=== PATIENT | male | born 1960 | race Caucasian/White ===

== ENCOUNTER 2017-03-27 10:03 | Inpatient (IN) | payer SELFPAY ==
[2017-03-27] MEDS ORDERED: ONDANSETRON HCL INJ/PF 4 MG/2 ML SDV IV ONE (10:27)
[2017-03-27 10:38] LABS: ABSOLUTE EOSINOPHILS # (AUTO) 0.1 10^3/uL (0.0-0.6); ABSOLUTE LYMPHOCYTES (AUTO) 1.8 10^3/uL (0.5-4.7); ABSOLUTE MONOCYTES (AUTO) 0.7 10^3/uL (0.1-1.4); ABSOLUTE NEUT (AUTO) 6.5 10^3/uL (1.7-8.2); BASOPHILS % (AUTO) 0.3 % (0-2); EOSINOPHILS % (AUTO) 0.7 % (0-6); HEMATOCRIT 30.1 % (37.9-51.0); HEMOGLOBIN 10.8 g/dL (13.5-17.0); HGB HCT DIFFERENCE 2.3; LYMPHOCYTES % (AUTO) 19.6 % (13-45); MEAN CORPUSCULAR VOLUME 97 fl (80-97); MONOCYTES % (AUTO) 8.1 % (3-13); RED CELL DISTRIBUTION WIDTH 17.3 % (11.5-14.0); SEGMENTED NEUTROPHILS % (AUTO) 71.3 % (42-78); WHITE BLOOD COUNT 9.1 10^3/uL (4.0-10.5)
[2017-03-27] MEDS: NORMAL SALINE 1000 ML 1,000 ML IV PRN ×2 (10:46→12:16)
--- NOTE | 2017-03-27 11:17 | ER Document Report ---
ED GI/ - General Mode of Arrival: Ambulatory Information source: Patient TRAVEL OUTSIDE OF THE [place] IN LAST 30 DAYS: No <RENÉ COLORADO - Last Filed: 03/27/17 13:05> <PORSCHE WOODS - Last Filed: 03/27/17 15:25> - General Chief Complaint: Nausea/Vomiting/Diarrhea Stated Complaint: NAUSEA/VOMITING Time Seen by Provider: 03/27/17 10:26 Notes: Patient is a 57-year-old male who presents to the emergency department today with complaints of "being not able to eat for the last month". Patient states he has frequent diarrhea and vomiting. Patient states "he does not work in the best conditions". 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 ( RENÉ COLORADO) - Related Data Allergies/Adverse Reactions: No Known Allergies Allergy (Unverified 04/27/13 10:34) Past Medical History - General Information source: Patient - Social History Smoking Status: Current Every Day Smoker Cigarette use (# per day): Yes Frequency of alcohol use: Heavy Drug Abuse: None Lives with: Family Family History: Reviewed & Not Pertinent, Other Patient has suicidal ideation: No Patient has homicidal ideation: No Pulmonary Medical History: Reports: Hx COPD Surgical Hx: Negative - Immunizations Hx Diphtheria, Pertussis, Tetanus Vaccination: No <RENÉ COLORADO - Last Filed: 03/27/17 13:05> Review of Systems - Review of Systems Constitutional: No symptoms reported EENT: No symptoms reported Cardiovascular: No symptoms reported Respiratory: No symptoms reported Gastrointestinal: See HPI, Diarrhea, Nausea, Vomiting Genitourinary: No symptoms reported Male Genitourinary: No symptoms reported Musculoskeletal: No symptoms reported Skin: No symptoms reported Hematologic/Lymphatic: No symptoms reported Neurological/Psychological: No symptoms reported -: Yes All other systems reviewed and negative <RENÉ COLORADO - Last Filed: 03/27/17 13:05> Physical Exam - Vital signs Interpretation: Hypotensive, Tachycardic <RENÉ COLORADO - Last Filed: 03/27/17 13:05> <PORSCHE WOODS - Last Filed: 03/27/17 15:25> - Vital signs Vitals: Temp Pulse Resp BP Pulse Ox 97.6 F 94 20 107/77 94 03/27/17 10:03 03/27/17 10:03 03/27/17 10:03 03/27/17 10:03 03/27/17 10:03 - Notes Notes: Physical Exam: General: Alert, chronically ill-appearing. HEENT: Normocephalic. Atraumatic. PERRL. Extraocular movements intact. Oropharynx clear. Dry mucous membranes. Neck: Supple. Non-tender. Respiratory: No respiratory distress. Decreased breath sounds on the right. Cardiovascular: Regular rate and rhythm. Abdominal: Normal Inspection. Non-tender. No distension. Normal Bowel Sounds. Back: Non-tender. No deformity or step off. Extremities: Moves all four extremities. Upper extremities: Normal inspection. Normal ROM. Lower extremities: Normal inspection. No edema. Normal ROM. Neurological: Normal cognition. AAOx4. Normal speech. Psychological: Normal affect. Normal Mood. Skin: Warm. Dry. Normal color. (RENÉ COLORADO) Course - Laboratory Result Diagrams: 03/27/17 10:20 03/27/17 10:20 <RENÉ COLORADO - Last Filed: 03/27/17 13:05> - Laboratory Result Diagrams: 03/27/17 10:20 03/27/17 10:20 - Diagnostic Test Radiology reviewed: Image reviewed, Reports reviewed <PORSCHE WOODS - Last Filed: 03/27/17 15:25> - Re-evaluation Re-evalutation: 03/27/17 15:18 Patient is a 57-year-old male who comes in for vomiting and diarrhea. Patient has had no further vomiting or diarrhea in the emergency department. Patient does not have any evidence for infection in stool. Patient does have some decreased breath sounds on the right side. Chest x-ray is concerning for tumor and postobstructive pneumonia. CT a was done. No pulmonary embolus. Patient does have a new right-sided chest mass with postobstructive pneumonia. Patient was informed of findings and concerns. Patient was discussed with the hospitalist service who will admit the patient to the hospital. Patient also with hyponatremia, hypokalemia that will need to be replaced. Patient was discussed with the oncologist, Dr. Mar who will see the patient while admitted. Likely will need biopsy. Stable at time of admission. (PORSCHE WOODS) - Vital Signs Vital signs: Temp Pulse Resp BP Pulse Ox 97.9 F 90 19 123/69 92 03/27/17 13:59 03/27/17 13:59 03/27/17 13:59 03/27/17 13:59 03/27/17 13:59 - Laboratory Laboratory results interpreted by me: 03/27/17 03/27/17 03/27/17 10:20 10:20 12:18 RBC 3.10 L Hgb 10.8 L Hct 30.1 L MCH 35.0 H RDW 17.3 H Sodium 122.2 L Potassium 3.0 L* Chloride 77 L Total Bilirubin 1.8 H Direct Bilirubin 1.2 H Alkaline Phosphatase 151 H Lipase 523.9 H Urine Blood SMALL H Urine Urobilinogen 2.0 H Critical Care Note - Critical Care Note Total time excluding time spent on procedures (mins): 45 - Evaluation and management of hypotension, diagnosis of lung mass, multiple re-evaluations, coordination of admission, coordination with specialist, counseling of patient <PORSCHE WOODS - Last Filed: 03/27/17 15:25> Discharge <RENÉ COLORADO - Last Filed: 03/27/17 13:05> - Discharge Admitting Provider: Hospitalist - [facility] Unit Admitted: [facility] <PORSCHE WOODS - Last Filed: 03/27/17 15:25> - Discharge Clinical Impression: Hyponatremia, Dehydration, Lung mass, Hypokalemia Pneumonia Qualifiers: Pneumonia type: due to unspecified organism Laterality: bilateral Lung location : lower lobe of lung Qualified Code(s): J18.9 - Pneumonia, unspecified organism Condition: Stable Disposition: ADMITTED INPATIENT Scribe Attestation: 03/27/17 15:24 I personally performed the services described in the documentation, reviewed and edited the documentation which was dictated to the scribe in my presence, and it accurately records my words and actions. (PORSCHE WOODS) Scribe Documentation - Scribe Written by Scribe:: Lacie Kim, 03/27/2017 1129 acting as scribe for :: Izabel <RENÉ COLORADO - Last Filed: 03/27/17 13:05>
--- NOTE | 2017-03-27 11:18 | RADIOLOGY REPORT (SQ) ---
EXAM DESCRIPTION: CHEST SINGLE VIEW COMPLETED DATE/TIME: 03/27/2017 11:06 am REASON FOR STUDY: cough COMPARISON: 05/18/2013 EXAM PARAMETERS: NUMBER OF VIEWS: One view. TECHNIQUE: Single frontal radiographic view of the chest acquired. RADIATION DOSE: NA LIMITATIONS: None. FINDINGS: LUNGS AND PLEURA: Fairly dense opacification in the right upper lobe. MEDIASTINUM AND HILAR STRUCTURES: Right hilar mass. Right hilum is elevated. HEART AND VASCULAR STRUCTURES: Heart normal in size. Normal vasculature. BONES: No acute findings. HARDWARE: None in the chest. OTHER: No other significant finding. IMPRESSION: Right upper lobe pneumonia, possibly postobstructive pneumonia secondary to a right merry r mass. TECHNICAL DOCUMENTATION: JOB ID: [id number] [employer]- All Rights Reserved
[2017-03-27 11:22] LABS: ALANINE AMINOTRANSFERASE 31 U/L (21-72); ALBUMIN 3.9 g/dL (3.5-5.0); ALKALINE PHOSPHATASE 151 U/L (38-126); ANION GAP 18 (5-19); ASPARTATE AMINO TRANSFERASE 50 U/L (17-59); BILIRUBIN,DIRECT 1.2 mg/dL (0.0-0.4); BILIRUBIN,TOTAL 1.8 mg/dL (0.2-1.3); BLOOD UREA NITROGEN 15 mg/dL (7-20); CALCIUM 8.4 mg/dL (8.4-10.2); CARBON DIOXIDE 27 mmol/L (22-30); CHLORIDE 77 mmol/L (98-107); CREATININE RESULT 0.84 mg/dL (0.52-1.25); GLUCOSE 86 mg/dL (75-110); LIPASE 523.9 U/L (23-300); SODIUM 122.2 mmol/L (137-145); TOTAL PROTEIN 7.4 g/dL (6.3-8.2)
[2017-03-27] MEDS ORDERED: RINGERS SOLUTION,LACTATED 1,000 ML IV ONE (11:53)
[2017-03-27] MEDS ORDERED: AZITHROMYCIN INJ 500 MG VIAL IV ONE (12:13)
[2017-03-27] MEDS ORDERED: NORMAL SALINE 1000 ML 1,000 ML IV PRN (12:43)
[2017-03-27] MEDS ORDERED: ALBUTEROL SULFATE 0.083% NEB 2.5 MG/3 ML AMPUL NEB PRN (12:43)
[2017-03-27 13:13] LABS: APPEARANCE,URINE CLEAR; BILIRUBIN,URINE NEGATIVE (NEGATIVE); GLUCOSE, URINE NEGATIVE (NEGATIVE); KETONES,URINE NEGATIVE (NEGATIVE); LEUKOCYTE ESTERASE,URINE NEGATIVE (NEGATIVE); NITRITE,URINE NEGATIVE (NEGATIVE); PROTEIN,URINE NEGATIVE (NEGATIVE); URINE SPECIFIC GRAVITY 1.006
[2017-03-27] MEDS ORDERED: CEFTRIAXONE 1 GM/D5W RTU 1 GM/50 ML RTUPB IV ONE (13:30)
[2017-03-27] MEDS ORDERED: ENOXAPARIN SODIUM INJ 40 MG/0.4 ML DISP.SYRIN SUBCUT ONE (14:00)
[2017-03-27] MEDS ORDERED: POTASSIUM CHLORIDE 10 MEQ TABLET.SA PO ONE ×2 (14:41→18:00)
--- NOTE | 2017-03-27 15:11 | RADIOLOGY REPORT (SQ) ---
EXAM DESCRIPTION: CTA CHEST COMPLETED DATE/TIME: 03/27/2017 2:36 pm REASON FOR STUDY: evaluate for PE and mass COMPARISON: None. TECHNIQUE: CT scan of the chest performed using helical scanning technique with dynamic intravenous contrast injection. Images reviewed with lung, soft tissue and bone windows. Reconstructed coronal and sagittal MPR images reviewed. Additional 3 dimensional post-processing performed to develop Maximal Intensity Projection images (NC P). All images stored on PACS. All CT scanners at this facility use dose modulation, iterative reconstruction, and/or weight based d osing when appropriate to reduce radiation dose to as low as reasonably achievable (ALARA). [facility]: Dose Right [facility]: CareDose [facility]: Dose Right [facility]: Teradose 4D [facility]: fishfishme CONTRAST TYPE AND DOSE: contrast/concentration: Isovue 370.00 mg/ml; Total Contrast Delivered: 79.0 ml; Total Saline Delivered: 100.0 ml Contrast bolus adequate for pulmonary arteries and aorta. RENAL FUNCTION: BUN 15 creatinine 0.8 RADIATION DOSE: Up-to-date CT equipment and radiation dose reduction techniques were employed. CTDIv ol: 9.9 - 23.8 mGy. DLP: 2704 mGy-cm. . LIMITATIONS: None. FINDINGS: LUNGS AND PLEURA: Paraseptal emphysema. Approximately 10.2 x 6.7 cm mass in the right upp er lobe. 1 cm satellite nodule more posteriorly in the right upper lobe. Segmental airspace disease in the right lower lobe. Subsegmental airspace disease in the left lower lobe. No effusions. AORTA AND GREAT VESSELS: No aneurysm. No dissection. HEART: No pericardial effusion. PULMONARY ARTERIES: No emboli visualized in the main pulmonary arteries or the segmental branches. HILAR AND MEDIASTINAL STRUCTURES: Small mediastinal nodes measuring less than 1 cm in short axis. HARDWARE: None in the chest. UPPER ABDOMEN: See separate report of the CT of the abdomen. THYROID AND OTHER SOFT TISSUES: No masses. No adenopathy. BONES: No acute or significant finding. 3D MIPS: Confirm above findings. OTHER: No other significant finding. IMPRESSION: 1. No PE. 2. Right upper lobe mass. Satellite nodule more posteriorly in the right upper lobe. 3. Lower lobe airspace disease may represent superimposed pneumonia or aspiration. Clinical correlat ion is needed. COMMENT: Quality ID # [id number]: Final reports with documentation of one or more dose reduction techniques (e.g., Automated exposure control, adjustment of the mA and/or kV according to patient size, use of iterative reconstruction technique) TECHNICAL DOCUMENTATION: JOB ID: [id number] [employer]- All Rights Reserved
--- NOTE | 2017-03-27 15:29 | PDOC H&P ---
History of Present Illness Admission Date/PCP: 03/27/17 12:35 Patient complains of: Nausea vomiting and diarrhea for several days History of Present Illness: ERICKA RAZO is a 57 year old male with no significant past medical history. He does not have a primary care physician. He last saw a physician "several years ago". He presented to the emergency room complaining of significant nausea vomiting and diarrhea and not being able to eat and keep anything down for the past month. He notes that he often have spells of coughing, nonproductive, which often ends up with him having vomiting. He admits to generalized weakness and lethargy. Admits to failure to thrive. He denies chest pain, shortness of breath, fever or chills, any focal neurologic deficits. However he admits to having multiple falls at home which he relates to "passing out frequently". He reports more than 10 of such episodes over the past 1 month. Of note the patient is not on any medication at home. In the emergency room the patient was noted to have a right upper lobe mass with what appears to be a postobstructive pneumonia additionally his sodium was low as well as potassium. A CT scan of the chest abdomen and pelvis has been ordered. Stool was negative for C. difficile. An MRI of the brain is pending. The patient has been started empirically on IV Zosyn and levofloxacin. He will be admitted for further workup Past Medical History Cardiac Medical History: Denies: Coronary Artery Disease, Myocardial Infarction, Hypertension Pulmonary Medical History: Reports: Chronic Obstructive Pulmonary Disease (COPD) Denies: Asthma, Bronchitis, Pneumonia Neurological Medical History: Denies: None, Hemorrhagic CVA, Ischemic CVA, Migraine, Multiple Sclerosis, Seizures, Other Endocrine Medical History: Denies: None, Diabetes Mellitus Type 1, Diabetes Mellitus Type 2, Gestational Diabetes, Hyperthyroidism, Hypothyroidism, Obesity, Other Renal/ Medical History: Denies: None, Chronic Kidney Disease, End Stage Renal Disease, Nephrolithiasis, Other Malignancy Medical History: Denies: None, Bone Cancer, Brain Cancer, Breast Cancer, Cervical Cancer, Colorectal Cancer, Leukemia, Liver Cancer, Lung Cancer, Lymphoma, Ovarian Cancer , Pancreatic Cancer, Renal (Kidney) Cancer, Skin Cancer, Other GI Medical History: Denies: None, Cirrhosis, Crohn's Disease, Diverticulitis, Gastroesophageal Reflux Disease, Hepatitis, Hiatal Hernia, Peptic Ulcer Disease, Ulcerative Colitis, Other Musculoskeltal Medical History: Denies: Arthritis Hematology: Denies: Anemia Past Surgical History Past Surgical History: Reports: Other - None Social History Information Source: Emergency Med Personnel 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 He does not have any other jobs. Or insurance Lives with: Family Smoking Status: Current Every Day Smoker Cigarettes Packs Per Day: 1.5 Number of Years Smokin Frequency of Alcohol Use: Social Hx Recreational Drug Use: No Drugs: None Past Social History Note: Lives with girlfrient. Is not and does not have children - Advance Directive Surrogate healthcare decision maker:: Patient does not have any advanced directives and has no designated POA Family History Family History: Reviewed & Not Pertinent, Other Family History: Parents alive Parental Family History Reviewed: Yes Children Family History Reviewed: No Sibling(s) Family History Reviewed.: NA Medication/Allergy Allergies/Adverse Reactions: No Known Allergies Allergy (Unverified 04/27/13 10:34) Review of Systems Constitutional: PRESENT: as per HPI, fatigue Respiratory: PRESENT: cough Gastrointestinal: PRESENT: as per HPI, diarrhea, nausea, vomiting Neurological: PRESENT: frequent falls, lack of coordination Physical Exam Vital Signs: Temp Pulse Resp BP Pulse Ox 97.6 F 81 20 109/66 94 03/27/17 10:03 03/27/17 10:38 03/27/17 10:03 03/27/17 10:38 03/27/17 10:03 General appearance: PRESENT: no acute distress, cooperative, disheveled, thin Head exam: PRESENT: atraumatic, normocephalic Eye exam: PRESENT: conjunctiva pink, EOMI, PERRLA Ear exam: PRESENT: normal external ear exam, TM's normal bilaterally Mouth exam: PRESENT: moist, neck supple, tongue midline Teeth exam: PRESENT: dental caries, poor dentation Throat exam: ABSENT: post pharyngeal erythema, tonsillar erythema, tonsillar exudate, tonsillogmegaly, other Neck exam: PRESENT: full ROM. ABSENT: carotid bruit, JVD, lymphadenopathy, meningismus, tenderness, thyromegaly, tracheal deviation, tracheostomy, other Respiratory exam: PRESENT: clear to auscultation rodrigue, decreased breath sounds, rhonchi, unlabored. ABSENT: accessory muscle use, chest wall tenderness, crackles, prolonged expiratory phas, rales, retraction, stridor, symmetrical, tachypnea, wheezes, other Cardiovascular exam: PRESENT: RRR, +S1, +S2 Pulses: PRESENT: normal carotid pulses, normal radial pulses Vascular exam: PRESENT: normal capillary refill GI/Abdominal exam: PRESENT: normal bowel sounds, soft. ABSENT: ascites, diminished bowel sounds, distended, firm, guarding, hernia, hyperactive bowel sounds, hypoactive bowel sounds, mass, Jennings's sign, organolmegaly, rebound, rigid, tenderness, other Rectal exam: PRESENT: deferred Extremities exam: PRESENT: full ROM. ABSENT: calf tenderness, clubbing, joint swelling, pedal edema, tenderness, +1 edema, +2 edema, other Musculoskeletal exam: PRESENT: ambulatory, full ROM Neurological exam: PRESENT: alert, awake, oriented to person, oriented to place , oriented to time, oriented to situation, reflexes normal, CN II-XII grossly intact, normal gait Psychiatric exam: PRESENT: anxious. ABSENT: agitated, appropriate affect, depressed, flat affect, homicidal ideation, manic, normal mood, suicidal ideation, unusual affect, other Skin exam: PRESENT: abrasion, skin tears Results Laboratory Results: 03/27/17 10:20 Sodium 122.2 L Potassium 3.0 L* Lipase 523.9 H 03/27/17 03/27/17 03/27/17 10:20 10:20 13:25 WBC 9.1 Hgb 10.8 L Plt Count 226 Sodium 122.2 L Potassium 3.0 L* Anion Gap 18 Creatinine 0.84 Lipase 523.9 H C. difficile Tox (PCR) NEGATIVE Impressions: Chest X-Ray 03/27/17 00:00 IMPRESSION: Right upper lobe pneumonia, possibly postobstructive pneumonia secondary to a right hilar mass. Assessment & Plan - Diagnosis (1) Pneumonia Qualifiers: Pneumonia type: due to unspecified organism Laterality: right Lung location: upper lobe of lung Qualified Code(s): J18.1 - Lobar pneumonia, unspecified organism Is this a current diagnosis for this admission?: Yes Plan: Likely post obstructive pneumonia from the lung mass. Started empirically on IV Zosyn and levofloxacin. Follow blood cultures. (2) Lung mass Plan: Right upper lobe mass 10.2 x 6.7 cm, most likely malignant given the heavy smoking history. Dr. Santiago, oncology, has been consulted by the emergency room physician. Plans for CT-guided biopsy noted (3) Hyponatremia Is this a current diagnosis for this admission?: Yes Plan: Hyponatremia, hypovolemic. Sodium is 122. Likely due to diarrhea and dehydration and/or SIADH from lung mass. Obtain urine studies. Start on NSS IVFs and follow labs (4) Hypokalemia Plan: Replete and recheck (5) Tobacco abuse Plan: Smoking cessation completed. Patient is not interested in quitting smoking at this time. We will start nicotine replacement therapy (6) Dehydration Is this a current diagnosis for this admission?: Yes Plan: Due to the diarrhea at home. Stool for C. difficile was negative. Continue IV fluid rehydration - Time Time Spent: Greater than 70 Minutes Smoking Cessation Education: over 10 minutes Medications reviewed and adjusted accordingly: Yes Anticipated discharge: Home - Inpatient Certification Medical Necessity: Need Close Monitoring Due to Risk of Patient Decompensation, Risk of Complication if Not Cared For in Hospital
--- NOTE | 2017-03-27 15:31 | RADIOLOGY REPORT (SQ) ---
EXAM DESCRIPTION: CT ABD/PELVIS WITH IV ORAL COMPLETED DATE/TIME: 03/27/2017 2:36 pm REASON FOR STUDY: vomiting, diarrhea x 1 month, h/o smoking COMPARISON: CT angio chest earlier today TECHNIQUE: CT scan of the abdomen and pelvis performed using helical scanning technique with dynamic intravenous contrast injection. Patient drank oral contrast. Images reviewed with lung, soft tissue , and bone windows. Reconstructed coronal and sagittal MPR images reviewed. Delayed images for evalua tion of the urinary system also acquired. All images stored on PACS. All CT scanners at this facility use dose modulation, iterative reconstruction, and/or weight based d osing when appropriate to reduce radiation dose to as low as reasonably achievable (ALARA). [facility]: Dose Right [facility]: CareDose [facility]: Dose Right [facility]: Teradose 4D [facility]: [email or web address] CONTRAST TYPE AND DOSE: 79 mL Isovue 370- low osmolar. RENAL FUNCTION: Creatinine 0.84 RADIATION DOSE: 32 mGy. LIMITATIONS: None. FINDINGS: LOWER CHEST: There is patchy airspace disease in the right and left posterior costophrenic sulci. No pleural effusions. LIVER: Markedly decreased attenuation of the liver from diffuse fatty infiltration. No focal masses. No hepatomegaly. SPLEEN: Normal size. No focal lesions. PANCREAS: No masses. No significant calcifications. No adjacent inflammation or peripancreatic fluid collections. Pancreatic duct not dilated. GALLBLADDER: Multiple tiny stones in the gallbladder ADRENAL GLANDS: No significant masses or asymmetry. RIGHT KIDNEY AND URETER: No solid masses. No significant calcifications. No hydronephrosis or hyd roureter. LEFT KIDNEY AND URETER: No solid masses. No significant calcifications. No hydronephrosis or hydr oureter. AORTA AND VESSELS: No aneurysm. No dissection. Renal arteries, SMA, celiac without stenosis. RETROPERITONEUM: No retroperitoneal adenopathy, hemorrhage or masses. BOWEL AND PERITONEAL CAVITY: Patient drank oral contrast. No evidence of bowel obstruction or free i ntraperitoneal air or free fluid. There is diffuse colon wall thickening and increased intramural fa t along the colon wall, with loss of discrete haustral markings along the transverse and descending c olon. This group of findings can be seen in chronic inflammatory bowel disease. APPENDIX: Normal. PELVIS: No mass. No free fluid. Normal bladder. ABDOMINAL WALL: No masses. No hernias. BONES: No significant or acute findings. OTHER: No other significant finding. IMPRESSION: Profound fatty liver Probable chronic colitis, ulcerative colitis is should be considered. No CT evidence of metastatic disease to the abdomen or pelvis. TECHNICAL DOCUMENTATION: JOB ID: [id number] Quality ID # [id number]: Final reports with documentation of one or more dose reduction techniques (e.g., Au tomated exposure control, adjustment of the mA and/or kV according to patient size, use of iterative reconstruction technique) 2010 [employer]- All Rights Reserved
[2017-03-27 16:03] LABS: ANION GAP 17 (5-19); BLOOD UREA NITROGEN 12 mg/dL (7-20); CALCIUM 7.9 mg/dL (8.4-10.2); CARBON DIOXIDE 25 mmol/L (22-30); CHLORIDE 83 mmol/L (98-107); GLUCOSE 86 mg/dL (75-110); SODIUM 124.8 mmol/L (137-145)
[2017-03-27 16:07] LABS: POTASSIUM 2.5 mmol/L (3.6-5.0)
[2017-03-27] MEDS: PIPERACILLIN SODIUM/TAZOBACTAM 4.5 GM in NORMAL SALINE 100 ML IV SCH ×2 (16:13→20:19)
[2017-03-27] MEDS: LANSOPRAZOLE 15 MG TAB.RAP.DR PO SCH (16:22)
[2017-03-27] MEDS: IPRATROPIUM/ALBUTEROL 0.5-2.5 MG/3 ML AMPUL NEB SCH ×2 (16:34→20:08)
[2017-03-27] MEDS ORDERED: INFLUENZA ADLT QUAD (36MOS+) 2017-18 VAC 0.5 ML SYR IM PRN (17:12)
[2017-03-27] MEDS ORDERED: NORMAL SALINE 1000 ML 1,000 ML IV ONE (17:30)
--- NOTE | 2017-03-27 17:57 | PDOC CONSULTATION ---
Consultation Consult Date: 03/27/17 Attending physician:: YURI BEASLEY Consult reason:: Lung Mass History of Present Illness Admission Date/PCP: 03/27/17 12:35 History of Present Illness: Mr. Medina is a 57 year old gentleman without a routine physician. He states that a few months ago, he began having cough and hiccups. They progressed and were accompanied by vomiting and inability to eat. He states that he has not been able to eat for the past few months, but he has not lost any weight. He also reports severe left shoulder pain and "bad feet" such that he can barely feel them anymore. He states that he has always had back pain and this has not recently changed. He presented to the ED complaining of nausea and diarrhea. He was found to have a large mass in the lung with post-obstructive pneumonia as well as hyponatremia and hypokalemia. He is currently being treated with IV antibiotics. Past Medical History Cardiac Medical History: Denies: Coronary Artery Disease, Myocardial Infarction, Hypertension Pulmonary Medical History: Reports: Chronic Obstructive Pulmonary Disease (COPD) Denies: Asthma, Bronchitis, Pneumonia Neurological Medical History: Denies: None, Hemorrhagic CVA, Ischemic CVA, Migraine, Multiple Sclerosis, Seizures, Other Endocrine Medical History: Denies: None, Diabetes Mellitus Type 1, Diabetes Mellitus Type 2, Gestational Diabetes, Hyperthyroidism, Hypothyroidism, Obesity, Other Renal/ Medical History: Denies: None, Chronic Kidney Disease, End Stage Renal Disease, Nephrolithiasis, Other Malignancy Medical History: Denies: None, Bone Cancer, Brain Cancer, Breast Cancer, Cervical Cancer, Colorectal Cancer, Leukemia, Liver Cancer, Lung Cancer, Lymphoma, Ovarian Cancer , Pancreatic Cancer, Renal (Kidney) Cancer, Skin Cancer, Other GI Medical History: Denies: None, Cirrhosis, Crohn's Disease, Diverticulitis, Gastroesophageal Reflux Disease, Hepatitis, Hiatal Hernia, Peptic Ulcer Disease, Ulcerative Colitis, Other Musculoskeltal Medical History: Denies: Arthritis Hematology: Denies: Anemia Past Surgical History Past Surgical History: Reports: Other - Inguinal hernia Social History Information Source: Patient Occupation: Unemployed Lives with: Spouse/Significant other - Girlfriend of 13 years. Smoking Status: Current Every Day Smoker Cigarettes Packs Per Day: 1.5 Number of Years Smokin Frequency of Alcohol Use: Social Hx Recreational Drug Use: No Drugs: None Hx Prescription Drug Abuse: No Past Social History Note: No children. Family History Family History: Other - Father still living. He had an unknown type of cancer - perhaps a skin cancer. His mother is also living. His older brother , but unsure of cause. He has no children. Parental Family History Reviewed: Yes Children Family History Reviewed: Yes Sibling(s) Family History Reviewed.: Yes Medication/Allergy Home Medications: No Home Medications 03/27/17 Allergies/Adverse Reactions: No Known Allergies Allergy (Unverified 04/27/13 10:34) Review of Systems Constitutional: PRESENT: fatigue, weakness. ABSENT: weight loss Eyes: ABSENT: visual disturbances Ears: ABSENT: hearing changes Nose, Mouth, and Throat: ABSENT: sore throat Cardiovascular: ABSENT: chest pain Respiratory: PRESENT: cough, dyspnea Gastrointestinal: PRESENT: diarrhea, nausea, vomiting Musculoskeletal: PRESENT: back pain Integumentary: ABSENT: rash Neurological: PRESENT: numbness, syncope, weakness Physical Exam Vital Signs: Temp Pulse Resp BP Pulse Ox 97.9 F 93 18 123/69 100 03/27/17 13:59 03/27/17 16:34 03/27/17 16:34 03/27/17 13:59 03/27/17 16:34 Intake & Output 03/26/17 03/27/17 03/28/17 06:59 06:59 06:59 Weight 77.111 kg General appearance: PRESENT: no acute distress, well-nourished Exam: 57 year old male. Head exam: PRESENT: atraumatic, normocephalic Eye exam: PRESENT: PERRLA Mouth exam: PRESENT: moist, tongue midline Neck exam: ABSENT: lymphadenopathy, tenderness, thyromegaly Respiratory exam: PRESENT: decreased breath sounds - Left base.. ABSENT: wheezes Cardiovascular exam: PRESENT: RRR. ABSENT: gallop, rubs Pulses: PRESENT: +1 pedal pulses bilateral GI/Abdominal exam: PRESENT: soft. ABSENT: organolmegaly, tenderness Extremities exam: ABSENT: pedal edema, tenderness Neurological exam: PRESENT: alert, reflexes normal Psychiatric exam: PRESENT: appropriate affect Results Laboratory Results: 03/27/17 15:32 03/27/17 03/27/17 03/27/17 13:25 13:25 15:32 Sodium 124.8 L Potassium 2.5 L* Chloride 83 L Carbon Dioxide 25 Anion Gap 17 BUN 12 Creatinine 0.70 Est GFR ( Amer) > 60 Est GFR (Non-Af Amer) > 60 Glucose 86 Lactic Acid Calcium 7.9 L Stool Occult Blood NEGATIVE Stool for White Cells NO WBCs SEEN 03/27/17 15:32 Sodium Potassium Chloride Carbon Dioxide Anion Gap BUN Creatinine Est GFR ( Amer) Est GFR (Non-Af Amer) Glucose Lactic Acid 2.1 Calcium Stool Occult Blood Stool for White Cells Impressions: Abdomen/Pelvis CT 03/27/17 00:00 IMPRESSION: Profound fatty liver Probable chronic colitis, ulcerative colitis is should be considered. No CT evidence of metastatic disease to the abdomen or pelvis. Chest X-Ray 03/27/17 00:00 IMPRESSION: Right upper lobe pneumonia, possibly postobstructive pneumonia secondary to a right hilar mass. Chest/Abdomen CTA 03/27/17 12:03 IMPRESSION: 1. No PE. 2. Right upper lobe mass. Satellite nodule more posteriorly in the right upper lobe. 3. Lower lobe airspace disease may represent superimposed pneumonia or aspiration. Clinical correlation is needed. Assessment & Plan - Diagnosis (1) Lung mass Plan: I have explained to the patient that we are unsure what the lung mass is. He understands and agrees with need for biopsy of the lesion. Iwill arrange, if possible. (2) Anemia Qualifiers: Anemia type: unspecified type Qualified Code(s): D64.9 - Anemia, unspecified Is this a current diagnosis for this admission?: Yes Plan: Currently mild, normocytic. Consider further work-up as to cause as outpatient. No indication for transfusion currently.
[2017-03-27] MEDS: LEVOFLOXACIN 750 MG/D5W RTU 750 MG/150 ML RTUPB IV SCH (18:41)
--- NOTE | 2017-03-27 20:06 | RADIOLOGY REPORT (SQ) ---
EXAM DESCRIPTION: MRI HEAD COMBO COMPLETED DATE/TIME: 03/27/2017 7:49 pm REASON FOR STUDY: recurrent falls, lung mass r/o brain mets COMPARISON: None. TECHNIQUE: Multiplanar imaging includes noncontrasted T1, T2, FLAIR, and Diffusion with ADC map seq uences. Contrast enhanced T1 images. Images stored on PACS. CONTRAST TYPE AND DOSE: 15 mL MultiHance RENAL FUNCTION: GFR > 60. LIMITATIONS: None. FINDINGS: ANATOMY: No anomalies. Normal vascular flow voids. Pituitary fossa normal. CSF SPACES: Normal size and contour. No hemorrhage. CEREBRUM: A few high-signal intensity lesions scattered throughout the white matter on FLAIR imaging with distribution suggesting chronic microvascular ischemic change. Sulci and gyri normal in size and contour. No evidence of hemorrhage, mass or extraaxial fluid collection. No enhancing lesions. POSTERIOR FOSSA: No signal alteration. No hemorrhage. No edema, masses or mass effect. Internal audit ory canals, cerebello-pontine angles, mastoids normal. DIFFUSION: Negative for acute or subacute infarction. ORBITS: No masses. Globes normal. PARANASAL SINUSES: Mucosal thickening is identified in both maxillary antra. OTHER: No other significant finding. IMPRESSION: NO ENHANCING LESIONS. MINIMAL MICROVASCULAR ISCHEMIC CHANGE. OTHERWISE NORMAL STUDY. EVIDENCE OF ACUTE STROKE: NO. TECHNICAL DOCUMENTATION: JOB ID: [id number] [employer]- All Rights Reserved
[2017-03-27] MEDS: GUAIFENESIN 600 MG TABLET.SA PO SCH (21:14)
[2017-03-28] MEDS: PIPERACILLIN SODIUM/TAZOBACTAM 4.5 GM in NORMAL SALINE 100 ML IV SCH ×4 (02:32→22:02)
[2017-03-28] MEDS: NORMAL SALINE 1000 ML 1,000 ML IV PRN (02:33)
[2017-03-28 04:58] LABS: ABSOLUTE LYMPHOCYTES (AUTO) 0.9 10^3/uL (0.5-4.7); ABSOLUTE MONOCYTES (AUTO) 0.7 10^3/uL (0.1-1.4); ABSOLUTE NEUT (AUTO) 7.8 10^3/uL (1.7-8.2); EOSINOPHILS % (AUTO) 0.4 % (0-6); HEMATOCRIT 29.8 % (37.9-51.0); HEMOGLOBIN 10.4 g/dL (13.5-17.0); HGB HCT DIFFERENCE 1.4; LYMPHOCYTES % (AUTO) 9.9 % (13-45); MEAN CORPUSCULAR HEMOGLOBIN 34.5 pg (27.0-33.4); MEAN CORPUSCULAR VOLUME 99 fl (80-97); MONOCYTES % (AUTO) 6.9 % (3-13); RED BLOOD COUNT 3.02 10^6/uL (4.35-5.55); RED CELL DISTRIBUTION WIDTH 17.2 % (11.5-14.0); SEGMENTED NEUTROPHILS % (AUTO) 82.8 % (42-78); WHITE BLOOD COUNT 9.5 10^3/uL (4.0-10.5)
[2017-03-28] MEDS: LANSOPRAZOLE 15 MG TAB.RAP.DR PO SCH ×2 (05:09→16:55)
[2017-03-28 05:11] LABS: ALANINE AMINOTRANSFERASE 32 U/L (21-72); ALBUMIN 3.1 g/dL (3.5-5.0); ALKALINE PHOSPHATASE 121 U/L (38-126); ANION GAP 15 (5-19); ASPARTATE AMINO TRANSFERASE 46 U/L (17-59); BILIRUBIN,DIRECT 1.3 mg/dL (0.0-0.4); BILIRUBIN,TOTAL 1.8 mg/dL (0.2-1.3); BLOOD UREA NITROGEN 8 mg/dL (7-20); CARBON DIOXIDE 24 mmol/L (22-30); CHLORIDE 93 mmol/L (98-107); CREATININE RESULT 0.76 mg/dL (0.52-1.25); GLUCOSE 93 mg/dL (75-110); POTASSIUM 3.4 mmol/L (3.6-5.0); SODIUM 131.6 mmol/L (137-145); TOTAL PROTEIN 6.4 g/dL (6.3-8.2)
[2017-03-28 05:43] LABS: PROTHROMBIN TIME 14.9 SEC (11.4-15.4)
[2017-03-28] MEDS ORDERED: POTASSIUM CHLORIDE 10 MEQ TABLET.SA PO ONE (08:00)
[2017-03-28] MEDS: IPRATROPIUM/ALBUTEROL 0.5-2.5 MG/3 ML AMPUL NEB SCH ×4 (08:23→19:54)
[2017-03-28] MEDS: ENOXAPARIN SODIUM INJ 40 MG/0.4 ML DISP.SYRIN SUBCUT SCH ×2 (08:39→13:07)
[2017-03-28] MEDS: NICOTINE 21 MG/24 HR PATCH.TD24 TD SCH (10:06)
[2017-03-28] MEDS: GUAIFENESIN 600 MG TABLET.SA PO SCH ×2 (10:07→21:45)
--- NOTE | 2017-03-28 10:13 | PDOC PROGRESS REPORT ---
Subjective Progress Note for:: 03/28/17 Subjective:: Day 1 of hospitalization: Follow-up visit for a patient with post obstructive pneumonia, right upper lung mass, nausea vomiting and diarrhea. The patient is a 57-year-old male with no significant past medical history who has not seen a physician for several years. He presented to the emergency room with significant nausea and vomiting as well as diarrhea, and was found to have a right upper lobe lung mass with an associated post obstructive pneumonia. Chest CT scan revealed a right upper lung mass with an associated lymphadenopathy, brain MRI did not show any acute abnormality. The patient was started on empiric IV Zosyn and levofloxacin. He was seen by oncology, and a CT guided lung biopsy has been scheduled for today. Overnight events noted. Patient remains afebrile and states she is feeling much better this morning. He denies any further nausea vomiting or diarrhea. Denies any chest pain or shortness of breath. Physical Exam Vital Signs: Temp Pulse Resp BP Pulse Ox 98.3 F 100 19 133/78 H 96 03/28/17 03:50 03/28/17 03:50 03/28/17 03:50 03/28/17 03:50 03/28/17 03:50 Intake & Output 03/26/17 03/27/17 03/28/17 06:59 06:59 06:59 Intake Total 3332 Balance 3332 Weight 80.2 kg General appearance: PRESENT: no acute distress, cooperative, disheveled, thin Head exam: PRESENT: atraumatic, normocephalic Respiratory exam: PRESENT: decreased breath sounds, symmetrical, unlabored. ABSENT: accessory muscle use, chest wall tenderness, clear to auscultation rodrigue, crackles, prolonged expiratory phas, rales, retraction, rhonchi, stridor, tachypnea, wheezes, other Cardiovascular exam: PRESENT: RRR, +S1, +S2, systolic murmur. ABSENT: bradycardia, clicks, diastolic murmur, gallop, irregular rhythm, rubs, tachycardia, other Pulses: PRESENT: normal carotid pulses, normal radial pulses GI/Abdominal exam: PRESENT: normal bowel sounds, soft. ABSENT: ascites, diminished bowel sounds, distended, firm, guarding, hernia, hyperactive bowel sounds, hypoactive bowel sounds, mass, Jennings's sign, organolmegaly, rebound, rigid, tenderness, other Neurological exam: PRESENT: alert, awake, oriented to person, oriented to place , oriented to time, oriented to situation Results Laboratory Results: 03/28/17 04:29 03/28/17 04:29 03/27/17 03/27/17 03/27/17 13:25 13:25 15:32 WBC RBC Hgb Hct MCV MCH MCHC RDW Plt Count Seg Neutrophils % Lymphocytes % Monocytes % Eosinophils % Basophils % Absolute Neutrophils Absolute Lymphocytes Absolute Monocytes Absolute Eosinophils Absolute Basophils Sodium 124.8 L Potassium 2.5 L* Chloride 83 L Carbon Dioxide 25 Anion Gap 17 BUN 12 Creatinine 0.70 Est GFR ( Amer) > 60 Est GFR (Non-Af Amer) > 60 Glucose 86 Lactic Acid Calcium 7.9 L Total Bilirubin AST ALT Alkaline Phosphatase Total Protein Albumin Stool Occult Blood NEGATIVE Stool for White Cells NO WBCs SEEN 03/27/17 03/27/17 03/27/17 15:32 20:15 20:15 WBC RBC Hgb Hct MCV MCH MCHC RDW Plt Count Seg Neutrophils % Lymphocytes % Monocytes % Eosinophils % Basophils % Absolute Neutrophils Absolute Lymphocytes Absolute Monocytes Absolute Eosinophils Absolute Basophils Sodium Potassium Chloride Carbon Dioxide Anion Gap BUN Creatinine Est GFR ( Amer) Est GFR (Non-Af Amer) Glucose Lactic Acid 2.1 Cancelled 1.4 Calcium Total Bilirubin AST ALT Alkaline Phosphatase Total Protein Albumin Stool Occult Blood Stool for White Cells 03/28/17 03/28/17 04:29 04:29 WBC 9.5 RBC 3.02 L Hgb 10.4 L Hct 29.8 L MCV 99 H MCH 34.5 H MCHC 35.0 RDW 17.2 H Plt Count 187 Seg Neutrophils % 82.8 H Lymphocytes % 9.9 L Monocytes % 6.9 Eosinophils % 0.4 Basophils % 0.0 Absolute Neutrophils 7.8 Absolute Lymphocytes 0.9 Absolute Monocytes 0.7 Absolute Eosinophils 0.0 Absolute Basophils 0.0 Sodium 131.6 L Potassium 3.4 L Chloride 93 L Carbon Dioxide 24 Anion Gap 15 BUN 8 Creatinine 0.76 Est GFR ( Amer) > 60 Est GFR (Non-Af Amer) > 60 Glucose 93 Lactic Acid Calcium 8.0 L Total Bilirubin 1.8 H AST 46 ALT 32 Alkaline Phosphatase 121 Total Protein 6.4 Albumin 3.1 L Stool Occult Blood Stool for White Cells 03/27/17 20:15 Troponin I < 0.012 Impressions: Abdomen/Pelvis CT 03/27/17 00:00 IMPRESSION: Profound fatty liver Probable chronic colitis, ulcerative colitis is should be considered. No CT evidence of metastatic disease to the abdomen or pelvis. Chest X-Ray 03/27/17 00:00 IMPRESSION: Right upper lobe pneumonia, possibly postobstructive pneumonia secondary to a right hilar mass. Head MRI 03/27/17 00:00 IMPRESSION: NO ENHANCING LESIONS. MINIMAL MICROVASCULAR ISCHEMIC CHANGE. OTHERWISE NORMAL STUDY. EVIDENCE OF ACUTE STROKE: NO. Chest/Abdomen CTA 03/27/17 12:03 IMPRESSION: 1. No PE. 2. Right upper lobe mass. Satellite nodule more posteriorly in the right upper lobe. 3. Lower lobe airspace disease may represent superimposed pneumonia or aspiration. Clinical correlation is needed. Assessment & Plan - Diagnosis (1) Pneumonia Qualifiers: Pneumonia type: due to unspecified organism Laterality: right Lung location: upper lobe of lung Qualified Code(s): J18.1 - Lobar pneumonia, unspecified organism Is this a current diagnosis for this admission?: Yes Plan: Likely post obstructive pneumonia from the lung mass. Chest CT with Lower lobe airspace disease may represent superimposed pneumonia or aspiration. Remains afebrile with no leukocytosis. Continue empirically on IV Zosyn and levofloxacin. Follow blood cultures. (2) Lung mass Plan: Right upper lobe mass 10.2 x 6.7 cm, most likely malignant given the heavy smoking history. Satellite nodule more posteriorly in the right upper lobe. Dr. Santiago, oncology, has been consulted by the emergency room physician. Plans for CT-guided biopsy noted (3) Hyponatremia Is this a current diagnosis for this admission?: Yes Plan: Hyponatremia, hypovolemic. Likely due to diarrhea and dehydration and/or SIADH from lung mass. Improving with NSS IVFs. Sodium is 132 (122). Continue on NSS IVFs and follow labs (4) Hypokalemia Plan: Replete and recheck (5) Tobacco abuse Plan: Smoking cessation completed. Patient is not interested in quitting smoking at this time. We will start nicotine replacement therapy (6) Dehydration Is this a current diagnosis for this admission?: Yes Plan: Due to the diarrhea at home. Stool for C. difficile was negative. Continue IV fluid rehydration - Time Time Spent with patient: 25-34 minutes Smoking Cessation Education: 3 to 10 minutes Medications reviewed and adjusted accordingly: Yes Anticipated discharge: Home with Homehealth Within: within 48 hours - Inpatient Certification Medical Necessity: Need for IV Antibiotics, Risk of Complication if Not Cared For in Hospital, Risk of Diagnosis Which Will Require Inpatient Eval/Care/ Monitoring - Plan Summary Plan Summary: Patient is still requiring inpatient workup at this time as well as IV antibiotics
--- NOTE | 2017-03-28 12:04 | PDOC PROGRESS REPORT ---
Subjective Progress Note for:: 03/28/17 Subjective:: Patient complains of back pain and vision changes. He is awaiting biopsy of the lung. Physical Exam Vital Signs: Temp Pulse Resp BP Pulse Ox 97.9 F 103 H 18 139/69 H 89 L 03/28/17 07:23 03/28/17 08:25 03/28/17 08:25 03/28/17 07:23 03/28/17 08:25 Intake & Output 03/27/17 03/28/17 03/29/17 06:59 06:59 06:59 Intake Total 3554 Balance 3554 Weight 81.7 kg General appearance: PRESENT: no acute distress, well-nourished Respiratory exam: PRESENT: unlabored. ABSENT: accessory muscle use Extremities exam: ABSENT: pedal edema Neurological exam: PRESENT: alert, awake, oriented to person, oriented to place , oriented to time, oriented to situation, normal gait Results Laboratory Results: 03/28/17 04:29 03/28/17 04:29 03/27/17 03/27/17 03/27/17 13:25 13:25 15:32 WBC RBC Hgb Hct MCV MCH MCHC RDW Plt Count Seg Neutrophils % Lymphocytes % Monocytes % Eosinophils % Basophils % Absolute Neutrophils Absolute Lymphocytes Absolute Monocytes Absolute Eosinophils Absolute Basophils Sodium 124.8 L Potassium 2.5 L* Chloride 83 L Carbon Dioxide 25 Anion Gap 17 BUN 12 Creatinine 0.70 Est GFR ( Amer) > 60 Est GFR (Non-Af Amer) > 60 Glucose 86 Lactic Acid Calcium 7.9 L Total Bilirubin AST ALT Alkaline Phosphatase Total Protein Albumin Stool Occult Blood NEGATIVE Stool for White Cells NO WBCs SEEN 03/27/17 03/27/17 03/27/17 15:32 20:15 20:15 WBC RBC Hgb Hct MCV MCH MCHC RDW Plt Count Seg Neutrophils % Lymphocytes % Monocytes % Eosinophils % Basophils % Absolute Neutrophils Absolute Lymphocytes Absolute Monocytes Absolute Eosinophils Absolute Basophils Sodium Potassium Chloride Carbon Dioxide Anion Gap BUN Creatinine Est GFR ( Amer) Est GFR (Non-Af Amer) Glucose Lactic Acid 2.1 Cancelled 1.4 Calcium Total Bilirubin AST ALT Alkaline Phosphatase Total Protein Albumin Stool Occult Blood Stool for White Cells 03/28/17 03/28/17 04:29 04:29 WBC 9.5 RBC 3.02 L Hgb 10.4 L Hct 29.8 L MCV 99 H MCH 34.5 H MCHC 35.0 RDW 17.2 H Plt Count 187 Seg Neutrophils % 82.8 H Lymphocytes % 9.9 L Monocytes % 6.9 Eosinophils % 0.4 Basophils % 0.0 Absolute Neutrophils 7.8 Absolute Lymphocytes 0.9 Absolute Monocytes 0.7 Absolute Eosinophils 0.0 Absolute Basophils 0.0 Sodium 131.6 L Potassium 3.4 L Chloride 93 L Carbon Dioxide 24 Anion Gap 15 BUN 8 Creatinine 0.76 Est GFR ( Amer) > 60 Est GFR (Non-Af Amer) > 60 Glucose 93 Lactic Acid Calcium 8.0 L Total Bilirubin 1.8 H AST 46 ALT 32 Alkaline Phosphatase 121 Total Protein 6.4 Albumin 3.1 L Stool Occult Blood Stool for White Cells 03/27/17 20:15 Troponin I < 0.012 Impressions: Abdomen/Pelvis CT 03/27/17 00:00 IMPRESSION: Profound fatty liver Probable chronic colitis, ulcerative colitis is should be considered. No CT evidence of metastatic disease to the abdomen or pelvis. Chest X-Ray 03/27/17 00:00 IMPRESSION: Right upper lobe pneumonia, possibly postobstructive pneumonia secondary to a right hilar mass. Head MRI 03/27/17 00:00 IMPRESSION: NO ENHANCING LESIONS. MINIMAL MICROVASCULAR ISCHEMIC CHANGE. OTHERWISE NORMAL STUDY. EVIDENCE OF ACUTE STROKE: NO. Chest/Abdomen CTA 03/27/17 12:03 IMPRESSION: 1. No PE. 2. Right upper lobe mass. Satellite nodule more posteriorly in the right upper lobe. 3. Lower lobe airspace disease may represent superimposed pneumonia or aspiration. Clinical correlation is needed. Assessment & Plan - Diagnosis (1) Lung mass Plan: After discussion with Dr. Cabrera and Dr. Ragland, it is felt that bronchoscopy would be better means of obtaining biopsy. I have consulted Dr. Ragland for this. (2) Anemia Qualifiers: Anemia type: unspecified type Qualified Code(s): D64.9 - Anemia, unspecified Is this a current diagnosis for this admission?: Yes Plan: Currently stable. Will continue to monitor. - Plan Summary Plan Summary: We discussed his vision. I have explained that there is not much we are able to do currently, but often vision changes improve once medications have been stopped. I have encouraged him to stay out of the bed and walk in the hallway a few times. He continues Lovenox for DVT prophylaxis.
--- NOTE | 2017-03-28 17:27 | PDOC CONSULTATION ---
Consultation Consult Date: 03/28/17 Attending physician:: SIDDHARTH VOGT Consult reason:: Obstructive pneumonia/lung mass History of Present Illness Admission Date/PCP: 03/27/17 12:35 History of Present Illness: 57-year-old male presented to the emergency room after a month of progressive weakness to the point where he can barely eat a cough is dry nonproductive he denies hemoptysis but admits to some nausea without vomiting no fevers chills chronic rhinorrhea's no sore throat no chest pain no edema he admits to dyspnea on exertion with activities of daily living but denies shortness of breath at rest the time of his presentation are radiographs indicated that he had a postobstructive pneumonitis in the right upper lobe. He denies any history of chronic lung disease as a child or adolescent. He denies hemoptysis and his PPD status is unknown. He admits to exposure to passive smoke in large amounts as a child as well as an adult. He is self has smoked one half packs a day for approximately 43 years. 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 He has 1 cat no recent travel he denies angina-like chest pain sleeps on one pillow rare PND rare nocturnal cough no edema. He admits to snoring restless sleep nocturia 3-4 times per night unrestful sleep and daytime somnolence. Past Medical History Cardiac Medical History: Denies: Coronary Artery Disease, Myocardial Infarction, Hypertension Pulmonary Medical History: Reports: Chronic Obstructive Pulmonary Disease (COPD) Denies: Asthma, Bronchitis, Pneumonia EENT Medical History: Denies: None, Cataracts, Eyes, Ears, Nose, Throat, Other Neurological Medical History: Reports: Other - Several near-syncopal episodes Denies: None, Hemorrhagic CVA, Ischemic CVA, Migraine, Multiple Sclerosis, Seizures Endocrine Medical History: Denies: None, Diabetes Mellitus Type 1, Diabetes Mellitus Type 2, Gestational Diabetes, Hyperthyroidism, Hypothyroidism, Obesity, Other Renal/ Medical History: Denies: None, Chronic Kidney Disease, End Stage Renal Disease, Nephrolithiasis, Other Malignancy Medical History: Denies: None, Bone Cancer, Brain Cancer, Breast Cancer, Cervical Cancer, Colorectal Cancer, Leukemia, Liver Cancer, Lung Cancer, Lymphoma, Ovarian Cancer , Pancreatic Cancer, Renal (Kidney) Cancer, Skin Cancer, Other GI Medical History: Denies: None, Cirrhosis, Crohn's Disease, Diverticulitis, Gastroesophageal Reflux Disease, Hepatitis, Hiatal Hernia, Peptic Ulcer Disease, Ulcerative Colitis, Other Musculoskeltal Medical History: Denies: Arthritis Skin Medical History: Reports: Other - Mold on the lower back Psychiatric Medical History: Reports: Tobacco Dependency Denies: Bipolar Disorder, Dementia, Depression, Post Traumatic Stress Disorder, Schizoaffective Disorder Traumatic Medical History: Reports: Traumatic Brain Injury - Depressed skull fracture requiring surgical intervention at 19 yo Denies: None, Gunshot Wound, Pneumothorax, Stab Wound, Other Hematology: Denies: Anemia, Hemophilia, Bleeding Tendencies Past Surgical History Past Surgical History: Reports: Other - Inguinal hernia Social History Information Source: Patient, [facility] Records 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 Smoking Status: Current Every Day Smoker Cigarettes Packs Per Day: 1.5 Number of Years Smokin Passive smoke exposure as: Both Frequency of Alcohol Use: Social Hx Recreational Drug Use: No Drugs: None Hx Prescription Drug Abuse: No Do you have pets?: Yes Have you had any respiratory illnesses as a child?: No Have you been exposed to any sick contacts recently?: No Have you had any recent respiratory illnesses?: No Have you travelled outside of [place] in the past 12 months?: No Family History Family History: CAD, COPD, Hypertension, Malignancy, Other - Father still living. He had an unknown type of cancer - perhaps a skin cancer. His mother is also living. His older brother , but unsure of cause. He has no children. Parental Family History Reviewed: Yes Children Family History Reviewed: Yes Sibling(s) Family History Reviewed.: Yes Medication/Allergy Home Medications: No Home Medications 03/27/17 Allergies/Adverse Reactions: No Known Allergies Allergy (Unverified 04/27/13 10:34) Review of Systems Constitutional: PRESENT: anorexia, fatigue, weakness. ABSENT: chills, fever(s) , headache(s), night sweats Eyes: PRESENT: visual disturbances Ears: ABSENT: hearing changes Nose, Mouth, and Throat: PRESENT: headache(s), vertigo Cardiovascular: PRESENT: chest pain, dyspnea on exertion, orthropnea Respiratory: PRESENT: cough, dyspnea, sputum Gastrointestinal: PRESENT: dysphagia, melena, nausea, vomiting. ABSENT: bloating, coffee ground emesis, constipation, diarrhea, heartburn, hematemesis, hematochezia Genitourinary: PRESENT: nocturia. ABSENT: difficulty urinating, dysuria, hematuria Musculoskeletal: PRESENT: deformity Neurological: PRESENT: dizziness, numbness, paresthesias, syncope, weakness. ABSENT: abnormal gait, abnormal movements, abnormal speech, confusion, convulsions, focal weakness, frequent falls, lack of coordination, memory loss, restless legs, tingling, tremor(s) Endocrine: ABSENT: cold intolerance, flushing, heat intolerance, menstrual abnormalities, polydipsia, polyphagia, polyuria Hematologic/Lymphatic: ABSENT: easy bleeding, easy bruising Physical Exam Vital Signs: Temp Pulse Resp BP Pulse Ox 98.4 F 100 19 101/61 92 03/28/17 15:31 03/28/17 15:31 03/28/17 15:31 03/28/17 15:31 03/28/17 15:31 Intake & Output 03/27/17 03/28/17 03/29/17 06:59 06:59 06:59 Intake Total 3554 0 Output Total 2 Balance 3554 -2 Weight 81.7 kg General appearance: PRESENT: no acute distress, cooperative, disheveled, well- developed Head exam: PRESENT: atraumatic, normocephalic Eye exam: PRESENT: conjunctiva pale, EOMI Mouth exam: PRESENT: dry mucosa, neck supple, tongue midline Neck exam: ABSENT: carotid bruit, JVD, lymphadenopathy, thyromegaly, tracheostomy Respiratory exam: PRESENT: decreased breath sounds, prolonged expiratory phas, rhonchi, symmetrical, wheezes. ABSENT: accessory muscle use, chest wall tenderness, clear to auscultation rodrigue, crackles, retraction, stridor, tachypnea , unlabored Cardiovascular exam: PRESENT: RRR, +S1, +S2, tachycardia Pulses: PRESENT: normal radial pulses GI/Abdominal exam: PRESENT: normal bowel sounds, soft. ABSENT: distended, guarding, mass, organolmegaly, rebound, tenderness Extremities exam: ABSENT: calf tenderness, clubbing, joint swelling, pedal edema , tenderness Musculoskeletal exam: ABSENT: deformity, dislocation, tenderness Neurological exam: PRESENT: alert, awake Psychiatric exam: PRESENT: normal mood Skin exam: PRESENT: dry, warm Results Laboratory Results: 03/28/17 04:29 03/28/17 04:29 03/27/17 03/27/17 03/28/17 20:15 20:15 04:29 WBC 9.5 RBC 3.02 L Hgb 10.4 L Hct 29.8 L MCV 99 H MCH 34.5 H MCHC 35.0 RDW 17.2 H Plt Count 187 Seg Neutrophils % 82.8 H Lymphocytes % 9.9 L Monocytes % 6.9 Eosinophils % 0.4 Basophils % 0.0 Absolute Neutrophils 7.8 Absolute Lymphocytes 0.9 Absolute Monocytes 0.7 Absolute Eosinophils 0.0 Absolute Basophils 0.0 Sodium Potassium Chloride Carbon Dioxide Anion Gap BUN Creatinine Est GFR ( Amer) Est GFR (Non-Af Amer) Glucose Lactic Acid Cancelled 1.4 Calcium Total Bilirubin AST ALT Alkaline Phosphatase Total Protein Albumin 03/28/17 04:29 WBC RBC Hgb Hct MCV MCH MCHC RDW Plt Count Seg Neutrophils % Lymphocytes % Monocytes % Eosinophils % Basophils % Absolute Neutrophils Absolute Lymphocytes Absolute Monocytes Absolute Eosinophils Absolute Basophils Sodium 131.6 L Potassium 3.4 L Chloride 93 L Carbon Dioxide 24 Anion Gap 15 BUN 8 Creatinine 0.76 Est GFR ( Amer) > 60 Est GFR (Non-Af Amer) > 60 Glucose 93 Lactic Acid Calcium 8.0 L Total Bilirubin 1.8 H AST 46 ALT 32 Alkaline Phosphatase 121 Total Protein 6.4 Albumin 3.1 L 03/27/17 20:15 Troponin I < 0.012 Impressions: Abdomen/Pelvis CT 03/27/17 00:00 IMPRESSION: Profound fatty liver Probable chronic colitis, ulcerative colitis is should be considered. No CT evidence of metastatic disease to the abdomen or pelvis. Chest X-Ray 03/27/17 00:00 IMPRESSION: Right upper lobe pneumonia, possibly postobstructive pneumonia secondary to a right hilar mass. Head MRI 03/27/17 00:00 IMPRESSION: NO ENHANCING LESIONS. MINIMAL MICROVASCULAR ISCHEMIC CHANGE. OTHERWISE NORMAL STUDY. EVIDENCE OF ACUTE STROKE: NO. Chest/Abdomen CTA 03/27/17 12:03 IMPRESSION: 1. No PE. 2. Right upper lobe mass. Satellite nodule more posteriorly in the right upper lobe. 3. Lower lobe airspace disease may represent superimposed pneumonia or aspiration. Clinical correlation is needed. Assessment & Plan - Diagnosis (1) Anemia Qualifiers: Anemia type: unspecified type Qualified Code(s): D64.9 - Anemia, unspecified Is this a current diagnosis for this admission?: Yes Plan: due to chronic disease (2) Lung mass Is this a current diagnosis for this admission?: Yes Plan: Lung mass with postobstructive pneumonia will need fiberoptic bronchoscopy struggling to find a place with a knee can be accommodated,,,,Platelets okay PT okay INR okay PTT slightly elevated (3) Pneumonia Qualifiers: Pneumonia type: due to unspecified organism Laterality: right Lung location: upper lobe of lung Qualified Code(s): J18.1 - Lobar pneumonia, unspecified organism Is this a current diagnosis for this admission?: Yes Plan: Postobstructive empiric therapy For no prior/recent hospitalization (4) Tobacco abuse Is this a current diagnosis for this admission?: Yes Plan: Consider transdermal nicotine
[2017-03-28] MEDS: LEVOFLOXACIN 750 MG/D5W RTU 750 MG/150 ML RTUPB IV SCH (18:23)
[2017-03-29] MEDS: PIPERACILLIN SODIUM/TAZOBACTAM 4.5 GM in NORMAL SALINE 100 ML IV SCH ×4 (03:27→21:47)
[2017-03-29 05:16] LABS: ABSOLUTE BASOPHILS # (AUTO) 0.1 10^3/uL (0.0-0.2); ABSOLUTE EOSINOPHILS # (AUTO) 0.1 10^3/uL (0.0-0.6); ABSOLUTE MONOCYTES (AUTO) 0.8 10^3/uL (0.1-1.4); ABSOLUTE NEUT (AUTO) 6.8 10^3/uL (1.7-8.2); BASOPHILS % (AUTO) 0.6 % (0-2); EOSINOPHILS % (AUTO) 0.8 % (0-6); HEMOGLOBIN 9.5 g/dL (13.5-17.0); HGB HCT DIFFERENCE 1.5; MEAN CORPUSCULAR HEMOGLOBIN 34.7 pg (27.0-33.4); MEAN CORPUSCULAR HGB CONC 35.1 g/dL (32.0-36.0); MEAN CORPUSCULAR VOLUME 99 fl (80-97); RED BLOOD COUNT 2.73 10^6/uL (4.35-5.55); RED CELL DISTRIBUTION WIDTH 17.3 % (11.5-14.0); SEGMENTED NEUTROPHILS % (AUTO) 77.6 % (42-78); WHITE BLOOD COUNT 8.7 10^3/uL (4.0-10.5)
[2017-03-29] MEDS: LANSOPRAZOLE 15 MG TAB.RAP.DR PO SCH ×2 (05:23→16:28)
[2017-03-29 05:39] LABS: ANION GAP 16 (5-19); BLOOD UREA NITROGEN 6 mg/dL (7-20); CARBON DIOXIDE 23 mmol/L (22-30); CHLORIDE 94 mmol/L (98-107); CREATININE RESULT 0.67 mg/dL (0.52-1.25); GLUCOSE 91 mg/dL (75-110); POTASSIUM 3.3 mmol/L (3.6-5.0); SODIUM 133.3 mmol/L (137-145)
[2017-03-29 05:50] LABS: MAGNESIUM 0.8 mg/dL (1.6-2.3)
[2017-03-29] MEDS ORDERED: MAGNESIUM SULFATE/D5W 1 GM/100 ML RTUPB IV ONE (06:02)
[2017-03-29] MEDS: MAGNESIUM SULFATE/D5W 1 GM/100 ML RTUPB IV SCH ×3 (06:18→10:03)
[2017-03-29] MEDS ORDERED: POTASSIUM CHLORIDE 10 MEQ TABLET.SA PO ONE (07:46)
[2017-03-29] MEDS ORDERED: MAGNESIUM SULFATE/D5W 1 GM/100 ML RTUPB IV SCH (08:00)
--- NOTE | 2017-03-29 08:01 | PDOC PROGRESS REPORT ---
Subjective Progress Note for:: 03/29/17 Subjective:: Patient remains frustrated that he is still in the hospital. His breathing and stomach have improved and his back pain is not as bad today. He understands that bronchoscopy is being arranged. Physical Exam Vital Signs: Temp Pulse Resp BP Pulse Ox 97.8 F 92 18 137/76 H 98 03/29/17 04:03 03/29/17 07:00 03/29/17 04:03 03/29/17 04:03 03/29/17 04:03 Intake & Output 03/28/17 03/29/17 03/30/17 06:59 06:59 06:59 Intake Total 3554 4305 Output Total 2 Balance 3554 4303 Weight 81.7 kg 82.7 kg General appearance: PRESENT: no acute distress, well-nourished Head exam: PRESENT: atraumatic Respiratory exam: PRESENT: clear to auscultation rodrigue Cardiovascular exam: PRESENT: RRR. ABSENT: systolic murmur Extremities exam: ABSENT: clubbing, pedal edema Neurological exam: PRESENT: alert, awake Results Laboratory Results: 03/29/17 04:46 03/29/17 04:46 03/29/17 03/29/17 04:46 04:46 WBC 8.7 RBC 2.73 L Hgb 9.5 L Hct 27.0 L MCV 99 H MCH 34.7 H MCHC 35.1 RDW 17.3 H Plt Count 175 Seg Neutrophils % 77.6 Lymphocytes % 12.0 L Monocytes % 9.0 Eosinophils % 0.8 Basophils % 0.6 Absolute Neutrophils 6.8 Absolute Lymphocytes 1.0 Absolute Monocytes 0.8 Absolute Eosinophils 0.1 Absolute Basophils 0.1 Sodium 133.3 L Potassium 3.3 L Chloride 94 L Carbon Dioxide 23 Anion Gap 16 BUN 6 L Creatinine 0.67 Est GFR ( Amer) > 60 Est GFR (Non-Af Amer) > 60 Glucose 91 Calcium 8.0 L Magnesium 0.8 L* 03/27/17 20:15 Troponin I < 0.012 Impressions: Abdomen/Pelvis CT 03/27/17 00:00 IMPRESSION: Profound fatty liver Probable chronic colitis, ulcerative colitis is should be considered. No CT evidence of metastatic disease to the abdomen or pelvis. Chest X-Ray 03/27/17 00:00 IMPRESSION: Right upper lobe pneumonia, possibly postobstructive pneumonia secondary to a right hilar mass. Head MRI 03/27/17 00:00 IMPRESSION: NO ENHANCING LESIONS. MINIMAL MICROVASCULAR ISCHEMIC CHANGE. OTHERWISE NORMAL STUDY. EVIDENCE OF ACUTE STROKE: NO. Chest/Abdomen CTA 03/27/17 12:03 IMPRESSION: 1. No PE. 2. Right upper lobe mass. Satellite nodule more posteriorly in the right upper lobe. 3. Lower lobe airspace disease may represent superimposed pneumonia or aspiration. Clinical correlation is needed. Assessment & Plan - Diagnosis (1) Lung mass Is this a current diagnosis for this admission?: Yes Plan: Await Bronchoscopy for pathology. (2) Anemia Qualifiers: Anemia type: unspecified type Qualified Code(s): D64.9 - Anemia, unspecified Is this a current diagnosis for this admission?: Yes Plan: Currently stable. Continue to monitor. Consider Iron, B12, Folate, and ferritin levels. Further work-up may be performed as outpatient.
[2017-03-29] MEDS: IPRATROPIUM/ALBUTEROL 0.5-2.5 MG/3 ML AMPUL NEB SCH ×4 (08:19→20:49)
--- NOTE | 2017-03-29 08:42 | PDOC PROGRESS REPORT ---
Subjective Progress Note for:: 03/29/17 Subjective:: Day 2 of hospitalization: Follow-up visit for patient with post obstructive pneumonia, right upper lung mass, nausea vomiting and diarrhea The patient is 57-year-old male with no significant past medical history who has not seen a physician for several years. He presented to the emergency room with significant nausea vomiting as well as diarrhea and was found to have a right upper lung mass with an associated post obstructive pneumonia. Chest CT scan revealed a right upper lung mass with an associated lymphadenopathy, brain MRI did not show any acute abnormality, abdominopelvic CT scan did not show any acute abnormalities. The patient was started on empiric IV Zosyn and levofloxacin. Bronchoscopy has been scheduled by farm product purchaser and is still pending. Oncology is following Overnight events noted. Patient states that he is feeling better: but still complaining of some mild back right upper back pain. He denies chest pain, shortness of breath, nausea, vomiting, diarrhea, or any focal neurologic deficit. He has remained afebrile. Physical Exam Vital Signs: Temp Pulse Resp BP Pulse Ox 99.3 F 95 17 143/82 H 98 03/29/17 07:38 03/29/17 07:38 03/29/17 07:38 03/29/17 07:38 03/29/17 07:38 Intake & Output 03/28/17 03/29/17 03/30/17 06:59 06:59 06:59 Intake Total 3554 4305 Output Total 2 Balance 3554 4303 Weight 81.7 kg 82.7 kg General appearance: PRESENT: no acute distress, cooperative, disheveled, well- developed Eye exam: PRESENT: conjunctival injection, conjunctiva pink Respiratory exam: PRESENT: decreased breath sounds, rhonchi. ABSENT: accessory muscle use, chest wall tenderness, crackles, prolonged expiratory phas, rales, retraction, stridor, tachypnea, unlabored, wheezes, other Cardiovascular exam: PRESENT: RRR, +S1, +S2 GI/Abdominal exam: PRESENT: normal bowel sounds, soft. ABSENT: ascites, diminished bowel sounds, distended, firm, guarding, hernia, hyperactive bowel sounds, hypoactive bowel sounds, mass, Jennings's sign, organolmegaly, rebound, rigid, tenderness, other Neurological exam: PRESENT: alert, awake, oriented to person, oriented to place , oriented to time, oriented to situation, reflexes normal, CN II-XII grossly intact Psychiatric exam: PRESENT: anxious Results Laboratory Results: 03/29/17 04:46 03/29/17 04:46 03/29/17 03/29/17 04:46 04:46 WBC 8.7 RBC 2.73 L Hgb 9.5 L Hct 27.0 L MCV 99 H MCH 34.7 H MCHC 35.1 RDW 17.3 H Plt Count 175 Seg Neutrophils % 77.6 Lymphocytes % 12.0 L Monocytes % 9.0 Eosinophils % 0.8 Basophils % 0.6 Absolute Neutrophils 6.8 Absolute Lymphocytes 1.0 Absolute Monocytes 0.8 Absolute Eosinophils 0.1 Absolute Basophils 0.1 Sodium 133.3 L Potassium 3.3 L Chloride 94 L Carbon Dioxide 23 Anion Gap 16 BUN 6 L Creatinine 0.67 Est GFR ( Amer) > 60 Est GFR (Non-Af Amer) > 60 Glucose 91 Calcium 8.0 L Magnesium 0.8 L* 03/27/17 20:15 Troponin I < 0.012 Impressions: Abdomen/Pelvis CT 03/27/17 00:00 IMPRESSION: Profound fatty liver Probable chronic colitis, ulcerative colitis is should be considered. No CT evidence of metastatic disease to the abdomen or pelvis. Chest X-Ray 03/27/17 00:00 IMPRESSION: Right upper lobe pneumonia, possibly postobstructive pneumonia secondary to a right hilar mass. Head MRI 03/27/17 00:00 IMPRESSION: NO ENHANCING LESIONS. MINIMAL MICROVASCULAR ISCHEMIC CHANGE. OTHERWISE NORMAL STUDY. EVIDENCE OF ACUTE STROKE: NO. Chest/Abdomen CTA 03/27/17 12:03 IMPRESSION: 1. No PE. 2. Right upper lobe mass. Satellite nodule more posteriorly in the right upper lobe. 3. Lower lobe airspace disease may represent superimposed pneumonia or aspiration. Clinical correlation is needed. Assessment & Plan - Diagnosis (1) Pneumonia Qualifiers: Pneumonia type: due to unspecified organism Laterality: right Lung location: upper lobe of lung Qualified Code(s): J18.1 - Lobar pneumonia, unspecified organism Is this a current diagnosis for this admission?: Yes Plan: Likely post obstructive pneumonia from the lung mass. Chest CT with Lower lobe airspace disease may represent superimposed pneumonia or aspiration. Remains afebrile with no leukocytosis. Continue empirically on IV Pip/Tazo (Day 2). IV Levofloxacin discontinued Follow blood cultures. (2) Lung mass Is this a current diagnosis for this admission?: Yes Plan: CT with right upper lobe mass 10.2 x 6.7 cm, with satellite nodule more posteriorly in the right upper lobe. Most likely malignant given the heavy smoking history. Bronchoscopy with biopsy scheduled. Leather Belt Shaper and oncology input noted (3) Hyponatremia Is this a current diagnosis for this admission?: Yes Plan: Hyponatremia, hypovolemic. Likely due to diarrhea and dehydration and/or SIADH from lung mass. Resolved (4) Hypomagnesemia Is this a current diagnosis for this admission?: No Plan: Replete and recheck (5) Hypokalemia Plan: Replete and recheck (6) Tobacco abuse Is this a current diagnosis for this admission?: Yes Plan: Smoking cessation completed. Patient is not interested in quitting smoking at this time. Continue nicotine replacement therapy (7) Dehydration Is this a current diagnosis for this admission?: Yes Plan: Due to the diarrhea at home. Stool for C. difficile was negative. Improved with IV fluid rehydration (8) DVT prophylaxis Is this a current diagnosis for this admission?: Yes Plan: Subcut Lovenox - Time Time Spent with patient: 35 or more minutes Smoking Cessation Education: 3 to 10 minutes Medications reviewed and adjusted accordingly: Yes Anticipated discharge: Home - Inpatient Certification Medical Necessity: Risk of Diagnosis Which Will Require Inpatient Eval/Care/ Monitoring - Plan to switch to oral antibiotics soon I with bronchoscopy with biopsy, and follow pathology once available
[2017-03-29] MEDS ORDERED: DEXTROSE 50%-WATER 25 GM/50 ML DISP.SYRIN IV PRN ×2 (10:07)
[2017-03-29] MEDS: ENOXAPARIN SODIUM INJ 40 MG/0.4 ML DISP.SYRIN SUBCUT SCH (10:07)
[2017-03-29] MEDS ORDERED: DEXTROSE 40% GEL 15 GM TUBE PO PRN ×2 (10:07)
[2017-03-29] MEDS ORDERED: GLUCAGON,HUMAN RECOMB 1 MG INJ SUBCUT PRN (10:07)
[2017-03-29 10:13] LABS: FOLATE 2.18 ng/mL (>2.76)
[2017-03-29] MEDS: NICOTINE 21 MG/24 HR PATCH.TD24 TD SCH (10:13)
[2017-03-29] MEDS: GUAIFENESIN 600 MG TABLET.SA PO SCH ×2 (10:14→21:48)
[2017-03-29] MEDS: NORMAL SALINE 1000 ML 1,000 ML IV PRN (16:30)
[2017-03-29] MEDS: ALPRAZOLAM 0.5 MG TABLET PO PRN (18:50)
[2017-03-30] MEDS: PIPERACILLIN SODIUM/TAZOBACTAM 4.5 GM in NORMAL SALINE 100 ML IV SCH ×4 (02:34→21:27)
[2017-03-30] MEDS: NORMAL SALINE 1000 ML 1,000 ML IV PRN (02:34)
[2017-03-30] MEDS: LANSOPRAZOLE 15 MG TAB.RAP.DR PO SCH ×2 (05:37→18:19)
[2017-03-30 06:28] LABS: ABSOLUTE BASOPHILS # (AUTO) 0.1 10^3/uL (0.0-0.2); ABSOLUTE EOSINOPHILS # (AUTO) 0.2 10^3/uL (0.0-0.6); ABSOLUTE LYMPHOCYTES (AUTO) 1.1 10^3/uL (0.5-4.7); ABSOLUTE MONOCYTES (AUTO) 0.8 10^3/uL (0.1-1.4); ABSOLUTE NEUT (AUTO) 4.6 10^3/uL (1.7-8.2); EOSINOPHILS % (AUTO) 2.7 % (0-6); HEMATOCRIT 25.5 % (37.9-51.0); HEMOGLOBIN 8.8 g/dL (13.5-17.0); HGB HCT DIFFERENCE 0.9; LYMPHOCYTES % (AUTO) 16.8 % (13-45); MEAN CORPUSCULAR HEMOGLOBIN 33.9 pg (27.0-33.4); MEAN CORPUSCULAR HGB CONC 34.5 g/dL (32.0-36.0); MEAN CORPUSCULAR VOLUME 98 fl (80-97); MONOCYTES % (AUTO) 11.9 % (3-13); RED BLOOD COUNT 2.59 10^6/uL (4.35-5.55); RED CELL DISTRIBUTION WIDTH 17.5 % (11.5-14.0); SEGMENTED NEUTROPHILS % (AUTO) 67.6 % (42-78); WHITE BLOOD COUNT 6.8 10^3/uL (4.0-10.5)
[2017-03-30 07:07] LABS: ANION GAP 12 (5-19); BLOOD UREA NITROGEN 5 mg/dL (7-20); CALCIUM 7.8 mg/dL (8.4-10.2); CARBON DIOXIDE 25 mmol/L (22-30); CHLORIDE 96 mmol/L (98-107); CREATININE RESULT 0.63 mg/dL (0.52-1.25); GLUCOSE 82 mg/dL (75-110); SODIUM 133.4 mmol/L (137-145)
[2017-03-30 07:20] LABS: POTASSIUM 2.7 mmol/L (3.6-5.0)
[2017-03-30 07:21] LABS: MAGNESIUM 1.1 mg/dL (1.6-2.3)
--- NOTE | 2017-03-30 08:23 | PDOC PROGRESS REPORT ---
Subjective Progress Note for:: 03/30/17 Subjective:: Patient states that the small white pill he was given for his nerves has helped greatly. He states that Bronchoscopy is planned for Saturday. No new complaints voiced today. Physical Exam Vital Signs: Temp Pulse Resp BP Pulse Ox 98.6 F 93 24 H 148/81 H 94 03/30/17 03:35 03/30/17 03:35 03/30/17 03:35 03/30/17 03:35 03/30/17 03:35 Intake & Output 03/29/17 03/30/17 03/31/17 06:59 06:59 06:59 Intake Total 4305 4415 Output Total 2 Balance 4303 4415 Weight 82.7 kg 82.9 kg General appearance: PRESENT: no acute distress, well-nourished Respiratory exam: PRESENT: clear to auscultation rodrigue Cardiovascular exam: PRESENT: RRR Neurological exam: PRESENT: alert, awake Results Laboratory Results: 03/30/17 05:27 03/30/17 05:27 03/29/17 03/29/17 03/29/17 04:46 04:46 18:24 WBC RBC Hgb Hct MCV MCH MCHC RDW Plt Count Seg Neutrophils % Lymphocytes % Monocytes % Eosinophils % Basophils % Absolute Neutrophils Absolute Lymphocytes Absolute Monocytes Absolute Eosinophils Absolute Basophils Retic Count (auto) 0.57 L Absolute Retic 0.016 L Sodium Potassium Chloride Carbon Dioxide Anion Gap BUN Creatinine Est GFR ( Amer) Est GFR (Non-Af Amer) Glucose Calcium Magnesium 1.3 L Iron 61.8 TIBC 224 L % Saturation 28 Ferritin 585.00 H Vitamin B12 607.0 Folate 2.18 L 03/30/17 03/30/17 05:27 05:27 WBC 6.8 RBC 2.59 L Hgb 8.8 L Hct 25.5 L MCV 98 H MCH 33.9 H MCHC 34.5 RDW 17.5 H Plt Count 164 Seg Neutrophils % 67.6 Lymphocytes % 16.8 Monocytes % 11.9 Eosinophils % 2.7 Basophils % 1.0 Absolute Neutrophils 4.6 Absolute Lymphocytes 1.1 Absolute Monocytes 0.8 Absolute Eosinophils 0.2 Absolute Basophils 0.1 Retic Count (auto) Absolute Retic Sodium 133.4 L Potassium 2.7 L* Chloride 96 L Carbon Dioxide 25 Anion Gap 12 BUN 5 L Creatinine 0.63 Est GFR ( Amer) > 60 Est GFR (Non-Af Amer) > 60 Glucose 82 Calcium 7.8 L Magnesium 1.1 L* Iron TIBC % Saturation Ferritin Vitamin B12 Folate 03/27/17 20:15 Troponin I < 0.012 Impressions: Abdomen/Pelvis CT 03/27/17 00:00 IMPRESSION: Profound fatty liver Probable chronic colitis, ulcerative colitis is should be considered. No CT evidence of metastatic disease to the abdomen or pelvis. Chest X-Ray 03/27/17 00:00 IMPRESSION: Right upper lobe pneumonia, possibly postobstructive pneumonia secondary to a right hilar mass. Head MRI 03/27/17 00:00 IMPRESSION: NO ENHANCING LESIONS. MINIMAL MICROVASCULAR ISCHEMIC CHANGE. OTHERWISE NORMAL STUDY. EVIDENCE OF ACUTE STROKE: NO. Chest/Abdomen CTA 03/27/17 12:03 IMPRESSION: 1. No PE. 2. Right upper lobe mass. Satellite nodule more posteriorly in the right upper lobe. 3. Lower lobe airspace disease may represent superimposed pneumonia or aspiration. Clinical correlation is needed. Assessment & Plan - Diagnosis (1) Lung mass Is this a current diagnosis for this admission?: Yes Plan: Await Bronchosocopy for pathology. Further recommendations once this is available. (2) Anemia Qualifiers: Anemia type: unspecified type Qualified Code(s): D64.9 - Anemia, unspecified Is this a current diagnosis for this admission?: Yes
[2017-03-30] MEDS: IPRATROPIUM/ALBUTEROL 0.5-2.5 MG/3 ML AMPUL NEB SCH ×4 (08:37→20:27)
--- NOTE | 2017-03-30 09:20 | PDOC PROGRESS REPORT ---
Subjective Progress Note for:: 03/30/17 Subjective:: Day 2 of hospitalization: Follow-up visit for patient with post obstructive pneumonia, right upper lung mass, nausea vomiting and diarrhea The patient is 57-year-old male with no significant past medical history who has not seen a physician for several years. He presented to the emergency room with significant nausea vomiting as well as diarrhea and was found to have a right upper lung mass with an associated post obstructive pneumonia. Chest CT scan revealed a right upper lung mass with an associated lymphadenopathy, brain MRI did not show any acute abnormality, abdominopelvic CT scan did not show any acute abnormalities. The patient was started on empiric IV Zosyn and levofloxacin. Bronchoscopy has been scheduled by vp rheumatology. Oncology is following Overnight events noted. Patient reports feeling better. He is sitting by bedside eating his breakfast. He denies chest pain, shortness of breath, nausea , vomiting, diarrhea, or any focal neurologic deficit. He has remained afebrile. Of note patient admits to drinking at least 1 beer every day. He informs me that he used to drink heavily more than 1 year ago Physical Exam Vital Signs: Temp Pulse Resp BP Pulse Ox 98.7 F 104 H 18 140/88 H 92 03/30/17 07:59 03/30/17 07:59 03/30/17 07:59 03/30/17 07:59 03/30/17 07:59 Intake & Output 03/29/17 03/30/17 03/31/17 06:59 06:59 06:59 Intake Total 4305 4415 Output Total 2 Balance 4303 4415 Weight 82.7 kg 82.9 kg General appearance: PRESENT: no acute distress, cooperative, well-developed Head exam: PRESENT: atraumatic, normocephalic Respiratory exam: PRESENT: decreased breath sounds, symmetrical, unlabored. ABSENT: accessory muscle use, chest wall tenderness, clear to auscultation rodrigue, crackles, prolonged expiratory phas, rales, retraction, rhonchi, stridor, tachypnea, wheezes, other Cardiovascular exam: PRESENT: RRR, +S1, +S2. ABSENT: bradycardia, clicks, diastolic murmur, gallop, irregular rhythm, rubs, systolic murmur, tachycardia, other GI/Abdominal exam: PRESENT: normal bowel sounds, soft. ABSENT: ascites, diminished bowel sounds, distended, firm, guarding, hernia, hyperactive bowel sounds, hypoactive bowel sounds, mass, Jennings's sign, organolmegaly, rebound, rigid, tenderness, other Musculoskeletal exam: PRESENT: ambulatory, full ROM. ABSENT: deformity, dislocation, normal inspection, tenderness, other Neurological exam: PRESENT: alert, awake, oriented to person, oriented to place , oriented to time, oriented to situation, reflexes normal, CN II-XII grossly intact Results Laboratory Results: 03/30/17 05:27 03/30/17 05:27 03/29/17 03/29/17 03/30/17 04:46 18:24 05:27 WBC RBC Hgb Hct MCV MCH MCHC RDW Plt Count Seg Neutrophils % Lymphocytes % Monocytes % Eosinophils % Basophils % Absolute Neutrophils Absolute Lymphocytes Absolute Monocytes Absolute Eosinophils Absolute Basophils Sodium 133.4 L Potassium 2.7 L* Chloride 96 L Carbon Dioxide 25 Anion Gap 12 BUN 5 L Creatinine 0.63 Est GFR ( Amer) > 60 Est GFR (Non-Af Amer) > 60 Glucose 82 Calcium 7.8 L Magnesium 1.3 L 1.1 L* Iron 61.8 TIBC 224 L % Saturation 28 Ferritin 585.00 H Vitamin B12 607.0 Folate 2.18 L 03/30/17 05:27 WBC 6.8 RBC 2.59 L Hgb 8.8 L Hct 25.5 L MCV 98 H MCH 33.9 H MCHC 34.5 RDW 17.5 H Plt Count 164 Seg Neutrophils % 67.6 Lymphocytes % 16.8 Monocytes % 11.9 Eosinophils % 2.7 Basophils % 1.0 Absolute Neutrophils 4.6 Absolute Lymphocytes 1.1 Absolute Monocytes 0.8 Absolute Eosinophils 0.2 Absolute Basophils 0.1 Sodium Potassium Chloride Carbon Dioxide Anion Gap BUN Creatinine Est GFR ( Amer) Est GFR (Non-Af Amer) Glucose Calcium Magnesium Iron TIBC % Saturation Ferritin Vitamin B12 Folate 03/27/17 20:15 Troponin I < 0.012 Impressions: Abdomen/Pelvis CT 03/27/17 00:00 IMPRESSION: Profound fatty liver Probable chronic colitis, ulcerative colitis is should be considered. No CT evidence of metastatic disease to the abdomen or pelvis. Chest X-Ray 03/27/17 00:00 IMPRESSION: Right upper lobe pneumonia, possibly postobstructive pneumonia secondary to a right hilar mass. Head MRI 03/27/17 00:00 IMPRESSION: NO ENHANCING LESIONS. MINIMAL MICROVASCULAR ISCHEMIC CHANGE. OTHERWISE NORMAL STUDY. EVIDENCE OF ACUTE STROKE: NO. Chest/Abdomen CTA 03/27/17 12:03 IMPRESSION: 1. No PE. 2. Right upper lobe mass. Satellite nodule more posteriorly in the right upper lobe. 3. Lower lobe airspace disease may represent superimposed pneumonia or aspiration. Clinical correlation is needed. Assessment & Plan - Diagnosis (1) Pneumonia Qualifiers: Pneumonia type: due to unspecified organism Laterality: right Lung location: upper lobe of lung Qualified Code(s): J18.1 - Lobar pneumonia, unspecified organism Is this a current diagnosis for this admission?: Yes Plan: Likely post obstructive pneumonia from the lung mass. Chest CT with Lower lobe airspace disease may represent superimposed pneumonia or aspiration. Remains afebrile with no leukocytosis. Continue empirically on IV Pip/Tazo (Day 2). IV Levofloxacin discontinued Follow blood cultures. (2) Lung mass Is this a current diagnosis for this admission?: Yes Plan: CT with right upper lobe mass 10.2 x 6.7 cm, with satellite nodule more posteriorly in the right upper lobe. Most likely malignant given the heavy smoking history. Bronchoscopy with biopsy scheduled for Saturday. Vending Machine Mechanic and oncology input noted (3) Hyponatremia Is this a current diagnosis for this admission?: Yes Plan: Hyponatremia, hypovolemic. Likely due to diarrhea and dehydration and/or SIADH from lung mass. Resolved (4) Hypomagnesemia Is this a current diagnosis for this admission?: No Plan: Severe, Mg 1.1 [0.8], likely related to malnutrition and chronic alcohol abuse. Replete and recheck (5) Hypokalemia Plan: Severe, K 2.5 [3.3]. Replete and recheck (6) Anemia Qualifiers: Anemia type: unspecified type Qualified Code(s): D64.9 - Anemia, unspecified Is this a current diagnosis for this admission?: Yes Plan: Anemia of chronic disease, Hemoglobin 8.8 [10.8]. MCV 98, iron 61.8, ferritin 585. No indication for PRBC transfusion. We will follow (7) Tobacco abuse Is this a current diagnosis for this admission?: Yes Plan: Smoking cessation completed. Patient is not interested in quitting smoking at this time. Continue nicotine replacement therapy (8) Dehydration Is this a current diagnosis for this admission?: Yes Plan: Due to the diarrhea at home. Stool for C. difficile was negative. Improved with IV fluid rehydration (9) DVT prophylaxis Is this a current diagnosis for this admission?: Yes Plan: Subcut Lovenox - Time Time Spent with patient: 35 or more minutes - Inpatient Certification Based on my medical assessment, after consideration of the patient's comorbidities, presenting symptoms, or acuity I expect that the services needed warrant INPATIENT care.: Yes I certify that my determination is in accordance with my understanding of Medicare's requirements for reasonable and necessary INPATIENT services [42 CFR 412.3e].: Yes Medical Necessity: Need For Continuous Telemetry Monitoring, Risk of Complication if Not Cared For in Hospital, Risk of Diagnosis Which Will Require Inpatient Eval/Care/Monitoring
[2017-03-30] MEDS: GUAIFENESIN 600 MG TABLET.SA PO SCH ×2 (09:52→21:28)
[2017-03-30] MEDS: ACETAMINOPHEN 325 MG TABLET PO PRN (09:52)
[2017-03-30] MEDS: ALPRAZOLAM 0.5 MG TABLET PO PRN (09:52)
[2017-03-30] MEDS: NICOTINE 21 MG/24 HR PATCH.TD24 TD SCH (09:53)
[2017-03-30] MEDS: MAGNESIUM SULFATE/D5W 1 GM/100 ML RTUPB IV SCH ×3 (09:53→14:38)
[2017-03-30] MEDS: POTASSIUM CHLORIDE 20 MEQ/50 ML RTU IV SCH ×2 (09:53→12:27)
[2017-03-30 17:01] LABS: ANION GAP 14 (5-19); BLOOD UREA NITROGEN 6 mg/dL (7-20); CALCIUM 8.2 mg/dL (8.4-10.2); CARBON DIOXIDE 26 mmol/L (22-30); CHLORIDE 96 mmol/L (98-107); GLUCOSE 85 mg/dL (75-110); MAGNESIUM 1.9 mg/dL (1.6-2.3); POTASSIUM 3.3 mmol/L (3.6-5.0); SODIUM 135.5 mmol/L (137-145)
[2017-03-30] MEDS ORDERED: POTASSIUM CHLORIDE 10 MEQ TABLET.SA PO ONE (18:55)
[2017-03-30] MEDS ORDERED: MAGNESIUM SULFATE/D5W 1 GM/100 ML RTUPB IV ONE (18:55)
[2017-03-31] MEDS: ALPRAZOLAM 0.5 MG TABLET PO PRN (01:51)
[2017-03-31] MEDS: PIPERACILLIN SODIUM/TAZOBACTAM 4.5 GM in NORMAL SALINE 100 ML IV SCH ×4 (02:26→21:12)
[2017-03-31] MEDS ORDERED: NYSTATIN 500000 UNIT/5 ML UDCUP PO ONE (03:00)
[2017-03-31] MEDS: LANSOPRAZOLE 15 MG TAB.RAP.DR PO SCH ×2 (05:59→18:22)
[2017-03-31 08:06] LABS: ANION GAP 11 (5-19); BLOOD UREA NITROGEN 6 mg/dL (7-20); CALCIUM 8.2 mg/dL (8.4-10.2); CARBON DIOXIDE 26 mmol/L (22-30); CHLORIDE 98 mmol/L (98-107); CREATININE RESULT 0.68 mg/dL (0.52-1.25); GLUCOSE 90 mg/dL (75-110); POTASSIUM 3.1 mmol/L (3.6-5.0); SODIUM 134.7 mmol/L (137-145)
[2017-03-31] MEDS: IPRATROPIUM/ALBUTEROL 0.5-2.5 MG/3 ML AMPUL NEB SCH ×4 (08:21→20:08)
[2017-03-31] MEDS ORDERED: POTASSIUM CHLORIDE 10 MEQ TABLET.SA PO ONE (09:21)
--- NOTE | 2017-03-31 09:32 | PDOC PROGRESS REPORT ---
Subjective Progress Note for:: 03/31/17 Subjective:: Day 3 of hospitalization: Follow-up visit for patient with post obstructive pneumonia, right upper lung mass, nausea vomiting and diarrhea The patient is 57-year-old male with no significant past medical history who has not seen a physician for several years. He presented to the emergency room with significant nausea vomiting as well as diarrhea and was found to have a right upper lung mass with an associated post obstructive pneumonia. Chest CT scan revealed a right upper lung mass with an associated lymphadenopathy, brain MRI did not show any acute abnormality, abdominopelvic CT scan did not show any acute abnormalities. The patient was started on empiric IV Zosyn and levofloxacin. Bronchoscopy has been scheduled by frit coater. Oncology is following Overnight events noted. She was reportedly very anxious and tremulous overnight. He denies chest pain, shortness of breath, nausea, vomiting, diarrhea, or any focal neurologic deficit. He has remained afebrile. Of note patient now admits to drinking at least 2 beers every day and sometimes 6. Physical Exam Vital Signs: Temp Pulse Resp BP Pulse Ox 99.0 F 98 19 148/92 H 90 L 03/31/17 07:41 03/31/17 07:41 03/31/17 07:41 03/31/17 07:41 03/31/17 07:41 Intake & Output 03/30/17 03/31/17 04/01/17 06:59 06:59 06:59 Intake Total 4415 4056 Balance 4415 4056 Weight 82.9 kg 83.1 kg General appearance: PRESENT: no acute distress, disheveled, well-developed Head exam: PRESENT: atraumatic, normocephalic Respiratory exam: PRESENT: decreased breath sounds, rhonchi, symmetrical. ABSENT: accessory muscle use, chest wall tenderness, clear to auscultation rodrigue, crackles, prolonged expiratory phas, rales, retraction, stridor, tachypnea, unlabored, wheezes, other Cardiovascular exam: PRESENT: RRR, +S1, +S2. ABSENT: bradycardia, clicks, diastolic murmur, gallop, irregular rhythm, rubs, systolic murmur, tachycardia, other GI/Abdominal exam: PRESENT: normal bowel sounds, soft. ABSENT: ascites, diminished bowel sounds, distended, firm, guarding, hernia, hyperactive bowel sounds, hypoactive bowel sounds, mass, Jennings's sign, organolmegaly, rebound, rigid, tenderness, other Neurological exam: PRESENT: awake, oriented to person, oriented to place, oriented to time, oriented to situation, CN II-XII grossly intact. ABSENT: alert, altered, reflexes normal, abnormal gait, ataxia, motor sensory deficit, normal gait, aphasic, other Psychiatric exam: PRESENT: anxious Results Laboratory Results: 03/30/17 05:27 03/31/17 06:30 03/29/17 03/30/17 03/31/17 04:46 16:20 06:30 Sodium 135.5 L Potassium 3.3 L Chloride 96 L Carbon Dioxide 26 Anion Gap 14 BUN 6 L Creatinine 0.70 Est GFR ( Amer) > 60 Est GFR (Non-Af Amer) > 60 Glucose 85 Calcium 8.2 L Magnesium 1.9 1.4 L Transferrin 152 L 03/31/17 06:30 Sodium 134.7 L Potassium 3.1 L Chloride 98 Carbon Dioxide 26 Anion Gap 11 BUN 6 L Creatinine 0.68 Est GFR ( Amer) > 60 Est GFR (Non-Af Amer) > 60 Glucose 90 Calcium 8.2 L Magnesium Transferrin 03/27/17 13:25 Stool - Stool - Final 03/27/17 13:25 Stool - Stool Stool Culture - Final NO SALMONELLA, SHIGELLA, CAMPYLOBACTER, OR E.COLI 0157 RECOVERED. NEGATIVE FOR SHIGA TOXINS 1&2. 03/27/17 20:15 Troponin I < 0.012 Impressions: Abdomen/Pelvis CT 03/27/17 00:00 IMPRESSION: Profound fatty liver Probable chronic colitis, ulcerative colitis is should be considered. No CT evidence of metastatic disease to the abdomen or pelvis. Chest X-Ray 03/27/17 00:00 IMPRESSION: Right upper lobe pneumonia, possibly postobstructive pneumonia secondary to a right hilar mass. Head MRI 03/27/17 00:00 IMPRESSION: NO ENHANCING LESIONS. MINIMAL MICROVASCULAR ISCHEMIC CHANGE. OTHERWISE NORMAL STUDY. EVIDENCE OF ACUTE STROKE: NO. Chest/Abdomen CTA 03/27/17 12:03 IMPRESSION: 1. No PE. 2. Right upper lobe mass. Satellite nodule more posteriorly in the right upper lobe. 3. Lower lobe airspace disease may represent superimposed pneumonia or aspiration. Clinical correlation is needed. Status: Image reviewed by me Assessment & Plan - Diagnosis (1) Pneumonia Qualifiers: Pneumonia type: due to unspecified organism Laterality: right Lung location: upper lobe of lung Qualified Code(s): J18.1 - Lobar pneumonia, unspecified organism Is this a current diagnosis for this admission?: Yes Plan: Likely post obstructive pneumonia from the lung mass. Chest CT with Lower lobe airspace disease may represent superimposed pneumonia or aspiration. Remains afebrile with no leukocytosis. Continue empirically on IV Pip/Tazo (Day 3). IV Levofloxacin discontinued. Plan to switch to oral antibiotics soon (?Amox/Clav) . follow blood cultures. (2) Lung mass Is this a current diagnosis for this admission?: Yes Plan: CT with right upper lobe mass 10.2 x 6.7 cm, with satellite nodule more posteriorly in the right upper lobe. Most likely malignant given the heavy smoking history. Bronchoscopy with biopsy scheduled for Saturday. Polymerization Helper and oncology input noted (3) Chronic alcohol abuse Is this a current diagnosis for this admission?: Yes Plan: Chronic alcohol abuse with some evidence of mild to moderate alcohol withdrawal. Patient now admits to drinking at least 2 beers every day and sometimes 6. Will start on Clonidin, lorazepam prn. Further EtOH abuse strongly discouraged (4) Anemia Qualifiers: Anemia type: unspecified type Qualified Code(s): D64.9 - Anemia, unspecified Is this a current diagnosis for this admission?: Yes Plan: Anemia of chronic disease, Hemoglobin 8.8 [10.8]. MCV 98, iron 61.8, ferritin 585. No indication for PRBC transfusion. We will follow (5) Hypomagnesemia Is this a current diagnosis for this admission?: No Plan: Severe, Mg 1.2 [0.8], likely related to malnutrition and chronic alcohol abuse. Replete and recheck (6) Hypokalemia Plan: Severe, K 3.1 [2.5][3.3], likely due to chronic alcohol abuse. Replete and recheck (7) Hyponatremia Is this a current diagnosis for this admission?: Yes Plan: Hyponatremia, hypovolemic. Likely due to diarrhea and dehydration. Resolved (8) Tobacco abuse Is this a current diagnosis for this admission?: Yes Plan: Smoking cessation completed. Patient is not interested in quitting smoking at this time. Continue nicotine replacement therapy (9) Dehydration Is this a current diagnosis for this admission?: Yes Plan: Due to the diarrhea at home. Stool for C. difficile was negative. Improved with IV fluid rehydration (10) DVT prophylaxis Is this a current diagnosis for this admission?: Yes Plan: Subcut Lovenox - Time Time Spent with patient: 25-34 minutes Smoking Cessation Education: 3 to 10 minutes Medications reviewed and adjusted accordingly: Yes Anticipated discharge: Home - Inpatient Certification Medical Necessity: Need For Continuous Telemetry Monitoring, Risk of Complication if Not Cared For in Hospital - Plan Summary Plan Summary: Continue current care. Plan to discharge home after bronchoscopy with biopsy, if clinically stable, and if okay with consultants.
[2017-03-31] MEDS ORDERED: LORAZEPAM 1 MG TABLET PO PRN (09:33)
[2017-03-31] MEDS: NICOTINE 21 MG/24 HR PATCH.TD24 TD SCH (09:57)
[2017-03-31] MEDS: GUAIFENESIN 600 MG TABLET.SA PO SCH ×2 (09:57→21:13)
[2017-03-31] MEDS: NYSTATIN 500000 UNIT/5 ML UDCUP PO SCH ×4 (09:57→21:13)
[2017-03-31] MEDS: MAGNESIUM SULFATE/D5W 1 GM/100 ML RTUPB IV SCH ×2 (09:57→13:10)
[2017-03-31] MEDS: CLONIDINE HCL 0.1 MG TABLET PO SCH ×2 (13:11→21:13)
[2017-04-01] MEDS: PIPERACILLIN SODIUM/TAZOBACTAM 4.5 GM in NORMAL SALINE 100 ML IV SCH ×4 (02:37→23:07)
[2017-04-01] MEDS: LANSOPRAZOLE 15 MG TAB.RAP.DR PO SCH ×2 (06:14→16:51)
[2017-04-01] MEDS: CLONIDINE HCL 0.1 MG TABLET PO SCH ×3 (06:14→23:13)
[2017-04-01] MEDS: ACETAMINOPHEN 325 MG TABLET PO PRN (06:38)
[2017-04-01] MEDS: IPRATROPIUM/ALBUTEROL 0.5-2.5 MG/3 ML AMPUL NEB SCH ×4 (08:26→20:24)
[2017-04-01 08:43] LABS: ANION GAP 12 (5-19); BLOOD UREA NITROGEN 9 mg/dL (7-20); CALCIUM 8.7 mg/dL (8.4-10.2); CARBON DIOXIDE 25 mmol/L (22-30); CHLORIDE 99 mmol/L (98-107); CREATININE RESULT 0.77 mg/dL (0.52-1.25); GLUCOSE 93 mg/dL (75-110); POTASSIUM 3.7 mmol/L (3.6-5.0); SODIUM 135.5 mmol/L (137-145)
[2017-04-01] MEDS: NYSTATIN 500000 UNIT/5 ML UDCUP PO SCH ×4 (09:22→23:09)
[2017-04-01] MEDS: NICOTINE 21 MG/24 HR PATCH.TD24 TD SCH (09:22)
[2017-04-01] MEDS: GUAIFENESIN 600 MG TABLET.SA PO SCH ×2 (09:30→23:09)
[2017-04-01] MEDS ORDERED: EPHEDRINE SULFATE INJ 50 MG/1 ML AMPULE ONE (10:48)
[2017-04-01] MEDS ORDERED: FENTANYL CITRATE INJ/PF 100 MCG/2 ML AMPUL ONE ×2 (10:48→13:01)
[2017-04-01] MEDS ORDERED: MIDAZOLAM 2 MG/2 ML INJ ONE ×2 (10:48→13:01)
[2017-04-01] MEDS ORDERED: PROPOFOL INJ 200 MG/20 ML VIAL IV ONE ×2 (10:49→13:01)
[2017-04-01] MEDS ORDERED: ACETAMINOPHEN 0 ML IV ONE (10:49)
[2017-04-01] MEDS ORDERED: KETAMINE HCL INJ 500 MG/10 ML VIAL ONE (11:01)
--- NOTE | 2017-04-01 11:04 | PDOC PROGRESS REPORT ---
Subjective Progress Note for:: 04/01/17 Subjective:: Day 6 of hospitalization: Follow-up visit for patient with post obstructive pneumonia, right upper lung mass, nausea vomiting and diarrhea The patient is 57-year-old male with no significant past medical history who has not seen a physician for several years. He presented to the emergency room with significant nausea vomiting as well as diarrhea and was found to have a right upper lung mass with an associated post obstructive pneumonia. Chest CT scan revealed a right upper lung mass with an associated lymphadenopathy, brain MRI did not show any acute abnormality, abdominopelvic CT scan did not show any acute abnormalities. The patient was started on empiric IV Zosyn and levofloxacin (discontinued). Bronchoscopy has been scheduled for today by snubber. Oncology is following. Of note patient now admits to drinking at least 2 beers every day and sometimes 6. Overnight events noted: reportedly jada anxious and tremulous overnight. He denies chest pain, shortness of breath, nausea, vomiting, diarrhea, or any focal neurologic deficit. He has remained afebrile. He is n.p.o. for bronchoscopy later today Physical Exam Vital Signs: Temp Pulse Resp BP Pulse Ox 98.6 F 94 16 152/90 H 92 04/01/17 07:53 04/01/17 08:22 04/01/17 08:22 04/01/17 07:53 04/01/17 08:22 Intake & Output 03/31/17 04/01/17 04/02/17 06:59 06:59 06:59 Intake Total 4056 1431 Balance 4056 1431 Weight 83.1 kg 82.3 kg General appearance: PRESENT: no acute distress, cooperative, well-developed Head exam: PRESENT: atraumatic, normocephalic Respiratory exam: PRESENT: decreased breath sounds, rhonchi, symmetrical. ABSENT: accessory muscle use, chest wall tenderness, clear to auscultation rodrigue, crackles, prolonged expiratory phas, rales, retraction, stridor, tachypnea, unlabored, wheezes, other Cardiovascular exam: PRESENT: RRR, +S1, +S2 Pulses: ABSENT: normal carotid pulses, normal radial pulses, normal femoral pulses, normal dorsalis pedis pul, +1 pedal pulses bilateral, +2 pedal pulses bilateral, other GI/Abdominal exam: PRESENT: normal bowel sounds, soft. ABSENT: ascites, diminished bowel sounds, distended, firm, guarding, hernia, hyperactive bowel sounds, hypoactive bowel sounds, mass, Jennings's sign, organolmegaly, rebound, rigid, tenderness, other Neurological exam: PRESENT: alert, awake, oriented to person, oriented to place , oriented to time, oriented to situation, reflexes normal, CN II-XII grossly intact Results Laboratory Results: 03/30/17 05:27 04/01/17 04:38 04/01/17 04/01/17 04:38 04:38 Sodium 135.5 L Potassium 3.7 Chloride 99 Carbon Dioxide 25 Anion Gap 12 BUN 9 Creatinine 0.77 Est GFR ( Amer) > 60 Est GFR (Non-Af Amer) > 60 Glucose 93 Calcium 8.7 Magnesium 1.4 L 03/27/17 20:15 Troponin I < 0.012 Impressions: Abdomen/Pelvis CT 03/27/17 00:00 IMPRESSION: Profound fatty liver Probable chronic colitis, ulcerative colitis is should be considered. No CT evidence of metastatic disease to the abdomen or pelvis. Chest X-Ray 03/27/17 00:00 IMPRESSION: Right upper lobe pneumonia, possibly postobstructive pneumonia secondary to a right hilar mass. Head MRI 03/27/17 00:00 IMPRESSION: NO ENHANCING LESIONS. MINIMAL MICROVASCULAR ISCHEMIC CHANGE. OTHERWISE NORMAL STUDY. EVIDENCE OF ACUTE STROKE: NO. Chest/Abdomen CTA 03/27/17 12:03 IMPRESSION: 1. No PE. 2. Right upper lobe mass. Satellite nodule more posteriorly in the right upper lobe. 3. Lower lobe airspace disease may represent superimposed pneumonia or aspiration. Clinical correlation is needed. Status: Image reviewed by me Assessment & Plan - Diagnosis (1) Pneumonia Qualifiers: Pneumonia type: due to unspecified organism Laterality: right Lung location: upper lobe of lung Qualified Code(s): J18.1 - Lobar pneumonia, unspecified organism Is this a current diagnosis for this admission?: Yes Plan: Likely post obstructive pneumonia from the lung mass. Chest CT with Lower lobe airspace disease may represent superimposed pneumonia or aspiration. Remains afebrile with no leukocytosis. Cultures negative to date. Continue empirically on IV Pip/Tazo (Day 6). IV Levofloxacin discontinued. Follow blood cultures. (2) Lung mass Is this a current diagnosis for this admission?: Yes Plan: CT with right upper lobe mass 10.2 x 6.7 cm, with satellite nodule more posteriorly in the right upper lobe. Most likely malignant given the heavy smoking history. Bronchoscopy with biopsy scheduled for later today. Armoring Machine Operator and oncology input noted (3) Chronic alcohol abuse Is this a current diagnosis for this admission?: Yes Plan: Chronic alcohol abuse with some evidence of mild to moderate alcohol withdrawal. Patient now admits to drinking at least 2 beers every day and sometimes 6. Continue on Clonidine, lorazepam prn. Further EtOH abuse strongly discouraged (4) Anemia Qualifiers: Anemia type: unspecified type Qualified Code(s): D64.9 - Anemia, unspecified Is this a current diagnosis for this admission?: Yes Plan: Anemia of chronic disease, Hemoglobin 8.8 [10.8]. MCV 98, iron 61.8, ferritin 585. No indication for PRBC transfusion. We will follow (5) Hypomagnesemia Is this a current diagnosis for this admission?: No Plan: Severe, Mg 1.4 [0.8], likely related to malnutrition and chronic alcohol abuse. Replete and recheck (6) Hypokalemia Plan: Severe, K 3.7 [2.5][3.3], likely due to chronic alcohol abuse. Repleted (7) Hyponatremia Is this a current diagnosis for this admission?: Yes Plan: Hyponatremia, hypovolemic. Likely due to diarrhea and dehydration. Resolved (8) Tobacco abuse Is this a current diagnosis for this admission?: Yes Plan: Smoking cessation completed. Patient is not interested in quitting smoking at this time. Continue nicotine replacement therapy (9) Dehydration Is this a current diagnosis for this admission?: Yes Plan: Due to the diarrhea at home. Stool for C. difficile was negative. Resolved with IV fluid rehydration (10) DVT prophylaxis Is this a current diagnosis for this admission?: Yes Plan: Subcut Lovenox - Time Time Spent with patient: 35 or more minutes - I have reviewed the current plan of care with the patient and address all his questions and concerns. He has expressed clear understanding of this plan of care. Anticipated discharge: Home Within: within 48 hours - Inpatient Certification Medical Necessity: Need for IV Antibiotics, Risk of Diagnosis Which Will Require Inpatient Eval/Care/Monitoring
[2017-04-01] MEDS ORDERED: ONDANSETRON HCL INJ/PF 4 MG/2 ML SDV ONE (13:01)
[2017-04-01] MEDS ORDERED: DEXAMETHASONE SOD PHOSPHATE INJ 4 MG/1 ML VIAL ONE (13:01)
[2017-04-01] MEDS ORDERED: MORPHINE SULFATE 10 MG/ML INJ ONE (13:01)
[2017-04-01] MEDS ORDERED: SUCCINYLCHOLINE CHLORIDE INJ 200 MG/10 ML VIAL ONE (13:15)
--- NOTE | 2017-04-01 14:13 | PDOC PROGRESS REPORT ---
Subjective Progress Note for:: 03/29/17 Subjective:: Without complaints Physical Exam Vital Signs: Temp Pulse Resp BP Pulse Ox 99.3 F 95 18 143/82 H 98 03/29/17 07:38 03/29/17 08:19 03/29/17 08:19 03/29/17 07:38 03/29/17 08:19 Intake & Output 03/28/17 03/29/17 03/30/17 06:59 06:59 06:59 Intake Total 3554 4305 Output Total 2 Balance 3554 4303 Weight 81.7 kg 82.7 kg General appearance: PRESENT: no acute distress, cooperative, disheveled, well- developed Head exam: PRESENT: atraumatic, normocephalic Eye exam: PRESENT: conjunctiva pale, EOMI Mouth exam: PRESENT: dry mucosa, neck supple, tongue midline Neck exam: ABSENT: carotid bruit, JVD, lymphadenopathy, thyromegaly Respiratory exam: PRESENT: crackles, decreased breath sounds, prolonged expiratory phas, rhonchi, symmetrical, unlabored, wheezes. ABSENT: accessory muscle use, chest wall tenderness, clear to auscultation rodrigue, rales, retraction , stridor, tachypnea Cardiovascular exam: PRESENT: bradycardia, RRR, +S1, +S2 Pulses: PRESENT: normal radial pulses GI/Abdominal exam: PRESENT: normal bowel sounds, soft. ABSENT: distended, guarding, mass, organolmegaly, rebound, tenderness Extremities exam: ABSENT: calf tenderness, clubbing, joint swelling, pedal edema , tenderness Musculoskeletal exam: ABSENT: deformity, dislocation, tenderness Neurological exam: PRESENT: alert, awake Psychiatric exam: PRESENT: normal mood Skin exam: PRESENT: dry, warm Results Laboratory Results: 03/29/17 04:46 03/29/17 04:46 03/29/17 03/29/17 03/29/17 04:46 04:46 04:46 WBC 8.7 RBC 2.73 L Hgb 9.5 L Hct 27.0 L MCV 99 H MCH 34.7 H MCHC 35.1 RDW 17.3 H Plt Count 175 Seg Neutrophils % 77.6 Lymphocytes % 12.0 L Monocytes % 9.0 Eosinophils % 0.8 Basophils % 0.6 Absolute Neutrophils 6.8 Absolute Lymphocytes 1.0 Absolute Monocytes 0.8 Absolute Eosinophils 0.1 Absolute Basophils 0.1 Retic Count (auto) 0.57 L Absolute Retic 0.016 L Sodium 133.3 L Potassium 3.3 L Chloride 94 L Carbon Dioxide 23 Anion Gap 16 BUN 6 L Creatinine 0.67 Est GFR ( Amer) > 60 Est GFR (Non-Af Amer) > 60 Glucose 91 Calcium 8.0 L Magnesium 0.8 L* Iron TIBC % Saturation Ferritin Vitamin B12 Folate 03/29/17 04:46 WBC RBC Hgb Hct MCV MCH MCHC RDW Plt Count Seg Neutrophils % Lymphocytes % Monocytes % Eosinophils % Basophils % Absolute Neutrophils Absolute Lymphocytes Absolute Monocytes Absolute Eosinophils Absolute Basophils Retic Count (auto) Absolute Retic Sodium Potassium Chloride Carbon Dioxide Anion Gap BUN Creatinine Est GFR ( Amer) Est GFR (Non-Af Amer) Glucose Calcium Magnesium Iron 61.8 TIBC 224 L % Saturation 28 Ferritin 585.00 H Vitamin B12 607.0 Folate 2.18 L 03/27/17 20:15 Troponin I < 0.012 Impressions: Abdomen/Pelvis CT 03/27/17 00:00 IMPRESSION: Profound fatty liver Probable chronic colitis, ulcerative colitis is should be considered. No CT evidence of metastatic disease to the abdomen or pelvis. Chest X-Ray 03/27/17 00:00 IMPRESSION: Right upper lobe pneumonia, possibly postobstructive pneumonia secondary to a right hilar mass. Head MRI 03/27/17 00:00 IMPRESSION: NO ENHANCING LESIONS. MINIMAL MICROVASCULAR ISCHEMIC CHANGE. OTHERWISE NORMAL STUDY. EVIDENCE OF ACUTE STROKE: NO. Chest/Abdomen CTA 03/27/17 12:03 IMPRESSION: 1. No PE. 2. Right upper lobe mass. Satellite nodule more posteriorly in the right upper lobe. 3. Lower lobe airspace disease may represent superimposed pneumonia or aspiration. Clinical correlation is needed. Assessment & Plan - Diagnosis (1) Anemia Qualifiers: Anemia type: unspecified type Qualified Code(s): D64.9 - Anemia, unspecified Is this a current diagnosis for this admission?: Yes Plan: due to chronic disease (2) Lung mass Is this a current diagnosis for this admission?: Yes Plan: Schedule for fiberoptic bronchoscopy on Saturday, 01 April 2017 (3) Pneumonia Qualifiers: Pneumonia type: due to unspecified organism Laterality: right Lung location: upper lobe of lung Qualified Code(s): J18.1 - Lobar pneumonia, unspecified organism Is this a current diagnosis for this admission?: Yes Plan: Postobstructive empiric therapy For no prior/recent hospitalization (4) Tobacco abuse Is this a current diagnosis for this admission?: Yes Plan: Consider transdermal nicotine
--- NOTE | 2017-04-01 14:17 | PDOC PROGRESS REPORT ---
Subjective Progress Note for:: 03/30/17 Subjective:: Resting comfortably Physical Exam Vital Signs: Temp Pulse Resp BP Pulse Ox 98.0 F 77 16 129/83 H 93 03/30/17 15:43 03/30/17 16:28 03/30/17 16:28 03/30/17 15:43 03/30/17 15:43 Intake & Output 03/29/17 03/30/17 03/31/17 06:59 06:59 06:59 Intake Total 4305 4415 312 Output Total 2 Balance 4303 4415 3124 Weight 82.7 kg 82.9 kg General appearance: PRESENT: no acute distress, cooperative, disheveled, well- developed Head exam: PRESENT: atraumatic, normocephalic Eye exam: PRESENT: conjunctiva pale, EOMI Mouth exam: PRESENT: dry mucosa, neck supple, tongue midline Neck exam: ABSENT: carotid bruit, JVD, lymphadenopathy, thyromegaly Respiratory exam: PRESENT: decreased breath sounds, prolonged expiratory phas, rhonchi, symmetrical, unlabored, wheezes. ABSENT: accessory muscle use, chest wall tenderness, clear to auscultation rodrigue, crackles, rales, retraction, stridor , tachypnea Cardiovascular exam: PRESENT: RRR, +S1, +S2. ABSENT: irregular rhythm Pulses: PRESENT: normal radial pulses GI/Abdominal exam: PRESENT: normal bowel sounds, soft. ABSENT: distended, guarding, mass, organolmegaly, rebound, tenderness Extremities exam: ABSENT: calf tenderness, clubbing, joint swelling, pedal edema , tenderness Musculoskeletal exam: ABSENT: deformity, dislocation, tenderness Neurological exam: PRESENT: alert, awake Psychiatric exam: PRESENT: normal mood Skin exam: PRESENT: dry, warm Results Laboratory Results: 03/30/17 05:27 03/30/17 16:20 03/29/17 03/30/17 03/30/17 04:46 05:27 05:27 WBC 6.8 RBC 2.59 L Hgb 8.8 L Hct 25.5 L MCV 98 H MCH 33.9 H MCHC 34.5 RDW 17.5 H Plt Count 164 Seg Neutrophils % 67.6 Lymphocytes % 16.8 Monocytes % 11.9 Eosinophils % 2.7 Basophils % 1.0 Absolute Neutrophils 4.6 Absolute Lymphocytes 1.1 Absolute Monocytes 0.8 Absolute Eosinophils 0.2 Absolute Basophils 0.1 Sodium 133.4 L Potassium 2.7 L* Chloride 96 L Carbon Dioxide 25 Anion Gap 12 BUN 5 L Creatinine 0.63 Est GFR ( Amer) > 60 Est GFR (Non-Af Amer) > 60 Glucose 82 Calcium 7.8 L Magnesium 1.1 L* Transferrin 152 L 03/30/17 16:20 WBC RBC Hgb Hct MCV MCH MCHC RDW Plt Count Seg Neutrophils % Lymphocytes % Monocytes % Eosinophils % Basophils % Absolute Neutrophils Absolute Lymphocytes Absolute Monocytes Absolute Eosinophils Absolute Basophils Sodium 135.5 L Potassium 3.3 L Chloride 96 L Carbon Dioxide 26 Anion Gap 14 BUN 6 L Creatinine 0.70 Est GFR ( Amer) > 60 Est GFR (Non-Af Amer) > 60 Glucose 85 Calcium 8.2 L Magnesium 1.9 Transferrin 03/27/17 13:25 Stool - Stool - Final 03/27/17 13:25 Stool - Stool Stool Culture - Final NO SALMONELLA, SHIGELLA, CAMPYLOBACTER, OR E.COLI 0157 RECOVERED. NEGATIVE FOR SHIGA TOXINS 1&2. 03/27/17 20:15 Troponin I < 0.012 Impressions: Abdomen/Pelvis CT 03/27/17 00:00 IMPRESSION: Profound fatty liver Probable chronic colitis, ulcerative colitis is should be considered. No CT evidence of metastatic disease to the abdomen or pelvis. Chest X-Ray 03/27/17 00:00 IMPRESSION: Right upper lobe pneumonia, possibly postobstructive pneumonia secondary to a right hilar mass. Head MRI 03/27/17 00:00 IMPRESSION: NO ENHANCING LESIONS. MINIMAL MICROVASCULAR ISCHEMIC CHANGE. OTHERWISE NORMAL STUDY. EVIDENCE OF ACUTE STROKE: NO. Chest/Abdomen CTA 03/27/17 12:03 IMPRESSION: 1. No PE. 2. Right upper lobe mass. Satellite nodule more posteriorly in the right upper lobe. 3. Lower lobe airspace disease may represent superimposed pneumonia or aspiration. Clinical correlation is needed. Assessment & Plan - Diagnosis (1) Anemia Qualifiers: Anemia type: unspecified type Qualified Code(s): D64.9 - Anemia, unspecified Is this a current diagnosis for this admission?: Yes Plan: H/H continues to decline low retic count (2) Lung mass Is this a current diagnosis for this admission?: Yes Plan: Bronchoscopy MON a.m. (3) Pneumonia Qualifiers: Pneumonia type: due to unspecified organism Laterality: right Lung location: upper lobe of lung Qualified Code(s): J18.1 - Lobar pneumonia, unspecified organism Is this a current diagnosis for this admission?: Yes Plan: Postobstructive empiric therapy For no prior/recent hospitalization (4) Tobacco abuse Is this a current diagnosis for this admission?: Yes Plan: Consider transdermal nicotine
--- NOTE | 2017-04-01 14:22 | Operative Report ---
Operative Report DATE OF SURGERY: 04/01/17 Operative Report: Patient kept n.p.o. 12 hours prior to procedure taking the preop area where IV access was assured and consents were reviewed and was taken to bronchoscopy suite and under reaction rapid induction the patient was intubated per anesthesia. Then using a T size lipid bronchoscope is tracheobronchial tree was explored. There were no abnormalities of the distal trachea or the [place] left mainstem bronchus, left upper lobe, lingula and left lower lobe all appear to be within normal limits. There were no abnormalities of the right mainstem bronchus right bronchus intermedius the right middle lobe on the right lower lobe there is a large mass protruding from the orifice of the right upper lobe multiple biopsies and lavage were taken of this area tolerated procedure well his postprocedure SaO2 was 97% chest x-ray is in progress at this time biopsy and lavage fluids have been sent to the lab for appropriate cultures and studies. Portions of this note were dictated during [employer] natural speaking voice recognition software. Variations in spelling and tvocabulary are possible and unintentional. Please notify the author if any discrepancies are noted. PREOPERATIVE DIAGNOSIS: Right upper lobe mass POSTOPERATIVE DIAGNOSIS: Same OPERATION: Fiberoptic bronchoscopy with bronchoalveolar lavage, transbronchial biopsy and Love needle biopsy SURGEON: KALLIE GUALLPA ANESTHESIA: GA TISSUE REMOVED OR ALTERED: Right upper lobe bronchoalveolar lavage, transbronchial biopsies right upper lobe, love needle biopsies right upper lobe COMPLICATIONS: none ESTIMATED BLOOD LOSS: 0cc INTRAOPERATIVE FINDINGS: see pictures
--- NOTE | 2017-04-01 14:45 | RADIOLOGY REPORT (SQ) ---
EXAM DESCRIPTION: CHEST SINGLE VIEW; NO CHG FLUORO COMPLETED DATE/TIME: 04/01/2017 2:35 pm REASON FOR STUDY: BRONCHOSCOPY ASSISTED WITH FLUORO IN OR R91.8 OTHER NONSPECIFIC ABNORMAL FINDING OF LUNG FIELD COMPARISON: CT chest 03/27/2017 FLUOROSCOPY TIME: 0.2 minutes 4 digital C-arm images saved to PACS. TECHNIQUE: Intra-operative images acquired during surgical procedure to evaluate progress. NUMBER OF IMAGES: 4 digital C-arm images saved to pac's LIMITATIONS: None. FINDINGS: Intra procedural imaging and fluoro during bronchoscopy and biopsy by the product marketing executive. Please see the operative report for further details IMPRESSION: Intra procedural imaging and fluoro COMMENT: Quality ID [id number]: Final reports for procedures using fluoroscopy that document radiation exp osure indices, or exposure time and number of fluorographic images (if radiation exposure indices are not available) Please consult full operative report of the attending physician for description of the procedure. TECHNICAL DOCUMENTATION: JOB ID: [id number] [employer]- All Rights Reserved
--- NOTE | 2017-04-01 14:45 | RADIOLOGY REPORT (SQ) ---
EXAM DESCRIPTION: CHEST SINGLE VIEW; NO CHG FLUORO COMPLETED DATE/TIME: 04/01/2017 2:35 pm REASON FOR STUDY: BRONCHOSCOPY ASSISTED WITH FLUORO IN OR R91.8 OTHER NONSPECIFIC ABNORMAL FINDING OF LUNG FIELD COMPARISON: CT chest 03/27/2017 FLUOROSCOPY TIME: 0.2 minutes 4 digital C-arm images saved to PACS. TECHNIQUE: Intra-operative images acquired during surgical procedure to evaluate progress. NUMBER OF IMAGES: 4 digital C-arm images saved to pac's LIMITATIONS: None. FINDINGS: Intra procedural imaging and fluoro during bronchoscopy and biopsy by the sales utility representative. Please see the operative report for further details IMPRESSION: Intra procedural imaging and fluoro COMMENT: Quality ID [id number]: Final reports for procedures using fluoroscopy that document radiation exp osure indices, or exposure time and number of fluorographic images (if radiation exposure indices are not available) Please consult full operative report of the attending physician for description of the procedure. TECHNICAL DOCUMENTATION: JOB ID: [id number] [employer]- All Rights Reserved
--- NOTE | 2017-04-01 15:05 | RADIOLOGY REPORT (SQ) ---
EXAM DESCRIPTION: CHEST SINGLE VIEW COMPLETED DATE/TIME: 04/01/2017 2:51 pm REASON FOR STUDY: PORTABLE CXR S/P BRONCHOSCOPY W/ BIOPSY RT LUNG (PER DR GUALLPA) COMPARISON: Bronchoscopy intra procedural imaging 04/01/2017 CT angio chest 03/27/2017 EXAM PARAMETERS: NUMBER OF VIEWS: One view. TECHNIQUE: Single frontal radiographic view of the chest acquired. RADIATION DOSE: NA LIMITATIONS: None. FINDINGS: LUNGS AND PLEURA: No pneumothorax post right-sided bronchoscopy. There is right upper lobe volume loss and consolidation from postobstructive pneumonia. Minimal right basilar left basilar atelectasis. No pleural effusions. MEDIASTINUM AND HILAR STRUCTURES: Enlarged right hilum, left hilum unremarkable HEART AND VASCULAR STRUCTURES: Heart normal in size. Normal vasculature. BONES: No acute findings. HARDWARE: None in the chest. OTHER: No other significant finding. IMPRESSION: No pneumothorax post right-sided bronchoscopic biopsy TECHNICAL DOCUMENTATION: JOB ID: [id number] [employer]- All Rights Reserved
[2017-04-01 15:15] LABS: FLUID APPEARANCE TURBID; FLUID RBC DILUENT USED SALINE; FLUID RBC SIDE 1 209; FLUID RBC SIDE 2 203; FLUID TYPE BRONCHIAL WASH; STAIN REACTIVITY CHECK ACCEPTABLE
[2017-04-01 15:16] LABS: FLUID RBC DILUTION FACTOR 51; TOTAL RBC SQUARES COUNTED FLD 25
[2017-04-01] MEDS: MAGNESIUM SULFATE/D5W 1 GM/100 ML RTUPB IV SCH ×2 (15:50→16:52)
[2017-04-01] MEDS ORDERED: MAGNESIUM SULFATE/D5W 1 GM/100 ML RTUPB IV ONE (17:00)
[2017-04-01 17:43] LABS: MEAN CORPUSCULAR HEMOGLOBIN 34.6 pg (27.0-33.4); MEAN CORPUSCULAR HGB CONC 34.5 g/dL (32.0-36.0); MEAN CORPUSCULAR VOLUME 101 fl (80-97); RED BLOOD COUNT 2.59 10^6/uL (4.35-5.55); RED CELL DISTRIBUTION WIDTH 17.9 % (11.5-14.0); WHITE BLOOD COUNT 7.3 10^3/uL (4.0-10.5)
[2017-04-01 18:02] LABS: ANION GAP 14 (5-19); BLOOD UREA NITROGEN 10 mg/dL (7-20); CALCIUM 8.7 mg/dL (8.4-10.2); CARBON DIOXIDE 23 mmol/L (22-30); CHLORIDE 98 mmol/L (98-107); CREATININE RESULT 0.67 mg/dL (0.52-1.25); GLUCOSE 123 mg/dL (75-110); POTASSIUM 3.7 mmol/L (3.6-5.0); SODIUM 134.5 mmol/L (137-145)
[2017-04-02] MEDS: PIPERACILLIN SODIUM/TAZOBACTAM 4.5 GM in NORMAL SALINE 100 ML IV SCH ×2 (04:18→08:33)
[2017-04-02] MEDS: LANSOPRAZOLE 15 MG TAB.RAP.DR PO SCH ×2 (05:25→16:48)
[2017-04-02] MEDS: CLONIDINE HCL 0.1 MG TABLET PO SCH ×2 (05:25→13:54)
[2017-04-02 08:03] LABS: ANION GAP 13 (5-19); BLOOD UREA NITROGEN 10 mg/dL (7-20); CALCIUM 8.7 mg/dL (8.4-10.2); CARBON DIOXIDE 24 mmol/L (22-30); CHLORIDE 101 mmol/L (98-107); CREATININE RESULT 0.72 mg/dL (0.52-1.25); GLUCOSE 84 mg/dL (75-110); POTASSIUM 3.6 mmol/L (3.6-5.0); SODIUM 138.1 mmol/L (137-145)
[2017-04-02] MEDS: IPRATROPIUM/ALBUTEROL 0.5-2.5 MG/3 ML AMPUL NEB SCH ×2 (08:28→12:37)
[2017-04-02] MEDS: NYSTATIN 500000 UNIT/5 ML UDCUP PO SCH ×2 (09:19→13:55)
[2017-04-02] MEDS: NICOTINE 21 MG/24 HR PATCH.TD24 TD SCH (09:19)
[2017-04-02] MEDS: ENOXAPARIN SODIUM INJ 40 MG/0.4 ML DISP.SYRIN SUBCUT SCH (09:19)
[2017-04-02] MEDS: GUAIFENESIN 600 MG TABLET.SA PO SCH (09:19)
[2017-04-02] MEDS: ACETAMINOPHEN 325 MG TABLET PO PRN (12:04)
[2017-04-02 16:36] VITALS: BP 123/69
--- NOTE | 2017-04-02 16:39 | PDOC DISCHARGE SUMMARY ---
General - Admit/Disc Date/PCP Admission Date/Primary Care Provider: 03/27/17 12:35 Discharge Date: 04/02/17 - Discharge Diagnosis (1) Lung mass Is this a current diagnosis for this admission?: Yes (2) Tobacco abuse Is this a current diagnosis for this admission?: Yes (3) Pneumonia Is this a current diagnosis for this admission?: Yes (4) Anemia Is this a current diagnosis for this admission?: Yes Summary: Macrocytic (5) Chronic alcohol abuse Is this a current diagnosis for this admission?: Yes (6) Fatty liver Is this a current diagnosis for this admission?: Yes - Additional Information Resuscitation Status: Full Code Discharge Diet: Regular Discharge Activity: Activity As Tolerated Home Medications: Acetaminophen [Tylenol 325 mg Tablet] 650 mg PO Q4HP PRN tablet 04/02/17 Amox Tr/Potassium Clavulanate [Augmentin 875-125 mg Tablet] 1 tab PO BID #10 tablet 04/02/17 History of Present Illness History of Present Illness: ERICKA RAZO is a 57-year-old male with no significant past medical history who has not seen a physician for several years. He presented to the emergency room with significant nausea, vomiting as well as diarrhea. He was found to have a right upper lung mass with an associated post obstructive pneumonia. Hospital Course Hospital Course: He was started on IV antibiotics based on the assumption that he may have a post -obstructive pneumonia. He underwent CT of the chest that revealed a 10.2 x 6.7 cm right upper lung mass. There was a 1 cm satellite nodule more posteriorly in the right upper lobe. There was lower lobe airspace disease that may represent superimposed pneumonia or aspiration. He underwent bronchoscopy by Dr Ragland, 04/01/2017. Pathology results were pending at the time of discharge. A day prior to discharge, he mentioned that he was a somewhat heavy alcohol drinker. He felt agitated. He was started on Ativan as needed as well as clonidine for blood pressure. Otherwise, his hospital stay was uneventful. He was seen by , who graciously accepted to see him as an outpatient to review his pathology results with him. Physical Exam Vital Signs: Temp Pulse Resp BP Pulse Ox 98.2 F 102 H 16 130/78 H 95 04/02/17 11:13 04/02/17 14:00 04/02/17 12:37 04/02/17 11:13 04/02/17 12:37 Intake & Output 04/01/17 04/02/17 04/03/17 06:59 06:59 06:59 Intake Total 1431 2808 Output Total 10 Balance 1431 2798 Weight 82.3 kg 82.7 kg General appearance: PRESENT: no acute distress, well-developed, well-nourished Head exam: PRESENT: atraumatic, normocephalic Eye exam: PRESENT: conjunctiva pink, EOMI, PERRLA. ABSENT: scleral icterus Respiratory exam: PRESENT: clear to auscultation rodrigue. ABSENT: rales, rhonchi, wheezes Cardiovascular exam: PRESENT: RRR. ABSENT: diastolic murmur, rubs, systolic murmur GI/Abdominal exam: PRESENT: normal bowel sounds, soft. ABSENT: distended, guarding, mass, organolmegaly, rebound, tenderness Musculoskeletal exam: PRESENT: ambulatory Neurological exam: PRESENT: alert, awake, oriented to person, oriented to place , oriented to time, oriented to situation, CN II-XII grossly intact. ABSENT: motor sensory deficit Psychiatric exam: PRESENT: appropriate affect, normal mood. ABSENT: homicidal ideation, suicidal ideation Skin exam: PRESENT: dry, intact, warm. ABSENT: cyanosis, rash Results Laboratory Results: 04/01/17 17:20 04/02/17 05:49 04/01/17 04/01/17 04/02/17 17:20 17:20 05:49 WBC 7.3 RBC 2.59 L Hgb 9.0 L Hct 26.0 L MCV 101 H MCH 34.6 H MCHC 34.5 RDW 17.9 H Plt Count 219 Sodium 134.5 L Potassium 3.7 Chloride 98 Carbon Dioxide 23 Anion Gap 14 BUN 10 Creatinine 0.67 Est GFR ( Amer) > 60 Est GFR (Non-Af Amer) > 60 Glucose 123 H Calcium 8.7 Magnesium 1.7 04/02/17 05:49 WBC RBC Hgb Hct MCV MCH MCHC RDW Plt Count Sodium 138.1 Potassium 3.6 Chloride 101 Carbon Dioxide 24 Anion Gap 13 BUN 10 Creatinine 0.72 Est GFR ( Amer) > 60 Est GFR (Non-Af Amer) > 60 Glucose 84 Calcium 8.7 Magnesium 03/27/17 15:32 Blood Blood Culture - Final NO GROWTH IN 5 DAYS 03/27/17 12:45 Blood Blood Culture - Final NO GROWTH IN 5 DAYS 03/27/17 20:15 Troponin I < 0.012 Impressions: Abdomen/Pelvis CT 03/27/17 00:00 IMPRESSION: Profound fatty liver Probable chronic colitis, ulcerative colitis is should be considered. No CT evidence of metastatic disease to the abdomen or pelvis. Head MRI 03/27/17 00:00 IMPRESSION: NO ENHANCING LESIONS. MINIMAL MICROVASCULAR ISCHEMIC CHANGE. OTHERWISE NORMAL STUDY. EVIDENCE OF ACUTE STROKE: NO. Chest/Abdomen CTA 03/27/17 12:03 IMPRESSION: 1. No PE. 2. Right upper lobe mass. Satellite nodule more posteriorly in the right upper lobe. 3. Lower lobe airspace disease may represent superimposed pneumonia or aspiration. Clinical correlation is needed. Chest X-Ray 04/01/17 00:00 IMPRESSION: No pneumothorax post right-sided bronchoscopic biopsy Fluoroscopy 04/01/17 00:00 IMPRESSION: Intra procedural imaging and fluoro Plan Discharge Plan: He will follow-up with Dr. Mackay in 1 week
--- NOTE | 2017-04-03 09:19 | PDOC PROGRESS REPORT ---
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 relayed to Dr Dean Physical Exam Vital Signs: Temp Pulse Resp BP Pulse Ox 98.2 F 102 H 16 123/69 95 04/02/17 16:35 04/02/17 16:35 04/02/17 16:35 04/02/17 16:35 04/02/17 16:35 Intake & Output 04/02/17 04/03/17 04/04/17 06:59 06:59 06:59 Intake Total 2808 Output Total 10 Balance 2798 Weight 82.7 kg Results Laboratory Results: 04/01/17 17:20 04/02/17 05:49 04/01/17 13:35 Bronchial Washings AFB Smear Concentration - Final 04/01/17 13:35 Bronchial Washings Acid Fast Bacilli Smear - Final 03/27/17 20:15 Troponin I < 0.012 Impressions: Abdomen/Pelvis CT 03/27/17 00:00 IMPRESSION: Profound fatty liver Probable chronic colitis, ulcerative colitis is should be considered. No CT evidence of metastatic disease to the abdomen or pelvis. Head MRI 03/27/17 00:00 IMPRESSION: NO ENHANCING LESIONS. MINIMAL MICROVASCULAR ISCHEMIC CHANGE. OTHERWISE NORMAL STUDY. EVIDENCE OF ACUTE STROKE: NO. Chest/Abdomen CTA 03/27/17 12:03 IMPRESSION: 1. No PE. 2. Right upper lobe mass. Satellite nodule more posteriorly in the right upper lobe. 3. Lower lobe airspace disease may represent superimposed pneumonia or aspiration. Clinical correlation is needed. Chest X-Ray 04/01/17 00:00 IMPRESSION: No pneumothorax post right-sided bronchoscopic biopsy Fluoroscopy 04/01/17 00:00 IMPRESSION: Intra procedural imaging and fluoro Assessment & Plan - Diagnosis (1) Anemia Qualifiers: Anemia type: unspecified type Qualified Code(s): D64.9 - Anemia, unspecified Is this a current diagnosis for this admission?: Yes (2) Lung mass Is this a current diagnosis for this admission?: Yes (3) Pneumonia Qualifiers: Pneumonia type: due to unspecified organism Laterality: right Lung location: upper lobe of lung Qualified Code(s): J18.1 - Lobar pneumonia, unspecified organism Is this a current diagnosis for this admission?: Yes (4) Tobacco abuse Is this a current diagnosis for this admission?: Yes
--- NOTE | 2017-04-05 13:18 | PDOC PROGRESS REPORT ---
Subjective Progress Note for:: 04/02/17 Subjective:: Resting comfortably Physical Exam Vital Signs: Temp Pulse Resp BP Pulse Ox 98.2 F 78 20 167/93 H 95 04/02/17 08:14 04/02/17 08:14 04/02/17 08:14 04/02/17 08:14 04/02/17 08:14 Intake & Output 04/01/17 04/02/17 04/03/17 06:59 06:59 06:59 Intake Total 1431 2808 Output Total 10 Balance 1431 2798 Weight 82.3 kg 82.7 kg General appearance: PRESENT: no acute distress, cooperative, disheveled, well- developed Head exam: PRESENT: atraumatic, normocephalic Eye exam: PRESENT: conjunctiva pale, EOMI Mouth exam: PRESENT: dry mucosa, neck supple, tongue midline Teeth exam: PRESENT: poor dentation Neck exam: ABSENT: carotid bruit, JVD, lymphadenopathy, thyromegaly Respiratory exam: PRESENT: decreased breath sounds, prolonged expiratory phas, rales, rhonchi, symmetrical, unlabored, wheezes. ABSENT: accessory muscle use, chest wall tenderness, clear to auscultation rodrigue, crackles, retraction, stridor , tachypnea Cardiovascular exam: PRESENT: RRR, +S1, +S2. ABSENT: clicks, gallop, irregular rhythm, rubs Pulses: PRESENT: normal radial pulses GI/Abdominal exam: PRESENT: normal bowel sounds, soft. ABSENT: distended, guarding, mass, organolmegaly, rebound, tenderness Extremities exam: ABSENT: clubbing, joint swelling, pedal edema Musculoskeletal exam: ABSENT: deformity, dislocation Neurological exam: PRESENT: alert, awake Psychiatric exam: PRESENT: normal mood Skin exam: PRESENT: dry, pallor, warm Results Laboratory Results: 04/01/17 17:20 04/02/17 05:49 04/01/17 04/01/17 04/01/17 04:38 13:35 17:20 WBC 7.3 RBC 2.59 L Hgb 9.0 L Hct 26.0 L MCV 101 H MCH 34.6 H MCHC 34.5 RDW 17.9 H Plt Count 219 Sodium 135.5 L Potassium 3.7 Chloride 99 Carbon Dioxide 25 Anion Gap 12 BUN 9 Creatinine 0.77 Est GFR ( Amer) > 60 Est GFR (Non-Af Amer) > 60 Glucose 93 Calcium 8.7 Magnesium Fluid Type BRONCHIAL WASH Fluid Source LUNG Fluid Color RED Fluid Appearance TURBID Fluid Viscosity SLIGHTLY VISCOUS Fluid WBC 203 Fluid RBC [id number] 04/01/17 04/02/17 04/02/17 17:20 05:49 05:49 WBC RBC Hgb Hct MCV MCH MCHC RDW Plt Count Sodium 134.5 L 138.1 Potassium 3.7 3.6 Chloride 98 101 Carbon Dioxide 23 24 Anion Gap 14 13 BUN 10 10 Creatinine 0.67 0.72 Est GFR ( Amer) > 60 > 60 Est GFR (Non-Af Amer) > 60 > 60 Glucose 123 H 84 Calcium 8.7 8.7 Magnesium 1.7 Fluid Type Fluid Source Fluid Color Fluid Appearance Fluid Viscosity Fluid WBC Fluid RBC 03/27/17 15:32 Blood Blood Culture - Final NO GROWTH IN 5 DAYS 03/27/17 12:45 Blood Blood Culture - Final NO GROWTH IN 5 DAYS 03/27/17 20:15 Troponin I < 0.012 Impressions: Abdomen/Pelvis CT 03/27/17 00:00 IMPRESSION: Profound fatty liver Probable chronic colitis, ulcerative colitis is should be considered. No CT evidence of metastatic disease to the abdomen or pelvis. Head MRI 03/27/17 00:00 IMPRESSION: NO ENHANCING LESIONS. MINIMAL MICROVASCULAR ISCHEMIC CHANGE. OTHERWISE NORMAL STUDY. EVIDENCE OF ACUTE STROKE: NO. Chest/Abdomen CTA 03/27/17 12:03 IMPRESSION: 1. No PE. 2. Right upper lobe mass. Satellite nodule more posteriorly in the right upper lobe. 3. Lower lobe airspace disease may represent superimposed pneumonia or aspiration. Clinical correlation is needed. Chest X-Ray 04/01/17 00:00 IMPRESSION: No pneumothorax post right-sided bronchoscopic biopsy Fluoroscopy 04/01/17 00:00 IMPRESSION: Intra procedural imaging and fluoro Assessment & Plan - Diagnosis (1) Anemia Qualifiers: Anemia type: unspecified type Qualified Code(s): D64.9 - Anemia, unspecified Is this a current diagnosis for this admission?: Yes Plan: H/H continues to decline low retic count (2) Lung mass Is this a current diagnosis for this admission?: Yes Plan: Bronchoscopy MON a.m. (3) Pneumonia Qualifiers: Pneumonia type: due to unspecified organism Laterality: right Lung location: upper lobe of lung Qualified Code(s): J18.1 - Lobar pneumonia, unspecified organism Is this a current diagnosis for this admission?: Yes Plan: Postobstructive empiric therapy For no prior/recent hospitalization (4) Tobacco abuse Is this a current diagnosis for this admission?: Yes Plan: Consider transdermal nicotine
== END 2017-04-02 17:08 | disposition home or self-care (01) | DRG 166 ==
LOC: ER 10:03 → EH 12:35 → 3W 15:13
PROVIDERS: ADMIT Emergency Medicine; ATTEND Emergency Medicine
PROC: 0B9C8ZX Drainage of Right Upper Lung Lobe, Via Natural or Artificial Opening Endoscopic, Diagnostic (ICD-10-PCS; principal; 2017-04-01 13:00)
PROC: 0BD48ZX Extraction of Right Upper Lobe Bronchus, Via Natural or Artificial Opening Endoscopic, Diagnostic (ICD-10-PCS; 2017-04-01 13:00)
PROC: 3E0234Z Introduction of Serum, Toxoid and Vaccine into Muscle, Percutaneous Approach (ICD-10-PCS; 2017-04-02)
DX: C34.11 Malignant neoplasm of upper lobe, right bronchus or lung (principal); J18.9 Pneumonia, unspecified organism; E87.1 Hypo-osmolality and hyponatremia; F10.239 Alcohol dependence with withdrawal, unspecified; E86.0 Dehydration; D63.8 Anemia in other chronic diseases classified elsewhere; E87.6 Hypokalemia; J44.9 Chronic obstructive pulmonary disease, unspecified; F17.210 Nicotine dependence, cigarettes, uncomplicated; E83.42 Hypomagnesemia; Z91.81 History of falling; Z23 Encounter for immunization; Z59.7 Insufficient social insurance and welfare support
CPT/HCPCS: 31624; 31625; 31629; 36415; 520; 70553; 71010; 71275; 74177; 80048; 80053; 81001; 82272; 82550; 82607; 82728; 82746; 83036; 83540; 83550; 83605; 83690; 83735; 84466; 84484; 85025; 85027; 85045; 85610; 85730; 87015; 87040; 87045; 87070; 87077; 87101; 87116; 87186; 87205; 87206; 87493; 88305; 89050; 89055; 90686; 94640; 96361; 96374; 99291; A9577; J0131; J0330; J1100; J1650; J1956; J2250; J2270; J2405; J2543; J2704; J3010; J3475; J3480; J3490; J7030; J7120; J7620

== ENCOUNTER → 2017-04-16 | Outpatient (CLI) | payer SELFPAY ==
--- NOTE | 2017-04-17 09:22 | RADIOLOGY REPORT (SQ) ---
EXAM DESCRIPTION: PET CT SKULL/THIGH COMPLETED DATE/TIME: 04/16/2017 8:39 pm REASON FOR STUDY: C34.11 MALIGNANT NEOPLASM OF UPPER LOBE, RIGHT BRONCHUS OR LUNG C34.11 MALIGNANT NEOPLASM OF UPPER LOBE, RIGHT BRONCHUS OR L COMPARISON: CT dated 03/27/2017. RADIONUCLIDE AND DOSE: 10 mCi F18 FDG The route of agent administration: Intravenous FASTING BLOOD SUGAR: 90 mg/dl CONTRAST TYPE AND DOSE: No CT contrast given. TECHNIQUE: Blood glucose level was verified. Above dose of FDG was injected intravenously. 2-D seg mented attenuation correction images were obtained from the base of the skull to the midthighs. Nonc ontrast CT images were obtained for attenuation correction and fusion with emission images. CT image s were performed without oral or intravenous contrast and are not sensitive for parenchymal lesions. A series of overlapping emission PET images were obtained. Images reviewed and manipulated at [facility] work station by the radiologist. Images stored on PACS. LIMITATIONS: None. FINDINGS: HEAD AND NECK: No areas of abnormal metabolic activity in the soft tissues of the head and neck. CHEST: Emphysematous changes. Again seen is scattered parenchymal infiltrate primarily in the right upper lobe. Increased activity on PET imaging. There are focal areas of increased activity near the right hilum probably due to soft tissue mass and/or adenopathy although difficult to fully visualize on CT without contrast. These areas of activity have mean SUV values of 7.59 and 8.77. There is a separate 1.1 cm irregular nodular mass in the right upper lobe with mean SUV value 3.25. ABDOMEN AND PELVIS: Again seen are scattered areas of bowel wall thickening involving the colon. Pro minent activity on PET imaging, particularly in the cecum with mean SUV value 7.47 and sigmoid colon, mean value 9.1. No other areas of abnormal activity in the abdomen or pelvis. PROXIMAL LOWER EXTREMITIES: No areas of abnormal metabolic activity in the soft tissues of the lower extremities. BONES: No abnormal metabolic activity in the visualized skeleton. ADDITIONAL CT FINDINGS: Marked fatty infiltration of the liver. No additional significant findings o n the noncontrast CT images. OTHER: No other significant findings. IMPRESSION: 1. PARENCHYMAL INFILTRATE IN THE RIGHT UPPER LOBE PROBABLY DUE TO POSTOBSTRUCTIVE PNEUMONIA. FOCAL A REAS OF INCREASED ACTIVITY NEAR THE RIGHT HILUM CONSISTENT WITH MALIGNANCY, EITHER SOFT TISSUE MASS O R ADENOPATHY. SEPARATE SMALLER NODULE IN THE RIGHT UPPER LOBE WITH ABNORMAL ACTIVITY CONSISTENT WITH A SECOND AREA OF MALIGNANCY IN THE RIGHT UPPER LOBE. 2. BOWEL WALL THICKENING/EDEMA IN THE COLON WITH AREAS OF PROMINENT INCREASED ACTIVITY PARTICULARLY I N THE CECUM AND SIGMOID. THIS COULD BE DUE TO INFLAMMATORY PROCESS SUCH COLITIS. RECOMMEND CORRE LATION WITH CLINICAL HISTORY AND CONSIDERATION OF COLONOSCOPY FOR FURTHER EVALUATION. 3. NO OTHER AREAS OF ABNORMAL ACTIVITY ON PET IMAGING. MARKED FATTY INFILTRATION OF THE LIVER. TECHNICAL DOCUMENTATION: JOB ID: [id number] [employer]- All Rights Reserved
== END ==
LOC: RAD 16:19
PROVIDERS: ATTEND Internal Medicine Hematology & Oncology
DX: C34.11 Malignant neoplasm of upper lobe, right bronchus or lung (principal)
CPT/HCPCS: 78815; A9552

== ENCOUNTER 2017-05-07 09:18 | Outpatient (CLI) | payer SELFPAY ==
[~2017-05-07 09:18] MED LIST: DIPHENHYDRAMINE HCL 50 MG/ML VIAL IV PRN; FAMOTIDINE/PF 20 MG in NORMAL SALINE 50 ML IV PRN; NORMAL SALINE 1000 ML 1,000 ML IV PRN; ONDANSETRON HCL/PF 16 MG, DEXAMETHASONE SOD PHOSPHATE 10 MG in NORMAL SALINE 50 ML IV PRN
[2017-05-07] MEDS ORDERED: CARBOPLATIN 250 MG in NORMAL SALINE 250 ML IV PRN (09:34)
[2017-05-07] MEDS ORDERED: NORMAL SALINE IV PRN (09:39)
[2017-05-07] MEDS ORDERED: PACLITAXEL SEMI SYNTHETIC IV PRN (09:39)
[2017-05-07] MEDS ORDERED: NORMAL SALINE 250 ML IV PRN (09:43)
[2017-05-07 09:57] LABS: ALANINE AMINOTRANSFERASE 55 U/L (21-72); ALBUMIN 4.5 g/dL (3.5-5.0); ALKALINE PHOSPHATASE 193 U/L (38-126); ANION GAP 12 (5-19); ASPARTATE AMINO TRANSFERASE 90 U/L (17-59); BILIRUBIN,DIRECT 0.5 mg/dL (0.0-0.4); BILIRUBIN,TOTAL 0.9 mg/dL (0.2-1.3); BLOOD UREA NITROGEN 11 mg/dL (7-20); CALCIUM 10.2 mg/dL (8.4-10.2); CARBON DIOXIDE 31 mmol/L (22-30); CHLORIDE 96 mmol/L (98-107); GLUCOSE 99 mg/dL (75-110); POTASSIUM 4.5 mmol/L (3.6-5.0); SODIUM 139.2 mmol/L (137-145); TOTAL PROTEIN 8.7 g/dL (6.3-8.2)
[2017-05-07 10:00] VITALS: BP 135/91
== END 2017-05-07 13:15 | disposition home or self-care (01) ==
LOC: II 09:18 → 5TH 09:19 → II 13:15
PROVIDERS: ATTEND Internal Medicine Hematology & Oncology
PROC: 3E03305 Introduction of Other Antineoplastic into Peripheral Vein, Percutaneous Approach (ICD-10-PCS; principal; 2017-05-07)
PROC: 3E033GC Introduction of Other Therapeutic Substance into Peripheral Vein, Percutaneous Approach (ICD-10-PCS; 2017-05-07)
DX: Z51.11 Encounter for antineoplastic chemotherapy (principal); C34.11 Malignant neoplasm of upper lobe, right bronchus or lung
CPT/HCPCS: 36415; 80053; 96413; 96415; 96367; 96375; J1200; J9045; J2405; J7050; J9267; S0028; J1100; 96366; 96417

== ENCOUNTER 2017-05-14 10:25 | Outpatient (CLI) | payer SELFPAY ==
[~2017-05-14 10:25] MED LIST changes: +CARBOPLATIN 250 MG in NORMAL SALINE 250 ML IV PRN; -NORMAL SALINE 1000 ML 1,000 ML IV PRN; +NORMAL SALINE 250 ML IV PRN; +NORMAL SALINE IV PRN; +PACLITAXEL SEMI SYNTHETIC IV PRN
[2017-05-14 11:03] VITALS: BP 103/76
[2017-05-14 11:13] LABS: ALANINE AMINOTRANSFERASE 60 U/L (21-72); ALBUMIN 4.3 g/dL (3.5-5.0); ALKALINE PHOSPHATASE 161 U/L (38-126); ANION GAP 13 (5-19); ASPARTATE AMINO TRANSFERASE 53 U/L (17-59); BILIRUBIN,DIRECT 0.5 mg/dL (0.0-0.4); BILIRUBIN,TOTAL 1.2 mg/dL (0.2-1.3); BLOOD UREA NITROGEN 20 mg/dL (7-20); CALCIUM 9.5 mg/dL (8.4-10.2); CARBON DIOXIDE 26 mmol/L (22-30); CHLORIDE 93 mmol/L (98-107); GLUCOSE 97 mg/dL (75-110); POTASSIUM 4.5 mmol/L (3.6-5.0); SODIUM 132.4 mmol/L (137-145)
== END 2017-05-14 14:20 | disposition home or self-care (01) ==
LOC: II 10:25 → 5TH 10:26 → II 14:20
PROVIDERS: ATTEND Internal Medicine
DX: Z51.11 Encounter for antineoplastic chemotherapy (principal); C34.11 Malignant neoplasm of upper lobe, right bronchus or lung
CPT/HCPCS: 36415; 80053; 96413; 96415; 96367; J1200; J9045; J2405; J7050; J9267; S0028; J1100

== ENCOUNTER 2017-05-21 10:10 | Outpatient (CLI) | payer SELFPAY ==
[2017-05-21 10:38] VITALS: BP 97/59
== END 2017-05-21 16:06 | disposition home or self-care (01) ==
LOC: II 10:10 → 5TH 10:40 → II 16:06
PROVIDERS: ATTEND Internal Medicine Hematology & Oncology
PROC: 3E03305 Introduction of Other Antineoplastic into Peripheral Vein, Percutaneous Approach (ICD-10-PCS; principal; 2017-05-21)
PROC: 3E043GC Introduction of Other Therapeutic Substance into Central Vein, Percutaneous Approach (ICD-10-PCS; 2017-05-21)
DX: Z51.11 Encounter for antineoplastic chemotherapy (principal); C34.11 Malignant neoplasm of upper lobe, right bronchus or lung
CPT/HCPCS: 96413; 96415; 96365; 96367; 96374; 96360; 96417; J1200; J9045; J2405; J7050; J9267; S0028; J1100; 96361; 96375

== ENCOUNTER 2017-06-11 11:52 | Outpatient (CLI) | payer MEDICAID ==
[~2017-06-11 11:52] MED LIST changes: +EPOETIN ALFA INJ 40000 UNIT/1 ML (ONCOLOGY) SUBCUT PRN
[2017-06-11 12:35] VITALS: BP 106/74
== END 2017-06-11 14:55 | disposition home or self-care (01) ==
LOC: II 11:52 → 5TH 11:54 → II 14:55
PROVIDERS: ATTEND Internal Medicine
PROC: 3E013GC Introduction of Other Therapeutic Substance into Subcutaneous Tissue, Percutaneous Approach (ICD-10-PCS; principal; 2017-06-11)
PROC: 3E03305 Introduction of Other Antineoplastic into Peripheral Vein, Percutaneous Approach (ICD-10-PCS; 2017-06-11)
PROC: 3E033GC Introduction of Other Therapeutic Substance into Peripheral Vein, Percutaneous Approach (ICD-10-PCS; 2017-06-11)
DX: Z51.11 Encounter for antineoplastic chemotherapy (principal); C34.11 Malignant neoplasm of upper lobe, right bronchus or lung; D64.81 Anemia due to antineoplastic chemotherapy
CPT/HCPCS: 96413; 96415; 96367; 96368; 96375; J1200; J9045; J2405; J7050; J9267; J0885; S0028; J1100; 96372; 96417

== ENCOUNTER 2017-06-18 11:08 | Outpatient (CLI) | payer MEDICAID ==
[~2017-06-18 11:08] MED LIST changes: +DEXAMETHASONE SOD PHOSPHATE IV PRN; +ONDANSETRON HCL IV PRN; -ONDANSETRON HCL/PF 16 MG, DEXAMETHASONE SOD PHOSPHATE 10 MG in NORMAL SALINE 50 ML IV PRN
[2017-06-18 11:39] VITALS: BP 115/66
== END 2017-06-18 15:29 | disposition home or self-care (01) ==
LOC: II 11:08 → 5TH 11:36 → II 15:29
PROVIDERS: ATTEND Internal Medicine Hematology & Oncology
PROC: 3E03305 Introduction of Other Antineoplastic into Peripheral Vein, Percutaneous Approach (ICD-10-PCS; principal; 2017-06-18)
PROC: 3E0333Z Introduction of Anti-inflammatory into Peripheral Vein, Percutaneous Approach (ICD-10-PCS; 2017-06-18)
PROC: 3E033GC Introduction of Other Therapeutic Substance into Peripheral Vein, Percutaneous Approach (ICD-10-PCS; 2017-06-18)
DX: Z51.11 Encounter for antineoplastic chemotherapy (principal); C34.11 Malignant neoplasm of upper lobe, right bronchus or lung; D64.81 Anemia due to antineoplastic chemotherapy
CPT/HCPCS: 96413; 96375; 96361; 96417; J1200; J9045; J7050; J2405; J9267; J0885; S0028; J1100; 96360; 96367; 96374; 96415

== ENCOUNTER 2017-06-20 19:46 | Emergency (ER) | payer MEDICAID ==
[2017-06-20 20:27] VITALS: BP 132/77
--- NOTE | 2017-06-20 20:49 | ER Document Report ---
ED Medical Screen (RME) - General Chief Complaint: Breathing Difficulty Stated Complaint: DIFFICULTY BREATHING Time Seen by Provider: 06/20/17 20:43 Mode of Arrival: Wheelchair Information source: Patient Notes: 57-year-old male presents to ED for right rib pain shortness of breath possible right rib fracture states he fell last night. He also states he was diagnosed with cancer recently to the lung. States he was diagnosed in the emergency room. Patient states he continues to smoke about 10 cigarettes a day was smoking 2 packs a day. Patient is splinting his right ribs speaking in fragmented sentences. I have greeted and performed a rapid initial assessment of this patient. A comprehensive ED assessment and evaluation of the patient, analysis of test results and completion of medical decision making process will be conducted by an additional ED providers. TRAVEL OUTSIDE OF THE [place] IN LAST 30 DAYS: No - Related Data Allergies/Adverse Reactions: No Known Allergies Allergy (Unverified 04/27/13 10:34) Past Medical History - Past Medical History Cardiac Medical History: Denies: Hx Coronary Artery Disease, Hx Heart Attack, Hx Hypertension Pulmonary Medical History: Reports: Hx COPD Denies: Hx Asthma, Hx Bronchitis, Hx Pneumonia Neurological Medical History: Denies: Hx Cerebrovascular Accident, Hx Migraine, Hx Seizures Endocrine Medical History: Denies: Hx Diabetes Mellitus Type 1, Hx Diabetes Mellitus Type 2, Hx Hyperthyroidism, Hx Hypothyroidism Renal/ Medical History: Denies: Hx End Stage Renal Disease, Hx Peritoneal Dialysis Malignancy Medical History: Denies Hx Bone Cancer, Denies Hx Brain Cancer, Denies Hx Colorectal Cancer, Denies Hx Leukemia, Denies Hx Liver Cancer, Denies Hx Lung Cancer, Denies Hx Lymphoma, Denies Hx Pancreatic Cancer, Denies Hx Renal (Kidney) Cancer, Denies Hx Skin Cancer GI Medical History: Denies: Hx Cirrhosis, Hx Crohn's Disease, Hx Diverticulitis , Hx Gastroesophageal Reflux Disease, Hx Hepatitis, Hx Hiatal Hernia, Hx Ulcerative Colitis Musculoskeltal Medical History: Denies Hx Arthritis Psychiatric Medical History: Denies: Hx Bipolar Disorder, Hx Dementia, Hx Depression, Hx Post Traumatic Stress Disorder, Hx Schizoaffective Disorder Traumatic Medical History: Reports: Hx Traumatic Brain Injury - Depressed skull fracture requiring surgical intervention at 19 yo. Denies: Hx Gunshot Wound, Hx Pneumothorax Infectious Medical History: Denies: Hx Hepatitis Past Surgical History: Reports: Other - Inguinal hernia - Immunizations Hx Diphtheria, Pertussis, Tetanus Vaccination: No History of Influenza Vaccine for 02/2017 - 07/2017 Season: No Physical Exam - Vital signs Vitals: Temp Pulse BP Pulse Ox 97.5 F 115 H 132/77 H 98 06/20/17 20:22 06/20/17 20:22 06/20/17 20:22 06/20/17 20:22 Course - Vital Signs Vital signs: Temp Pulse Resp BP Pulse Ox 97.5 F 115 H 132/77 H 98 06/20/17 20:22 06/20/17 20:22 06/20/17 20:22 06/20/17 20:22
--- NOTE | 2017-06-20 21:10 | RADIOLOGY REPORT (SQ) ---
EXAM DESCRIPTION: RIBS RIGHT W/PA CHEST COMPLETED DATE/TIME: 06/20/2017 8:56 pm REASON FOR STUDY: Shortness of breath pain in right ribs fell last COMPARISON: PET-CT 04/16/2017 TECHNIQUE: Frontal view of the chest and additional views of the right ribs acquired. NUMBER OF VIEWS: Four view. LIMITATIONS: None. FINDINGS: FRONTAL CXR: There is some chronic changes right perihilar. Seen on the previous PET-CT b ut improved. Left lung is clear. No pneumothorax. RIBS: Fractures of the 7th 8th 9th 10th 11th 12th right ribs. OTHER: No other significant finding. IMPRESSION: No pneumothorax. Perihilar changes improved over the previous PET-CT. 6 posterolateral right rib fractures. COMMENT: SITE OF TRAUMA/COMPLAINT MARKED/STAMP COMPLETED: None TECHNICAL DOCUMENTATION: JOB ID: [id number] [employer]- All Rights Reserved
== END 2017-06-20 23:30 | disposition left against medical advice (07) ==
LOC: ER 19:46
DX: Z53.21 Procedure and treatment not carried out due to patient leaving prior to being seen by health care provider (principal); R06.02 Shortness of breath; R07.81 Pleurodynia; C34.90 Malignant neoplasm of unspecified part of unspecified bronchus or lung; F17.210 Nicotine dependence, cigarettes, uncomplicated; W19.XXXA Unspecified fall, initial encounter
CPT/HCPCS: 99281

== ENCOUNTER 2017-07-01 19:53 | Inpatient (IN) | payer MEDICAID ==
[2017-07-01 20:33] LABS: VENOUS BLOOD BASE EXCESS 1.7 mmol/L; VENOUS BLOOD HCO3 25.7 mmol/L (20-32); VENOUS BLOOD PCO2 36.2 mmHg (35-63); VENOUS BLOOD PH 7.47 (7.30-7.42)
[2017-07-01 20:48] LABS: INTERNATIONAL RATION (INR) 0.96; PROTHROMBIN TIME 13.5 SEC (11.4-15.4)
[2017-07-01 20:49] LABS: HEMATOCRIT 17.1 % (37.9-51.0); MEAN CORPUSCULAR HEMOGLOBIN 38.7 pg (27.0-33.4); MEAN CORPUSCULAR HGB CONC 34.6 g/dL (32.0-36.0); MEAN CORPUSCULAR VOLUME 112 fl (80-97); PLATELET COUNT 158 10^3/uL (150-450); RED BLOOD COUNT 1.53 10^6/uL (4.35-5.55); RED CELL DISTRIBUTION WIDTH 20.3 % (11.5-14.0); WHITE BLOOD COUNT 5.1 10^3/uL (4.0-10.5)
[2017-07-01 20:54] LABS: ALANINE AMINOTRANSFERASE 37 U/L (21-72); ALBUMIN 3.6 g/dL (3.5-5.0); ALKALINE PHOSPHATASE 106 U/L (38-126); ANION GAP 10 (5-19); ASPARTATE AMINO TRANSFERASE 49 U/L (17-59); BILIRUBIN,DIRECT 0.3 mg/dL (0.0-0.4); BILIRUBIN,TOTAL 0.7 mg/dL (0.2-1.3); BLOOD UREA NITROGEN 16 mg/dL (7-20); CALCIUM 8.7 mg/dL (8.4-10.2); CARBON DIOXIDE 24 mmol/L (22-30); CHLORIDE 101 mmol/L (98-107); GLUCOSE 87 mg/dL (75-110); POTASSIUM 3.8 mmol/L (3.6-5.0); SODIUM 135.4 mmol/L (137-145); TOTAL PROTEIN 6.3 g/dL (6.3-8.2)
[2017-07-01 20:58] LABS: HEMOGLOBIN 5.9 g/dL (13.5-17.0)
[2017-07-01] MEDS ORDERED: NORMAL SALINE 250 ML IV PRN ×2 (21:00)
--- NOTE | 2017-07-01 21:01 | ER Document Report ---
ED General - General Chief Complaint: Shortness Of Breath Stated Complaint: RESPIRATORY DISTRESS Time Seen by Provider: 07/01/17 19:56 Mode of Arrival: Medic Information source: Patient Notes: 57 yr old male hx lung ca stage 3 presents with complaitns of sob, weakness. pt receives radiation daily, had chemo last week, suppsoed ot have chemo tomorrow TRAVEL OUTSIDE OF THE [place] IN LAST 30 DAYS: No - HPI Onset: Last week Onset/Duration: Persistent Quality of pain: Achy Severity: Mild Pain Level: 1 Associated symptoms: Nonproductive cough, Shortness of breath, Weakness Exacerbated by: Supine Relieved by: Denies Similar symptoms previously: Yes Recently seen / treated by doctor: Yes - Related Data Allergies/Adverse Reactions: No Known Allergies Allergy (Unverified 04/27/13 10:34) Past Medical History - Social History Smoking Status: Former Smoker Cigarette use (# per day): Yes Chew tobacco use (# tins/day): No Smoking Education Provided: No Family History: CAD, COPD, Hypertension, Malignancy, Other - Father still living. He had an unknown type of cancer - perhaps a skin cancer. His mother is also living. His older brother , but unsure of cause. He has no children. - Past Medical History Cardiac Medical History: Denies: Hx Coronary Artery Disease, Hx Heart Attack, Hx Hypertension Pulmonary Medical History: Reports: Hx COPD Denies: Hx Asthma, Hx Bronchitis, Hx Pneumonia Neurological Medical History: Denies: Hx Cerebrovascular Accident, Hx Migraine, Hx Seizures Endocrine Medical History: Denies: Hx Diabetes Mellitus Type 1, Hx Diabetes Mellitus Type 2, Hx Hyperthyroidism, Hx Hypothyroidism Renal/ Medical History: Denies: Hx End Stage Renal Disease, Hx Peritoneal Dialysis Malignancy Medical History: Denies Hx Bone Cancer, Denies Hx Brain Cancer, Denies Hx Colorectal Cancer, Denies Hx Leukemia, Denies Hx Liver Cancer, Denies Hx Lung Cancer, Denies Hx Lymphoma, Denies Hx Pancreatic Cancer, Denies Hx Renal (Kidney) Cancer, Denies Hx Skin Cancer GI Medical History: Denies: Hx Cirrhosis, Hx Crohn's Disease, Hx Diverticulitis , Hx Gastroesophageal Reflux Disease, Hx Hepatitis, Hx Hiatal Hernia, Hx Ulcerative Colitis Musculoskeltal Medical History: Denies Hx Arthritis Psychiatric Medical History: Denies: Hx Bipolar Disorder, Hx Dementia, Hx Depression, Hx Post Traumatic Stress Disorder, Hx Schizoaffective Disorder Traumatic Medical History: Reports: Hx Traumatic Brain Injury - Depressed skull fracture requiring surgical intervention at 19 yo. Denies: Hx Gunshot Wound, Hx Pneumothorax Infectious Medical History: Denies: Hx Hepatitis Past Surgical History: Reports: Hx Orthopedic Surgery - L wrist, Other - Inguinal hernia - Immunizations Hx Diphtheria, Pertussis, Tetanus Vaccination: No Review of Systems - Review of Systems Notes: REVIEW OF SYSTEMS: CONSTITUTIONAL : Denies fever, chills, or sweats. Denies recent illness. EENT: Denies eye, ear, throat, or mouth pain or symptoms. Denies nasal or sinus congestion or discharge. Denies throat, tongue, or mouth swelling or difficulty swallowing. CARDIOVASCULAR: Denies chest pain. Denies palpitations or racing or irregular heart beat. Denies ankle edema. RESPIRATORY: Admits to cough shortness of breath difficulty breathing GASTROINTESTINAL: Denies abdominal pain or distention. Denies nausea, vomiting , or diarrhea. Denies blood in vomitus, stools, or per rectum. Denies black, tarry stools. Denies constipation. GENITOURINARY: Denies difficulty urinating, painful urination, burning, frequency, blood in urine, or discharge. MUSCULOSKELETAL: Denies back or neck pain or stiffness. Denies joint pain or swelling. SKIN: Denies rash, lesions or sores. HEMATOLOGIC : Denies easy bruising or bleeding. LYMPHATIC: Denies swollen, enlarged glands. NEUROLOGICAL: Denies confusion or altered mental status. Denies passing out or loss of consciousness. Denies dizziness or lightheadedness. Denies headache. Denies weakness or paralysis or loss of use of either side. Denies problems with gait or speech. Denies sensory loss, numbness, or tingling. Denies seizures. PSYCHIATRIC: Denies anxiety or stress. Denies depression, suicidal ideation, or homicidal ideation. ALL OTHER SYSTEMS REVIEWED AND NEGATIVE. Dictation was performed using [employer] voice recognition software PHYSICAL EXAMINATION: GENERAL: Overall well-appearing but in mild respiratory distress HEAD: Atraumatic, normocephalic. EYES: Pupils equal round and reactive to light, extraocular movements intact, sclera anicteric, conjunctiva are normal. ENT: Nares patent, oropharynx clear without exudates. Moist mucous membranes. NECK: Normal range of motion, supple without lymphadenopathy LUNGS: His breath sounds on the left mild respiratory distress HEART: Regular rate and rhythm without murmurs ABDOMEN: Soft, nontender, nondistended abdomen. No guarding, no rebound. No masses appreciated. Musculoskeletal: Normal range of motion, no pitting or edema. No cyanosis. NEUROLOGICAL: Cranial nerves grossly intact. Normal speech, normal gait. Normal sensory, motor exams PSYCH: Normal mood, normal affect. SKIN: Warm, Dry, normal turgor, no rashes or lesions noted. Physical Exam - Vital signs Vitals: Temp 99.2 F 07/01/17 20:01 Course - Re-evaluation Re-evalutation: 07/01/17 21:01 I was notified by lab of a hemoglobin of 5.9, I will order 3 units of blood to transfuse 07/01/17 22:37 CT does note a large left-sided pleural effusion, I will admit the patient to the hospitalist service for further evaluation, patient is being transfused currently. I believe this is secondary to radiation therapy - Vital Signs Vital signs: Temp Pulse Resp BP Pulse Ox 99.2 F 07/01/17 20:01 - Laboratory Result Diagrams: 07/01/17 20:10 07/01/17 20:10 Laboratory results interpreted by me: 07/01/17 07/01/17 07/01/17 20:10 20:10 20:10 RBC 1.53 L Hgb 5.9 L Hct 17.1 L MCV 112 H MCH 38.7 H RDW 20.3 H Monocytes % (Manual) 21 H VBG pH 7.47 H Sodium 135.4 L POC Glucose Crossmatch 07/01/17 07/01/17 20:42 21:20 RBC Hgb Hct MCV MCH RDW Monocytes % (Manual) VBG pH Sodium POC Glucose 112 H Crossmatch See Detail Critical Care Note - Critical Care Note Total time excluding time spent on procedures (mins): 38 Comments: 38 minutes of critical care time spent in direct contact evaluating and reevaluating the patient, treating symptoms, reviewing labs and studies and speaking with family and consultants excluding any procedures Discharge - Discharge Clinical Impression: Lung mass, 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
[2017-07-01 21:07] LABS: ABSOLUTE MONOCYTES # (MANUAL) 1.1 10^3/uL (0.1-1.4); BASOPHILS % (MANUAL) 0 % (0-2); EOSINOPHILS % (MANUAL) 1 % (0-6); LYMPHOCYTES % (MANUAL) 20 % (13-45); MONOCYTES % (MANUAL) 21 % (3-13); NUCLEATED RED BLOOD CELLS 1 /100 WBC (0); SEGMENTED NEUTROPHILS % (MAN) 58 % (42-78); TOTAL CELLS COUNTED 100
[2017-07-01 21:09] LABS: ANISOCYTOSIS 2+; PLATELET COMMENT ADEQUATE; POIKILOCYTOSIS 1+; TOXIC GRANULATION SLIGHT
--- NOTE | 2017-07-01 21:49 | RADIOLOGY REPORT (SQ) ---
EXAM DESCRIPTION: CTA CHEST COMPLETED DATE/TIME: 07/01/2017 9:13 pm REASON FOR STUDY: lung ca , rib fractures, sob COMPARISON: 03/27/2017 TECHNIQUE: CT scan of the chest performed using helical scanning technique with dynamic intravenous contrast injection. Images reviewed with lung, soft tissue and bone windows. Reconstructed coronal and sagittal MPR images reviewed. Additional 3 dimensional post-processing performed to develop Maximal Intensity Projection images (MO P). All images stored on PACS. All CT scanners at this facility use dose modulation, iterative reconstruction, and/or weight based d osing when appropriate to reduce radiation dose to as low as reasonably achievable (ALARA). [facility]: Dose Right [facility]: CareDose [facility]: Dose Right [facility]: Teradose 4D [facility]: Predictvia CONTRAST TYPE AND DOSE: contrast/concentration: Isovue 370.00 mg/ml; Total Contrast Delivered: 76.0 ml; Total Saline Delivered: 76.0 ml Contrast bolus optimized for the pulmonary arteries. Not diagnostic for the aorta. RENAL FUNCTION: GFR > 60. RADIATION DOSE: CT Rad equipment meets quality standard of care and radiation dose reduction techniq ues were employed. CTDIvol: 13.2 - 16.1 mGy. DLP: 577 mGy-cm. . LIMITATIONS: None. FINDINGS: LUNGS AND PLEURA: New large right pleural effusion. Reduced volume but persistent right u pper lobe mass and parenchymal changes. There has been some reduced airspace disease compared with t he prior study. Similar chronic right lower lobe ground-glass and bilateral interstitial changes. N o pneumothorax. Similar emphysema. AORTA AND GREAT VESSELS: No aneurysm. Contrast bolus not optimized for the aorta. HEART: No pericardial effusion. No significant coronary artery calcifications. PULMONARY ARTERIES: No emboli visualized in the main pulmonary arteries or the segmental branches. HILAR AND MEDIASTINAL STRUCTURES: Similar nodes. HARDWARE: None in the chest. UPPER ABDOMEN: No significant findings. Limited exam. THYROID AND OTHER SOFT TISSUES: No masses. No adenopathy. BONES: No acute finding. 3D MIPS: Confirm above findings. OTHER: No other significant finding. IMPRESSION: No emboli visualized in the main pulmonary arteries or the segmental branches.New large right pleural effusion. Reduced volume but persistent right upper lobe mass and parenchymal changes. There has been some reduced airspace disease compared with the prior study. COMMENT: Quality ID # [id number]: Final reports with documentation of one or more dose reduction techniques (e.g., Automated exposure control, adjustment of the mA and/or kV according to patient size, use of iterative reconstruction technique) TECHNICAL DOCUMENTATION: JOB ID: [id number] [employer]- All Rights Reserved
[2017-07-01] MEDS ORDERED: ACETAMINOPHEN 325 MG TABLET PO PRN (22:30)
[2017-07-01] MEDS ORDERED: IPRATROPIUM/ALBUTEROL 0.5-2.5 MG/3 ML AMPUL NEB PRN (22:30)
[2017-07-01] MEDS ORDERED: MAG HYDROX/AL HYDROX/SIMETH SUSP 30 ML UDCUP PO PRN (22:30)
[2017-07-01] MEDS ORDERED: ONDANSETRON HCL INJ/PF 4 MG/2 ML SDV IV PRN (22:30)
[2017-07-01] MEDS ORDERED: HYDRALAZINE HCL INJ/PF 20 MG/1 ML SDV IV PRN (22:36)
[2017-07-01 22:51] LABS: APPEARANCE,URINE CLEAR; BILIRUBIN,URINE NEGATIVE (NEGATIVE); COLOR,URINE YELLOW; GLUCOSE, URINE NEGATIVE (NEGATIVE); KETONES,URINE NEGATIVE (NEGATIVE); LEUKOCYTE ESTERASE,URINE NEGATIVE (NEGATIVE); NITRITE,URINE NEGATIVE (NEGATIVE); PROTEIN,URINE NEGATIVE (NEGATIVE); URINE SPECIFIC GRAVITY 1.043
[2017-07-01] MEDS ORDERED: CHLORPHENIRAMINE MALEATE 4 MG TABLET PO ONE (23:54)
[2017-07-02] MEDS ORDERED: FLUTICASONE NASAL SPRAY 50 MCG/SPRY 120 SPRAY/16 GM NASL ONE (00:30)
[2017-07-02] MEDS ORDERED: CHLORPHENIRAMINE MALEATE 4 MG TABLET ONE (01:35)
[2017-07-02] MEDS ORDERED: FLUTICASONE NASAL SPRAY 50 MCG/SPRY 120 SPRAY/16 GM ONE (01:35)
[2017-07-02] MEDS: IPRATROPIUM/ALBUTEROL 0.5-2.5 MG/3 ML AMPUL NEB SCH ×2 (02:10→07:52)
--- NOTE | 2017-07-02 05:46 | PDOC H&P ---
History of Present Illness Admission Date/PCP: 07/01/17 23:12 NONI GRANT PA-C Patient complains of: Shortness of breath and fatigue History of Present Illness: ERICKA RAZO is a 57 year old male with a past medical history of stage III lung cancer with ongoing tobacco dependence, receiving chemotherapy and daily radiation. Over the last week he is felt fatigued and short of breath with some rhinorrhea and a nonproductive cough, he denies fever. In the emergency room he is found to have a large right-sided pleural effusion and hemoglobin of only 5.9 down 5 points from 4 months ago. He is referred to the hospitalist for admission. Patient denies history of bleeding hemoptysis, dark stools or urine. Past Medical History Cardiac Medical History: Denies: Coronary Artery Disease, Myocardial Infarction, Hypertension Pulmonary Medical History: Reports: Chronic Obstructive Pulmonary Disease (COPD) Denies: Asthma, Bronchitis, Pneumonia Neurological Medical History: Denies: Migraine, Seizures Endocrine Medical History: Denies: Diabetes Mellitus Type 1, Diabetes Mellitus Type 2, Hyperthyroidism, Hypothyroidism Renal/ Medical History: Denies: End Stage Renal Disease Malignancy Medical History: Denies: Bone Cancer, Brain Cancer, Breast Cancer, Cervical Cancer, Colorectal Cancer, Leukemia, Liver Cancer, Lung Cancer, Lymphoma, Ovarian Cancer , Pancreatic Cancer, Renal (Kidney) Cancer, Skin Cancer GI Medical History: Denies: Cirrhosis, Crohn's Disease, Diverticulitis, Gastroesophageal Reflux Disease, Hepatitis, Hiatal Hernia, Ulcerative Colitis Musculoskeltal Medical History: Denies: Arthritis Psychiatric Medical History: Reports: Tobacco Dependency Denies: Bipolar Disorder, Dementia, Depression, Post Traumatic Stress Disorder, Schizoaffective Disorder Traumatic Medical History: Reports: Traumatic Brain Injury - Depressed skull fracture requiring surgical intervention at 19 yo Denies: Gunshot Wound, Pneumothorax Hematology: Denies: Anemia, Hemophilia, Bleeding Tendencies Past Surgical History Past Surgical History: Reports: Orthopedic Surgery - L wrist, Other - Inguinal hernia Social History Smoking Status: Former Smoker Frequency of Alcohol Use: Social Hx Recreational Drug Use: No Drugs: None Hx Prescription Drug Abuse: No Family History Family History: CAD, COPD, Hypertension, Malignancy, Other - Father still living. He had an unknown type of cancer - perhaps a skin cancer. His mother is also living. His older brother , but unsure of cause. He has no children. Parental Family History Reviewed: Yes Children Family History Reviewed: Yes Sibling(s) Family History Reviewed.: Yes Medication/Allergy Home Medications: Acetaminophen [Tylenol 325 mg Tablet] 650 mg PO Q4HP PRN tablet 04/02/17 Amox Tr/Potassium Clavulanate [Augmentin 875-125 mg Tablet] 1 tab PO BID #10 tablet 04/02/17 Allergies/Adverse Reactions: No Known Allergies Allergy (Unverified 04/27/13 10:34) Review of Systems Constitutional: ABSENT: chills, fever(s), headache(s), weight gain, weight loss Eyes: ABSENT: visual disturbances Ears: ABSENT: hearing changes Cardiovascular: ABSENT: chest pain, dyspnea on exertion, edema, orthropnea, palpitations Respiratory: ABSENT: cough, hemoptysis Gastrointestinal: ABSENT: abdominal pain, constipation, diarrhea, hematemesis, hematochezia, nausea, vomiting Genitourinary: ABSENT: dysuria, hematuria Musculoskeletal: ABSENT: joint swelling Integumentary: ABSENT: rash, wounds Neurological: ABSENT: abnormal gait, abnormal speech, confusion, dizziness, focal weakness, syncope Psychiatric: ABSENT: anxiety, depression, homidical ideation, suicidal ideation Endocrine: ABSENT: cold intolerance, heat intolerance, polydipsia, polyuria Hematologic/Lymphatic: ABSENT: easy bleeding, easy bruising Physical Exam Vital Signs: Temp Pulse Resp BP Pulse Ox 99.0 F 101 H 20 129/86 H 97 07/02/17 05:01 07/02/17 05:01 07/02/17 05:01 07/02/17 05:00 07/02/17 05:01 Intake & Output 06/30/17 07/01/17 07/02/17 11:59 11:59 11:59 Intake Total 600 Balance 600 General appearance: PRESENT: cooperative, mild distress, thin, other - Pale chronically ill-appearing Head exam: PRESENT: atraumatic, normocephalic Eye exam: PRESENT: conjunctiva pale, EOMI, PERRLA. ABSENT: scleral icterus Ear exam: PRESENT: normal external ear exam Mouth exam: PRESENT: moist, tongue midline Neck exam: ABSENT: carotid bruit, JVD, lymphadenopathy, thyromegaly Respiratory exam: PRESENT: accessory muscle use, crackles, decreased breath sounds, prolonged expiratory phas, retraction, tachypnea. ABSENT: rhonchi, stridor, symmetrical, wheezes Cardiovascular exam: PRESENT: RRR. ABSENT: diastolic murmur, rubs, systolic murmur Pulses: PRESENT: normal dorsalis pedis pul Vascular exam: PRESENT: normal capillary refill GI/Abdominal exam: PRESENT: normal bowel sounds, soft. ABSENT: distended, guarding, mass, organolmegaly, rebound, tenderness Rectal exam: PRESENT: deferred Extremities exam: PRESENT: full ROM, pedal edema, +1 edema. ABSENT: calf tenderness, clubbing Neurological exam: PRESENT: alert, awake, oriented to person, oriented to place , oriented to time, oriented to situation, CN II-XII grossly intact. ABSENT: motor sensory deficit Psychiatric exam: PRESENT: appropriate affect, normal mood. ABSENT: homicidal ideation, suicidal ideation Skin exam: PRESENT: dry, intact, warm. ABSENT: cyanosis, rash Results Impressions: Chest/Abdomen CTA 07/01/17 20:01 IMPRESSION: No emboli visualized in the main pulmonary arteries or the segmental branches.New large right pleural effusion. Reduced volume but persistent right upper lobe mass and parenchymal changes. There has been some reduced airspace disease compared with the prior study. 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 Santiago (3) Pleural effusion Is this a current diagnosis for this admission?: Yes Plan: Trial BiPAP, surgical consult for thoracentesis with pleurodesis (4) Tobacco abuse Is this a current diagnosis for this admission?: Yes Plan: Tobacco Dependence patient received tobacco cessation counseling and offered nicotine replacement options
[2017-07-02] MEDS ORDERED: HEPARIN SOD (PORCINE) 5,000 UNIT/ML 1 ML SYRINGE SUBCUT SCH (06:00)
--- NOTE | 2017-07-02 06:13 | CONSULTATION REPORT E ---
Consultation Report NAME: ERICKA RAZO : 1960 AGE: 57Y DATE: 07/02/2017 ED02 A TO: GABRIELLA SALINAS M.D. FROM: MARIANA MCKOY M.D. Requesting Physician CHIEF COMPLAINT: Right hemithorax. REPORT OF CONSULTATION: The patient is a 57-year-old white male, stage 3 lung carcinoma, currently undergoing chemoradiation to the right upper lobe by Dr. Whittington and Dr. Baum. Approximately 10 days ago, the patient fell and fractured multiple ribs on the right anterolateral side. The patient continues to smoke regularly. The patient was discharged home with pain management and pulmonary toilet. The patient comes back to the emergency department last night complaining of progressive shortness of breath, weakness, pain. He was found to have persisting multiple right rib fractures and right pleural effusion. The patient was admitted for further management. Surgery was consulted for the effusion. PAST MEDICAL AND SURGICAL HISTORY: Can be found in his history and physical document. REVIEW OF SYSTEMS: As per HPI. ALLERGIES: None known. MEDICATIONS: Multiple includin. Albuterol. 2. Colace. 3. Flonase. 4. Apresoline. 5. Maalox. 6. Augmentin. SOCIAL HISTORY: The patient continues to smoke. PHYSICAL EXAMINATION: VITAL SIGNS: Heart rate in the 100-110 range, respirations 27 shallow, blood pressure 123/81, saturation 98% on nasal cannula oxygen. GENERAL: Mild distress. HEENT: Eyes without icterus. NECK: No adenopathy. LUNGS: Rhonchi bilaterally. There are slightly diminished breath sounds on the right than the left posteriorly. HEART: Without murmur or gallop. No subcutaneous emphysema. Some crepitus to deep palpation anterolateral right chest wall. No visible bruising. ABDOMEN: Slightly distended. EXTREMITIES: Lower extremities without deformity. CT scan of the abdomen and pelvis shows right pleural effusion, right upper lobe mass. No mediastinal shift. LABORATORY PROFILE: A white blood cell count of 5100, hemoglobin of 5.1, platelets of 158. Coags, PT/INR within normal limits. Electrolytes within normal limits. IMPRESSION: 1. Subacute right pleural effusion, new, suspect secondary to hemothorax following recent fall with multiple rib fractures 7-12. 2. Stage 3 right upper lobe lung carcinoma, currently undergoing chemoradiation. 3. History of COPD. 4. Chronic smoker. 5. Chronic pain. RECOMMENDATIONS: 1. The patient has been admitted to the hospitalist service with Surgery consulting. Currently, patient is not in respiratory extremist and does not need emergent drainage. 2. Concerns are consequences of operative versus nonoperative management of this effusion, likely [id number] hemothorax. Liquified hematoma turning to clot may result in a trapped right lung; options include continued nonoperative management, percutaneous drainage via Interventional Radiology versus formal chest tube. 3. Will reassess patient in the morning, and review management options with the team. Currently, patient has a moderate amount of pain secondary to rib fractures and additional trauma to the anterolateral chest wall may exacerbate his symptoms, thereby diminishing his pulmonary effort. DICTATING PHYSICIAN: GABRIELLA SALINAS M.D. [id number] PHY#: [id number] ID: [id number] JOB#: [id number] ACCT: [id number] cc:GABRIELLA SALINAS M.D. > MTDD
--- NOTE | 2017-07-02 06:23 | RADIOLOGY REPORT (SQ) ---
EXAM DESCRIPTION: CHEST SINGLE VIEW CLINICAL HISTORY: pleural eff COMPARISON: 07/01/2017 FINDINGS: Single view of the chest. Tortuosity of thoracic aorta. Heart is not enlarged. Right pleural effusion and right basilar consolidation with spiculated right suprahilar nodule/mass. Emphysematous changes. Left lung is clear. No acute osseous abnormalities. IMPRESSION: 1. Right pleural effusion with likely underlying atelectasis or consolidation. 2. Right suprahilar mass and parenchymal changes are stable.
[2017-07-02 07:16] LABS: HEMATOCRIT 23.7 % (37.9-51.0); MEAN CORPUSCULAR HEMOGLOBIN 35.5 pg (27.0-33.4); MEAN CORPUSCULAR HGB CONC 35.3 g/dL (32.0-36.0); PLATELET COUNT 137 10^3/uL (150-450); RED BLOOD COUNT 2.35 10^6/uL (4.35-5.55); RED CELL DISTRIBUTION WIDTH 24.4 % (11.5-14.0); WHITE BLOOD COUNT 4.2 10^3/uL (4.0-10.5)
[2017-07-02 07:27] LABS: ANION GAP 8 (5-19); BLOOD UREA NITROGEN 13 mg/dL (7-20); CALCIUM 8.2 mg/dL (8.4-10.2); CARBON DIOXIDE 26 mmol/L (22-30); CHLORIDE 102 mmol/L (98-107); GLUCOSE 94 mg/dL (75-110); POTASSIUM 4.3 mmol/L (3.6-5.0)
--- NOTE | 2017-07-02 07:47 | EKG REPORT ---
SEVERITY:- OTHERWISE NORMAL ECG - INCOMPLETE ANALYSIS DUE TO MISSING DATA IN PRECORDIAL LEAD(S) SINUS TACHYCARDIA LEFT AXIS DEVIATION : Confirmed by: Gavin Handy MD 02-Jul-2017 07:47:31
[2017-07-02 08:01] LABS: MEAN CORPUSCULAR VOLUME 101 fl (80-97)
[2017-07-02 08:02] LABS: HEMOGLOBIN 8.4 g/dL (13.5-17.0)
[2017-07-02 08:04] LABS: ABSOLUTE LYMPHOCYTES# (MANUAL) 0.4 10^3/uL (0.5-4.7); ABSOLUTE MONOCYTES # (MANUAL) 0.7 10^3/uL (0.1-1.4); BASOPHILS % (MANUAL) 1 % (0-2); EOSINOPHILS % (MANUAL) 0 % (0-6); LYMPHOCYTES % (MANUAL) 10 % (13-45); MONOCYTES % (MANUAL) 17 % (3-13); SEGMENTED NEUTROPHILS % (MAN) 72 % (42-78); TOTAL CELLS COUNTED 100
[2017-07-02 08:05] LABS: ACANTHOCYTES 3+; OVALOCYTES SLIGHT; PLATELET COMMENT DECREASED; POIKILOCYTOSIS SLIGHT
--- NOTE | 2017-07-02 08:55 | PDOC CONSULTATION ---
Consultation Consult Date: 07/02/17 Consult reason:: Hematology/Oncology consulatation was requested for patient with lung cancer and anemia. History of Present Illness Admission Date/PCP: 07/01/17 23:12 NONI GRANT PA-C History of Present Illness: ERICKA RAZO is a 57 year old male who is currently receiving active treatment for his stage III lung cancer with daily radiation and weekly carboplatin and paclitaxel. His most recent dose of chemo was 06/25/2017. Over the last week he is felt fatigued and short of breath with some rhinorrhea and a nonproductive cough, he denies fever. In the emergency room he is found to have a large right-sided pleural effusion and hemoglobin of only 5.9. It was 8.6 on 06/25/2017. Patient denies history of bleeding hemoptysis, dark stools or urine. He also states that he recently was started on a duragesic patch. He used 1 25 mcg patch, and then added a second. However, he took the first one off without replacing it. This morning he states that his back hurts from the bed. Past Medical History Cardiac Medical History: Denies: Coronary Artery Disease, Myocardial Infarction, Hypertension Pulmonary Medical History: Reports: Chronic Obstructive Pulmonary Disease (COPD) Denies: Asthma, Bronchitis, Pneumonia Neurological Medical History: Denies: Migraine, Seizures Endocrine Medical History: Denies: Diabetes Mellitus Type 1, Diabetes Mellitus Type 2, Hyperthyroidism, Hypothyroidism Renal/ Medical History: Denies: End Stage Renal Disease Malignancy Medical History: Denies: Bone Cancer, Brain Cancer, Breast Cancer, Cervical Cancer, Colorectal Cancer, Leukemia, Liver Cancer, Lung Cancer, Lymphoma, Ovarian Cancer , Pancreatic Cancer, Renal (Kidney) Cancer, Skin Cancer GI Medical History: Denies: Cirrhosis, Crohn's Disease, Diverticulitis, Gastroesophageal Reflux Disease, Hepatitis, Hiatal Hernia, Ulcerative Colitis Musculoskeltal Medical History: Denies: Arthritis Psychiatric Medical History: Reports: Tobacco Dependency Denies: Bipolar Disorder, Dementia, Depression, Post Traumatic Stress Disorder, Schizoaffective Disorder Traumatic Medical History: Reports: Traumatic Brain Injury - Depressed skull fracture requiring surgical intervention at 19 yo Denies: Gunshot Wound, Pneumothorax Hematology: Denies: Anemia, Hemophilia, Bleeding Tendencies Past Surgical History Past Surgical History: Reports: Orthopedic Surgery - L wrist and skull., Other - Inguinal hernia Social History Information Source: Patient Lives with: Family Smoking Status: Current Every Day Smoker Frequency of Alcohol Use: Heavy - Daily use. Hx Recreational Drug Use: No Drugs: None Hx Prescription Drug Abuse: No Family History Family History: CAD, COPD, Hypertension, Malignancy, Other - Father still living. He had an unknown type of cancer - perhaps a skin cancer. His mother is also living. His older brother , but unsure of cause. He has no children. Parental Family History Reviewed: Yes - Parents are both still alive and in good health. Children Family History Reviewed: No Sibling(s) Family History Reviewed.: No Medication/Allergy Allergies/Adverse Reactions: No Known Allergies Allergy (Unverified 04/27/13 10:34) Review of Systems Constitutional: ABSENT: fever(s), headache(s) Eyes: ABSENT: visual disturbances Ears: ABSENT: hearing changes Nose, Mouth, and Throat: ABSENT: sore throat Cardiovascular: PRESENT: chest pain, orthropnea Respiratory: PRESENT: as per HPI Gastrointestinal: ABSENT: constipation, nausea, vomiting Genitourinary: ABSENT: difficulty urinating Musculoskeletal: PRESENT: back pain Integumentary: ABSENT: rash Neurological: ABSENT: frequent falls, weakness Psychiatric: ABSENT: anxiety Physical Exam Vital Signs: Temp Pulse Resp BP Pulse Ox 98.9 F 107 H 16 138/85 H 95 07/02/17 05:58 07/02/17 07:55 07/02/17 07:55 07/02/17 06:45 07/02/17 07:55 Intake & Output 07/01/17 07/02/17 07/03/17 06:59 06:59 06:59 Intake Total 900 Balance 900 General appearance: PRESENT: no acute distress, well-nourished Head exam: PRESENT: atraumatic Eye exam: PRESENT: EOMI Mouth exam: PRESENT: moist Neck exam: ABSENT: lymphadenopathy, tenderness Respiratory exam: PRESENT: decreased breath sounds, unlabored Cardiovascular exam: PRESENT: RRR, tachycardia GI/Abdominal exam: PRESENT: soft. ABSENT: tenderness Extremities exam: ABSENT: pedal edema Musculoskeletal exam: PRESENT: normal inspection Neurological exam: PRESENT: alert, awake, oriented to person, oriented to place , oriented to time Psychiatric exam: PRESENT: appropriate affect Skin exam: PRESENT: erythema - Over face. Results Laboratory Results: 07/02/17 07:00 07/02/17 07:00 07/02/17 07/02/17 07:00 07:00 WBC 4.2 RBC 2.35 L Hgb 8.4 L D Hct 23.7 L MCV 101 H D MCH 35.5 H MCHC 35.3 RDW 24.4 H Plt Count 137 L Seg Neutrophils % Not Reportable Lymphocytes % Not Reportable Monocytes % Not Reportable Eosinophils % Not Reportable Basophils % Not Reportable Absolute Neutrophils Not Reportable Absolute Lymphocytes Not Reportable Absolute Monocytes Not Reportable Absolute Eosinophils Not Reportable Absolute Basophils Not Reportable Sodium 136.0 L Potassium 4.3 Chloride 102 Carbon Dioxide 26 Anion Gap 8 BUN 13 Creatinine 0.64 Est GFR ( Amer) > 60 Est GFR (Non-Af Amer) > 60 Glucose 94 Calcium 8.2 L Impressions: Chest/Abdomen CTA 07/01/17 20:01 IMPRESSION: No emboli visualized in the main pulmonary arteries or the segmental branches.New large right pleural effusion. Reduced volume but persistent right upper lobe mass and parenchymal changes. There has been some reduced airspace disease compared with the prior study. Chest X-Ray 07/02/17 06:00 IMPRESSION: 1. Right pleural effusion with likely underlying atelectasis or consolidation. 2. Right suprahilar mass and parenchymal changes are stable. Assessment & Plan - Diagnosis (1) Pleural effusion Is this a current diagnosis for this admission?: Yes Plan: Agree with plans for thoracentesis. Would like to see cytology from this specimen. 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 He has had a good response to this. (3) Chronic alcohol abuse Plan: Watch for evidence of DTs. (4) Cancer associated pain Plan: He has just been started on Duragesic. I would continue 50 mcg dose and increase as needed. (5) Pneumonia Qualifiers: Pneumonia type: due to unspecified organism Laterality: right Lung location: upper lobe of lung Qualified Code(s): J18.1 - Lobar pneumonia, unspecified organism Plan: Agree with antibiotic coverage. He has not been neutropenic, so community acquired pneumonia coverage should be sufficient. - Plan Summary Plan Summary: Thank you for this consult. Please feel free to call me with any concerns.
--- NOTE | 2017-07-02 09:05 | PDOC PROGRESS REPORT ---
Subjective Progress Note for:: 07/02/17 Reason For Visit: ANEMIA,MALIGNANT PLEURAL EFF,STAGE 3 LUNG CANCER; left hemothorax Physical Exam Vital Signs: Temp Pulse Resp BP Pulse Ox 98.9 F 107 H 16 138/85 H 95 07/02/17 05:58 07/02/17 07:55 07/02/17 07:55 07/02/17 06:45 07/02/17 07:55 Intake & Output 07/01/17 07/02/17 07/03/17 06:59 06:59 06:59 Intake Total 900 Balance 900 Respiratory exam: PRESENT: clear to auscultation rodrigue, decreased breath sounds - in the right lower chest Results Laboratory Results: 07/02/17 07:00 07/02/17 07:00 07/02/17 07/02/17 07:00 07:00 WBC 4.2 RBC 2.35 L Hgb 8.4 L D Hct 23.7 L MCV 101 H D MCH 35.5 H MCHC 35.3 RDW 24.4 H Plt Count 137 L Seg Neutrophils % Not Reportable Lymphocytes % Not Reportable Monocytes % Not Reportable Eosinophils % Not Reportable Basophils % Not Reportable Absolute Neutrophils Not Reportable Absolute Lymphocytes Not Reportable Absolute Monocytes Not Reportable Absolute Eosinophils Not Reportable Absolute Basophils Not Reportable Sodium 136.0 L Potassium 4.3 Chloride 102 Carbon Dioxide 26 Anion Gap 8 BUN 13 Creatinine 0.64 Est GFR ( Amer) > 60 Est GFR (Non-Af Amer) > 60 Glucose 94 Calcium 8.2 L Impressions: Chest/Abdomen CTA 07/01/17 20:01 IMPRESSION: No emboli visualized in the main pulmonary arteries or the segmental branches.New large right pleural effusion. Reduced volume but persistent right upper lobe mass and parenchymal changes. There has been some reduced airspace disease compared with the prior study. Chest X-Ray 07/02/17 06:00 IMPRESSION: 1. Right pleural effusion with likely underlying atelectasis or consolidation. 2. Right suprahilar mass and parenchymal changes are stable. Assessment & Plan - Plan Summary Plan Summary: A/ RUL SCC lung fall 10 days ago Anemia (H/H - 5.9/17.1) resolved after 3 units PRBS (H/H= 8.4/23.7) P/ patient witll be transferred to [facility] to Dr. Tin Speicher, Thoracic Surgeon for possible Right lung VATS/Decortication
[2017-07-02] MEDS ORDERED: DOCUSATE SODIUM 100 MG CAPSULE PO SCH (10:00)
[2017-07-02] MEDS ORDERED: THIAMINE HCL 100 MG, FOLIC ACID 1 MG in NORMAL SALINE 250 ML IV SCH (10:00)
[2017-07-02] MEDS ORDERED: FENTANYL 50 MCG/HR PATCH.TD72 TD SCH (10:00)
[2017-07-02] MEDS ORDERED: FLUTICASONE NASAL SPRAY 50 MCG/SPRY 120 SPRAY/16 GM NASL SCH (10:00)
[2017-07-02 10:52] VITALS: BP 141/86
[2017-07-02 11:55] LABS: PATH REVIEW PATHOLOGIST REVIEWED
--- NOTE | 2017-09-27 11:45 | DISCHARGE SUMMARY E ---
Discharge Summary NAME: ERICKA RAZO : 1960 AGE: 57Y ADMITTED: 07/01/2017 DISCHARGED: 07/02/2017 FINAL DIAGNOSES: 1. Metastatic stage III lung cancer. 2. Right hemothorax. 3. Right Malignant effusion. 4. Anemia. HOSPITAL COURSE: This is a 57-year-old male with stage III lung cancer on the right with metastases and malignant pleural effusion on the right side with a drop in hemoglobin down to of 5.9. The patient was admitted by the medical service. The oncology service was consulted and recommendation of possible thoracentesis on the right was made, and administration of a blood transfusion was started as well. The patient was seen by the surgical service on 07/02/2017. Again, a large right pleural effusion was identified associated with a mass in the right lung. A decision was made to transfer the patient to the [facility] to the thoracic surgery service, Dr. Tin Jones, for possible right lung VATS and decortication. Therefore, the patient was transferred to [facility] on 07/02/2017. DICTATING PHYSICIAN: TELLY SPARKS M.D. [id number] PHY#: [id number] ID: [id number] JOB#: [id number] ACCT: [id number] cc:Javi ABBOTT M.D. > MTDD
== END 2017-07-02 10:51 | disposition short-term general hospital (02) | DRG 180 ==
LOC: ER 19:53 → EH 23:12
PROVIDERS: ADMIT Internal Medicine; ATTEND Internal Medicine
PROC: 30233N1 Transfusion of Nonautologous Red Blood Cells into Peripheral Vein, Percutaneous Approach (ICD-10-PCS; principal; 2017-07-01)
PROC: 5A09357 Assistance with Respiratory Ventilation, Less than 24 Consecutive Hours, Continuous Positive Airway Pressure (ICD-10-PCS; 2017-07-01)
PROC: 3E0F73Z Introduction of Anti-inflammatory into Respiratory Tract, Via Natural or Artificial Opening (ICD-10-PCS; 2017-07-02)
DX: C34.11 Malignant neoplasm of upper lobe, right bronchus or lung (principal); D61.2 Aplastic anemia due to other external agents; J18.1 Lobar pneumonia, unspecified organism; J91.0 Malignant pleural effusion; J94.2 Hemothorax; J44.9 Chronic obstructive pulmonary disease, unspecified; F17.210 Nicotine dependence, cigarettes, uncomplicated; G89.3 Neoplasm related pain (acute) (chronic); F10.10 Alcohol abuse, uncomplicated; S22.41XD Multiple fractures of ribs, right side, subsequent encounter for fracture with routine healing; Z79.899 Other long term (current) drug therapy; Z87.820 Personal history of traumatic brain injury; Z83.6 Family history of other diseases of the respiratory system; Z82.49 Family history of ischemic heart disease and other diseases of the circulatory system; Z80.9 Family history of malignant neoplasm, unspecified
CPT/HCPCS: 36415; 36430; 71045; 71275; 80048; 80053; 81001; 82803; 82962; 83605; 85025; 85610; 86850; 86900; 86901; 86920; 87040; 87086; 93005; 93010; 94640; 99291; J1644; J3411; J3490; J7050; J7620; P9016

== ENCOUNTER → 2017-07-16 | Outpatient (CLI) | payer MEDICAID ==
--- NOTE | 2017-07-16 11:20 | RADIOLOGY REPORT (SQ) ---
EXAM DESCRIPTION: CHEST PA/LAT COMPLETED DATE/TIME: 07/16/2017 9:59 am REASON FOR STUDY: PLEURAL EFFUSION COMPARISON: 07/02/2017 NUMBER OF VIEWS: Two view TECHNIQUE: Frontal and lateral radiographic images of the chest acquired. LIMITATIONS: None. FINDINGS: LUNGS AND PLEURA: Right suprahilar mass and moderate right pleural effusion are not signif icantly changed. Left lung is clear. MEDIASTINUM AND HILAR STRUCTURES: Stable heart size and mediastinal structures. HEART AND VASCULAR STRUCTURES: Stable appearance. BONES: Multiple right posterolateral rib fractures. HARDWARE: None in the chest. OTHER: No other significant finding. IMPRESSION: Right pleural effusion. No significant change. TECHNICAL DOCUMENTATION: JOB ID: [id number] [employer]- All Rights Reserved Reading location - IP/workstation name: [email or web address]
== END ==
LOC: RAD 09:43
PROVIDERS: ATTEND Internal Medicine Hematology & Oncology
DX: J90 Pleural effusion, not elsewhere classified (principal)
CPT/HCPCS: 71046

== ENCOUNTER 2017-07-23 07:40 | Day surgery (SDC) | payer MEDICAID ==
[2017-07-23 08:36] LABS: HEMATOCRIT 27.3 % (37.9-51.0); HEMOGLOBIN 9.4 g/dL (13.5-17.0); MEAN CORPUSCULAR HEMOGLOBIN 35.8 pg (27.0-33.4); MEAN CORPUSCULAR HGB CONC 34.6 g/dL (32.0-36.0); MEAN CORPUSCULAR VOLUME 104 fl (80-97); PLATELET COUNT 521 10^3/uL (150-450); RED BLOOD COUNT 2.64 10^6/uL (4.35-5.55); RED CELL DISTRIBUTION WIDTH 24.7 % (11.5-14.0); WHITE BLOOD COUNT 4.4 10^3/uL (4.0-10.5)
[2017-07-23 08:53] LABS: BLOOD UREA NITROGEN 10 mg/dL (7-20)
[2017-07-23 09:00] LABS: INTERNATIONAL RATION (INR) 0.92; PROTHROMBIN TIME 13.1 SEC (11.4-15.4)
[2017-07-23 09:01] LABS: PARTIAL THROMBOPLASTIN TIME 29.7 SEC (23.5-35.8)
--- NOTE | 2017-07-23 10:28 | RADIOLOGY REPORT (SQ) ---
EXAM DESCRIPTION: CHEST SINGLE VIEW COMPLETED DATE/TIME: 07/23/2017 10:19 am REASON FOR STUDY: S/P RT THORACENTESIS COMPARISON: 07/16/2017. EXAM PARAMETERS: NUMBER OF VIEWS: One view. TECHNIQUE: Single frontal radiographic view of the chest acquired. RADIATION DOSE: NA LIMITATIONS: None. FINDINGS: LUNGS AND PLEURA: Decrease in the right pleural effusion. No pneumothorax following thora centesis. Stable spiculated lesion in the right hilum. Left lung clear. MEDIASTINUM AND HILAR STRUCTURES: No masses. Contour normal. HEART AND VASCULAR STRUCTURES: Heart normal in size. Normal vasculature. BONES: No acute findings. Previously seen right rib fractures not as well demonstrated due to positi oning. HARDWARE: None in the chest. OTHER: No other significant finding. IMPRESSION: NO PNEUMOTHORAX FOLLOWING RIGHT-SIDED THORACENTESIS. TECHNICAL DOCUMENTATION: JOB ID: [id number] [employer]- All Rights Reserved Reading location - IP/workstation name: [facility]-RR
[2017-07-23 13:11] VITALS: BP 137/73
--- NOTE | 2017-07-23 14:10 | RADIOLOGY REPORT (SQ) ---
EXAM DESCRIPTION: U/S THORACENTESIS WITH IMAGING COMPLETED DATE/TIME: 07/23/2017 10:19 am REASON FOR STUDY: PL EFF C34.11 MALIGNANT NEOPLASM OF UPPER LOBE, RIGHT BRONCHUS OR L J90 PLEURAL EFFUSION, NOT ELSEWHERE CLASSIFIED COMPARISON: None. LIMITATIONS: None. PROCEDURE: Procedure, risks, benefit, and alternative explained to patient who then gave written con sent. The posterior right chest wall was marked using ultrasound guidance. A time-out was called fo r correct marking verification. Chest prepped and draped using sterile technique. Local anesthesia a chieved using 5 ml of 1% lidocaine injection. A 6fr Safe-T- Centesis set was introduced into the rig ht pleural space. Fluid was aspirated. The catheter was removed and the entry site was covered with sterile bandage. No immediate complications noted. Images acquired during the procedure were stored on PACS. FINDINGS: ENTRY SITE: Posterior right chest. FLUID VOLUME: 200 mL. FLUID ANALYSIS: Straw-colored fluid. OTHER: Therapeutic only IMPRESSION: SUCCESSFUL THORACENTESIS USING ULTRASOUND GUIDANCE. COMMENT: Patient medication list reviewed: Yes- Quality ID# [id number]:Eligible professional attests to doc umenting in the medical record they obtained, updated, or reviewed the patient's current medications. Quality ID #[id number]: Final reports for procedures using fluoroscopy that document radiation exposure jo juana, or exposure time and number of fluorographic images (if radiation exposure indices are not avail able) TECHNICAL DOCUMENTATION: JOB ID: [id number] [employer]- All Rights Reserved Reading location - IP/workstation name: [facility]
--- NOTE | 2017-07-23 14:11 | RADIOLOGY REPORT (SQ) ---
EXAM DESCRIPTION: CHEST SINGLE VIEW COMPLETED DATE/TIME: 07/23/2017 12:25 pm REASON FOR STUDY: S/P RT THORACENTESIS COMPARISON: 07/23/2017 at 1017 hours. EXAM PARAMETERS: NUMBER OF VIEWS: One view. TECHNIQUE: Single frontal radiographic view of the chest acquired. RADIATION DOSE: NA LIMITATIONS: None. FINDINGS: LUNGS AND PLEURA: No pneumothorax 2 hours post thoracentesis. No change. MEDIASTINUM AND HILAR STRUCTURES: No masses. Contour normal. HEART AND VASCULAR STRUCTURES: Heart normal in size. Normal vasculature. BONES: No acute findings. HARDWARE: None in the chest. OTHER: No other significant finding. IMPRESSION: NO PNEUMOTHORAX 2 HOURS POST THORACENTESIS. TECHNICAL DOCUMENTATION: JOB ID: [id number] [employer]- All Rights Reserved Reading location - IP/workstation name: [email or web address]
== END 2017-07-23 12:35 | disposition home or self-care (01) ==
LOC: RAD 07:40
PROVIDERS: ATTEND Internal Medicine Hematology & Oncology
PROC: 0W993ZZ Drainage of Right Pleural Cavity, Percutaneous Approach (ICD-10-PCS; principal; 2017-07-23)
DX: C34.11 Malignant neoplasm of upper lobe, right bronchus or lung (principal); J90 Pleural effusion, not elsewhere classified
CPT/HCPCS: 32555; 36415; 71045; 82565; 84520; 85027; 85610; 85730

== ENCOUNTER → 2017-09-09 | Outpatient (CLI) | payer MEDICAID ==
--- NOTE | 2017-09-09 16:47 | RADIOLOGY REPORT (SQ) ---
EXAM DESCRIPTION: VENOUS BILATERAL LOWER COMPLETED DATE/TIME: 09/09/2017 2:19 pm REASON FOR STUDY: PAIN SWELLING C34.11 MALIGNANT NEOPLASM OF UPPER LOBE, RIGHT BRONCHUS OR L COMPARISON: None. TECHNIQUE: Dynamic and static garza scale and color images acquired of both lower extremity venous sy stems. Selected spectral images acquired with additional compression and augmentation maneuvers. Imag es stored on PACS. LIMITATIONS: None. FINDINGS: RIGHT LEG COMMON FEMORAL AND FEMORAL: Normal phasicity, compression and augmentation. No visualized echogenic m aterial on garza scale. No defects on color images. POPLITEAL: Normal compression and augmentation. No visualized echogenic material on garza scale. No de fects on color images. CALF VESSELS: Normal compression and augmentation. No visualized echogenic material on garza scale. No defects on color image. GSV AND SSV: Normal compression. No visualized echogenic material on garza scale. No defects on color images. ANY DEEP VENOUS INSUFFICIENCY: Not evaluated. ANY EVIDENCE OF POPLITEAL CYST: No. OTHER: No other significant finding. LEFT LEG COMMON FEMORAL AND FEMORAL: Normal phasicity, compression and augmentation. No visualized echogenic m aterial on garza scale. No defects on color images. POPLITEAL: Normal compression and augmentation. No visualized echogenic material on garza scale. No de fects on color images. CALF VESSELS: Normal compression and augmentation. No visualized echogenic material on garza scale. No defects on color images. GSV AND SSV: Normal compression. No visualized echogenic material on garza scale. No defects on color images. ANY DEEP VENOUS INSUFFICIENCY: Not evaluated. ANY EVIDENCE POPLITEAL CYST: No. OTHER: No other significant finding. IMPRESSION: NO EVIDENCE DVT OR SVT IN EITHER LEG. TECHNICAL DOCUMENTATION: JOB ID: [id number] [employer]- All Rights Reserved Reading location - IP/workstation name: [email or web address]
--- NOTE | 2017-09-09 17:06 | RADIOLOGY REPORT (SQ) ---
EXAM DESCRIPTION: CT CHEST WITH COMPLETED DATE/TIME: 09/09/2017 2:33 pm REASON FOR STUDY: LUNG CA (C34.11) C34.11 MALIGNANT NEOPLASM OF UPPER LOBE, RIGHT BRONCHUS OR L COMPARISON: Chest x-ray 07/23/2017 CTA chest 07/01/2017 TECHNIQUE: CT scan of the chest performed using helical scanning technique with dynamic intravenous contrast injection. Images reviewed with lung, soft tissue and bone windows. Reconstructed coronal and sagittal MPR images reviewed. All images stored on PACS. All CT scanners at this facility use dose modulation, iterative reconstruction, and/or weight based d osing when appropriate to reduce radiation dose to as low as reasonably achievable (ALARA). [facility]: Dose Right [facility]: CareDose [facility]: Dose Right [facility]: Teradose 4D [facility]: brands4friends CONTRAST TYPE AND DOSE: contrast/concentration: Isovue 370.00 mg/ml; Total Contrast Delivered: 80.0 ml; Total Saline Delivered: 55.0 ml RENAL FUNCTION: Not recorded. RADIATION DOSE: CT Rad equipment meets quality standard of care and radiation dose reduction techniq ues were employed. CTDIvol: 8.8 mGy. DLP: 358 mGy-cm. . LIMITATIONS: None. FINDINGS: LUNGS AND PLEURA: There is a 32 x 39 x 60 mm mm right upper lobe lung mass extending from the right hilum. Radiation changes are present in the right upper lung. Small right pleural effusio n. HILAR AND MEDIASTINAL STRUCTURES: The right hilum is elevated. No significant mediastinal or hilar a denopathy is seen. HEART AND VASCULAR STRUCTURES: No aneurysm or dissection. No central pulmonary emboli. No pericardi al effusion. HARDWARE: None in the chest. UPPER ABDOMEN: Fatty infiltration of the liver. THYROID AND OTHER SOFT TISSUES: No masses. No adenopathy. BONES: Subacute rib fractures are present on the right. OTHER: No other significant finding. IMPRESSION: 1. Right upper lobe lung mass that appears slightly more prominent on the coronal serie s compared to the earlier study. 2. Subacute rib fractures on the right. 3. Fatty infiltration of the liver. 4. Small right pleural effusion. TECHNICAL DOCUMENTATION: JOB ID: [id number] Quality ID # [id number]: Final reports with documentation of one or more dose reduction techniques (e.g., Au tomated exposure control, adjustment of the mA and/or kV according to patient size, use of iterative reconstruction technique) 2010 [employer]- All Rights Reserved Reading location - IP/workstation name: [email or web address]
== END ==
LOC: SP 13:01
PROVIDERS: ATTEND Internal Medicine Hematology & Oncology
DX: C34.11 Malignant neoplasm of upper lobe, right bronchus or lung (principal); M79.89 Other specified soft tissue disorders; M79.662 Pain in left lower leg; M79.661 Pain in right lower leg
CPT/HCPCS: 71260; 93970

== ENCOUNTER 2017-09-26 11:16 | Outpatient (CLI) | payer SELFPAY ==
[~2017-09-26 11:16] MED LIST changes: -DEXAMETHASONE SOD PHOSPHATE IV PRN; +DURVALUMAB IV PRN; -EPOETIN ALFA INJ 40000 UNIT/1 ML (ONCOLOGY) SUBCUT PRN; -ONDANSETRON HCL IV PRN; +ONDANSETRON HCL/PF 16 MG, DEXAMETHASONE SOD PHOSPHATE 10 MG in NORMAL SALINE 50 ML IV PRN
[2017-09-26 11:55] VITALS: BP 157/86
[2017-09-26] MEDS: NORMAL SALINE 250 ML IV PRN ×2 (12:10→12:31)
== END 2017-09-26 14:10 | disposition home or self-care (01) ==
LOC: II 11:16 → 5TH 11:19 → II 14:10
PROVIDERS: ATTEND Internal Medicine Hematology & Oncology
PROC: 3E0330M Introduction of Antineoplastic, Monoclonal Antibody, into Peripheral Vein, Percutaneous Approach (ICD-10-PCS; principal; 2017-09-26)
DX: Z51.11 Encounter for antineoplastic chemotherapy (principal); C34.11 Malignant neoplasm of upper lobe, right bronchus or lung
CPT/HCPCS: 96413; J7050; C9492; J1100; J2405; J9045; J9267; S0028

== ENCOUNTER 2017-10-10 11:03 | Outpatient (CLI) | payer MEDICAID ==
[~2017-10-10 11:03] MED LIST changes: -CARBOPLATIN 250 MG in NORMAL SALINE 250 ML IV PRN; -DIPHENHYDRAMINE HCL 50 MG/ML VIAL IV PRN; -FAMOTIDINE/PF 20 MG in NORMAL SALINE 50 ML IV PRN; -ONDANSETRON HCL/PF 16 MG, DEXAMETHASONE SOD PHOSPHATE 10 MG in NORMAL SALINE 50 ML IV PRN; -PACLITAXEL SEMI SYNTHETIC IV PRN
[2017-10-10 11:27] VITALS: BP 92/55
[2017-10-10] MEDS ORDERED: MAGNESIUM SULFATE 4 GM/D5W 100 ML IV ONE (13:00)
== END 2017-10-10 16:19 | disposition home or self-care (01) ==
LOC: II 11:03 → 5TH 11:06 → II 16:19
PROVIDERS: ATTEND Internal Medicine Hematology & Oncology
PROC: 3E0330M Introduction of Antineoplastic, Monoclonal Antibody, into Peripheral Vein, Percutaneous Approach (ICD-10-PCS; principal; 2017-10-10)
PROC: 3E033GC Introduction of Other Therapeutic Substance into Peripheral Vein, Percutaneous Approach (ICD-10-PCS; 2017-10-10)
DX: Z51.11 Encounter for antineoplastic chemotherapy (principal); C34.11 Malignant neoplasm of upper lobe, right bronchus or lung; E83.42 Hypomagnesemia
CPT/HCPCS: 96413; 96367; J3475; J7050; C9492

== ENCOUNTER 2017-10-24 09:47 | Outpatient (CLI) | payer MEDICAID ==
[2017-10-24 10:16] LABS: HEMATOCRIT 37.3 % (37.9-51.0); HEMOGLOBIN 12.7 g/dL (13.5-17.0); MEAN CORPUSCULAR HEMOGLOBIN 38.4 pg (27.0-33.4); PLATELET COUNT 121 10^3/uL (150-450); RED BLOOD COUNT 3.31 10^6/uL (4.35-5.55); RED CELL DISTRIBUTION WIDTH 17.1 % (11.5-14.0); WHITE BLOOD COUNT 6.2 10^3/uL (4.0-10.5)
[2017-10-24 10:22] VITALS: BP 103/80
[2017-10-24 10:24] LABS: MEAN CORPUSCULAR VOLUME 113 fl (80-97)
[2017-10-24 10:46] LABS: ABSOLUTE LYMPHOCYTES# (MANUAL) 0.6 10^3/uL (0.5-4.7); ABSOLUTE MONOCYTES # (MANUAL) 1.2 10^3/uL (0.1-1.4); ABSOLUTE NEUTROPHILS# (MANUAL) 4.2 10^3/uL (1.7-8.2); BASOPHILS % (MANUAL) 0 % (0-2); EOSINOPHILS % (MANUAL) 3 % (0-6); LYMPHOCYTES % (MANUAL) 9 % (13-45); MONOCYTES % (MANUAL) 20 % (3-13); SEGMENTED NEUTROPHILS % (MAN) 68 % (42-78); TOTAL CELLS COUNTED 100
[2017-10-24 10:47] LABS: HYPOCHROMASIA SLIGHT; PLATELET COMMENT DECREASED; ROULEAUX SLIGHT; STOMATOCYTES SLIGHT
[2017-10-24] MEDS: MAGNESIUM SULFATE 1 GM/D5W 100 ML IV SCH ×2 (12:14→13:16)
[2017-10-28 08:59] LABS: PATH REVIEW PATHOLOGIST REVIEWED
== END 2017-10-24 14:10 | disposition home or self-care (01) ==
LOC: II 09:47 → 5TH 10:17 → II 14:10
PROVIDERS: ATTEND Internal Medicine Hematology & Oncology
PROC: 3E0330M Introduction of Antineoplastic, Monoclonal Antibody, into Peripheral Vein, Percutaneous Approach (ICD-10-PCS; principal; 2017-10-24)
PROC: 3E033GC Introduction of Other Therapeutic Substance into Peripheral Vein, Percutaneous Approach (ICD-10-PCS; 2017-10-24)
DX: Z51.11 Encounter for antineoplastic chemotherapy (principal); C34.11 Malignant neoplasm of upper lobe, right bronchus or lung
CPT/HCPCS: 36415; 83735; 85025; 96413; 96367; J3475; J7050; C9492

== ENCOUNTER → 2017-10-24 | Outpatient (CLI) | payer MEDICAID ==
--- NOTE | 2017-10-24 12:35 | RADIOLOGY REPORT (SQ) ---
EXAM DESCRIPTION: KNEE RIGHT 4 VIEWS COMPLETED DATE/TIME: 10/24/2017 9:42 am REASON FOR STUDY: PAIN IN RIGHT KNEE M25.561 PAIN IN RIGHT KNEE COMPARISON: None. NUMBER OF VIEWS: Four views. TECHNIQUE: AP, lateral, and both oblique radiographic images acquired of the right knee. LIMITATIONS: None. FINDINGS: MINERALIZATION: Normal. BONES: No acute fracture or dislocation. No worrisome bone lesions. JOINT: No effusion. SOFT TISSUES: No soft tissue swelling. No radio-opaque foreign body. OTHER: No other significant finding. IMPRESSION: NEGATIVE STUDY OF THE RIGHT KNEE. NO RADIOGRAPHIC EVIDENCE OF ACUTE INJURY. TECHNICAL DOCUMENTATION: JOB ID: [id number] [employer]- All Rights Reserved Reading location - IP/workstation name: [email or web address]
--- NOTE | 2017-10-24 12:35 | RADIOLOGY REPORT (SQ) ---
EXAM DESCRIPTION: KNEE LEFT 4 VIEW COMPLETED DATE/TIME: 10/24/2017 9:42 am REASON FOR STUDY: PAIN IN LEFT KNEE M25.561 PAIN IN RIGHT KNEE COMPARISON: None. NUMBER OF VIEWS: Four views. TECHNIQUE: AP, lateral, and both oblique radiographic images acquired of the left knee. LIMITATIONS: None. FINDINGS: MINERALIZATION: Normal. BONES: No acute fracture or dislocation. No worrisome bone lesions. JOINT: No effusion. SOFT TISSUES: No soft tissue swelling. No radio-opaque foreign body. OTHER: No other significant finding. IMPRESSION: NEGATIVE STUDY OF THE LEFT KNEE. NO RADIOGRAPHIC EVIDENCE OF ACUTE INJURY. TECHNICAL DOCUMENTATION: JOB ID: [id number] [employer]- All Rights Reserved Reading location - IP/workstation name: [email or web address]
== END ==
LOC: RAD 09:08
PROVIDERS: ATTEND Physician Assistant
DX: M25.561 Pain in right knee (principal); M25.562 Pain in left knee

== ENCOUNTER 2017-11-07 11:44 | Outpatient (CLI) | payer MEDICAID ==
[2017-11-07 11:58] VITALS: BP 104/62
[2017-11-07] MEDS: MAGNESIUM SULFATE 1 GM/D5W 100 ML IV PRN ×2 (13:25→14:16)
== END 2017-11-07 15:29 | disposition home or self-care (01) ==
LOC: II 11:44 → 5TH 11:57 → II 15:29
PROVIDERS: ATTEND Internal Medicine Hematology & Oncology
PROC: 3E0330M Introduction of Antineoplastic, Monoclonal Antibody, into Peripheral Vein, Percutaneous Approach (ICD-10-PCS; principal; 2017-11-07)
PROC: 3E033GC Introduction of Other Therapeutic Substance into Peripheral Vein, Percutaneous Approach (ICD-10-PCS; 2017-11-07)
DX: Z51.11 Encounter for antineoplastic chemotherapy (principal); C34.11 Malignant neoplasm of upper lobe, right bronchus or lung
CPT/HCPCS: 96413; 96367; J3475; J7050; C9492; 96366

== ENCOUNTER 2017-11-21 11:09 | Outpatient (CLI) | payer MEDICAID ==
[2017-11-21 11:44] VITALS: BP 94/61
[2017-11-21 11:59] LABS: ABSOLUTE BASOPHILS # (AUTO) 0.1 10^3/uL (0.0-0.2); ABSOLUTE EOSINOPHILS # (AUTO) 0.2 10^3/uL (0.0-0.6); ABSOLUTE LYMPHOCYTES (AUTO) 0.9 10^3/uL (0.5-4.7); ABSOLUTE MONOCYTES (AUTO) 1.2 10^3/uL (0.1-1.4); ABSOLUTE NEUT (AUTO) 3.8 10^3/uL (1.7-8.2); BASOPHILS % (AUTO) 1.4 % (0-2); HEMATOCRIT 33.7 % (37.9-51.0); HEMOGLOBIN 11.8 g/dL (13.5-17.0); LYMPHOCYTES % (AUTO) 14.9 % (13-45); MEAN CORPUSCULAR HEMOGLOBIN 36.6 pg (27.0-33.4); MEAN CORPUSCULAR HGB CONC 35.2 g/dL (32.0-36.0); MONOCYTES % (AUTO) 18.7 % (3-13); PLATELET COUNT 209 10^3/uL (150-450); RED BLOOD COUNT 3.23 10^6/uL (4.35-5.55); RED CELL DISTRIBUTION WIDTH 16.7 % (11.5-14.0); TOTAL CELLS COUNTED % (AUTO) 100 %; WHITE BLOOD COUNT 6.2 10^3/uL (4.0-10.5)
[2017-11-21 12:00] LABS: MEAN CORPUSCULAR VOLUME 104 fl (80-97)
[2017-11-21] MEDS: MAGNESIUM SULFATE 1 GM/D5W 100 ML IV SCH ×2 (13:13→14:13)
== END 2017-11-21 14:54 | disposition home or self-care (01) ==
LOC: II 11:09 → 5TH 11:36 → II 14:54
PROVIDERS: ATTEND Internal Medicine Hematology & Oncology
PROC: 3E0330M Introduction of Antineoplastic, Monoclonal Antibody, into Peripheral Vein, Percutaneous Approach (ICD-10-PCS; principal; 2017-11-21)
PROC: 3E033GC Introduction of Other Therapeutic Substance into Peripheral Vein, Percutaneous Approach (ICD-10-PCS; 2017-11-21)
DX: Z51.11 Encounter for antineoplastic chemotherapy (principal); C34.11 Malignant neoplasm of upper lobe, right bronchus or lung
CPT/HCPCS: 36415; 83735; 85025; 96413; 96367; J3475; J7050; C9492; 96366

== ENCOUNTER 2017-12-05 13:07 | Outpatient (CLI) | payer MEDICAID ==
[2017-12-05 14:15] VITALS: BP 85/50
== END 2017-12-05 15:30 | disposition home or self-care (01) ==
LOC: II 13:07 → 5TH 13:11 → II 15:30
PROVIDERS: ATTEND Internal Medicine Hematology & Oncology
PROC: 3E0330M Introduction of Antineoplastic, Monoclonal Antibody, into Peripheral Vein, Percutaneous Approach (ICD-10-PCS; principal; 2017-12-05)
DX: Z51.11 Encounter for antineoplastic chemotherapy (principal); C34.11 Malignant neoplasm of upper lobe, right bronchus or lung
CPT/HCPCS: 96413; J7050; C9492

== ENCOUNTER 2017-12-19 08:26 | Outpatient (CLI) | payer MEDICAID ==
[2017-12-19 09:14] VITALS: BP 103/61
[2017-12-19 09:23] LABS: HEMATOCRIT 33.4 % (37.9-51.0); HEMOGLOBIN 11.5 g/dL (13.5-17.0); MEAN CORPUSCULAR HEMOGLOBIN 35.4 pg (27.0-33.4); MEAN CORPUSCULAR HGB CONC 34.5 g/dL (32.0-36.0); MEAN CORPUSCULAR VOLUME 103 fl (80-97); PLATELET COUNT 130 10^3/uL (150-450); RED BLOOD COUNT 3.25 10^6/uL (4.35-5.55); RED CELL DISTRIBUTION WIDTH 17.1 % (11.5-14.0); WHITE BLOOD COUNT 5.4 10^3/uL (4.0-10.5)
[2017-12-19 10:31] LABS: ABSOLUTE LYMPHOCYTES# (MANUAL) 0.5 10^3/uL (0.5-4.7); ABSOLUTE MONOCYTES # (MANUAL) 0.5 10^3/uL (0.1-1.4); ABSOLUTE NEUTROPHILS# (MANUAL) 4.3 10^3/uL (1.7-8.2); ANISOCYTOSIS 2+; BASOPHILS % (MANUAL) 1 % (0-2); EOSINOPHILS % (MANUAL) 0 % (0-6); LYMPHOCYTES % (MANUAL) 10 % (13-45); MONOCYTES % (MANUAL) 9 % (3-13); PLATELET COMMENT DECREASED; POLYCHROMASIA 1+; SEGMENTED NEUTROPHILS % (MAN) 80 % (42-78); TOTAL CELLS COUNTED 100; TOXIC GRANULATION SLIGHT
== END 2017-12-19 12:34 | disposition home or self-care (01) ==
LOC: II 08:26 → 5TH 09:16 → II 12:34
PROVIDERS: ATTEND Internal Medicine Hematology & Oncology
PROC: 3E0330M Introduction of Antineoplastic, Monoclonal Antibody, into Peripheral Vein, Percutaneous Approach (ICD-10-PCS; principal; 2017-12-19)
DX: Z51.11 Encounter for antineoplastic chemotherapy (principal); C34.11 Malignant neoplasm of upper lobe, right bronchus or lung
CPT/HCPCS: 36415; 83735; 85025; 96413; 96415; J7050; C9492 ×2

== ENCOUNTER 2018-01-09 08:18 | Outpatient (CLI) | payer MEDICAID ==
[2018-01-09 08:40] LABS: ABSOLUTE LYMPHOCYTES (AUTO) 1.7 10^3/uL (0.5-4.7); ABSOLUTE MONOCYTES (AUTO) 1.4 10^3/uL (0.1-1.4); BASOPHILS % (AUTO) 0.3 % (0-2); HEMATOCRIT 30.3 % (37.9-51.0); HEMOGLOBIN 10.5 g/dL (13.5-17.0); LYMPHOCYTES % (AUTO) 20.4 % (13-45); MEAN CORPUSCULAR HEMOGLOBIN 34.9 pg (27.0-33.4); MEAN CORPUSCULAR HGB CONC 34.7 g/dL (32.0-36.0); MEAN CORPUSCULAR VOLUME 101 fl (80-97); PLATELET COUNT 190 10^3/uL (150-450); RED BLOOD COUNT 3.02 10^6/uL (4.35-5.55); RED CELL DISTRIBUTION WIDTH 17.5 % (11.5-14.0); SEGMENTED NEUTROPHILS % (AUTO) 62.3 % (42-78); TOTAL CELLS COUNTED % (AUTO) 100 %; WHITE BLOOD COUNT 8.1 10^3/uL (4.0-10.5)
[2018-01-09 09:18] VITALS: BP 138/82
== END 2018-01-09 11:22 | disposition home or self-care (01) ==
LOC: II 08:18 → 5TH 08:21 → II 11:22
PROVIDERS: ATTEND Internal Medicine Hematology & Oncology
PROC: 3E0330M Introduction of Antineoplastic, Monoclonal Antibody, into Peripheral Vein, Percutaneous Approach (ICD-10-PCS; principal; 2018-01-09)
DX: Z51.11 Encounter for antineoplastic chemotherapy (principal); C34.11 Malignant neoplasm of upper lobe, right bronchus or lung
CPT/HCPCS: 36415; 85025; 96413; J7050; C9492

== ENCOUNTER 2018-01-26 16:08 | Emergency (ER) | payer MEDICAID ==
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
[2018-01-26 19:36] VITALS: BP 106/54
== END 2018-01-26 20:54 | disposition home or self-care (01) ==
LOC: ER 16:08
DX: R26.9 Unspecified abnormalities of gait and mobility (principal); R53.1 Weakness; Z85.118 Personal history of other malignant neoplasm of bronchus and lung; F17.200 Nicotine dependence, unspecified, uncomplicated; J44.9 Chronic obstructive pulmonary disease, unspecified; M19.90 Unspecified osteoarthritis, unspecified site; Z87.820 Personal history of traumatic brain injury
CPT/HCPCS: 99285

== ENCOUNTER 2018-01-28 10:25 | Inpatient (IN) | payer MEDICAID ==
[2018-01-28] MEDS ORDERED: NORMAL SALINE 1000 ML 1,000 ML IV ONE ×2 (10:52→15:12)
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
[2018-01-28 12:35] LABS: ABSOLUTE BASOPHILS # (AUTO) 0.1 10^3/uL (0.0-0.2); ABSOLUTE LYMPHOCYTES (AUTO) 0.5 10^3/uL (0.5-4.7); ABSOLUTE MONOCYTES (AUTO) 0.7 10^3/uL (0.1-1.4); ABSOLUTE NEUT (AUTO) 4.5 10^3/uL (1.7-8.2); BASOPHILS % (AUTO) 1.2 % (0-2); EOSINOPHILS % (AUTO) 0.2 % (0-6); HEMATOCRIT 32.3 % (37.9-51.0); HEMOGLOBIN 10.9 g/dL (13.5-17.0); LYMPHOCYTES % (AUTO) 8.2 % (13-45); MEAN CORPUSCULAR HEMOGLOBIN 33.5 pg (27.0-33.4); MEAN CORPUSCULAR HGB CONC 33.8 g/dL (32.0-36.0); MEAN CORPUSCULAR VOLUME 99 fl (80-97); MONOCYTES % (AUTO) 11.5 % (3-13); PLATELET COUNT 114 10^3/uL (150-450); RED BLOOD COUNT 3.27 10^6/uL (4.35-5.55); RED CELL DISTRIBUTION WIDTH 19.6 % (11.5-14.0); SEGMENTED NEUTROPHILS % (AUTO) 78.9 % (42-78); TOTAL CELLS COUNTED % (AUTO) 100 %; WHITE BLOOD COUNT 5.7 10^3/uL (4.0-10.5)
[2018-01-28 12:59] LABS: ALANINE AMINOTRANSFERASE 52 U/L (21-72); ALBUMIN 4.7 g/dL (3.5-5.0); ALKALINE PHOSPHATASE 181 U/L (38-126); ANION GAP 18 (5-19); ASPARTATE AMINO TRANSFERASE 115 U/L (17-59); BILIRUBIN,DIRECT 1.8 mg/dL (0.0-0.4); BILIRUBIN,TOTAL 2.4 mg/dL (0.2-1.3); BLOOD UREA NITROGEN 53 mg/dL (7-20); CALCIUM 9.6 mg/dL (8.4-10.2); CARBON DIOXIDE 24 mmol/L (22-30); CHLORIDE 92 mmol/L (98-107); GLUCOSE 108 mg/dL (75-110); LIPASE 386.8 U/L (23-300); POTASSIUM 3.7 mmol/L (3.6-5.0); SODIUM 133.9 mmol/L (137-145); TOTAL PROTEIN 8.8 g/dL (6.3-8.2)
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
[2018-01-28 14:26] LABS: APPEARANCE,URINE CLEAR; BILIRUBIN,URINE NEGATIVE (NEGATIVE); COLOR,URINE AMBER; GLUCOSE, URINE NEGATIVE (NEGATIVE); KETONES,URINE 25 mg/dL (NEGATIVE); LEUKOCYTE ESTERASE,URINE NEGATIVE (NEGATIVE); NITRITE,URINE NEGATIVE (NEGATIVE); PROTEIN,URINE 30 mg/dL (NEGATIVE); URINE SPECIFIC GRAVITY 1.021; UROBILINOGEN,URINE NEGATIVE mg/dL (<2.0)
--- NOTE | 2018-01-28 15:55 | RADIOLOGY REPORT (SQ) ---
EXAM DESCRIPTION: CT HEAD WITHOUT COMPLETED DATE/TIME: 01/28/2018 3:39 pm REASON FOR STUDY: Metastatic cancer COMPARISON: None. TECHNIQUE: Axial images acquired through the brain without intravenous contrast. Images reviewed wi th bone, brain and subdural windows. Additional sagittal and coronal reconstructions were generated. Images stored on PACS. All CT scanners at this facility use dose modulation, iterative reconstruction, and/or weight based d osing when appropriate to reduce radiation dose to as low as reasonably achievable (ALARA). [facility]: Dose Right [facility]: CareDose [facility]: Dose Right [facility]: Teradose 4D [facility]: [employer] RADIATION DOSE: CT Rad equipment meets quality standard of care and radiation dose reduction techniq ues were employed. CTDIvol: 53.2 mGy. DLP: 1017 mGy-cm.mGy. LIMITATIONS: None. FINDINGS: VENTRICLES: Prominent. CEREBRUM: No masses. No hemorrhage. No midline shift. Areas of low density in the white matter mos t likely due to chronic micro-vascular ischemic change. No evidence for acute infarction. CEREBELLUM: No masses. No hemorrhage. No alteration of density. No evidence for acute infarction. EXTRAAXIAL SPACES: Age-related involutional change. No fluid collections. No masses. ORBITS AND GLOBE: No intra- or extraconal masses. Normal contour of globe without masses. CALVARIUM: No fracture. PARANASAL SINUSES: There is almost complete opacification of the right maxillary antra SOFT TISSUES: No mass or hematoma. OTHER: No other significant finding. IMPRESSION: CHRONIC CHANGES OF ATROPHY AND MICROVASCULAR ISCHEMIA. Sinus disease as noted above. O ther findings as noted above. EVIDENCE OF ACUTE STROKE: NO. TECHNICAL DOCUMENTATION: JOB ID: [id number] Quality ID # 436: Final reports with documentation of one or more dose reduction techniques (e.g., Au tomated exposure control, adjustment of the mA and/or kV according to patient size, use of iterative reconstruction technique) 2010 [employer]- All Rights Reserved Reading location - IP/workstation name: [email or web address]
--- NOTE | 2018-01-28 16:04 | RADIOLOGY REPORT (SQ) ---
EXAM DESCRIPTION: CT CHEST WITH COMPLETED DATE/TIME: 01/28/2018 3:39 pm REASON FOR STUDY: Lung cancer with metastatic disease COMPARISON: 09/09/2017 TECHNIQUE: CT scan of the chest performed using helical scanning technique with dynamic intravenous contrast injection. Images reviewed with lung, soft tissue and bone windows. Reconstructed coronal and sagittal MPR and MIP images reviewed. All images stored on PACS. All CT scanners at this facility use dose modulation, iterative reconstruction, and/or weight based d osing when appropriate to reduce radiation dose to as low as reasonably achievable (ALARA). [facility]: Dose Right [facility]: CareDose [facility]: Dose Right [facility]: Teradose 4D [facility]: [employer] CONTRAST TYPE AND DOSE: See separate report of the same date. RENAL FUNCTION: See separate report same date. RADIATION DOSE: CT Rad equipment meets quality standard of care and radiation dose reduction techniq ues were employed. CTDIvol: 14.9 - 18.9 mGy. DLP: 2309 mGy-cm. . LIMITATIONS: None. FINDINGS: LUNGS AND PLEURA: Primary lesion in the right upper lobe is not significantly changed in v olume. There is segmental consolidation in the posterior right apex with associated air bronchograms . Patchy ground-glass attenuation in the lingula. No effusions. Chronic volume loss on the right. HILAR AND MEDIASTINAL STRUCTURES: No identified masses or abnormal nodes. HEART AND VASCULAR STRUCTURES: No aneurysm or dissection. No central pulmonary emboli. No pericardi al effusion. HARDWARE: None in the chest. UPPER ABDOMEN: See separate report of the CT of the abdomen. THYROID AND OTHER SOFT TISSUES: No masses. No adenopathy. BONES: Multiple chronic right rib fractures. OTHER: No other significant finding. IMPRESSION: Stable primary mass right upper lobe. Adjacent airspace disease could represent pneumon ia or bronchogenic spread of tumor. TECHNICAL DOCUMENTATION: JOB ID: [id number] Quality ID # [id number]: Final reports with documentation of one or more dose reduction techniques (e.g., Au tomated exposure control, adjustment of the mA and/or kV according to patient size, use of iterative reconstruction technique) 2010 [employer]- All Rights Reserved Reading location - IP/workstation name: [email or web address] [id number]
--- NOTE | 2018-01-28 16:32 | RADIOLOGY REPORT (SQ) ---
EXAM DESCRIPTION: CT ABD/PELVIS WITH IV ONLY COMPLETED DATE/TIME: 01/28/2018 3:39 pm REASON FOR STUDY: Lung cancer with metastatic disease (Lumbar recons per md) COMPARISON: None. TECHNIQUE: CT scan of the abdomen and pelvis performed using helical scanning technique with dynamic intravenous contrast injection. No oral contrast. Images reviewed with lung, soft tissue, and bone windows. Reconstructed coronal and sagittal MPR images reviewed. Delayed images for evaluation of the urinary system also acquired. Additional reconstructed images of the lumbar spine. All images stor ed on PACS. All CT scanners at this facility use dose modulation, iterative reconstruction, and/or weight based d osing when appropriate to reduce radiation dose to as low as reasonably achievable (ALARA). [facility]: Dose Right [facility]: CareDose [facility]: Dose Right [facility]: Teradose 4D [facility]: [employer] CONTRAST TYPE AND DOSE: 92 mL Omnipaque 350- low osmolar. RENAL FUNCTION: BUN 53 creatinine 1.4. RADIATION DOSE: . LIMITATIONS: None. FINDINGS: LOWER CHEST: No significant findings. No nodules or infiltrates. LIVER: Normal size. Marked diffuse fatty infiltration. No masses. No dilated ducts. SPLEEN: Normal size. No focal lesions. PANCREAS: No masses. No significant calcifications. No adjacent inflammation or peripancreatic fluid collections. Pancreatic duct not dilated. GALLBLADDER: No identified stones by CT criteria. No inflammatory changes to suggest cholecystitis. ADRENAL GLANDS: No significant masses or asymmetry. RIGHT KIDNEY AND URETER: No solid masses. No significant calcifications. No hydronephrosis or hyd roureter. LEFT KIDNEY AND URETER: No solid masses. No significant calcifications. No hydronephrosis or hydr oureter. AORTA AND VESSELS: No aneurysm. No dissection. Renal arteries, SMA, celiac without stenosis. RETROPERITONEUM: No retroperitoneal adenopathy, hemorrhage or masses. BOWEL AND PERITONEAL CAVITY: No masses or inflammatory changes. No free fluid or peritoneal masses. Balloon in the rectum. APPENDIX: Normal. PELVIS: No mass. No free fluid. Normal bladder. ABDOMINAL WALL: No masses. No hernias. BONES: No significant or acute findings. OTHER: No other significant finding. LUMBAR SPINE: Bony structures intact. No abnormal findings in the paraspinal soft tissues. No sign ificant disc herniation, although limited without intrathecal contrast. IMPRESSION: MARKED DIFFUSE FATTY INFILTRATION OF THE LIVER, UNCHANGED. NO ABNORMAL FINDINGS IN THE LUMBAR SPINE. NO OTHER SIGNIFICANT OR ACUTE FINDING IN THE ABDOMEN OR PELVIS ON CT SCAN WITH IV CONT RAST. TECHNICAL DOCUMENTATION: JOB ID: [id number] Quality ID # [id number]: Final reports with documentation of one or more dose reduction techniques (e.g., Au tomated exposure control, adjustment of the mA and/or kV according to patient size, use of iterative reconstruction technique) 2010 [employer]- All Rights Reserved Reading location - IP/workstation name: [email or web address]
[2018-01-28] MEDS ORDERED: FENTANYL CITRATE INJ/PF 100 MCG/2 ML AMPUL IV ONE (16:33)
[2018-01-28] MEDS ORDERED: PIPERACILLIN/TAZOBACTAM 3.375 GM VIAL IV ONE (16:33)
[2018-01-28] MEDS ORDERED: MAG HYDROX/AL HYDROX/SIMETH SUSP 30 ML UDCUP PO PRN (22:20)
[2018-01-28] MEDS ORDERED: ONDANSETRON 4 MG TAB.RAPDIS PO PRN (22:20)
[2018-01-28] MEDS ORDERED: PROMETHAZINE HCL 25 MG TABLET PO PRN (22:20)
[2018-01-28] MEDS ORDERED: TEMAZEPAM 15 MG CAPSULE PO ONE (22:45)
[2018-01-28] MEDS: OXYCODONE-ACETAMINOPHEN 5-325 MG TABLET PO PRN (23:51)
[2018-01-28] MEDS: ACETAMINOPHEN 325 MG TABLET PO PRN (23:51)
[2018-01-28] MEDS: NORMAL SALINE 1000 ML 1,000 ML IV PRN (23:52)
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
[2018-01-29 05:36] LABS: HEMATOCRIT 26.9 % (37.9-51.0); HEMOGLOBIN 9.2 g/dL (13.5-17.0); MEAN CORPUSCULAR HEMOGLOBIN 33.6 pg (27.0-33.4); MEAN CORPUSCULAR HGB CONC 34.3 g/dL (32.0-36.0); MEAN CORPUSCULAR VOLUME 98 fl (80-97); RED BLOOD COUNT 2.75 10^6/uL (4.35-5.55); RED CELL DISTRIBUTION WIDTH 19.1 % (11.5-14.0); WHITE BLOOD COUNT 3.6 10^3/uL (4.0-10.5)
[2018-01-29 05:43] LABS: PLATELET COUNT 93 10^3/uL (150-450)
[2018-01-29 05:56] LABS: ANION GAP 11 (5-19); BLOOD UREA NITROGEN 34 mg/dL (7-20); CALCIUM 8.1 mg/dL (8.4-10.2); CARBON DIOXIDE 24 mmol/L (22-30); CHLORIDE 98 mmol/L (98-107); GLUCOSE 100 mg/dL (75-110); PHOSPHORUS 4.1 mg/dL (2.5-4.5); SODIUM 133.4 mmol/L (137-145)
[2018-01-29 05:59] LABS: POTASSIUM 2.7 mmol/L (3.6-5.0)
[2018-01-29 06:02] LABS: ABSOLUTE LYMPHOCYTES# (MANUAL) 0.5 10^3/uL (0.5-4.7); ABSOLUTE MONOCYTES # (MANUAL) 0.2 10^3/uL (0.1-1.4); ABSOLUTE NEUTROPHILS# (MANUAL) 2.8 10^3/uL (1.7-8.2); ANISOCYTOSIS 2+; BAND NEUTROPHILS % (MANUAL) 2 % (3-5); BASOPHILS % (MANUAL) 0 % (0-2); EOSINOPHILS % (MANUAL) 1 % (0-6); LYMPHOCYTES % (MANUAL) 15 % (13-45); MONOCYTES % (MANUAL) 6 % (3-13); PLATELET COMMENT DECREASED; PLATELET LARGE PRESENT; SEGMENTED NEUTROPHILS % (MAN) 76 % (42-78); TOTAL CELLS COUNTED 100
[2018-01-29 06:27] LABS: APPEARANCE,URINE CLEAR; BILIRUBIN,URINE NEGATIVE (NEGATIVE); COLOR,URINE YELLOW; GLUCOSE, URINE NEGATIVE (NEGATIVE); KETONES,URINE NEGATIVE (NEGATIVE); LEUKOCYTE ESTERASE,URINE NEGATIVE (NEGATIVE); NITRITE,URINE NEGATIVE (NEGATIVE); PROTEIN,URINE 30 mg/dL (NEGATIVE); URINE SPECIFIC GRAVITY 1.032; UROBILINOGEN,URINE NEGATIVE mg/dL (<2.0)
[2018-01-29] MEDS: HEPARIN SOD (PORCINE) 5,000 UNIT/ML 1 ML SYRINGE SUBCUT SCH ×3 (06:40→22:50)
[2018-01-29 06:41] LABS: URINE AMPHETAMINES SCREEN NEGATIVE; URINE BARBITURATES SCREEN NEGATIVE; URINE BENZODIAZEPINES SCREEN NEGATIVE; URINE COCAINE SCREEN NEGATIVE; URINE MARIJUANA (THC) SCREEN NEGATIVE; URINE METHADONE SCREEN NEGATIVE; URINE PHENCYCLIDINE SCREEN NEGATIVE
[2018-01-29] MEDS: ACETAMINOPHEN 325 MG TABLET PO PRN (06:54)
[2018-01-29] MEDS ORDERED: POTASSIUM CHLORIDE 20 MEQ/50 ML RTU IV ONE (07:00)
[2018-01-29] MEDS: ZINC OXIDE 20% OINTMENT 28.35 GM TP SCH ×3 (10:36→17:12)
--- NOTE | 2018-01-29 13:21 | PDOC CONSULTATION ---
Consultation Consult Date: 01/29/18 Attending physician:: CAT MURILLO Consult reason:: 2 week history of diarrhea, weakness, dehydration History of Present Illness Admission Date/PCP: 01/28/18 17:02 NONI GRANT PA-C Patient complains of: Weakness, inability to get up, dehydration, diarrhea History of Present Illness: ERICKA RAZO is a 57 year old male with previous history of stage III squamous cell carcinoma of the lung, status post concurrent chemoradiation that completed in 07/2017. Thereafter, he was deemed to be unresectable, therefore he was started on the new drug INFINZI, which is a new immunotherapy and has thus far received about 5 cycles of that. His last cycle was given about 3 weeks ago and he was due this week for his next cycle. He tells me he mainly came in because he was unable to get out of bed. It sounds like he had the initiation of diarrhea about 2 weeks ago, and the diarrhea worsened to having multiple episodes a day of watery stool, ultimately could not get out of bed and was laying in stool for a good portion of time. He had breakdown and redness of his buttocks and inner thigh area. He has stool studies pending, C. difficile was sent today. Ultimately because of the weakness he was brought in. Of note since being here, he has had extensive imaging don with CT of the chest abdomen pelvis, this indicates overall stability of the primary lung mass, no evidence of disease progression. Past Medical History Cardiac Medical History: Denies: Coronary Artery Disease, Myocardial Infarction, Hypertension Pulmonary Medical History: Reports: Chronic Obstructive Pulmonary Disease (COPD) Denies: Asthma, Bronchitis, Pneumonia Neurological Medical History: Denies: Migraine, Seizures Endocrine Medical History: Denies: Diabetes Mellitus Type 1, Diabetes Mellitus Type 2, Hyperthyroidism, Hypothyroidism Renal/ Medical History: Denies: End Stage Renal Disease Malignancy Medical History: Reports: Lung Cancer - Non small cell/squamous cell carcinoma diagnosed April 01, 2017 Denies: Bone Cancer, Brain Cancer, Breast Cancer, Cervical Cancer, Colorectal Cancer, Leukemia, Liver Cancer, Lymphoma, Ovarian Cancer, Pancreatic Cancer, Renal (Kidney) Cancer, Skin Cancer GI Medical History: Denies: Cirrhosis, Crohn's Disease, Diverticulitis, Gastroesophageal Reflux Disease, Hepatitis, Hiatal Hernia, Ulcerative Colitis Musculoskeltal Medical History: Reports: Arthritis - "everywhere" Psychiatric Medical History: Denies: Bipolar Disorder, Dementia, Depression, Post Traumatic Stress Disorder, Schizoaffective Disorder Traumatic Medical History: Reports: Traumatic Brain Injury - Depressed skull fracture requiring surgical intervention at 19 yo Denies: Gunshot Wound, Pneumothorax Hematology: Denies: Anemia, Hemophilia, Bleeding Tendencies Past Surgical History Past Surgical History: Reports: Orthopedic Surgery - L wrist and skull., Other - Inguinal hernia Social History Information Source: Patient Smoking Status: Former Smoker Number of Years Smokin Frequency of Alcohol Use: Occasional Hx Recreational Drug Use: No Drugs: None Hx Prescription Drug Abuse: No - Advance Directive Resuscitation Status: Full Code Family History Family History: CAD, COPD, Hypertension, Malignancy, Other - Father still living. He had an unknown type of cancer - perhaps a skin cancer. His mother is also living. His older brother , but unsure of cause. He has no children. Parental Family History Reviewed: Yes Children Family History Reviewed: Yes Sibling(s) Family History Reviewed.: Yes Medication/Allergy Home Medications: Benzonatate [Tessalon Perles 100 mg Capsule] 100 mg PO Q8HP PRN 01/29/18 Furosemide [Lasix 20 mg Tablet] 20 mg PO DAILY 01/29/18 Magnesium Oxide [Mag-Ox 400 mg Tablet] 800 mg PO BID 01/29/18 Potassium Chloride [K-Tab] 10 meq PO DAILY 01/29/18 Pregabalin [Lyrica 50 Mg Capsule] 50 mg PO Q8 01/29/18 Allergies/Adverse Reactions: No Known Allergies Allergy (Verified 01/28/18 10:25) Review of Systems Constitutional: ABSENT: chills, fever(s), headache(s), weight gain, weight loss Eyes: ABSENT: visual disturbances Ears: ABSENT: hearing changes Cardiovascular: ABSENT: chest pain, dyspnea on exertion, edema, orthropnea, palpitations Respiratory: ABSENT: cough, hemoptysis Gastrointestinal: ABSENT: abdominal pain, constipation, diarrhea, hematemesis, hematochezia, nausea, vomiting Genitourinary: ABSENT: dysuria, hematuria Musculoskeletal: ABSENT: joint swelling Integumentary: ABSENT: rash, wounds Neurological: ABSENT: abnormal gait, abnormal speech, confusion, dizziness, focal weakness, syncope Psychiatric: ABSENT: anxiety, depression, homidical ideation, suicidal ideation Endocrine: ABSENT: cold intolerance, heat intolerance, polydipsia, polyuria Hematologic/Lymphatic: ABSENT: easy bleeding, easy bruising Physical Exam Vital Signs: Temp Pulse Resp BP Pulse Ox 99.8 F 89 16 94/55 L 96 01/29/18 02:04 01/29/18 09:12 01/29/18 09:12 01/29/18 02:04 01/29/18 09:12 Intake & Output 01/28/18 01/29/18 01/30/18 06:59 06:59 06:59 Intake Total 1999 50 Balance 1999 50 Weight 85.3 kg General appearance: PRESENT: no acute distress, well-developed, well-nourished Head exam: PRESENT: atraumatic, normocephalic Eye exam: PRESENT: conjunctiva pink, EOMI, PERRLA. ABSENT: scleral icterus Ear exam: PRESENT: normal external ear exam Mouth exam: PRESENT: moist, tongue midline Neck exam: ABSENT: carotid bruit, JVD, lymphadenopathy, thyromegaly Respiratory exam: PRESENT: clear to auscultation rodrigue. ABSENT: rales, rhonchi, wheezes Cardiovascular exam: PRESENT: RRR. ABSENT: diastolic murmur, rubs, systolic murmur Pulses: PRESENT: normal dorsalis pedis pul Vascular exam: PRESENT: normal capillary refill GI/Abdominal exam: PRESENT: normal bowel sounds, soft. ABSENT: distended, guarding, mass, organolmegaly, rebound, tenderness Rectal exam: PRESENT: deferred Extremities exam: PRESENT: full ROM. ABSENT: calf tenderness, clubbing, pedal edema Neurological exam: PRESENT: alert, awake, oriented to person, oriented to place , oriented to time, oriented to situation, CN II-XII grossly intact. ABSENT: motor sensory deficit Psychiatric exam: PRESENT: appropriate affect, normal mood. ABSENT: homicidal ideation, suicidal ideation Skin exam: PRESENT: dry, intact, warm. ABSENT: cyanosis, rash Results Laboratory Results: 01/29/18 03:51 01/29/18 03:51 01/29/18 01/29/18 01/29/18 02:15 03:51 03:51 WBC 3.6 L RBC 2.75 L Hgb 9.2 L Hct 26.9 L MCV 98 H MCH 33.6 H MCHC 34.3 RDW 19.1 H Plt Count 93 L Seg Neutrophils % Not Reportable Lymphocytes % Not Reportable Monocytes % Not Reportable Eosinophils % Not Reportable Basophils % Not Reportable Absolute Neutrophils Not Reportable Absolute Lymphocytes Not Reportable Absolute Monocytes Not Reportable Absolute Eosinophils Not Reportable Absolute Basophils Not Reportable Sodium 133.4 L Potassium 2.7 L* D Chloride 98 Carbon Dioxide 24 Anion Gap 11 BUN 34 H Creatinine 1.09 Est GFR ( Amer) > 60 Est GFR (Non-Af Amer) > 60 Glucose 100 Calcium 8.1 L Phosphorus 4.1 Magnesium 2.0 Urine Color YELLOW Urine Appearance CLEAR Urine pH 5.0 Ur Specific [place] 1.032 Urine Protein 30 H Urine Glucose (UA) NEGATIVE Urine Ketones NEGATIVE Urine Blood SMALL H Urine Nitrite NEGATIVE Ur Leukocyte Esterase NEGATIVE Urine WBC (Auto) 1 Urine RBC (Auto) 0 Impressions: Abdomen/Pelvis CT 01/28/18 10:53 IMPRESSION: MARKED DIFFUSE FATTY INFILTRATION OF THE LIVER, UNCHANGED. NO ABNORMAL FINDINGS IN THE LUMBAR SPINE. NO OTHER SIGNIFICANT OR ACUTE FINDING IN THE ABDOMEN OR PELVIS ON CT SCAN WITH IV CONTRAST. Chest CT 01/28/18 10:53 IMPRESSION: Stable primary mass right upper lobe. Adjacent airspace disease could represent pneumonia or bronchogenic spread of tumor. Head CT 01/28/18 10:54 IMPRESSION: CHRONIC CHANGES OF ATROPHY AND MICROVASCULAR ISCHEMIA. Sinus disease as noted above. Other findings as noted above. EVIDENCE OF ACUTE STROKE: NO. Status: Image reviewed by me Assessment & Plan - Diagnosis (1) Acute diarrhea Is this a current diagnosis for this admission?: Yes Plan: I believe this is the most likely impetus for his current presentation. It is likely the diarrhea made him severely dehydrated which is what is causing his weakness. It is very possible that the diarrhea is caused by the immunotherapy that we have been giving him, colitis is a common immune mediated side effect. This colitis has to be treated with high-dose steroids, I will initiate Solu- Medrol 80 mg IV every 8 hours. It is possible that it could be C. difficile, that is pending as well, of course if that is positive that needs to be treated. Steroids should improve diarrhea quickly over the next 48-72 hours. We will need to put immunotherapy on a prolonged hold. If indeed this is an immune mediated colitis, he will need a prolonged steroid taper that would probably go over 4-6 weeks. Continue with aggressive hydration and supportive care as being done. (2) Squamous cell carcinoma of right lung Is this a current diagnosis for this admission?: Yes Plan: Overall stability of disease, do not feel any of the presentation is secondary to disease progression. - Time Time Spent: Greater than 70 Minutes - Inpatient Certification Based on my medical assessment, after consideration of the patient's comorbidities, presenting symptoms, or acuity I expect that the services needed warrant INPATIENT care.: Yes I certify that my determination is in accordance with my understanding of Medicare's requirements for reasonable and necessary INPATIENT services [42 CFR 412.3e].: Yes Medical Necessity: Need Close Monitoring Due to Risk of Patient Decompensation, Need For IV Fluids, Risk of Complication if Not Cared For in Hospital
[2018-01-29] MEDS: METHYLPREDNISOLONE INJ 125 MG/2 ML SDV IV SCH ×2 (14:57→22:52)
[2018-01-29] MEDS: POTASSI CL 20 MEQ/50 ML RIDER 20 MEQ/50 ML RTUPB IV SCH ×2 (14:58→16:37)
[2018-01-29] MEDS: PREGABALIN 50 MG CAPSULE PO SCH (22:52)
[2018-01-29] MEDS: TEMAZEPAM 15 MG CAPSULE PO SCH (22:52)
[2018-01-29] MEDS: OXYCODONE-ACETAMINOPHEN 5-325 MG TABLET PO PRN (22:53)
[2018-01-30] MEDS: HEPARIN SOD (PORCINE) 5,000 UNIT/ML 1 ML SYRINGE SUBCUT SCH ×3 (05:24→22:03)
[2018-01-30] MEDS: PREGABALIN 50 MG CAPSULE PO SCH ×3 (05:36→22:21)
[2018-01-30] MEDS: METHYLPREDNISOLONE INJ 125 MG/2 ML SDV IV SCH ×3 (05:36→22:22)
--- NOTE | 2018-01-30 06:21 | PDOC PROGRESS REPORT ---
Subjective Progress Note for:: 01/29/18 Subjective:: The patient is without new complaints. Diarrhea continues. Reason For Visit: INABILITY TO WALK, GENERALIZED WEAKNESS,DEV Physical Exam Vital Signs: Temp Pulse Resp BP Pulse Ox 98.6 F 84 22 H 140/68 H 100 01/30/18 00:00 01/30/18 00:00 01/30/18 00:00 01/30/18 00:00 01/30/18 00:00 Intake & Output 01/28/18 01/29/18 01/30/18 06:59 06:59 06:59 Intake Total 1999 1068 Output Total 1200 Balance 1999 -132 Weight 85.3 kg 85.2 kg General appearance: PRESENT: no acute distress, cooperative, thin Respiratory exam: ABSENT: rales, rhonchi, wheezes Cardiovascular exam: PRESENT: RRR. ABSENT: diastolic murmur, rubs, systolic murmur GI/Abdominal exam: PRESENT: normal bowel sounds, soft. ABSENT: distended, hernia, mass, organolmegaly, tenderness Extremities exam: ABSENT: clubbing, pedal edema, tenderness Musculoskeletal exam: PRESENT: normal inspection. ABSENT: deformity, dislocation, tenderness Neurological exam: PRESENT: alert, awake, oriented to person, oriented to place , oriented to time, oriented to situation, CN II-XII grossly intact. ABSENT: motor sensory deficit Psychiatric exam: PRESENT: appropriate affect, normal mood Skin exam: PRESENT: dry, intact, warm Results Laboratory Results: 01/29/18 03:51 01/29/18 03:51 01/29/18 02:15 Urine Color YELLOW Urine Appearance CLEAR Urine pH 5.0 Ur Specific [place] 1.032 Urine Protein 30 H Urine Glucose (UA) NEGATIVE Urine Ketones NEGATIVE Urine Blood SMALL H Urine Nitrite NEGATIVE Ur Leukocyte Esterase NEGATIVE Urine WBC (Auto) 1 Urine RBC (Auto) 0 Impressions: Abdomen/Pelvis CT 01/28/18 10:53 IMPRESSION: MARKED DIFFUSE FATTY INFILTRATION OF THE LIVER, UNCHANGED. NO ABNORMAL FINDINGS IN THE LUMBAR SPINE. NO OTHER SIGNIFICANT OR ACUTE FINDING IN THE ABDOMEN OR PELVIS ON CT SCAN WITH IV CONTRAST. Chest CT 01/28/18 10:53 IMPRESSION: Stable primary mass right upper lobe. Adjacent airspace disease could represent pneumonia or bronchogenic spread of tumor. Head CT 01/28/18 10:54 IMPRESSION: CHRONIC CHANGES OF ATROPHY AND MICROVASCULAR ISCHEMIA. Sinus disease as noted above. Other findings as noted above. EVIDENCE OF ACUTE STROKE: NO. Assessment & Plan - Diagnosis (1) Acute diarrhea Is this a current diagnosis for this admission?: Yes Plan: Awaiting stool studies. (2) Acute renal failure Is this a current diagnosis for this admission?: Yes (3) Decubital ulcer Qualifiers: Pressure injury location: buttock Pressure injury stage: stage 1 Laterality: unspecified laterality Qualified Code(s): L89.301 - Pressure ulcer of unspecified buttock, stage 1 Is this a current diagnosis for this admission?: Yes Plan: Wound care. (4) Elevated lipase Is this a current diagnosis for this admission?: Yes Plan: Monitor. (5) Fatty liver Is this a current diagnosis for this admission?: Yes Plan: Noted. (6) Squamous cell carcinoma of right lung Is this a current diagnosis for this admission?: Yes Plan: I appreciate Dr. Monroe's assistance. - Time Time Spent with patient: 25-34 minutes Medications reviewed and adjusted accordingly: Yes
[2018-01-30 07:32] LABS: ANION GAP 12 (5-19); BLOOD UREA NITROGEN 16 mg/dL (7-20); CALCIUM 7.8 mg/dL (8.4-10.2); CARBON DIOXIDE 20 mmol/L (22-30); CHLORIDE 100 mmol/L (98-107); GLUCOSE 138 mg/dL (75-110); POTASSIUM 3.1 mmol/L (3.6-5.0); SODIUM 131.7 mmol/L (137-145)
--- NOTE | 2018-01-30 08:54 | PDOC PROGRESS REPORT ---
Subjective Progress Note for:: 01/30/18 Subjective:: Patient states that he has not had a BM for several hours. He is upset because there has been miscommunication between the hospital and his parents. However, he denies pain. He is upset that he is not being allowed to walk anywhere at the moment. Nurses report that he has been confused and a bit belligerent at times. He was evaluated by physical therapy and could not walk safely without turning his ankles. He continues to eat and drink well. Reason For Visit: INABILITY TO WALK, GENERALIZED WEAKNESS,DEV Physical Exam Vital Signs: Temp Pulse Resp BP Pulse Ox 98.6 F 92 16 140/68 H 97 01/30/18 00:00 01/30/18 08:22 01/30/18 08:22 01/30/18 00:00 01/30/18 08:22 Intake & Output 01/29/18 01/30/18 01/31/18 06:59 06:59 06:59 Intake Total 1999 1068 Output Total 1200 Balance 1999 -132 Weight 85.3 kg 85.2 kg General appearance: PRESENT: no acute distress Head exam: PRESENT: normocephalic Respiratory exam: PRESENT: unlabored Rectal exam: PRESENT: other - Rectal Catheter in place. Pressure skin dressing on buttocks. Extremities exam: ABSENT: pedal edema Neurological exam: PRESENT: alert, awake, oriented to person, oriented to place Psychiatric exam: PRESENT: appropriate affect Skin exam: PRESENT: normal color Results Laboratory Results: 01/29/18 03:51 01/30/18 06:50 01/30/18 06:50 Sodium 131.7 L Potassium 3.1 L Chloride 100 Carbon Dioxide 20 L Anion Gap 12 BUN 16 Creatinine 0.66 Est GFR ( Amer) > 60 Est GFR (Non-Af Amer) > 60 Glucose 138 H Calcium 7.8 L Impressions: Abdomen/Pelvis CT 01/28/18 10:53 IMPRESSION: MARKED DIFFUSE FATTY INFILTRATION OF THE LIVER, UNCHANGED. NO ABNORMAL FINDINGS IN THE LUMBAR SPINE. NO OTHER SIGNIFICANT OR ACUTE FINDING IN THE ABDOMEN OR PELVIS ON CT SCAN WITH IV CONTRAST. Chest CT 01/28/18 10:53 IMPRESSION: Stable primary mass right upper lobe. Adjacent airspace disease could represent pneumonia or bronchogenic spread of tumor. Head CT 01/28/18 10:54 IMPRESSION: CHRONIC CHANGES OF ATROPHY AND MICROVASCULAR ISCHEMIA. Sinus disease as noted above. Other findings as noted above. EVIDENCE OF ACUTE STROKE: NO. Assessment & Plan - Diagnosis (1) Squamous cell carcinoma of right lung Is this a current diagnosis for this admission?: Yes Plan: Immunotherapy currently on hold during this admission. He has been receiving Durvalumab. All recent scans have shown NO progression of his disease. (2) Acute diarrhea Is this a current diagnosis for this admission?: Yes Plan: Most likely due to the Durvalumab. He has been started on appropriate steroids and this has improved. (3) Acute renal failure Is this a current diagnosis for this admission?: Yes Plan: Believed to be pre-renal. Hopefully, this will improve with hydration and steroids. (4) Pancytopenia Is this a current diagnosis for this admission?: Yes Plan: This is not typically caused from his current cancer treatment. Unclear as to cause. Will watch closely to see if this improves with the steroids as well. (5) Weakness Is this a current diagnosis for this admission?: Yes Plan: This has been progressive prior to this admission. He is receiving physical therapy. He may require some rehab stay. Again, hopefully this will improve with time and steroids.
[2018-01-30] MEDS: ZINC OXIDE 20% OINTMENT 28.35 GM TP SCH ×3 (11:36→17:49)
[2018-01-30] MEDS: NORMAL SALINE 1000 ML 1,000 ML IV PRN (11:52)
[2018-01-30] MEDS: POTASSI CL 20 MEQ/50 ML RIDER 20 MEQ/50 ML RTUPB IV SCH ×3 (11:52→17:49)
[2018-01-30] MEDS ORDERED: ONDANSETRON 4 MG TAB.RAPDIS PO PRN (14:30)
[2018-01-30] MEDS: OXYCODONE-ACETAMINOPHEN 5-325 MG TABLET PO PRN (22:21)
[2018-01-30] MEDS: TEMAZEPAM 15 MG CAPSULE PO SCH (22:21)
[2018-01-30] MEDS: BENZONATATE 100 MG CAPSULE PO PRN (22:22)
[2018-01-31] MEDS: HEPARIN SOD (PORCINE) 5,000 UNIT/ML 1 ML SYRINGE SUBCUT SCH ×3 (05:25→22:24)
[2018-01-31] MEDS: BENZONATATE 100 MG CAPSULE PO PRN (05:26)
[2018-01-31] MEDS: METHYLPREDNISOLONE INJ 125 MG/2 ML SDV IV SCH ×3 (05:26→22:43)
[2018-01-31] MEDS: PREGABALIN 50 MG CAPSULE PO SCH ×3 (05:26→22:44)
[2018-01-31] MEDS: OXYCODONE-ACETAMINOPHEN 5-325 MG TABLET PO PRN (05:26)
[2018-01-31 05:37] LABS: ALANINE AMINOTRANSFERASE 39 U/L (21-72); ALBUMIN 3.4 g/dL (3.5-5.0); ALKALINE PHOSPHATASE 136 U/L (38-126); ANION GAP 11 (5-19); ASPARTATE AMINO TRANSFERASE 56 U/L (17-59); BILIRUBIN,DIRECT 1.1 mg/dL (0.0-0.4); BILIRUBIN,TOTAL 1.3 mg/dL (0.2-1.3); BLOOD UREA NITROGEN 16 mg/dL (7-20); CALCIUM 8.5 mg/dL (8.4-10.2); CARBON DIOXIDE 24 mmol/L (22-30); CHLORIDE 100 mmol/L (98-107); GLUCOSE 138 mg/dL (75-110); POTASSIUM 3.2 mmol/L (3.6-5.0); SODIUM 135.2 mmol/L (137-145); TOTAL PROTEIN 6.8 g/dL (6.3-8.2)
[2018-01-31] MEDS: IPRATROPIUM/ALBUTEROL 0.5-2.5 MG/3 ML AMPUL NEB PRN (08:17)
[2018-01-31] MEDS: ZINC OXIDE 20% OINTMENT 28.35 GM TP SCH ×3 (10:25→17:22)
--- NOTE | 2018-01-31 10:32 | PDOC PROGRESS REPORT ---
Subjective Progress Note for:: 01/31/18 Subjective:: Patient states that he is feeling better. He believes he is stronger and is again frustrated with staff that they will not allow him to walk. He denies any new problems. Has continued to eat and drink well. However, he remains somewhat confused at times. Nurses have requested Ativan PRN for possible DTs or agitation. Reason For Visit: INABILITY TO WALK, GENERALIZED WEAKNESS,DEV Physical Exam Vital Signs: Temp Pulse Resp BP Pulse Ox 97.4 F 67 16 145/92 H 97 01/31/18 00:00 01/31/18 08:17 01/31/18 08:17 01/31/18 00:00 01/31/18 08:17 Intake & Output 01/30/18 01/31/18 02/01/18 06:59 06:59 06:59 Intake Total 2068 1465 Output Total 1200 2150 Balance 868 -685 Weight 85.2 kg General appearance: PRESENT: no acute distress Head exam: PRESENT: atraumatic Neck exam: ABSENT: tenderness Respiratory exam: PRESENT: unlabored. ABSENT: wheezes Cardiovascular exam: PRESENT: RRR GI/Abdominal exam: PRESENT: soft. ABSENT: tenderness Extremities exam: ABSENT: pedal edema Neurological exam: PRESENT: altered, awake, oriented to situation Psychiatric exam: PRESENT: appropriate affect Skin exam: PRESENT: normal color Results Laboratory Results: 01/29/18 03:51 01/31/18 04:52 01/31/18 01/31/18 04:52 04:52 Sodium 135.2 L Potassium 3.2 L Chloride 100 Carbon Dioxide 24 Anion Gap 11 BUN 16 Creatinine 0.61 Est GFR ( Amer) > 60 Est GFR (Non-Af Amer) > 60 Glucose 138 H Calcium 8.5 Total Bilirubin 1.3 AST 56 ALT 39 Alkaline Phosphatase 136 H Ammonia < 8.7 L Total Protein 6.8 Albumin 3.4 L Impressions: Abdomen/Pelvis CT 01/28/18 10:53 IMPRESSION: MARKED DIFFUSE FATTY INFILTRATION OF THE LIVER, UNCHANGED. NO ABNORMAL FINDINGS IN THE LUMBAR SPINE. NO OTHER SIGNIFICANT OR ACUTE FINDING IN THE ABDOMEN OR PELVIS ON CT SCAN WITH IV CONTRAST. Chest CT 01/28/18 10:53 IMPRESSION: Stable primary mass right upper lobe. Adjacent airspace disease could represent pneumonia or bronchogenic spread of tumor. Head CT 01/28/18 10:54 IMPRESSION: CHRONIC CHANGES OF ATROPHY AND MICROVASCULAR ISCHEMIA. Sinus disease as noted above. Other findings as noted above. EVIDENCE OF ACUTE STROKE: NO. Assessment & Plan - Diagnosis (1) Squamous cell carcinoma of right lung Is this a current diagnosis for this admission?: Yes Plan: All treatment currently on hold. (2) Acute diarrhea Is this a current diagnosis for this admission?: Yes Plan: Has responded to steroids. Most likely autoimmune response from immunotherapy for cancer. C. Dif still pending. (3) Acute renal failure Is this a current diagnosis for this admission?: Yes Plan: with acute liver injury all improving with hydration. Ammonia was normal. (4) Pancytopenia Is this a current diagnosis for this admission?: Yes (5) Weakness Is this a current diagnosis for this admission?: Yes Plan: Slowly improving. I will add Ativan PRN for possible alcohol withdraw. Continue physical therapy. Add MVI and Thiamin/B12 if possible.
[2018-01-31] MEDS: LORAZEPAM 1 MG TABLET PO PRN ×2 (13:14→22:44)
[2018-01-31] MEDS: NORMAL SALINE 1000 ML 1,000 ML IV PRN ×2 (13:15→22:44)
--- NOTE | 2018-01-31 18:01 | PDOC PROGRESS REPORT ---
Subjective Progress Note for:: 01/31/18 Subjective:: Was admitted with lower extremity weakness and inability to ambulate. He did not feel that he is feeling better today. He was seen by physical therapy. Reason For Visit: INABILITY TO WALK, GENERALIZED WEAKNESS,DEV Physical Exam Vital Signs: Temp Pulse Resp BP Pulse Ox 97.3 F 70 16 133/83 H 96 01/31/18 16:00 01/31/18 16:13 01/31/18 16:13 01/31/18 16:00 01/31/18 16:13 Intake & Output 01/30/18 01/31/18 02/01/18 06:59 06:59 06:59 Intake Total 2068 2465 Output Total 1200 2150 Balance 868 315 Weight 85.2 kg General appearance: PRESENT: no acute distress, well-developed, well-nourished Head exam: PRESENT: atraumatic, normocephalic Eye exam: PRESENT: conjunctiva pink, EOMI, PERRLA. ABSENT: scleral icterus Ear exam: PRESENT: normal external ear exam Mouth exam: PRESENT: moist, tongue midline Neck exam: ABSENT: carotid bruit, JVD, lymphadenopathy, thyromegaly Respiratory exam: PRESENT: clear to auscultation rodrigue. ABSENT: rales, rhonchi, wheezes Cardiovascular exam: PRESENT: RRR. ABSENT: diastolic murmur, rubs, systolic murmur Pulses: PRESENT: normal dorsalis pedis pul Vascular exam: PRESENT: normal capillary refill GI/Abdominal exam: PRESENT: normal bowel sounds, soft. ABSENT: distended, guarding, mass, organolmegaly, rebound, tenderness Rectal exam: PRESENT: deferred Extremities exam: PRESENT: full ROM. ABSENT: calf tenderness, clubbing, pedal edema Musculoskeletal exam: PRESENT: other - lower extremity weakness Neurological exam: PRESENT: alert, awake, oriented to person, oriented to place , oriented to time, oriented to situation, CN II-XII grossly intact, other - no asterexis. ABSENT: motor sensory deficit Psychiatric exam: PRESENT: appropriate affect, normal mood. ABSENT: homicidal ideation, suicidal ideation Focused psych exam: PRESENT: restlessness Skin exam: PRESENT: dry, intact, warm. ABSENT: cyanosis, rash Results Laboratory Results: 01/29/18 03:51 01/31/18 04:52 01/31/18 01/31/18 04:52 04:52 Sodium 135.2 L Potassium 3.2 L Chloride 100 Carbon Dioxide 24 Anion Gap 11 BUN 16 Creatinine 0.61 Est GFR ( Amer) > 60 Est GFR (Non-Af Amer) > 60 Glucose 138 H Calcium 8.5 Total Bilirubin 1.3 AST 56 ALT 39 Alkaline Phosphatase 136 H Ammonia < 8.7 L Total Protein 6.8 Albumin 3.4 L Impressions: Abdomen/Pelvis CT 01/28/18 10:53 IMPRESSION: MARKED DIFFUSE FATTY INFILTRATION OF THE LIVER, UNCHANGED. NO ABNORMAL FINDINGS IN THE LUMBAR SPINE. NO OTHER SIGNIFICANT OR ACUTE FINDING IN THE ABDOMEN OR PELVIS ON CT SCAN WITH IV CONTRAST. Chest CT 01/28/18 10:53 IMPRESSION: Stable primary mass right upper lobe. Adjacent airspace disease could represent pneumonia or bronchogenic spread of tumor. Head CT 01/28/18 10:54 IMPRESSION: CHRONIC CHANGES OF ATROPHY AND MICROVASCULAR ISCHEMIA. Sinus disease as noted above. Other findings as noted above. EVIDENCE OF ACUTE STROKE: NO. Assessment & Plan - Time Time Spent with patient: 15-24 minutes Medications reviewed and adjusted accordingly: Yes Anticipated discharge: Home Within: within 48 hours - Inpatient Certification Based on my medical assessment, after consideration of the patient's comorbidities, presenting symptoms, or acuity I expect that the services needed warrant INPATIENT care.: Yes Medical Necessity: Significant Comorbidiites Make Outpatient Treatment Too Risky , Risk of Complication if Not Cared For in Hospital - Plan Summary Plan Summary: Squamous cell carcinoma of right lung currently on chemotherapy and radiation therapy which are on hold as per oncology. 2. Acute diarrhea likely secondary to autoimmune response from chemotherapy for cancer. Follow-up with C. difficile PCR 3. Acute kidney and liver injury likely secondary to hypo-perfusion. Will continue with IV hydration. 4. Pancytopenia secondary to chemotherapy/immunotherapy 5. Weakness thought to be secondary to immunotherapy. Patient is on Solu- Medrol 80 mg every 8 hours 6. Possible alcohol withdrawal-patient has been started on Ativan as needed and will add Multivite at thiamine and B12 which she will also help with his possible neuropathy
[2018-01-31] MEDS: TEMAZEPAM 15 MG CAPSULE PO SCH (22:44)
[2018-02-01] MEDS: HEPARIN SOD (PORCINE) 5,000 UNIT/ML 1 ML SYRINGE SUBCUT SCH ×3 (05:19→21:13)
[2018-02-01] MEDS: PREGABALIN 50 MG CAPSULE PO SCH ×3 (05:45→21:13)
[2018-02-01] MEDS: METHYLPREDNISOLONE INJ 125 MG/2 ML SDV IV SCH ×3 (05:45→21:13)
[2018-02-01 05:51] LABS: ABSOLUTE LYMPHOCYTES (AUTO) 0.6 10^3/uL (0.5-4.7); ABSOLUTE MONOCYTES (AUTO) 0.2 10^3/uL (0.1-1.4); ABSOLUTE NEUT (AUTO) 4.2 10^3/uL (1.7-8.2); BASOPHILS % (AUTO) 0.3 % (0-2); HEMATOCRIT 29.1 % (37.9-51.0); LYMPHOCYTES % (AUTO) 11.4 % (13-45); MEAN CORPUSCULAR HEMOGLOBIN 33.7 pg (27.0-33.4); MEAN CORPUSCULAR HGB CONC 34.2 g/dL (32.0-36.0); MEAN CORPUSCULAR VOLUME 98 fl (80-97); PLATELET COUNT 111 10^3/uL (150-450); RED BLOOD COUNT 2.96 10^6/uL (4.35-5.55); RED CELL DISTRIBUTION WIDTH 18.7 % (11.5-14.0); SEGMENTED NEUTROPHILS % (AUTO) 84.3 % (42-78); TOTAL CELLS COUNTED % (AUTO) 100 %
[2018-02-01 06:18] LABS: ALANINE AMINOTRANSFERASE 41 U/L (21-72); ALBUMIN 3.2 g/dL (3.5-5.0); ALKALINE PHOSPHATASE 137 U/L (38-126); ANION GAP 9 (5-19); ASPARTATE AMINO TRANSFERASE 47 U/L (17-59); BILIRUBIN,DIRECT 0.9 mg/dL (0.0-0.4); BILIRUBIN,TOTAL 1.1 mg/dL (0.2-1.3); BLOOD UREA NITROGEN 18 mg/dL (7-20); CARBON DIOXIDE 28 mmol/L (22-30); CHLORIDE 98 mmol/L (98-107); GLUCOSE 129 mg/dL (75-110); SODIUM 135.1 mmol/L (137-145); TOTAL PROTEIN 6.3 g/dL (6.3-8.2)
[2018-02-01] MEDS ORDERED: POTASSIUM CHLORIDE 10 MEQ CAPSULE.ER PO ONE ×2 (07:00→15:00)
[2018-02-01] MEDS: IPRATROPIUM/ALBUTEROL 0.5-2.5 MG/3 ML AMPUL NEB PRN (08:05)
--- NOTE | 2018-02-01 09:55 | PDOC PROGRESS REPORT ---
Subjective Progress Note for:: 02/01/18 Subjective:: Patient still confused, but very pleasant. Remembers nurse's name from yesterday, but confused as to yesterday vs. today's events. He believes the steroids are helping his legs. He states that he feels stronger and is again asking to try to walk. ROS: No pain. Good appetite. Some Dyspnea for which he received Neb treatment. Reason For Visit: INABILITY TO WALK, GENERALIZED WEAKNESS,DEV Physical Exam Vital Signs: Temp Pulse Resp BP Pulse Ox 97.7 F 94 16 134/93 H 97 02/01/18 00:00 02/01/18 08:05 02/01/18 08:05 02/01/18 00:00 02/01/18 08:05 Intake & Output 01/31/18 02/01/18 02/02/18 06:59 06:59 06:59 Intake Total 2465 3304 Output Total 2150 2800 Balance 315 504 Weight 86 kg General appearance: PRESENT: no acute distress Head exam: PRESENT: normocephalic Respiratory exam: PRESENT: unlabored, wheezes Cardiovascular exam: PRESENT: RRR GI/Abdominal exam: PRESENT: normal bowel sounds, soft. ABSENT: tenderness Extremities exam: ABSENT: pedal edema Neurological exam: PRESENT: alert, awake Psychiatric exam: PRESENT: appropriate affect Skin exam: PRESENT: normal color Results Laboratory Results: 02/01/18 04:45 02/01/18 04:45 02/01/18 02/01/18 04:45 04:45 WBC 5.0 RBC 2.96 L Hgb 10.0 L Hct 29.1 L MCV 98 H MCH 33.7 H MCHC 34.2 RDW 18.7 H Plt Count 111 L Seg Neutrophils % 84.3 H Lymphocytes % 11.4 L Monocytes % 4.0 Eosinophils % 0.0 Basophils % 0.3 Absolute Neutrophils 4.2 Absolute Lymphocytes 0.6 Absolute Monocytes 0.2 Absolute Eosinophils 0.0 Absolute Basophils 0.0 Sodium 135.1 L Potassium 3.0 L* Chloride 98 Carbon Dioxide 28 Anion Gap 9 BUN 18 Creatinine 0.60 Est GFR ( Amer) > 60 Est GFR (Non-Af Amer) > 60 Glucose 129 H Calcium 8.0 L Total Bilirubin 1.1 AST 47 ALT 41 Alkaline Phosphatase 137 H Total Protein 6.3 Albumin 3.2 L Impressions: Abdomen/Pelvis CT 01/28/18 10:53 IMPRESSION: MARKED DIFFUSE FATTY INFILTRATION OF THE LIVER, UNCHANGED. NO ABNORMAL FINDINGS IN THE LUMBAR SPINE. NO OTHER SIGNIFICANT OR ACUTE FINDING IN THE ABDOMEN OR PELVIS ON CT SCAN WITH IV CONTRAST. Chest CT 01/28/18 10:53 IMPRESSION: Stable primary mass right upper lobe. Adjacent airspace disease could represent pneumonia or bronchogenic spread of tumor. Head CT 01/28/18 10:54 IMPRESSION: CHRONIC CHANGES OF ATROPHY AND MICROVASCULAR ISCHEMIA. Sinus disease as noted above. Other findings as noted above. EVIDENCE OF ACUTE STROKE: NO. Assessment & Plan - Diagnosis (1) Squamous cell carcinoma of right lung Is this a current diagnosis for this admission?: Yes Plan: All treatment on hold/ (2) Acute diarrhea Is this a current diagnosis for this admission?: Yes Plan: Await further improvement and removal of rectal Abreu (3) Acute renal failure Is this a current diagnosis for this admission?: Yes Plan: Much improved. (4) Pancytopenia Is this a current diagnosis for this admission?: Yes Plan: Now resolved. (5) Weakness Is this a current diagnosis for this admission?: Yes Plan: Most likely from electrolyte abnormalities. Continue to replace potassium. Await today's Mag level as well. - Plan Summary Plan Summary: Agree with all treatment. He may need rehab stay to improve his safety with ambulation. I will be available by phone if needed. Please feel free to call. I will see him again as outpatient as previously scheduled.
[2018-02-01] MEDS: ZINC OXIDE 20% OINTMENT 28.35 GM TP SCH ×3 (09:59→17:17)
[2018-02-01] MEDS: THIAMINE HCL 100 MG TABLET PO SCH (09:59)
[2018-02-01] MEDS ORDERED: NORMAL SALINE 1000 ML 1,000 ML with POTASSIUM CHLORIDE 40 MEQ IV PRN ×2 (11:48)
--- NOTE | 2018-02-01 11:54 | PDOC PROGRESS REPORT ---
Subjective Progress Note for:: 02/01/18 Subjective:: Was admitted with lower extremity weakness and inability to ambulate. He did not feel that he is feeling better today. He was seen by physical therapy. Really no change in condition Reason For Visit: INABILITY TO WALK, GENERALIZED WEAKNESS,DEV Physical Exam Vital Signs: Temp Pulse Resp BP Pulse Ox 97.7 F 94 16 134/93 H 97 02/01/18 00:00 02/01/18 08:05 02/01/18 08:05 02/01/18 00:00 02/01/18 08:05 Intake & Output 01/31/18 02/01/18 02/02/18 06:59 06:59 06:59 Intake Total 2465 3304 Output Total 2150 2800 Balance 315 504 Weight 86 kg General appearance: PRESENT: no acute distress, well-developed, well-nourished, other - resting tremors Head exam: PRESENT: atraumatic, normocephalic Eye exam: PRESENT: conjunctiva pink, EOMI, PERRLA. ABSENT: scleral icterus Ear exam: PRESENT: normal external ear exam Mouth exam: PRESENT: moist, tongue midline Neck exam: ABSENT: carotid bruit, JVD, lymphadenopathy, thyromegaly Respiratory exam: PRESENT: clear to auscultation rodrigue. ABSENT: rales, rhonchi, wheezes Cardiovascular exam: PRESENT: RRR. ABSENT: diastolic murmur, rubs, systolic murmur Pulses: PRESENT: normal dorsalis pedis pul Vascular exam: PRESENT: normal capillary refill GI/Abdominal exam: PRESENT: normal bowel sounds, soft. ABSENT: distended, guarding, mass, organolmegaly, rebound, tenderness Rectal exam: PRESENT: deferred Extremities exam: PRESENT: full ROM. ABSENT: calf tenderness, clubbing, pedal edema Neurological exam: PRESENT: alert, awake, oriented to person, oriented to place , oriented to time, oriented to situation, CN II-XII grossly intact. ABSENT: motor sensory deficit Psychiatric exam: PRESENT: appropriate affect, normal mood. ABSENT: homicidal ideation, suicidal ideation Skin exam: PRESENT: dry, other - rashes and breakdown , L post thigh/buttock. ABSENT: cyanosis Results Laboratory Results: 02/01/18 04:45 02/01/18 04:45 02/01/18 02/01/18 04:45 04:45 WBC 5.0 RBC 2.96 L Hgb 10.0 L Hct 29.1 L MCV 98 H MCH 33.7 H MCHC 34.2 RDW 18.7 H Plt Count 111 L Seg Neutrophils % 84.3 H Lymphocytes % 11.4 L Monocytes % 4.0 Eosinophils % 0.0 Basophils % 0.3 Absolute Neutrophils 4.2 Absolute Lymphocytes 0.6 Absolute Monocytes 0.2 Absolute Eosinophils 0.0 Absolute Basophils 0.0 Sodium 135.1 L Potassium 3.0 L* Chloride 98 Carbon Dioxide 28 Anion Gap 9 BUN 18 Creatinine 0.60 Est GFR ( Amer) > 60 Est GFR (Non-Af Amer) > 60 Glucose 129 H Calcium 8.0 L Total Bilirubin 1.1 AST 47 ALT 41 Alkaline Phosphatase 137 H Total Protein 6.3 Albumin 3.2 L 01/29/18 01:58 Stool - Stool - Final 01/29/18 01:58 Stool - Stool Stool Culture - Final NO SALMONELLA, SHIGELLA, CAMPYLOBACTER, OR E.COLI 0157 RECOVERED. NEGATIVE FOR SHIGA TOXINS 1&2. Impressions: Abdomen/Pelvis CT 01/28/18 10:53 IMPRESSION: MARKED DIFFUSE FATTY INFILTRATION OF THE LIVER, UNCHANGED. NO ABNORMAL FINDINGS IN THE LUMBAR SPINE. NO OTHER SIGNIFICANT OR ACUTE FINDING IN THE ABDOMEN OR PELVIS ON CT SCAN WITH IV CONTRAST. Chest CT 01/28/18 10:53 IMPRESSION: Stable primary mass right upper lobe. Adjacent airspace disease could represent pneumonia or bronchogenic spread of tumor. Head CT 01/28/18 10:54 IMPRESSION: CHRONIC CHANGES OF ATROPHY AND MICROVASCULAR ISCHEMIA. Sinus disease as noted above. Other findings as noted above. EVIDENCE OF ACUTE STROKE: NO. Assessment & Plan - Time Time Spent with patient: 15-24 minutes Medications reviewed and adjusted accordingly: Yes Anticipated discharge: Acute Rehab Within: within 72 hours - Inpatient Certification Based on my medical assessment, after consideration of the patient's comorbidities, presenting symptoms, or acuity I expect that the services needed warrant INPATIENT care.: Yes Medical Necessity: Need For IV Fluids, Risk of Complication if Not Cared For in Hospital - Plan Summary Plan Summary: 1.Squamous cell carcinoma of right lung currently on chemotherapy and radiation therapy which are on hold as per oncology. 2. Acute diarrhea likely secondary to autoimmune response from chemotherapy for cancer. Follow-up with C. difficile PCR 3. Acute kidney and liver injury likely secondary to hypo-perfusion. Improved. Will continue with IV hydration. 4. Pancytopenia secondary to chemotherapy/immunotherapy 5. Weakness thought to be secondary to immunotherapy. Patient is on Solu- Medrol 80 mg every 8 hours. Will discuss with Oncology as to when to start tapering 6. Possible alcohol withdrawal-Cont Ativan as needed, Multivite at thiamine and B12 7. Hypokalemia likely related to profound diarrhea- will replace 8. Multiple skin rashes- local care
[2018-02-01] MEDS: POTASSI CL 40 MEQ/NS 1L 1,000 ML IV PRN (12:26)
[2018-02-01] MEDS: LORAZEPAM 1 MG TABLET PO PRN (21:13)
[2018-02-01] MEDS: TEMAZEPAM 15 MG CAPSULE PO SCH (21:13)
[2018-02-01] MEDS ORDERED: VANCOMYCIN HCL INJ 500 MG VIAL ONE (23:06)
[2018-02-01] MEDS: VANCOMYCIN HCL INJ 500 MG VIAL PO SCH (23:32)
[2018-02-02] MEDS: POTASSI CL 40 MEQ/NS 1L 1,000 ML IV PRN ×2 (02:14→14:00)
[2018-02-02] MEDS: HEPARIN SOD (PORCINE) 5,000 UNIT/ML 1 ML SYRINGE SUBCUT SCH ×3 (05:44→22:21)
[2018-02-02] MEDS: VANCOMYCIN HCL INJ 500 MG VIAL PO SCH ×4 (05:53→23:23)
[2018-02-02] MEDS: PREGABALIN 50 MG CAPSULE PO SCH ×3 (05:54→22:36)
[2018-02-02] MEDS: METHYLPREDNISOLONE INJ 125 MG/2 ML SDV IV SCH ×3 (05:54→22:35)
[2018-02-02 07:29] LABS: BLOOD UREA NITROGEN 18 mg/dL (7-20); CALCIUM 8.1 mg/dL (8.4-10.2); GLUCOSE 121 mg/dL (75-110)
[2018-02-02 07:30] LABS: ANION GAP 10 (5-19); CARBON DIOXIDE 26 mmol/L (22-30); CHLORIDE 100 mmol/L (98-107); POTASSIUM 3.7 mmol/L (3.6-5.0); SODIUM 135.6 mmol/L (137-145)
[2018-02-02] MEDS: THIAMINE HCL 100 MG TABLET PO SCH (09:50)
[2018-02-02] MEDS: MAGNESIUM OXIDE 400 MG TABLET PO SCH ×2 (09:50→17:09)
[2018-02-02] MEDS: ZINC OXIDE 20% OINTMENT 28.35 GM TP SCH ×3 (09:53→17:11)
[2018-02-02] MEDS: IPRATROPIUM/ALBUTEROL 0.5-2.5 MG/3 ML AMPUL NEB PRN (14:45)
--- NOTE | 2018-02-02 16:18 | PDOC PROGRESS REPORT ---
Subjective Progress Note for:: 02/02/18 Subjective:: Patient feeling better today. Able to walk some on his own. His rectal Abreu again "came out." There are no plans to replace it at this point. He continues to eat and drink well. ROS: He denies further diarrhea or vomiting. No abdominal pain. Weakness in legs improved. Reason For Visit: INABILITY TO WALK, GENERALIZED WEAKNESS,DEV Physical Exam Vital Signs: Temp Pulse Resp BP Pulse Ox 98.1 F 104 H 16 93/55 L 98 02/02/18 12:00 02/02/18 14:45 02/02/18 14:45 02/02/18 12:00 02/02/18 14:45 Intake & Output 02/01/18 02/02/18 02/03/18 06:59 06:59 06:59 Intake Total 3304 4925 883 Output Total 2800 2900 Balance 504 2025 883 Weight 86 kg 97.7 kg General appearance: PRESENT: no acute distress Head exam: PRESENT: normocephalic Respiratory exam: PRESENT: unlabored GI/Abdominal exam: PRESENT: soft. ABSENT: tenderness Extremities exam: PRESENT: +1 edema Neurological exam: PRESENT: alert, awake Psychiatric exam: PRESENT: appropriate affect Skin exam: PRESENT: normal color Results Laboratory Results: 02/01/18 04:45 02/02/18 06:00 02/02/18 06:00 Sodium 135.6 L Potassium 3.7 Chloride 100 Carbon Dioxide 26 Anion Gap 10 BUN 18 Creatinine 0.58 Est GFR ( Amer) > 60 Est GFR (Non-Af Amer) > 60 Glucose 121 H Calcium 8.1 L Impressions: Abdomen/Pelvis CT 01/28/18 10:53 IMPRESSION: MARKED DIFFUSE FATTY INFILTRATION OF THE LIVER, UNCHANGED. NO ABNORMAL FINDINGS IN THE LUMBAR SPINE. NO OTHER SIGNIFICANT OR ACUTE FINDING IN THE ABDOMEN OR PELVIS ON CT SCAN WITH IV CONTRAST. Chest CT 01/28/18 10:53 IMPRESSION: Stable primary mass right upper lobe. Adjacent airspace disease could represent pneumonia or bronchogenic spread of tumor. Head CT 01/28/18 10:54 IMPRESSION: CHRONIC CHANGES OF ATROPHY AND MICROVASCULAR ISCHEMIA. Sinus disease as noted above. Other findings as noted above. EVIDENCE OF ACUTE STROKE: NO. Assessment & Plan - Diagnosis (1) Squamous cell carcinoma of right lung Is this a current diagnosis for this admission?: Yes Plan: All treatment still on hold. (2) Acute diarrhea Is this a current diagnosis for this admission?: Yes Plan: He has now tested positive for C.dif. Oral Vancomycin has been started. He continues steroids as well. This dose can gradually be tapered. (3) Acute renal failure Is this a current diagnosis for this admission?: Yes Plan: Resolving with IV hydration. (4) Pancytopenia Is this a current diagnosis for this admission?: Yes (5) Weakness Is this a current diagnosis for this admission?: Yes Plan: Improving. Plans for brief rehab stay underway, depending on what PT recommends. - Time Time Spent with patient: 15-24 minutes Anticipated discharge: Acute Rehab
--- NOTE | 2018-02-02 16:57 | PDOC PROGRESS REPORT ---
Subjective Progress Note for:: 02/02/18 Subjective:: Was admitted with lower extremity weakness and inability to ambulate. Patient seems to be feeling better. He seems less tremulous and he said his diarrhea is actually much better. He is able to pivot to the bedside commode C. difficile PCR was found to be positive and patient has been started on vancomycin. Reason For Visit: INABILITY TO WALK, GENERALIZED WEAKNESS,DEV Physical Exam Vital Signs: Temp Pulse Resp BP Pulse Ox 98.1 F 119 H 18 111/74 99 02/02/18 16:00 02/02/18 16:00 02/02/18 16:00 02/02/18 16:00 02/02/18 16:00 Intake & Output 02/01/18 02/02/18 02/03/18 06:59 06:59 06:59 Intake Total 3304 4925 883 Output Total 2800 2900 Balance 504 2025 883 Weight 86 kg 97.7 kg General appearance: PRESENT: no acute distress, well-developed, well-nourished Head exam: PRESENT: atraumatic, normocephalic Eye exam: PRESENT: conjunctiva pink, EOMI, PERRLA. ABSENT: scleral icterus Ear exam: PRESENT: normal external ear exam Mouth exam: PRESENT: moist, tongue midline Neck exam: ABSENT: carotid bruit, JVD, lymphadenopathy, thyromegaly Respiratory exam: PRESENT: clear to auscultation rodrigue. ABSENT: rales, rhonchi, wheezes Cardiovascular exam: PRESENT: RRR. ABSENT: diastolic murmur, rubs, systolic murmur Pulses: PRESENT: normal dorsalis pedis pul Vascular exam: PRESENT: normal capillary refill GI/Abdominal exam: PRESENT: normal bowel sounds, soft. ABSENT: distended, guarding, mass, organolmegaly, rebound, tenderness Rectal exam: PRESENT: deferred Extremities exam: PRESENT: full ROM. ABSENT: calf tenderness, clubbing, pedal edema Neurological exam: PRESENT: alert, awake, oriented to person, oriented to place , oriented to time, oriented to situation, CN II-XII grossly intact, other - resting tremors. ABSENT: motor sensory deficit Psychiatric exam: PRESENT: appropriate affect, normal mood. ABSENT: homicidal ideation, suicidal ideation Skin exam: PRESENT: dry, rash, skin tears, warm, other - xple skin lesions. ABSENT: cyanosis Results Laboratory Results: 02/01/18 04:45 02/02/18 06:00 02/02/18 06:00 Sodium 135.6 L Potassium 3.7 Chloride 100 Carbon Dioxide 26 Anion Gap 10 BUN 18 Creatinine 0.58 Est GFR ( Amer) > 60 Est GFR (Non-Af Amer) > 60 Glucose 121 H Calcium 8.1 L Impressions: Abdomen/Pelvis CT 01/28/18 10:53 IMPRESSION: MARKED DIFFUSE FATTY INFILTRATION OF THE LIVER, UNCHANGED. NO ABNORMAL FINDINGS IN THE LUMBAR SPINE. NO OTHER SIGNIFICANT OR ACUTE FINDING IN THE ABDOMEN OR PELVIS ON CT SCAN WITH IV CONTRAST. Chest CT 01/28/18 10:53 IMPRESSION: Stable primary mass right upper lobe. Adjacent airspace disease could represent pneumonia or bronchogenic spread of tumor. Head CT 01/28/18 10:54 IMPRESSION: CHRONIC CHANGES OF ATROPHY AND MICROVASCULAR ISCHEMIA. Sinus disease as noted above. Other findings as noted above. EVIDENCE OF ACUTE STROKE: NO. Assessment & Plan - Time Time Spent with patient: 15-24 minutes Medications reviewed and adjusted accordingly: Yes Anticipated discharge: Acute Rehab Within: within 48 hours - Inpatient Certification Medical Necessity: Need Close Monitoring Due to Risk of Patient Decompensation, Risk of Complication if Not Cared For in Hospital - Plan Summary Plan Summary: 1.Squamous cell carcinoma of right lung currently on chemotherapy and radiation currently on hold 2. Acute diarrhea likely secondary to autoimmune response from chemotherapy for cancer. C. difficille colitis on Vanc 3. Acute kidney and liver injury likely secondary to hypo-perfusion. Improved. Will continue with IV hydration. 4. Pancytopenia secondary to chemotherapy/immunotherapy 5. Weakness thought to be secondary to immunotherapy. Appears to be improved. Cont Solu-Medrol 80 mg every 8 hours. Will discuss with Oncology as to when to start tapering 6. Possible alcohol withdrawal-Cont Ativan as needed, Multivite and thiamine and B12 7. Hypokalemia likely related to profound diarrhea- replaced 8. Multiple skin rashes- local care 9. Hypomagnesemia- cont to replace
[2018-02-02] MEDS: TEMAZEPAM 15 MG CAPSULE PO SCH (22:36)
[2018-02-02] MEDS: LORAZEPAM 1 MG TABLET PO PRN (22:36)
[2018-02-03] MEDS: POTASSI CL 40 MEQ/NS 1L 1,000 ML IV PRN ×2 (03:39→21:49)
[2018-02-03] MEDS: METHYLPREDNISOLONE INJ 125 MG/2 ML SDV IV SCH (05:16)
[2018-02-03] MEDS: HEPARIN SOD (PORCINE) 5,000 UNIT/ML 1 ML SYRINGE SUBCUT SCH ×3 (05:16→21:48)
[2018-02-03] MEDS: PREGABALIN 50 MG CAPSULE PO SCH ×3 (05:16→21:49)
[2018-02-03] MEDS: VANCOMYCIN HCL INJ 500 MG VIAL PO SCH ×3 (05:38→17:43)
--- NOTE | 2018-02-03 09:42 | PDOC PROGRESS REPORT ---
Subjective Progress Note for:: 02/03/18 Subjective:: Patient states his diarrhea has stopped. He is eating solid food and has requested a second breakfast tray be sent up. Nurses report he is now ambulating to the bathroom safely on his own. ROS: No pain. Still with weakness. No dizzyness. Reason For Visit: INABILITY TO WALK, GENERALIZED WEAKNESS,DEV Physical Exam Vital Signs: Temp Pulse Resp BP Pulse Ox 97.4 F 96 18 112/79 99 02/03/18 08:00 02/03/18 08:00 02/03/18 08:00 02/03/18 08:00 02/03/18 08:00 Intake & Output 02/02/18 02/03/18 02/04/18 06:59 06:59 06:59 Intake Total 4925 5503 Output Total 2900 4550 Balance 2024 953 Weight 97.7 kg 97 kg General appearance: PRESENT: no acute distress Respiratory exam: PRESENT: unlabored Extremities exam: PRESENT: +1 edema Neurological exam: PRESENT: alert, awake, oriented to person, oriented to place , oriented to time, oriented to situation Psychiatric exam: PRESENT: appropriate affect Skin exam: PRESENT: normal color Results Laboratory Results: 02/01/18 04:45 02/02/18 06:00 Impressions: Abdomen/Pelvis CT 01/28/18 10:53 IMPRESSION: MARKED DIFFUSE FATTY INFILTRATION OF THE LIVER, UNCHANGED. NO ABNORMAL FINDINGS IN THE LUMBAR SPINE. NO OTHER SIGNIFICANT OR ACUTE FINDING IN THE ABDOMEN OR PELVIS ON CT SCAN WITH IV CONTRAST. Chest CT 01/28/18 10:53 IMPRESSION: Stable primary mass right upper lobe. Adjacent airspace disease could represent pneumonia or bronchogenic spread of tumor. Head CT 01/28/18 10:54 IMPRESSION: CHRONIC CHANGES OF ATROPHY AND MICROVASCULAR ISCHEMIA. Sinus disease as noted above. Other findings as noted above. EVIDENCE OF ACUTE STROKE: NO. Assessment & Plan - Diagnosis (1) Squamous cell carcinoma of right lung Is this a current diagnosis for this admission?: Yes Plan: All treatment on hold. (2) Acute diarrhea Is this a current diagnosis for this admission?: Yes Plan: Initially thought to be secondary to the durvalumab. However, he also tested positive for C. dif. He is now being treated with oral vancomycin in addition to the steroids. I will start to wean steroids today. (3) Acute renal failure Is this a current diagnosis for this admission?: Yes (4) Pancytopenia Is this a current diagnosis for this admission?: Yes (5) Weakness Is this a current diagnosis for this admission?: Yes - Plan Summary Plan Summary: Plan for rehab stay [facility].
[2018-02-03] MEDS: THIAMINE HCL 100 MG TABLET PO SCH (10:01)
[2018-02-03] MEDS: MAGNESIUM OXIDE 400 MG TABLET PO SCH ×2 (10:01→17:44)
[2018-02-03] MEDS: ZINC OXIDE 20% OINTMENT 28.35 GM TP SCH ×3 (10:02→17:47)
[2018-02-03] MEDS: FAMOTIDINE 20 MG TABLET PO SCH ×2 (10:06→21:48)
[2018-02-03] MEDS: PREDNISONE 20 MG TABLET PO SCH ×2 (10:06→17:44)
[2018-02-03 10:43] LABS: ABSOLUTE MONOCYTES (AUTO) 0.3 10^3/uL (0.1-1.4); ABSOLUTE NEUT (AUTO) 4.9 10^3/uL (1.7-8.2); BASOPHILS % (AUTO) 0.3 % (0-2); HEMATOCRIT 29.6 % (37.9-51.0); HEMOGLOBIN 10.2 g/dL (13.5-17.0); MEAN CORPUSCULAR HEMOGLOBIN 33.3 pg (27.0-33.4); MEAN CORPUSCULAR HGB CONC 34.6 g/dL (32.0-36.0); MEAN CORPUSCULAR VOLUME 96 fl (80-97); MONOCYTES % (AUTO) 5.3 % (3-13); PLATELET COUNT 165 10^3/uL (150-450); RED BLOOD COUNT 3.08 10^6/uL (4.35-5.55); RED CELL DISTRIBUTION WIDTH 18.7 % (11.5-14.0); SEGMENTED NEUTROPHILS % (AUTO) 78.4 % (42-78); TOTAL CELLS COUNTED % (AUTO) 100 %; WHITE BLOOD COUNT 6.3 10^3/uL (4.0-10.5)
[2018-02-03 10:59] LABS: ALANINE AMINOTRANSFERASE 55 U/L (21-72); ALBUMIN 3.5 g/dL (3.5-5.0); ALKALINE PHOSPHATASE 129 U/L (38-126); ANION GAP 9 (5-19); ASPARTATE AMINO TRANSFERASE 62 U/L (17-59); BILIRUBIN,DIRECT 0.9 mg/dL (0.0-0.4); BILIRUBIN,TOTAL 1.2 mg/dL (0.2-1.3); BLOOD UREA NITROGEN 20 mg/dL (7-20); CALCIUM 7.6 mg/dL (8.4-10.2); CARBON DIOXIDE 29 mmol/L (22-30); CHLORIDE 96 mmol/L (98-107); GLUCOSE 139 mg/dL (75-110); POTASSIUM 3.8 mmol/L (3.6-5.0); SODIUM 133.5 mmol/L (137-145); TOTAL PROTEIN 6.4 g/dL (6.3-8.2)
--- NOTE | 2018-02-03 11:20 | PDOC PROGRESS REPORT ---
Subjective Progress Note for:: 02/03/18 Subjective:: Was admitted with lower extremity weakness and inability to ambulate. Patient seems to be feeling better. He seems less tremulous and he said his diarrhea is actually much better. He is able to pivot to the bedside commode C. difficile PCR was found to be positive and patient has been started on vancomycin Day 2. He is still on Steroids but plan is to start weaning as per / Thompson Reason For Visit: INABILITY TO WALK, GENERALIZED WEAKNESS,DEV Physical Exam Vital Signs: Temp Pulse Resp BP Pulse Ox 97.4 F 96 18 112/79 99 02/03/18 08:00 02/03/18 08:00 02/03/18 08:00 02/03/18 08:00 02/03/18 08:00 Intake & Output 02/02/18 02/03/18 02/04/18 06:59 06:59 06:59 Intake Total 4925 5503 Output Total 2900 4550 Balance 2025 953 Weight 97.7 kg 97 kg General appearance: PRESENT: no acute distress, well-developed, well-nourished, other - tremors improved Head exam: PRESENT: atraumatic, normocephalic Eye exam: PRESENT: conjunctiva pink, EOMI, PERRLA. ABSENT: scleral icterus Ear exam: PRESENT: normal external ear exam Mouth exam: PRESENT: moist, tongue midline Neck exam: ABSENT: carotid bruit, JVD, lymphadenopathy, thyromegaly Respiratory exam: PRESENT: clear to auscultation rodrigue. ABSENT: rales, rhonchi, wheezes Cardiovascular exam: PRESENT: RRR. ABSENT: diastolic murmur, rubs, systolic murmur Pulses: PRESENT: normal dorsalis pedis pul Vascular exam: PRESENT: normal capillary refill GI/Abdominal exam: PRESENT: normal bowel sounds, soft. ABSENT: distended, guarding, mass, organolmegaly, rebound, tenderness Rectal exam: PRESENT: deferred Extremities exam: PRESENT: full ROM. ABSENT: calf tenderness, clubbing, pedal edema Neurological exam: PRESENT: alert, awake, oriented to person, oriented to place , oriented to time, oriented to situation, CN II-XII grossly intact. ABSENT: motor sensory deficit Psychiatric exam: PRESENT: appropriate affect, normal mood. ABSENT: homicidal ideation, suicidal ideation Skin exam: PRESENT: dry, intact, warm. ABSENT: cyanosis, rash Results Laboratory Results: 02/03/18 10:32 02/03/18 10:32 02/03/18 02/03/18 10:32 10:32 WBC 6.3 RBC 3.08 L Hgb 10.2 L Hct 29.6 L MCV 96 MCH 33.3 MCHC 34.6 RDW 18.7 H Plt Count 165 Seg Neutrophils % 78.4 H Lymphocytes % 16.0 Monocytes % 5.3 Eosinophils % 0.0 Basophils % 0.3 Absolute Neutrophils 4.9 Absolute Lymphocytes 1.0 Absolute Monocytes 0.3 Absolute Eosinophils 0.0 Absolute Basophils 0.0 Sodium 133.5 L Potassium 3.8 Chloride 96 L Carbon Dioxide 29 Anion Gap 9 BUN 20 Creatinine 0.70 Est GFR ( Amer) > 60 Est GFR (Non-Af Amer) > 60 Glucose 139 H Calcium 7.6 L Magnesium 1.2 L* Total Bilirubin 1.2 AST 62 H ALT 55 Alkaline Phosphatase 129 H Total Protein 6.4 Albumin 3.5 Impressions: Abdomen/Pelvis CT 01/28/18 10:53 IMPRESSION: MARKED DIFFUSE FATTY INFILTRATION OF THE LIVER, UNCHANGED. NO ABNORMAL FINDINGS IN THE LUMBAR SPINE. NO OTHER SIGNIFICANT OR ACUTE FINDING IN THE ABDOMEN OR PELVIS ON CT SCAN WITH IV CONTRAST. Chest CT 01/28/18 10:53 IMPRESSION: Stable primary mass right upper lobe. Adjacent airspace disease could represent pneumonia or bronchogenic spread of tumor. Head CT 01/28/18 10:54 IMPRESSION: CHRONIC CHANGES OF ATROPHY AND MICROVASCULAR ISCHEMIA. Sinus disease as noted above. Other findings as noted above. EVIDENCE OF ACUTE STROKE: NO. Assessment & Plan - Time Time Spent with patient: 15-24 minutes Medications reviewed and adjusted accordingly: Yes Anticipated discharge: Home Within: within 48 hours - Inpatient Certification Based on my medical assessment, after consideration of the patient's comorbidities, presenting symptoms, or acuity I expect that the services needed warrant INPATIENT care.: Yes Medical Necessity: Need Close Monitoring Due to Risk of Patient Decompensation, Need for Pain Control, Risk of Complication if Not Cared For in Hospital - Plan Summary Plan Summary: 1.Squamous cell carcinoma of right lung-chemotherapy and radiation currently on hold Will f/u with Oncology as outpatient 2. Acute diarrhea likely secondary to autoimmune response from chemotherapy for cancer. Also has C. difficille colitis on Vanc 3. Acute kidney and liver injury likely secondary to hypo-perfusion. Improved. Will continue with IV hydration. 4. Pancytopenia secondary to chemotherapy/immunotherapy 5. Weakness thought to be secondary to immunotherapy. improving. Taper Solumedrol as per Dr. la 6. Possible alcohol withdrawal-Cont Ativan as needed, Multivite and thiamine and B12 No acute findings 7. Hypokalemia likely related to profound diarrhea- replaced 8. Multiple skin rashes- local care 9. Hypomagnesemia- cont to replace 10. Plan is to dc home hopefully by Sat. [place] not [place] going to [place]
[2018-02-03] MEDS ORDERED: MAGNESIUM SULFATE 4 GM/100 ML RTUPB IV ONE (12:00)
[2018-02-03] MEDS: TEMAZEPAM 15 MG CAPSULE PO SCH (21:48)
[2018-02-04] MEDS: VANCOMYCIN HCL INJ 500 MG VIAL PO SCH ×2 (00:03→05:56)
[2018-02-04 05:24] LABS: ANION GAP 6 (5-19); BLOOD UREA NITROGEN 19 mg/dL (7-20); CALCIUM 7.8 mg/dL (8.4-10.2); CARBON DIOXIDE 32 mmol/L (22-30); CHLORIDE 96 mmol/L (98-107); GLUCOSE 127 mg/dL (75-110); POTASSIUM 3.9 mmol/L (3.6-5.0); SODIUM 134.1 mmol/L (137-145)
[2018-02-04] MEDS: PREGABALIN 50 MG CAPSULE PO SCH (05:57)
[2018-02-04] MEDS: HEPARIN SOD (PORCINE) 5,000 UNIT/ML 1 ML SYRINGE SUBCUT SCH (05:57)
[2018-02-04] MEDS: PREDNISONE 20 MG TABLET PO SCH (10:09)
[2018-02-04] MEDS: THIAMINE HCL 100 MG TABLET PO SCH (10:09)
[2018-02-04] MEDS: MAGNESIUM OXIDE 400 MG TABLET PO SCH (10:09)
[2018-02-04] MEDS: FAMOTIDINE 20 MG TABLET PO SCH (10:09)
[2018-02-04] MEDS: ZINC OXIDE 20% OINTMENT 28.35 GM TP SCH (10:10)
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
[2018-02-04 14:26] VITALS: BP 130/80
== END 2018-02-04 15:05 | disposition home health service (06) | DRG 371 ==
LOC: ER 10:25 → EH 17:02 → 5 01-29 01:30
PROVIDERS: ADMIT Internal Medicine; ATTEND Internal Medicine
DX: A04.72 Enterocolitis due to Clostridium difficile, not specified as recurrent (principal); D61.810 Antineoplastic chemotherapy induced pancytopenia; J96.10 Chronic respiratory failure, unspecified whether with hypoxia or hypercapnia; C34.11 Malignant neoplasm of upper lobe, right bronchus or lung; N17.9 Acute kidney failure, unspecified; F10.239 Alcohol dependence with withdrawal, unspecified; E87.6 Hypokalemia; E83.42 Hypomagnesemia; L89.301 Pressure ulcer of unspecified buttock, stage 1; J44.9 Chronic obstructive pulmonary disease, unspecified; M21.372 Foot drop, left foot; M21.371 Foot drop, right foot; E86.0 Dehydration; K76.0 Fatty (change of) liver, not elsewhere classified; M54.9 Dorsalgia, unspecified; Y90.9 Presence of alcohol in blood, level not specified; Z99.81 Dependence on supplemental oxygen; Z87.891 Personal history of nicotine dependence
CPT/HCPCS: 36415; 70450; 71260; 74177; 80048; 80053; 80307; 81001; 82140; 83615; 83690; 83735; 84100; 85025; 87040; 87045; 87205; 87493; 96360; 96361; 99285; J1644; J2543; J2930; J3010; J3370; J3475; J3480; J3490; J7512; J7620

== ENCOUNTER 2018-02-11 14:21 | Outpatient (CLI) | payer MEDICAID ==
[2018-02-11] MEDS ORDERED: NORMAL SALINE 250 ML IV PRN (14:51)
[2018-02-11 15:10] VITALS: BP 85/58
[2018-02-11] MEDS: MAGNESIUM SULFATE/D5W 1 GM/100 ML RTUPB IV SCH ×4 (15:43→19:20)
== END 2018-02-11 20:25 | disposition home or self-care (01) ==
LOC: II 14:21 → 5 16:04 → II 20:25
PROVIDERS: ATTEND Internal Medicine
PROC: 3E033GC Introduction of Other Therapeutic Substance into Peripheral Vein, Percutaneous Approach (ICD-10-PCS; principal; 2018-02-11)
DX: E83.42 Hypomagnesemia (principal)
CPT/HCPCS: 96365; 96366; 96367; J3475

== ENCOUNTER 2018-02-19 08:08 | Outpatient (CLI) | payer MEDICAID ==
[2018-02-19] MEDS ORDERED: MAGNESIUM SULFATE 4 GM/D5W 100 ML IV PRN (08:15)
[2018-02-19] MEDS ORDERED: NORMAL SALINE 250 ML IV PRN (08:15)
[2018-02-19 12:51] VITALS: BP 126/62
== END 2018-02-19 14:00 | disposition home or self-care (01) ==
LOC: II 08:08 → 5TH 08:09 → II 14:00
PROVIDERS: ATTEND Internal Medicine Hematology & Oncology
PROC: 3E033GC Introduction of Other Therapeutic Substance into Peripheral Vein, Percutaneous Approach (ICD-10-PCS; principal; 2018-02-19)
DX: E83.42 Hypomagnesemia (principal)
CPT/HCPCS: 96365; 96366; J3475; 96367

== ENCOUNTER → 2018-04-14 | Outpatient (CLI) | payer MEDICAID ==
--- NOTE | 2018-04-14 10:47 | RADIOLOGY REPORT (SQ) ---
EXAM DESCRIPTION: CT CHEST WITH COMPLETED DATE/TIME: 04/14/2018 10:05 am REASON FOR STUDY: LUNG CA (C34.11) C34.11 MALIGNANT NEOPLASM OF UPPER LOBE, RIGHT BRONCHUS OR L COMPARISON: 01/28/2018 TECHNIQUE: CT scan of the chest performed using helical scanning technique with dynamic intravenous contrast injection. Images reviewed with lung, soft tissue and bone windows. Reconstructed coronal and sagittal MPR and MIP images reviewed. All images stored on PACS. All CT scanners at this facility use dose modulation, iterative reconstruction, and/or weight based d osing when appropriate to reduce radiation dose to as low as reasonably achievable (ALARA). [facility]: Dose Right [facility]: CareDose [facility]: Dose Right [facility]: Teradose 4D [facility]: [employer] Mobile CONTRAST TYPE AND DOSE: contrast/concentration: Isovue 350.00 mg/ml; Total Contrast Delivered: 80.0 ml; Total Saline Delivered: 55.0 ml RENAL FUNCTION: GFR > 60. RADIATION DOSE: CT Rad equipment meets quality standard of care and radiation dose reduction techniq ues were employed. CTDIvol: 7.6 mGy. DLP: 308 mGy-cm. . LIMITATIONS: None. FINDINGS: LUNGS AND PLEURA: Stable rind of consolidation adjacent to the primary lesion in the right upper lobe. Segmental consolidation posterior right apex. No effusions. Left lung is clear. HILAR AND MEDIASTINAL STRUCTURES: No identified masses or abnormal nodes. HEART AND VASCULAR STRUCTURES: No aneurysm or dissection. No central pulmonary emboli. No pericardi al effusion. HARDWARE: None in the chest. UPPER ABDOMEN: No significant findings. Limited exam. THYROID AND OTHER SOFT TISSUES: Gynecomastia. BONES: Right thoracotomy. No evidence of bone metastasis. OTHER: No other significant finding. IMPRESSION: Stable primary lung mass. Postradiation changes. TECHNICAL DOCUMENTATION: JOB ID: [id number] Quality ID # [id number]: Final reports with documentation of one or more dose reduction techniques (e.g., Au tomated exposure control, adjustment of the mA and/or kV according to patient size, use of iterative reconstruction technique) 2010 [employer]- All Rights Reserved Reading location - IP/workstation name: [email or web address]
== END ==
LOC: RAD 09:37
PROVIDERS: ATTEND Internal Medicine Hematology & Oncology
DX: C34.11 Malignant neoplasm of upper lobe, right bronchus or lung (principal)
CPT/HCPCS: 71260

== ENCOUNTER 2018-06-02 23:06 | Inpatient (IN) | payer MEDICAID ==
--- NOTE | 2018-06-02 23:54 | RADIOLOGY REPORT (SQ) ---
EXAM DESCRIPTION: XR CHEST 1 VIEW COMPLETED DATE/TME: 06/02/2018 23:13 CLINICAL HISTORY: 58 years, Male, weak, lung ca COMPARISON: 07/23/2017 chest x-ray NUMBER OF VIEWS: 1 TECHNIQUE: Portable chest LIMITATIONS: None. FINDINGS: The heart size is normal. Poorly defined mass in the right hilar/suprahilar region having a spiculated appearance. This has margins which extend to the lateral pleural surface. When correlating with prior CT, this may in part reflect post radiation therapy changes. Underlying malignancy not excluded. Volume loss of the right hemithorax. No pneumothorax. Osteopenia. Underlying COPD. IMPRESSION: Spiculated, masslike opacity in the right hilar/suprahilar region. This may in part reflect post surgical/post radiation therapy changes. Underlying neoplastic etiology would be difficult to exclude. Volume loss of the right hemithorax is present. copyright 2010 [employer]- All Rights Reserved
[2018-06-03 00:05] LABS: ABSOLUTE BASOPHILS # (AUTO) 0.1 10^3/uL (0.0-0.2); ABSOLUTE EOSINOPHILS # (AUTO) 0.2 10^3/uL (0.0-0.6); ABSOLUTE MONOCYTES (AUTO) 1.5 10^3/uL (0.1-1.4); BASOPHILS % (AUTO) 1.1 % (0-2); EOSINOPHILS % (AUTO) 1.3 % (0-6); HEMATOCRIT 31.4 % (37.9-51.0); HEMOGLOBIN 10.6 g/dL (13.5-17.0); LYMPHOCYTES % (AUTO) 8.5 % (13-45); MEAN CORPUSCULAR HEMOGLOBIN 32.1 pg (27.0-33.4); MEAN CORPUSCULAR HGB CONC 33.8 g/dL (32.0-36.0); MEAN CORPUSCULAR VOLUME 95 fl (80-97); MONOCYTES % (AUTO) 12.9 % (3-13); PLATELET COUNT 125 10^3/uL (150-450); RED BLOOD COUNT 3.31 10^6/uL (4.35-5.55); RED CELL DISTRIBUTION WIDTH 18.6 % (11.5-14.0); SEGMENTED NEUTROPHILS % (AUTO) 76.2 % (42-78); TOTAL CELLS COUNTED % (AUTO) 100 %; WHITE BLOOD COUNT 11.8 10^3/uL (4.0-10.5)
[2018-06-03 00:07] LABS: ALANINE AMINOTRANSFERASE 32 U/L (21-72); ALBUMIN 4.4 g/dL (3.5-5.0); ALKALINE PHOSPHATASE 217 U/L (38-126); ANION GAP 11 (5-19); ASPARTATE AMINO TRANSFERASE 89 U/L (17-59); BILIRUBIN,DIRECT 0.9 mg/dL (0.0-0.4); BILIRUBIN,TOTAL 1.7 mg/dL (0.2-1.3); BLOOD UREA NITROGEN 17 mg/dL (7-20); CALCIUM 9.2 mg/dL (8.4-10.2); CARBON DIOXIDE 27 mmol/L (22-30); CHLORIDE 89 mmol/L (98-107); GLUCOSE 93 mg/dL (75-110); POTASSIUM 3.7 mmol/L (3.6-5.0); SODIUM 126.5 mmol/L (137-145)
[2018-06-03 00:18] LABS: A TYPE INFLUENZA AG NEGATIVE (NEGATIVE); B INFLUENZA AG NEGATIVE (NEGATIVE)
[2018-06-03] MEDS ORDERED: NORMAL SALINE 1000 ML 1,000 ML IV ONE (00:21)
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
[2018-06-03 00:22] LABS: ANISOCYTOSIS 2+; PLATELET COMMENT ADEQUATE; PLATELET LARGE PRESENT; POIKILOCYTOSIS SLIGHT; POLYCHROMASIA SLIGHT; SCHISTOCYTES 1+; TEAR DROP CELLS 1+; TOXIC GRANULATION 1+; TOXIC VACUOLATION PRESENT
[2018-06-03] MEDS: MORPHINE SULFATE 10 MG/ML INJ IV PRN ×7 (00:47→21:13)
--- NOTE | 2018-06-03 01:01 | RADIOLOGY REPORT (SQ) ---
EXAM DESCRIPTION: CT 8 chest, with CT ABDOMEN PELVIS WITH IV CONTRAST COMPLETED DATE/TME: 06/03/2018 00:03 CLINICAL HISTORY: 58 years, Male, Evaluate progression of malignancy, eval pe COMPARISON: CT chest 04/14/2018. TECHNIQUE: 1358 Images stored on PACS. All CT scanners at this facility use dose modulation, iterative reconstruction, and/or weight based dosing when appropriate to reduce radiation dose to as low as reasonably achievable (ALARA). [facility]: Dose Right [facility]: CareDose [facility]: Dose Right [facility]: Teradose 4D [facility]: [employer] LIMITATIONS: None. FINDINGS: CTA chest: The visualized thyroid gland enhances normally. Contrast bolus is slightly suboptimal however no convincing filling defect to suggest pulmonary embolus. Negative for thoracic aortic aneurysm or dissection. Similar to the prior exam there is extensive airspace opacity in the right paramediastinal and right hilar regions. Volume loss of the right hemithorax is again noted. Areas of pleural thickening throughout the right hemithorax. Osseous structures are grossly intact. Emphysematous changes with fibrotic changes in the right upper lobe and apex. Areas of traction bronchiectasis are also noted. Hyperinflation of the left lung. Lungs are otherwise clear. No pneumothorax. Postsurgical changes of the right hemithorax with volume loss. CT abdomen/pelvis: Osseous structures are grossly intact. Diffuse fatty infiltrative change to the liver. The spleen, adrenal glands, pancreas, kidneys are unremarkable. The gallbladder is present. Cholelithiasis. No gross evidence for bowel obstruction. Normal appendix. No free air or free fluid. Subjective urinary bladder wall thickening may reflect incomplete distention. Calcifications of the prostate. Correlate with PSA levels. Sigmoid diverticulosis. No CT evidence for diverticulitis. IMPRESSION: Little change in the appearance of the chest compared with the most recent CT chest. Stable postsurgical changes and volume loss of the right hemithorax. Stable areas of airspace opacity in the right paramediastinal region and right hilar regions. Areas of fibrosis are also noted. Fatty infiltrative change to the liver. Cholelithiasis. Sigmoid diverticulosis without CT evidence for diverticulitis. TECHNICAL DOCUMENTATION: Quality ID # [id number]: Final reports with documentation of one or more dose reduction techniques (e.g., Automated exposure control, adjustment of the mA and/or kV according to patient size, use of iterative reconstruction technique) copyright 2011 [employer]- All Rights Reserved
[2018-06-03] MEDS ORDERED: MAGNESIUM HYDROXIDE SUSP 30 ML UDCUP PO PRN (01:40)
[2018-06-03 01:44] LABS: ALCOHOL < 10 mg/dL (NONE DETECTED)
[2018-06-03] MEDS ORDERED: DOCUSATE SODIUM 100 MG CAPSULE PO ONE (02:00)
[2018-06-03] MEDS: MAG HYDROX/AL HYDROX/SIMETH SUSP 30 ML UDCUP PO PRN ×2 (02:04→09:31)
[2018-06-03 02:12] LABS: APPEARANCE,URINE CLEAR; BILIRUBIN,URINE NEGATIVE (NEGATIVE); COLOR,URINE YELLOW; GLUCOSE, URINE NEGATIVE (NEGATIVE); KETONES,URINE TRACE mg/dL (NEGATIVE); LEUKOCYTE ESTERASE,URINE NEGATIVE (NEGATIVE); NITRITE,URINE NEGATIVE (NEGATIVE); PROTEIN,URINE NEGATIVE (NEGATIVE); URINE SPECIFIC GRAVITY 1.038; UROBILINOGEN,URINE NEGATIVE mg/dL (<2.0)
[2018-06-03 02:31] LABS: URINE AMPHETAMINES SCREEN NEGATIVE; URINE BARBITURATES SCREEN NEGATIVE; URINE BENZODIAZEPINES SCREEN NEGATIVE; URINE COCAINE SCREEN NEGATIVE; URINE MARIJUANA (THC) SCREEN NEGATIVE; URINE METHADONE SCREEN NEGATIVE; URINE PHENCYCLIDINE SCREEN NEGATIVE
[2018-06-03 02:33] LABS: URINE POTASSIUM 17.9 mmol/L (17-99)
[2018-06-03 02:44] LABS: ABSOLUTE BASOPHILS # (AUTO) 0.1 10^3/uL (0.0-0.2); ABSOLUTE EOSINOPHILS # (AUTO) 0.1 10^3/uL (0.0-0.6); ABSOLUTE MONOCYTES (AUTO) 1.4 10^3/uL (0.1-1.4); ABSOLUTE NEUT (AUTO) 8.3 10^3/uL (1.7-8.2); EOSINOPHILS % (AUTO) 1.1 % (0-6); HEMATOCRIT 30.5 % (37.9-51.0); HEMOGLOBIN 10.4 g/dL (13.5-17.0); LYMPHOCYTES % (AUTO) 8.8 % (13-45); MEAN CORPUSCULAR HEMOGLOBIN 32.3 pg (27.0-33.4); MEAN CORPUSCULAR HGB CONC 34.1 g/dL (32.0-36.0); MEAN CORPUSCULAR VOLUME 95 fl (80-97); MONOCYTES % (AUTO) 12.6 % (3-13); PLATELET COUNT 110 10^3/uL (150-450); RED BLOOD COUNT 3.21 10^6/uL (4.35-5.55); RED CELL DISTRIBUTION WIDTH 19.4 % (11.5-14.0); SEGMENTED NEUTROPHILS % (AUTO) 76.5 % (42-78); TOTAL CELLS COUNTED % (AUTO) 100 %; WHITE BLOOD COUNT 10.9 10^3/uL (4.0-10.5)
[2018-06-03] MEDS: NORMAL SALINE 1000 ML 1,000 ML IV PRN ×2 (03:00→11:39)
[2018-06-03 03:04] LABS: PHOSPHORUS 3.6 mg/dL (2.5-4.5)
[2018-06-03 03:05] LABS: ALANINE AMINOTRANSFERASE 32 U/L (21-72); ALBUMIN 3.7 g/dL (3.5-5.0); ALKALINE PHOSPHATASE 193 U/L (38-126); ANION GAP 12 (5-19); ASPARTATE AMINO TRANSFERASE 75 U/L (17-59); BILIRUBIN,DIRECT 0.8 mg/dL (0.0-0.4); BILIRUBIN,TOTAL 1.5 mg/dL (0.2-1.3); BLOOD UREA NITROGEN 16 mg/dL (7-20); CALCIUM 8.3 mg/dL (8.4-10.2); CARBON DIOXIDE 24 mmol/L (22-30); CHLORIDE 91 mmol/L (98-107); GLUCOSE 94 mg/dL (75-110); SODIUM 126.7 mmol/L (137-145); TOTAL PROTEIN 6.6 g/dL (6.3-8.2)
[2018-06-03] MEDS ORDERED: DILTIAZEM HCL 60 MG TABLET PO ONE (03:48)
[2018-06-03] MEDS ORDERED: MAGNESIUM SULFATE 4 GM/100 ML RTUPB IV ONE ×2 (03:49→04:12)
--- NOTE | 2018-06-03 04:00 | PDOC H&P ---
History of Present Illness Admission Date/PCP: 06/03/18 01:56 SIDDHARTH VOGT MD Patient complains of: Global weakness History of Present Illness: ERICKA RAZO is a 58 year old male with a past medical history of stage III squamous cell lung cancer status post chemoradiation completed July 2017 followed by immunotherapy for 5 cycles. His chemotherapy was discontinued several months ago secondary to toxicity according to the patient. He presents with global weakness, acute on chronic peripheral neuropathy of the legs and nonproductive cough. Patient denies current medications with exception to magnesium. In the emergency room a CT reveals unchanged right sided lung mass, extensive emphysema and bronchiectasis. And a sodium of 126. He is referred to the hospitalist for admission Past Medical History Cardiac Medical History: Denies: Coronary Artery Disease, Myocardial Infarction, Hypertension Pulmonary Medical History: Reports: Chronic Obstructive Pulmonary Disease (COPD) Denies: Asthma, Bronchitis, Pneumonia Neurological Medical History: Denies: Migraine, Seizures Endocrine Medical History: Denies: Diabetes Mellitus Type 1, Diabetes Mellitus Type 2, Hyperthyroidism, Hypothyroidism Renal/ Medical History: Denies: End Stage Renal Disease Malignancy Medical History: Reports: Lung Cancer - Non small cell/squamous cell carcinoma diagnosed April 01, 2017 Denies: Bone Cancer, Brain Cancer, Breast Cancer, Cervical Cancer, Colorectal Cancer, Leukemia, Liver Cancer, Lymphoma, Ovarian Cancer, Pancreatic Cancer, Renal (Kidney) Cancer, Skin Cancer GI Medical History: Denies: Cirrhosis, Crohn's Disease, Diverticulitis, Gastroesophageal Reflux Disease, Hepatitis, Hiatal Hernia, Ulcerative Colitis Musculoskeltal Medical History: Reports: Arthritis - "everywhere" Psychiatric Medical History: Denies: Bipolar Disorder, Dementia, Depression, Post Traumatic Stress Disorder, Schizoaffective Disorder Traumatic Medical History: Reports: Traumatic Brain Injury - Depressed skull fracture requiring surgical intervention at 19 yo Denies: Gunshot Wound, Pneumothorax Hematology: Denies: Anemia, Hemophilia, Bleeding Tendencies Past Surgical History Past Surgical History: Reports: Orthopedic Surgery - L wrist and skull., Other - Inguinal hernia Social History Information Source: Patient Lives with: Spouse/Significant other Smoking Status: Former Smoker Frequency of Alcohol Use: Heavy Amount of Alcoholic Beverages Per Day: 4 Hx Recreational Drug Use: No Drugs: None Hx Prescription Drug Abuse: No - Advance Directive Resuscitation Status: Full Code Family History Family History: CAD, COPD, Hypertension, Malignancy, Other - Father still living. He had an unknown type of cancer - perhaps a skin cancer. His mother is also living. His older brother , but unsure of cause. He has no children. Parental Family History Reviewed: Yes Children Family History Reviewed: Yes Sibling(s) Family History Reviewed.: Yes Medication/Allergy Home Medications: Benzonatate [Tessalon Perles 100 mg Capsule] 100 mg PO Q8HP PRN 01/29/18 Furosemide [Lasix 20 mg Tablet] 20 mg PO DAILY 01/29/18 Magnesium Oxide [Mag-Ox 400 mg Tablet] 800 mg PO BID 01/29/18 Potassium Chloride [K-Tab ER] 10 meq PO DAILY 01/29/18 Pregabalin [Lyrica 50 mg Capsule] 50 mg PO Q8 01/29/18 Prednisone [Deltasone 20 mg Tablet] 20 mg PO BID #14 tablet 02/04/18 Thiamine HCl [Thiamine 100 mg Tablet] 100 mg PO DAILY tablet 02/04/18 Vancomycin HCl [Vancocin Inj 500 mg Vial] 125 mg PO Q6 #10 vial 02/04/18 Zinc Oxide [Zinc Oxide 20% Ointment 28.35 gm] 1 applic TP TID tube 02/04/18 Allergies/Adverse Reactions: No Known Allergies Allergy (Verified 01/28/18 10:25) Review of Systems Constitutional: PRESENT: as per HPI, anorexia, fatigue, weakness. ABSENT: chills Eyes: ABSENT: visual disturbances Ears: ABSENT: hearing changes Cardiovascular: ABSENT: chest pain, dyspnea on exertion, edema, orthropnea, palpitations Respiratory: PRESENT: as per HPI, cough, sputum Gastrointestinal: PRESENT: bloating, nausea, vomiting. ABSENT: abdominal pain, constipation, diarrhea, hematemesis, hematochezia Genitourinary: ABSENT: dysuria, hematuria Musculoskeletal: PRESENT: muscle weakness. ABSENT: joint swelling Integumentary: ABSENT: rash, wounds Neurological: ABSENT: abnormal gait, abnormal speech, confusion, dizziness, focal weakness, syncope Psychiatric: ABSENT: anxiety, depression, homidical ideation, suicidal ideation Endocrine: ABSENT: cold intolerance, heat intolerance, polydipsia, polyuria Hematologic/Lymphatic: ABSENT: easy bleeding, easy bruising Physical Exam Vital Signs: Temp Pulse Resp BP Pulse Ox 98.2 F 118 H 20 119/82 100 06/02/18 23:37 06/02/18 23:37 06/03/18 02:01 06/03/18 02:01 06/03/18 02:01 Intake & Output 06/01/18 06/02/18 06/03/18 11:59 11:59 11:59 Intake Total 1000 Output Total 250 Balance 750 Weight 92.8 kg General appearance: PRESENT: cooperative, mild distress, thin Head exam: PRESENT: atraumatic, normocephalic Eye exam: PRESENT: conjunctiva pink, EOMI, PERRLA. ABSENT: scleral icterus Ear exam: PRESENT: normal external ear exam Mouth exam: PRESENT: moist, tongue midline Neck exam: ABSENT: carotid bruit, JVD, lymphadenopathy, thyromegaly Respiratory exam: PRESENT: accessory muscle use, clear to auscultation rodrigue, crackles, decreased breath sounds, prolonged expiratory phas, tachypnea. ABSENT: rales, rhonchi, wheezes Cardiovascular exam: PRESENT: RRR, +S1, +S2, tachycardia. ABSENT: clicks Pulses: PRESENT: normal dorsalis pedis pul Vascular exam: PRESENT: normal capillary refill GI/Abdominal exam: PRESENT: normal bowel sounds, soft. ABSENT: distended, guarding, mass, organolmegaly, rebound, tenderness Rectal exam: PRESENT: deferred Extremities exam: PRESENT: full ROM, tenderness, +1 edema. ABSENT: calf tenderness, clubbing, pedal edema Neurological exam: PRESENT: alert, awake, oriented to person, oriented to place, oriented to time, oriented to situation, CN II-XII grossly intact. ABSENT: motor sensory deficit Psychiatric exam: PRESENT: appropriate affect, normal mood. ABSENT: homicidal ideation, suicidal ideation Skin exam: PRESENT: dry, intact, warm. ABSENT: cyanosis, rash Results Laboratory Results: 06/03/18 02:30 06/03/18 02:30 06/02/18 06/02/18 06/02/18 02:30 23:30 23:30 WBC 11.8 H RBC 3.31 L Hgb 10.6 L Hct 31.4 L MCV 95 MCH 32.1 MCHC 33.8 RDW 18.6 H Plt Count 125 L Seg Neutrophils % 76.2 Lymphocytes % 8.5 L Monocytes % 12.9 Eosinophils % 1.3 Basophils % 1.1 Absolute Neutrophils 9.0 H Absolute Lymphocytes 1.0 Absolute Monocytes 1.5 H Absolute Eosinophils 0.2 Absolute Basophils 0.1 Sodium 126.5 L Potassium 3.7 Chloride 89 L Carbon Dioxide 27 Anion Gap 11 BUN 17 Creatinine 0.78 Est GFR ( Amer) > 60 Est GFR (Non-Af Amer) > 60 Glucose 93 Serum Osmolality 266 L Calcium 9.2 Phosphorus Magnesium Total Bilirubin 1.7 H AST 89 H ALT 32 Alkaline Phosphatase 217 H Total Protein 8.0 Albumin 4.4 TSH Urine Color Urine Appearance Urine pH Ur Specific [place] Urine Protein Urine Glucose (UA) Urine Ketones Urine Blood Urine Nitrite Ur Leukocyte Esterase Urine WBC (Auto) Urine Osmolality 06/02/18 06/03/18 06/03/18 23:30 01:56 01:56 WBC RBC Hgb Hct MCV MCH MCHC RDW Plt Count Seg Neutrophils % Lymphocytes % Monocytes % Eosinophils % Basophils % Absolute Neutrophils Absolute Lymphocytes Absolute Monocytes Absolute Eosinophils Absolute Basophils Sodium Potassium Chloride Carbon Dioxide Anion Gap BUN Creatinine Est GFR ( Amer) Est GFR (Non-Af Amer) Glucose Serum Osmolality Calcium Phosphorus Magnesium Total Bilirubin AST ALT Alkaline Phosphatase Total Protein Albumin TSH 6.75 H Urine Color YELLOW Urine Appearance CLEAR Urine pH 7.0 Ur Specific [place] 1.038 Urine Protein NEGATIVE Urine Glucose (UA) NEGATIVE Urine Ketones TRACE H Urine Blood NEGATIVE Urine Nitrite NEGATIVE Ur Leukocyte Esterase NEGATIVE Urine WBC (Auto) 0 Urine Osmolality 334 06/03/18 06/03/18 06/03/18 02:30 02:30 02:30 WBC 10.9 H RBC 3.21 L Hgb 10.4 L Hct 30.5 L MCV 95 MCH 32.3 MCHC 34.1 RDW 19.4 H Plt Count 110 L Seg Neutrophils % 76.5 Lymphocytes % 8.8 L Monocytes % 12.6 Eosinophils % 1.1 Basophils % 1.0 Absolute Neutrophils 8.3 H Absolute Lymphocytes 1.0 Absolute Monocytes 1.4 Absolute Eosinophils 0.1 Absolute Basophils 0.1 Sodium 126.7 L Potassium 4.0 Chloride 91 L Carbon Dioxide 24 Anion Gap 12 BUN 16 Creatinine 0.69 Est GFR ( Amer) > 60 Est GFR (Non-Af Amer) > 60 Glucose 94 Serum Osmolality Calcium 8.3 L Phosphorus 3.6 Magnesium 1.0 L* Total Bilirubin 1.5 H AST 75 H ALT 32 Alkaline Phosphatase 193 H Total Protein 6.6 Albumin 3.7 TSH Urine Color Urine Appearance Urine pH Ur Specific [place] Urine Protein Urine Glucose (UA) Urine Ketones Urine Blood Urine Nitrite Ur Leukocyte Esterase Urine WBC (Auto) Urine Osmolality 06/02/18 23:30 Troponin I < 0.012 Impressions: Chest X-Ray 06/02/18 23:13 IMPRESSION: Spiculated, masslike opacity in the right hilar/suprahilar region. This may in part reflect post surgical/post radiation therapy changes. Underlying neoplastic etiology would be difficult to exclude. Volume loss of the right hemithorax is present. copyright 2010 [employer]- All Rights Reserved Abdomen/Pelvis CT 06/03/18 00:03 IMPRESSION: Little change in the appearance of the chest compared with the most recent CT chest. Stable postsurgical changes and volume loss of the right hemithorax. Stable areas of airspace opacity in the right paramediastinal region and right hilar regions. Areas of fibrosis are also noted. Fatty infiltrative change to the liver. Cholelithiasis. Sigmoid diverticulosis without CT evidence for diverticulitis. TECHNICAL DOCUMENTATION: Quality ID # 436: Final reports with documentation of one or more dose reduction techniques (e.g., Automated exposure control, adjustment of the mA and/or kV according to patient size, use of iterative reconstruction technique) copyright 2010 [employer]- All Rights Reserved Chest/Abdomen CTA 06/03/18 00:03 IMPRESSION: Little change in the appearance of the chest compared with the most recent CT chest. Stable postsurgical changes and volume loss of the right hemithorax. Stable areas of airspace opacity in the right paramediastinal region and right hilar regions. Areas of fibrosis are also noted. Fatty infiltrative change to the liver. Cholelithiasis. Sigmoid diverticulosis without CT evidence for diverticulitis. TECHNICAL DOCUMENTATION: Quality ID # 436: Final reports with documentation of one or more dose reduction techniques (e.g., Automated exposure control, adjustment of the mA and/or kV according to patient size, use of iterative reconstruction technique) copyright 2010 [employer]- All Rights Reserved Assessment & Plan - Diagnosis (1) Hyponatremia Is this a current diagnosis for this admission?: Yes Plan: Unclear p.o. intake, appears euvolemic, follow-up osmolarity, urine sodium. Saline challenge, follow-up chemistry every 6 hours. (2) Weakness Is this a current diagnosis for this admission?: Yes Plan: Follow-up magnesium, phosphate, random cortisol (3) Peripheral neuropathy Is this a current diagnosis for this admission?: Yes Plan: Secondary to chemotherapy versus alcoholism or both. Symptomatic management with Lyrica (4) Ambulatory dysfunction Is this a current diagnosis for this admission?: Yes Plan: Secondary to profound weakness and peripheral neuropathy physical therapy evaluation (5) Squamous cell carcinoma of right lung Is this a current diagnosis for this admission?: Yes Plan: Oncology consult (6) Tobacco abuse Is this a current diagnosis for this admission?: Yes Plan: Tobacco Dependence patient received tobacco cessation counseling and offered nicotine replacement options - Time Time Spent: 50 to 70 Minutes
[2018-06-03] MEDS: HEPARIN SOD (PORCINE) 5,000 UNIT/ML 1 ML SYRINGE SUBCUT SCH ×3 (05:23→21:17)
--- NOTE | 2018-06-03 07:56 | EKG REPORT ---
SEVERITY:- ABNORMAL ECG - SINUS TACHYCARDIA LEFT ANTERIOR FASCICULAR BLOCK : Confirmed by: Nataly Mondragon MD 03-Jun-2018 07:55:35
[2018-06-03] MEDS: DOCUSATE SODIUM 100 MG CAPSULE PO SCH ×2 (09:24→17:32)
[2018-06-03] MEDS: MAGNESIUM OXIDE 400 MG TABLET PO SCH ×2 (09:25→17:32)
[2018-06-03] MEDS: DILTIAZEM HCL 120 MG CAP.SR.24H PO SCH ×2 (09:25→21:12)
[2018-06-03] MEDS: THIAMINE HCL 100 MG TABLET PO SCH (09:25)
[2018-06-03 11:25] LABS: ANION GAP 11 (5-19); BLOOD UREA NITROGEN 19 mg/dL (7-20); CALCIUM 8.6 mg/dL (8.4-10.2); CARBON DIOXIDE 28 mmol/L (22-30); CHLORIDE 91 mmol/L (98-107); GLUCOSE 107 mg/dL (75-110); POTASSIUM 3.4 mmol/L (3.6-5.0); SODIUM 129.5 mmol/L (137-145)
--- NOTE | 2018-06-03 12:12 | PDOC CONSULTATION ---
Consultation Consult Date: 06/03/18 Consult reason:: Hematology/Oncology consultation was requested for patient with history of Lung Cancer. History of Present Illness Admission Date/PCP: 06/03/18 01:56 SIDDHARTH VOGT MD History of Present Illness: ERICKA RAZO is a 58 year old male who was diagnosed with Squamous Cell c arcinoma of the Right upper lobe lung on 04/01/2017. He underwent treatment iwth radiation and carboplatin/paclitaxel which finished 08/07/2017. Although there has been no evidence of metastatic disease, he was not thought to be surgically resectable due to proximity of tumor to the pulmonary artery. There has been no evidence of disease progression since 07/2017 and he was started on a maintenance treatment of durvalumab in September 2017. However, he had severe diarrhea and GI issues with this medication and it was stopped. He has been on surveillance only since November 2017. Over the past few months, he has had difficulty with neuropathic pain and lower extremity swelling. He has been working with his PCP on these issues. He presented to the ED with a history of worsening weakness, no appetite, and increased pain. He was found to have hyponatremia, hypomagnesemia, and dehydration. Currently, he states that he doesn't know what is wrong, he just knew he could not go on at home like this. Past Medical History Cardiac Medical History: Denies: Coronary Artery Disease, Myocardial Infarction, Hypertension Pulmonary Medical History: Reports: Chronic Obstructive Pulmonary Disease (COPD) Denies: Asthma, Bronchitis, Pneumonia Neurological Medical History: Denies: Migraine, Seizures Endocrine Medical History: Denies: Diabetes Mellitus Type 1, Diabetes Mellitus Type 2, Hyperthyroidism, Hypothyroidism Renal/ Medical History: Denies: End Stage Renal Disease Malignancy Medical History: Reports: Lung Cancer - Non small cell/squamous cell carcinoma diagnosed April 01, 2017 Denies: Bone Cancer, Brain Cancer, Breast Cancer, Cervical Cancer, Colorectal Cancer, Leukemia, Liver Cancer, Lymphoma, Ovarian Cancer, Pancreatic Cancer, Renal (Kidney) Cancer, Skin Cancer GI Medical History: Denies: Cirrhosis, Crohn's Disease, Diverticulitis, Gastroesophageal Reflux Disease, Hepatitis, Hiatal Hernia, Ulcerative Colitis Musculoskeltal Medical History: Reports: Arthritis - "everywhere" Psychiatric Medical History: Denies: Bipolar Disorder, Dementia, Depression, Post Traumatic Stress Disorder, Schizoaffective Disorder Traumatic Medical History: Reports: Traumatic Brain Injury - Depressed skull fracture requiring surgical intervention at 19 yo Denies: Gunshot Wound, Pneumothorax Hematology: Denies: Anemia, Hemophilia, Bleeding Tendencies Past Surgical History Past Surgical History: Reports: Orthopedic Surgery - L wrist and skull., Other - Inguinal hernia Social History Lives with: Spouse/Significant other Smoking Status: Former Smoker Frequency of Alcohol Use: Heavy Hx Recreational Drug Use: No Drugs: None Hx Prescription Drug Abuse: No - Advance Directive Resuscitation Status: Full Code Family History Family History: CAD, COPD, Hypertension, Malignancy, Other - Father still living . He had an unknown type of cancer - perhaps a skin cancer. His mother is also living. His older brother , but unsure of cause. He has no children. Parental Family History Reviewed: Yes - Father with melanoma. Children Family History Reviewed: NA Sibling(s) Family History Reviewed.: Yes - Sister with ovarian cancer. Medication/Allergy Home Medications: Albuterol Sulfate [Proventil Hfa] 2 puff IH Q4HP PRN 06/03/18 Benzonatate [Tessalon Perles 100 mg Capsule] 100 mg PO Q8HP PRN 06/03/18 Magnesium Oxide [Mag-Ox 400 mg Tablet] 400 mg PO DAILY 06/03/18 Allergies/Adverse Reactions: No Known Allergies Allergy (Verified 01/28/18 10:25) Review of Systems Constitutional: PRESENT: weight loss. ABSENT: fever(s), headache(s) Eyes: ABSENT: visual disturbances Ears: ABSENT: hearing changes Nose, Mouth, and Throat: ABSENT: sore throat Cardiovascular: PRESENT: dyspnea on exertion Respiratory: PRESENT: cough Gastrointestinal: ABSENT: constipation, nausea Genitourinary: ABSENT: dysuria Integumentary: ABSENT: rash Neurological: PRESENT: weakness Hematologic/Lymphatic: ABSENT: lymphadenopathy Physical Exam Vital Signs: Temp Pulse Resp BP Pulse Ox 97.3 F 118 H 20 97/77 L 100 06/03/18 07:01 06/02/18 23:37 06/03/18 10:01 06/03/18 10:01 06/03/18 10:01 Intake & Output 06/02/18 06/03/18 06/04/18 06:59 06:59 06:59 Intake Total 1000 1000 Output Total 250 400 Balance 750 600 Weight 92.8 kg General appearance: PRESENT: no acute distress, well-developed, well-nourished Exam: 58 year old male. Head exam: PRESENT: normocephalic Eye exam: PRESENT: EOMI Mouth exam: PRESENT: tongue midline Neck exam: ABSENT: lymphadenopathy, tenderness Respiratory exam: PRESENT: clear to auscultation rodrigue, unlabored Cardiovascular exam: PRESENT: RRR Extremities exam: ABSENT: pedal edema Neurological exam: PRESENT: alert, awake Psychiatric exam: PRESENT: appropriate affect Focused psych exam: PRESENT: restlessness Skin exam: PRESENT: normal color Results Laboratory Results: 06/03/18 02:30 06/03/18 10:43 06/02/18 06/02/18 06/02/18 02:30 23:30 23:30 WBC 11.8 H RBC 3.31 L Hgb 10.6 L Hct 31.4 L MCV 95 MCH 32.1 MCHC 33.8 RDW 18.6 H Plt Count 125 L Seg Neutrophils % 76.2 Lymphocytes % 8.5 L Monocytes % 12.9 Eosinophils % 1.3 Basophils % 1.1 Absolute Neutrophils 9.0 H Absolute Lymphocytes 1.0 Absolute Monocytes 1.5 H Absolute Eosinophils 0.2 Absolute Basophils 0.1 Sodium 126.5 L Potassium 3.7 Chloride 89 L Carbon Dioxide 27 Anion Gap 11 BUN 17 Creatinine 0.78 Est GFR ( Amer) > 60 Est GFR (Non-Af Amer) > 60 Glucose 93 Serum Osmolality 266 L Calcium 9.2 Phosphorus Magnesium Total Bilirubin 1.7 H AST 89 H ALT 32 Alkaline Phosphatase 217 H Total Protein 8.0 Albumin 4.4 TSH Urine Color Urine Appearance Urine pH Ur Specific [place] Urine Protein Urine Glucose (UA) Urine Ketones Urine Blood Urine Nitrite Ur Leukocyte Esterase Urine WBC (Auto) Urine Osmolality 06/02/18 06/03/18 06/03/18 23:30 01:56 01:56 WBC RBC Hgb Hct MCV MCH MCHC RDW Plt Count Seg Neutrophils % Lymphocytes % Monocytes % Eosinophils % Basophils % Absolute Neutrophils Absolute Lymphocytes Absolute Monocytes Absolute Eosinophils Absolute Basophils Sodium Potassium Chloride Carbon Dioxide Anion Gap BUN Creatinine Est GFR ( Amer) Est GFR (Non-Af Amer) Glucose Serum Osmolality Calcium Phosphorus Magnesium Total Bilirubin AST ALT Alkaline Phosphatase Total Protein Albumin TSH 6.75 H Urine Color YELLOW Urine Appearance CLEAR Urine pH 7.0 Ur Specific [place] 1.038 Urine Protein NEGATIVE Urine Glucose (UA) NEGATIVE Urine Ketones TRACE H Urine Blood NEGATIVE Urine Nitrite NEGATIVE Ur Leukocyte Esterase NEGATIVE Urine WBC (Auto) 0 Urine Osmolality 334 01/22/19 01/22/19 01/22/19 02:30 02:30 02:30 WBC 10.9 H RBC 3.21 L Hgb 10.4 L Hct 30.5 L MCV 95 MCH 32.3 MCHC 34.1 RDW 19.4 H Plt Count 110 L Seg Neutrophils % 76.5 Lymphocytes % 8.8 L Monocytes % 12.6 Eosinophils % 1.1 Basophils % 1.0 Absolute Neutrophils 8.3 H Absolute Lymphocytes 1.0 Absolute Monocytes 1.4 Absolute Eosinophils 0.1 Absolute Basophils 0.1 Sodium 126.7 L Potassium 4.0 Chloride 91 L Carbon Dioxide 24 Anion Gap 12 BUN 16 Creatinine 0.69 Est GFR ( Amer) > 60 Est GFR (Non-Af Amer) > 60 Glucose 94 Serum Osmolality Calcium 8.3 L Phosphorus 3.6 Magnesium 1.0 L* Total Bilirubin 1.5 H AST 75 H ALT 32 Alkaline Phosphatase 193 H Total Protein 6.6 Albumin 3.7 TSH Urine Color Urine Appearance Urine pH Ur Specific [place] Urine Protein Urine Glucose (UA) Urine Ketones Urine Blood Urine Nitrite Ur Leukocyte Esterase Urine WBC (Auto) Urine Osmolality 06/03/18 10:43 WBC RBC Hgb Hct MCV MCH MCHC RDW Plt Count Seg Neutrophils % Lymphocytes % Monocytes % Eosinophils % Basophils % Absolute Neutrophils Absolute Lymphocytes Absolute Monocytes Absolute Eosinophils Absolute Basophils Sodium 129.5 L Potassium 3.4 L Chloride 91 L Carbon Dioxide 28 Anion Gap 11 BUN 19 Creatinine 0.90 Est GFR ( Amer) > 60 Est GFR (Non-Af Amer) > 60 Glucose 107 Serum Osmolality Calcium 8.6 Phosphorus Magnesium Total Bilirubin AST ALT Alkaline Phosphatase Total Protein Albumin TSH Urine Color Urine Appearance Urine pH Ur Specific [place] Urine Protein Urine Glucose (UA) Urine Ketones Urine Blood Urine Nitrite Ur Leukocyte Esterase Urine WBC (Auto) Urine Osmolality 06/02/18 23:30 Troponin I < 0.012 Impressions: Chest X-Ray 06/02/18 23:13 IMPRESSION: Spiculated, masslike opacity in the right hilar/suprahilar region. This may in part reflect post surgical/post radiation therapy changes. Underlying neoplastic etiology would be difficult to exclude. Volume loss of the right hemithorax is present. copyright [address] [employer]- All Rights Reserved Abdomen/Pelvis CT 06/03/18 00:03 IMPRESSION: Little change in the appearance of the chest compared with the most recent CT chest. Stable postsurgical changes and volume loss of the right hemithorax. Stable areas of airspace opacity in the right paramediastinal region and right hilar regions. Areas of fibrosis are also noted. Fatty infiltrative change to the liver. Cholelithiasis. Sigmoid diverticulosis without CT evidence for diverticulitis. TECHNICAL DOCUMENTATION: Quality ID # 436: Final reports with documentation of one or more dose reduction techniques (e.g., Automated exposure control, adjustment of the mA and/or kV according to patient size, use of iterative reconstruction technique) copyright [address] [employer]- All Rights Reserved Chest/Abdomen CTA 06/03/18 00:03 IMPRESSION: Little change in the appearance of the chest compared with the most recent CT chest. Stable postsurgical changes and volume loss of the right hemithorax. Stable areas of airspace opacity in the right paramediastinal region and right hilar regions. Areas of fibrosis are also noted. Fatty infiltrative change to the liver. Cholelithiasis. Sigmoid diverticulosis without CT evidence for diverticulitis. TECHNICAL DOCUMENTATION: Quality ID # [id number]: Final reports with documentation of one or more dose reduction techniques (e.g., Automated exposure control, adjustment of the mA and/or kV according to patient size, use of iterative reconstruction technique) copyright [address] [employer] [address]- All Rights Reserved Status: Image reviewed by me Assessment & Plan - Diagnosis (1) Squamous cell carcinoma of right lung Is this a current diagnosis for this admission?: Yes Plan: No evidence of progression at this point. No active treatment. (2) Peripheral neuropathy Is this a current diagnosis for this admission?: Yes Plan: On pain medications now. This is due to his prior chemotherapy. (3) Hyponatremia Is this a current diagnosis for this admission?: Yes Plan: Agree with current management. (4) Hypomagnesemia Is this a current diagnosis for this admission?: Yes Plan: On oral and IV supplements. Unclear if he has been taking his supplements at home. - Plan Summary Plan Summary: Patient was discussed with Dr. Price. I agree with current management. I believe that some of his electolyte abnormalities may be due to the lung cancer. I will discuss further chemo with the patient, but without evidence of any progression on scans, and with his poor tolerance to treatment in the past, this may be difficult. Please feel free to call me with any questions or concerns.
[2018-06-03] MEDS ORDERED: NORMAL SALINE 1000 ML 1,000 ML IV PRN (18:41)
[2018-06-03 18:43] LABS: ANION GAP 7 (5-19); BLOOD UREA NITROGEN 17 mg/dL (7-20); CALCIUM 8.1 mg/dL (8.4-10.2); CARBON DIOXIDE 28 mmol/L (22-30); CHLORIDE 92 mmol/L (98-107); GLUCOSE 108 mg/dL (75-110); POTASSIUM 3.7 mmol/L (3.6-5.0); SODIUM 126.8 mmol/L (137-145)
--- NOTE | 2018-06-03 18:46 | Progress Note ---
Provider Note Provider Note: Patient seen on rounds this afternoon. Patient was admitted after midnight. Please see H&P for full assessment and plan. Patient has hyponatremia, hypomagnesemia and electrolyte deficiencies. His sodium is improving. I have restarted some IV fluids and we will check sodium in the morning. Likely has hyponatremia secondary to dehydration. There is some concern given his history of lung cancer about paraneoplastic syndrome and SIADH. Oncology is on board and I appreciate their assistance. Spoke with patient and he still feels very weak but states it is a little bit better than when he came in. States he has pain all over his body and mostly his legs. Tells me his legs have been hurting since that he started chemo. He has no complaints of chest pain, shortness breath, abdominal pain, nausea/vomiting or dizziness at this time. I asked him to ask for help if he is to get out of bed since he may feel dizzy. I counseled him on calling for help at any time when he wants to leave the bed or sit up. I will follow-up with him in the morning.
[2018-06-03] MEDS ORDERED: POTASSIUM CHLORIDE 10 MEQ CAPSULE.ER PO ONE (19:15)
[2018-06-04 00:11] LABS: ANION GAP 10 (5-19); BLOOD UREA NITROGEN 14 mg/dL (7-20); CALCIUM 8.5 mg/dL (8.4-10.2); CARBON DIOXIDE 25 mmol/L (22-30); CHLORIDE 93 mmol/L (98-107); GLUCOSE 96 mg/dL (75-110); POTASSIUM 3.6 mmol/L (3.6-5.0); SODIUM 127.7 mmol/L (137-145)
[2018-06-04] MEDS: DIAZEPAM 5 MG TABLET PO SCH ×5 (01:50→21:37)
[2018-06-04] MEDS: DIAZEPAM INJ 10 MG/2 ML DISP.SYRIN IV PRN ×3 (02:21→08:04)
[2018-06-04] MEDS: HEPARIN SOD (PORCINE) 5,000 UNIT/ML 1 ML SYRINGE SUBCUT SCH ×3 (05:34→21:41)
[2018-06-04 05:35] LABS: ABSOLUTE BASOPHILS # (AUTO) 0.1 10^3/uL (0.0-0.2); ABSOLUTE EOSINOPHILS # (AUTO) 0.1 10^3/uL (0.0-0.6); ABSOLUTE LYMPHOCYTES (AUTO) 0.8 10^3/uL (0.5-4.7); ABSOLUTE MONOCYTES (AUTO) 1.7 10^3/uL (0.1-1.4); BASOPHILS % (AUTO) 0.6 % (0-2); EOSINOPHILS % (AUTO) 0.6 % (0-6); HEMATOCRIT 28.2 % (37.9-51.0); HEMOGLOBIN 9.7 g/dL (13.5-17.0); MEAN CORPUSCULAR HEMOGLOBIN 32.5 pg (27.0-33.4); MEAN CORPUSCULAR HGB CONC 34.5 g/dL (32.0-36.0); MEAN CORPUSCULAR VOLUME 94 fl (80-97); MONOCYTES % (AUTO) 17.7 % (3-13); PLATELET COUNT 111 10^3/uL (150-450); RED CELL DISTRIBUTION WIDTH 19.1 % (11.5-14.0); SEGMENTED NEUTROPHILS % (AUTO) 73.1 % (42-78); TOTAL CELLS COUNTED % (AUTO) 100 %; WHITE BLOOD COUNT 9.5 10^3/uL (4.0-10.5)
[2018-06-04 06:09] LABS: ALANINE AMINOTRANSFERASE 31 U/L (21-72); ALBUMIN 3.6 g/dL (3.5-5.0); ALKALINE PHOSPHATASE 181 U/L (38-126); ANION GAP 8 (5-19); ASPARTATE AMINO TRANSFERASE 61 U/L (17-59); BILIRUBIN,TOTAL 1.7 mg/dL (0.2-1.3); BLOOD UREA NITROGEN 12 mg/dL (7-20); CALCIUM 8.3 mg/dL (8.4-10.2); CARBON DIOXIDE 26 mmol/L (22-30); CHLORIDE 96 mmol/L (98-107); GLUCOSE 86 mg/dL (75-110); PHOSPHORUS 2.8 mg/dL (2.5-4.5); POTASSIUM 3.3 mmol/L (3.6-5.0); SODIUM 130.4 mmol/L (137-145); TOTAL PROTEIN 6.4 g/dL (6.3-8.2)
--- NOTE | 2018-06-04 08:33 | PDOC PROGRESS REPORT ---
Subjective Progress Note for:: 06/04/18 Subjective:: Patient states that he feel terrible. He has had shaking chills and diarrhea all night. He has not been strong enough to get up to the bathroom without assistance. Nurses report that he has been going through alcohol withdraw. He is receiving appropriate treatment for this. ROS: no dyspnea, +cough, +diarrhea. Reason For Visit: LUNG CANCER HYPONATREMIA Physical Exam Vital Signs: Temp Pulse Resp BP Pulse Ox 98.7 F 103 H 16 136/69 H 91 L 06/03/18 23:33 06/04/18 02:00 06/03/18 19:22 06/03/18 23:33 06/03/18 23:33 Intake & Output 06/03/18 06/04/18 06/05/18 06:59 06:59 06:59 Intake Total 1000 2100 1000 Output Total 250 1200 Balance 991 156 8381 Weight 92.8 kg 93.4 kg General appearance: PRESENT: well-developed, well-nourished Head exam: PRESENT: normocephalic Respiratory exam: PRESENT: clear to auscultation rodrigue, unlabored Cardiovascular exam: PRESENT: RRR GI/Abdominal exam: PRESENT: soft. ABSENT: tenderness Neurological exam: PRESENT: alert, awake, other - tremors/chills Psychiatric exam: PRESENT: other - A bit confused this morning. Skin exam: PRESENT: normal color Results Laboratory Results: 06/04/18 04:57 06/04/18 04:57 06/03/18 06/03/18 06/03/18 10:43 18:18 18:18 WBC RBC Hgb Hct MCV MCH MCHC RDW Plt Count Seg Neutrophils % Lymphocytes % Monocytes % Eosinophils % Basophils % Absolute Neutrophils Absolute Lymphocytes Absolute Monocytes Absolute Eosinophils Absolute Basophils Sodium 129.5 L 126.8 L Potassium 3.4 L 3.7 Chloride 91 L 92 L Carbon Dioxide 28 28 Anion Gap 11 7 BUN 19 17 Creatinine 0.90 0.74 Est GFR ( Amer) > 60 > 60 Est GFR (Non-Af Amer) > 60 > 60 Glucose 107 108 Calcium 8.6 8.1 L Phosphorus Magnesium 2.1 D Total Bilirubin AST ALT Alkaline Phosphatase Total Protein Albumin Free T4 06/03/18 06/04/18 06/04/18 23:45 04:57 04:57 WBC 9.5 RBC 3.00 L Hgb 9.7 L Hct 28.2 L MCV 94 MCH 32.5 MCHC 34.5 RDW 19.1 H Plt Count 111 L Seg Neutrophils % 73.1 Lymphocytes % 8.0 L Monocytes % 17.7 H Eosinophils % 0.6 Basophils % 0.6 Absolute Neutrophils 7.0 Absolute Lymphocytes 0.8 Absolute Monocytes 1.7 H Absolute Eosinophils 0.1 Absolute Basophils 0.1 Sodium 127.7 L 130.4 L Potassium 3.6 3.3 L Chloride 93 L 96 L Carbon Dioxide 25 26 Anion Gap 10 8 BUN 14 12 Creatinine 0.68 0.69 Est GFR ( Amer) > 60 > 60 Est GFR (Non-Af Amer) > 60 > 60 Glucose 96 86 Calcium 8.5 8.3 L Phosphorus 2.8 Magnesium 1.9 Total Bilirubin 1.7 H AST 61 H ALT 31 Alkaline Phosphatase 181 H Total Protein 6.4 Albumin 3.6 Free T4 06/04/18 04:57 WBC RBC Hgb Hct MCV MCH MCHC RDW Plt Count Seg Neutrophils % Lymphocytes % Monocytes % Eosinophils % Basophils % Absolute Neutrophils Absolute Lymphocytes Absolute Monocytes Absolute Eosinophils Absolute Basophils Sodium Potassium Chloride Carbon Dioxide Anion Gap BUN Creatinine Est GFR ( Amer) Est GFR (Non-Af Amer) Glucose Calcium Phosphorus Magnesium Total Bilirubin AST ALT Alkaline Phosphatase Total Protein Albumin Free T4 1.03 06/02/18 23:30 Troponin I < 0.012 Impressions: Chest X-Ray 06/02/18 23:13 IMPRESSION: Spiculated, masslike opacity in the right hilar/suprahilar region. This may in part reflect post surgical/post radiation therapy changes. Underlying neoplastic etiology would be difficult to exclude. Volume loss of the right hemithorax is present. copyright 2011 [employer]- All Rights Reserved Abdomen/Pelvis CT 06/03/18 00:03 IMPRESSION: Little change in the appearance of the chest compared with the most recent CT chest. Stable postsurgical changes and volume loss of the right hemithorax. Stable areas of airspace opacity in the right paramediastinal region and right hilar regions. Areas of fibrosis are also noted. Fatty infiltrative change to the liver. Cholelithiasis. Sigmoid diverticulosis without CT evidence for diverticulitis. TECHNICAL DOCUMENTATION: Quality ID # 436: Final reports with documentation of one or more dose reduction techniques (e.g., Automated exposure control, adjustment of the mA and/or kV according to patient size, use of iterative reconstruction technique) copyright 2010 [employer]- All Rights Reserved Chest/Abdomen CTA 06/03/18 00:03 IMPRESSION: Little change in the appearance of the chest compared with the most recent CT chest. Stable postsurgical changes and volume loss of the right hemithorax. Stable areas of airspace opacity in the right paramediastinal region and right hilar regions. Areas of fibrosis are also noted. Fatty infiltrative change to the liver. Cholelithiasis. Sigmoid diverticulosis without CT evidence for diverticulitis. TECHNICAL DOCUMENTATION: Quality ID # 436: Final reports with documentation of one or more dose reduction techniques (e.g., Automated exposure control, adjustment of the mA and/or kV according to patient size, use of iterative reconstruction technique) copyright 2010 [employer]- All Rights Reserved Assessment & Plan - Diagnosis (1) Squamous cell carcinoma of right lung Is this a current diagnosis for this admission?: Yes Plan: Currently without evidence of recurrence/progression. (2) Peripheral neuropathy Is this a current diagnosis for this admission?: Yes (3) Hyponatremia Is this a current diagnosis for this admission?: Yes (4) Hypomagnesemia Is this a current diagnosis for this admission?: Yes Plan: Would use both PO and IV magnesium. He has been prescribed PO mag but not sure if he has been taking this at home. (5) Alcohol abuse Is this a current diagnosis for this admission?: Yes Plan: Continue treatment for DTs. Much of his nutrition and electrolyte abnormalities could be due to this as well. (6) Acute diarrhea Is this a current diagnosis for this admission?: Yes Plan: Will defer to Hospitalist for further work-up as to cause.
[2018-06-04] MEDS ORDERED: POTASSIUM CHLORIDE 10 MEQ CAPSULE.ER PO ONE (09:00)
[2018-06-04] MEDS: MAGNESIUM OXIDE 400 MG TABLET PO SCH ×2 (10:49→17:52)
[2018-06-04] MEDS: DOCUSATE SODIUM 100 MG CAPSULE PO SCH ×2 (10:50→17:12)
[2018-06-04] MEDS: DILTIAZEM HCL 120 MG CAP.SR.24H PO SCH ×2 (10:50→21:37)
[2018-06-04] MEDS: THIAMINE HCL 100 MG TABLET PO SCH (10:50)
[2018-06-04] MEDS ORDERED: NORMAL SALINE 1000 ML 1,000 ML IV PRN (12:04)
[2018-06-04] MEDS ORDERED: LORAZEPAM INJ 2 MG/1 ML VIAL IV PRN (12:06)
--- NOTE | 2018-06-04 12:10 | PDOC PROGRESS REPORT ---
Subjective Progress Note for:: 06/04/18 Subjective:: I saw patient at bedside today. She he tells me that his legs and joints of his shoulder and hips hurt. He states this is chronic and he has been having it for many months now. He denies any chest pain, shortness of breath, abdominal pain, nausea vomiting or dizziness. Nursing tells me that he has had some diarrhea but patient denies anything to me. Overnight nursing tells me that it was more of a soft stool and not a diarrhea. Reason For Visit: LUNG CANCER HYPONATREMIA Physical Exam Vital Signs: Temp Pulse Resp BP Pulse Ox 98.4 F 103 H 20 130/74 H 95 06/04/18 07:25 06/04/18 07:25 06/04/18 07:25 06/04/18 07:25 06/04/18 07:25 Intake & Output 06/03/18 06/04/18 06/05/18 06:59 06:59 06:59 Intake Total 1000 2100 1000 Output Total 250 1200 Balance 805 109 6021 Weight 204 lb 9.423 oz 205 lb 14.588 oz General appearance: PRESENT: no acute distress Head exam: PRESENT: atraumatic, normocephalic Eye exam: PRESENT: EOMI. ABSENT: conjunctival injection, scleral icterus Ear exam: PRESENT: normal external ear exam Mouth exam: PRESENT: tongue midline Neck exam: ABSENT: tracheal deviation Respiratory exam: PRESENT: clear to auscultation rodrigue, symmetrical Cardiovascular exam: PRESENT: +S1, +S2 Pulses: PRESENT: +1 pedal pulses bilateral GI/Abdominal exam: PRESENT: normal bowel sounds, soft. ABSENT: tenderness Extremities exam: PRESENT: other - Mild bilateral lower extremity edema Neurological exam: PRESENT: awake, oriented to person, oriented to place, oriented to time, oriented to situation, CN II-XII grossly intact Skin exam: PRESENT: dry, warm Results Laboratory Results: 06/04/18 04:57 06/04/18 04:57 06/03/18 06/03/18 06/03/18 18:18 18:18 23:45 WBC RBC Hgb Hct MCV MCH MCHC RDW Plt Count Seg Neutrophils % Lymphocytes % Monocytes % Eosinophils % Basophils % Absolute Neutrophils Absolute Lymphocytes Absolute Monocytes Absolute Eosinophils Absolute Basophils Sodium 126.8 L 127.7 L Potassium 3.7 3.6 Chloride 92 L 93 L Carbon Dioxide 28 25 Anion Gap 7 10 BUN 17 14 Creatinine 0.74 0.68 Est GFR ( Amer) > 60 > 60 Est GFR (Non-Af Amer) > 60 > 60 Glucose 108 96 Calcium 8.1 L 8.5 Phosphorus Magnesium 2.1 D Total Bilirubin AST ALT Alkaline Phosphatase Total Protein Albumin Free T4 06/04/18 06/04/18 06/04/18 04:57 04:57 04:57 WBC 9.5 RBC 3.00 L Hgb 9.7 L Hct 28.2 L MCV 94 MCH 32.5 MCHC 34.5 RDW 19.1 H Plt Count 111 L Seg Neutrophils % 73.1 Lymphocytes % 8.0 L Monocytes % 17.7 H Eosinophils % 0.6 Basophils % 0.6 Absolute Neutrophils 7.0 Absolute Lymphocytes 0.8 Absolute Monocytes 1.7 H Absolute Eosinophils 0.1 Absolute Basophils 0.1 Sodium 130.4 L Potassium 3.3 L Chloride 96 L Carbon Dioxide 26 Anion Gap 8 BUN 12 Creatinine 0.69 Est GFR ( Amer) > 60 Est GFR (Non-Af Amer) > 60 Glucose 86 Calcium 8.3 L Phosphorus 2.8 Magnesium 1.9 Total Bilirubin 1.7 H AST 61 H ALT 31 Alkaline Phosphatase 181 H Total Protein 6.4 Albumin 3.6 Free T4 1.03 06/02/18 23:30 Troponin I < 0.012 Impressions: Chest X-Ray 06/02/18 23:13 IMPRESSION: Spiculated, masslike opacity in the right hilar/suprahilar region. This may in part reflect post surgical/post radiation therapy changes. Underlying neoplastic etiology would be difficult to exclude. Volume loss of the right hemithorax is present. copyright 2011 [employer]- All Rights Reserved Abdomen/Pelvis CT 06/03/18 00:03 IMPRESSION: Little change in the appearance of the chest compared with the most recent CT chest. Stable postsurgical changes and volume loss of the right hemithorax. Stable areas of airspace opacity in the right paramediastinal region and right hilar regions. Areas of fibrosis are also noted. Fatty infiltrative change to the liver. Cholelithiasis. Sigmoid diverticulosis without CT evidence for diverticulitis. TECHNICAL DOCUMENTATION: Quality ID # 436: Final reports with documentation of one or more dose reduction techniques (e.g., Automated exposure control, adjustment of the mA and/or kV according to patient size, use of iterative reconstruction technique) copyright 2011 [employer]- All Rights Reserved Chest/Abdomen CTA 06/03/18 00:03 IMPRESSION: Little change in the appearance of the chest compared with the most recent CT chest. Stable postsurgical changes and volume loss of the right hemithorax. Stable areas of airspace opacity in the right paramediastinal region and right hilar regions. Areas of fibrosis are also noted. Fatty infiltrative change to the liver. Cholelithiasis. Sigmoid diverticulosis without CT evidence for diverticulitis. TECHNICAL DOCUMENTATION: Quality ID # 436: Final reports with documentation of one or more dose reduction techniques (e.g., Automated exposure control, adjustment of the mA and/or kV according to patient size, use of iterative reconstruction technique) copyright 2011 [employer]- All Rights Reserved Assessment & Plan - Diagnosis (1) Hyponatremia Is this a current diagnosis for this admission?: Yes Plan: Likely secondary to dehydration-he is on IV fluids and is improving. We will n eed to reevaluate based on BMP with a to continue IV fluids and on. (2) Cancer associated pain Is this a current diagnosis for this admission?: Yes Plan: Continues to complain of pain in the joints of the legs and the knees. But he does have some pain in the lower extremity so we will get a ultrasound to rule out DVT (3) Chronic alcohol abuse Is this a current diagnosis for this admission?: Yes Plan: Continue with thiamine. He was started on diazepam 5 mg every 4 hours -I will switch that to every 8 hours. We will add Ativan for breakthrough seizures. (4) Dehydration Is this a current diagnosis for this admission?: Yes Plan: Likely secondary to his cancer and some nausea/vomiting prior to coming to the hospital. He is on IV fluids and his sodium is improving. (5) Hypokalemia Is this a current diagnosis for this admission?: Yes Plan: Continue to replete as needed (6) Hypomagnesemia Is this a current diagnosis for this admission?: Yes Plan: Was initially low and it was repleted and is stable right now (7) Elevated LFTs Is this a current diagnosis for this admission?: Yes Plan: Likely secondary to alcohol use (8) Squamous cell carcinoma of right lung Is this a current diagnosis for this admission?: Yes Plan: Appreciate consult by .
[2018-06-05] MEDS: DIAZEPAM 5 MG TABLET PO SCH ×6 (01:38→22:03)
[2018-06-05] MEDS: DIAZEPAM INJ 10 MG/2 ML DISP.SYRIN IV PRN (04:11)
[2018-06-05] MEDS: HEPARIN SOD (PORCINE) 5,000 UNIT/ML 1 ML SYRINGE SUBCUT SCH ×3 (05:23→22:04)
[2018-06-05 07:58] LABS: HEMATOCRIT 29.7 % (37.9-51.0); HEMOGLOBIN 10.2 g/dL (13.5-17.0); MEAN CORPUSCULAR HEMOGLOBIN 33.1 pg (27.0-33.4); MEAN CORPUSCULAR HGB CONC 34.4 g/dL (32.0-36.0); MEAN CORPUSCULAR VOLUME 96 fl (80-97); PLATELET COUNT 125 10^3/uL (150-450); RED BLOOD COUNT 3.09 10^6/uL (4.35-5.55); RED CELL DISTRIBUTION WIDTH 18.6 % (11.5-14.0); WHITE BLOOD COUNT 10.5 10^3/uL (4.0-10.5)
[2018-06-05 08:07] LABS: ANION GAP 8 (5-19); BLOOD UREA NITROGEN 7 mg/dL (7-20); CALCIUM 8.7 mg/dL (8.4-10.2); CARBON DIOXIDE 27 mmol/L (22-30); CHLORIDE 95 mmol/L (98-107); GLUCOSE 94 mg/dL (75-110); POTASSIUM 3.2 mmol/L (3.6-5.0); SODIUM 130.3 mmol/L (137-145)
[2018-06-05 09:46] LABS: ABSOLUTE LYMPHOCYTES# (MANUAL) 0.5 10^3/uL (0.5-4.7); ABSOLUTE MONOCYTES # (MANUAL) 0.7 10^3/uL (0.1-1.4); ABSOLUTE NEUTROPHILS# (MANUAL) 9.1 10^3/uL (1.7-8.2); BASOPHILS % (MANUAL) 0 % (0-2); EOSINOPHILS % (MANUAL) 1 % (0-6); LYMPHOCYTES % (MANUAL) 5 % (13-45); MONOCYTES % (MANUAL) 7 % (3-13); SEGMENTED NEUTROPHILS % (MAN) 87 % (42-78); TOTAL CELLS COUNTED 100
[2018-06-05 09:50] LABS: ANISOCYTOSIS 1+; OVALOCYTES SLIGHT; PLATELET COMMENT DECREASED; POIKILOCYTOSIS SLIGHT; TEAR DROP CELLS SLIGHT; TOXIC GRANULATION SLIGHT; TOXIC VACUOLATION PRESENT
[2018-06-05] MEDS: DOCUSATE SODIUM 100 MG CAPSULE PO SCH ×2 (10:01→18:11)
[2018-06-05] MEDS: THIAMINE HCL 100 MG TABLET PO SCH (10:05)
[2018-06-05] MEDS: DILTIAZEM HCL 120 MG CAP.SR.24H PO SCH ×2 (10:05→22:03)
[2018-06-05] MEDS: MAGNESIUM OXIDE 400 MG TABLET PO SCH ×2 (10:05→18:12)
[2018-06-05] MEDS: MAGNESIUM SULFATE/D5W 1 GM/100 ML RTUPB IV SCH ×2 (10:54→12:18)
--- NOTE | 2018-06-05 16:16 | RADIOLOGY REPORT (SQ) ---
EXAM DESCRIPTION: VENOUS BILATERAL LOWER COMPLETED DATE/TIME: 06/05/2018 4:07 pm REASON FOR STUDY: Lower extremity swelling COMPARISON: None. TECHNIQUE: Dynamic and static garza scale and color images acquired of both lower extremity venous sy stems. Selected spectral images acquired with additional compression and augmentation maneuvers. Imag es stored on PACS. LIMITATIONS: None. FINDINGS: RIGHT LEG COMMON FEMORAL AND FEMORAL: Normal phasicity, compression and augmentation. No visualized echogenic m aterial on garza scale. No defects on color images. POPLITEAL: Normal compression and augmentation. No visualized echogenic material on garza scale. No de fects on color images. CALF VESSELS: Normal compression and augmentation. No visualized echogenic material on garza scale. No defects on color image. GSV AND SSV: Normal compression. No visualized echogenic material on garza scale. No defects on color images. ANY DEEP VENOUS INSUFFICIENCY: No. ANY EVIDENCE OF POPLITEAL CYST: No. OTHER: No other significant finding. LEFT LEG COMMON FEMORAL AND FEMORAL: Normal phasicity, compression and augmentation. No visualized echogenic m aterial on garza scale. No defects on color images. POPLITEAL: Normal compression and augmentation. No visualized echogenic material on garza scale. No de fects on color images. CALF VESSELS: Normal compression and augmentation. No visualized echogenic material on garza scale. No defects on color images. GSV AND SSV: Normal compression. No visualized echogenic material on garza scale. No defects on color images. ANY DEEP VENOUS INSUFFICIENCY: No. ANY EVIDENCE POPLITEAL CYST: No. OTHER: No other significant finding. IMPRESSION: NO EVIDENCE DVT OR SVT IN EITHER LEG. TECHNICAL DOCUMENTATION: JOB ID: [id number] [employer]- All Rights Reserved Reading location - IP/workstation name: [facility]
--- NOTE | 2018-06-05 16:41 | PDOC PROGRESS REPORT ---
Subjective Progress Note for:: 06/05/18 Subjective:: Patient is more confused today. He is not oriented to person or situation. Nurses report that he has continued to need treatment for DTs. Reason For Visit: LUNG CANCER HYPONATREMIA Physical Exam Vital Signs: Temp Pulse Resp BP Pulse Ox 98.5 F 105 H 20 129/86 H 95 06/05/18 15:34 06/05/18 15:34 06/05/18 15:34 06/05/18 15:34 06/05/18 15:34 Intake & Output 06/04/18 06/05/18 06/06/18 06:59 06:59 06:59 Intake Total 2100 2738 1200 Output Total 1200 450 Balance 900 2288 1200 Weight 93.4 kg 90.7 kg General appearance: PRESENT: well-developed, well-nourished Head exam: PRESENT: normocephalic Respiratory exam: PRESENT: unlabored Cardiovascular exam: PRESENT: RRR Extremities exam: PRESENT: +1 edema Neurological exam: PRESENT: alert, awake. ABSENT: oriented to person, oriented to place, oriented to time, oriented to situation Focused psych exam: PRESENT: restlessness Skin exam: PRESENT: normal color Results Laboratory Results: 06/05/18 06:47 06/05/18 06:47 06/05/18 06/05/18 06:47 06:47 WBC 10.5 RBC 3.09 L Hgb 10.2 L Hct 29.7 L MCV 96 MCH 33.1 MCHC 34.4 RDW 18.6 H Plt Count 125 L Seg Neutrophils % Not Reportable Lymphocytes % Not Reportable Monocytes % Not Reportable Eosinophils % Not Reportable Basophils % Not Reportable Absolute Neutrophils Not Reportable Absolute Lymphocytes Not Reportable Absolute Monocytes Not Reportable Absolute Eosinophils Not Reportable Absolute Basophils Not Reportable Sodium 130.3 L Potassium 3.2 L Chloride 95 L Carbon Dioxide 27 Anion Gap 8 BUN 7 Creatinine 0.67 Est GFR ( Amer) > 60 Est GFR (Non-Af Amer) > 60 Glucose 94 Calcium 8.7 Magnesium 1.3 L 06/02/18 23:30 Troponin I < 0.012 Impressions: Chest X-Ray 06/02/18 23:13 IMPRESSION: Spiculated, masslike opacity in the right hilar/suprahilar region. This may in part reflect post surgical/post radiation therapy changes. Underlying neoplastic etiology would be difficult to exclude. Volume loss of the right hemithorax is present. copyright 2010 [employer]- All Rights Reserved Abdomen/Pelvis CT 06/03/18 00:03 IMPRESSION: Little change in the appearance of the chest compared with the most recent CT chest. Stable postsurgical changes and volume loss of the right hemithorax. Stable areas of airspace opacity in the right paramediastinal region and right hilar regions. Areas of fibrosis are also noted. Fatty infiltrative change to the liver. Cholelithiasis. Sigmoid diverticulosis without CT evidence for diverticulitis. TECHNICAL DOCUMENTATION: Quality ID # 436: Final reports with documentation of one or more dose reduction techniques (e.g., Automated exposure control, adjustment of the mA and/or kV according to patient size, use of iterative reconstruction technique) copyright 2010 [employer]- All Rights Reserved Chest/Abdomen CTA 06/03/18 00:03 IMPRESSION: Little change in the appearance of the chest compared with the most recent CT chest. Stable postsurgical changes and volume loss of the right hemithorax. Stable areas of airspace opacity in the right paramediastinal region and right hilar regions. Areas of fibrosis are also noted. Fatty infiltrative change to the liver. Cholelithiasis. Sigmoid diverticulosis without CT evidence for diverticulitis. TECHNICAL DOCUMENTATION: Quality ID # 436: Final reports with documentation of one or more dose reduction techniques (e.g., Automated exposure control, adjustment of the mA and/or kV according to patient size, use of iterative reconstruction technique) copyright 2010 [employer]- All Rights Reserved Venous Doppler Study 06/05/18 00:00 IMPRESSION: NO EVIDENCE DVT OR SVT IN EITHER LEG. Assessment & Plan - Diagnosis (1) Squamous cell carcinoma of right lung Is this a current diagnosis for this admission?: Yes Plan: He completed all treatment several months ago and has been stable on all recent scans. No current evidence of cancer progression. (2) Peripheral neuropathy Is this a current diagnosis for this admission?: Yes Plan: Chronic. Has tried Lyrica in the past, but this caused LE edema and was stopped. (3) Hyponatremia Is this a current diagnosis for this admission?: Yes (4) Hypomagnesemia Is this a current diagnosis for this admission?: Yes (5) Alcohol abuse Is this a current diagnosis for this admission?: Yes Plan: I believe this is his main problem currently. Most of the electrolyte abnormalities may be due to poor nutrition and alcohol abuse. I will defer to primary team for this. (6) Acute diarrhea Is this a current diagnosis for this admission?: Yes - Plan Summary Plan Summary: I will continue to follow from a distance. I usually see him q 3 months in the office for follow-up. Please call me if needed. His care was discussed with Dr. Manzo today.
--- NOTE | 2018-06-05 20:33 | PDOC PROGRESS REPORT ---
Subjective Progress Note for:: 06/05/18 Subjective:: Present with diarrhea. He has problems with confusion. Denies chest pain or shortness of breath or palpitations at this time. No fever or chills. Reason For Visit: LUNG CANCER HYPONATREMIA Physical Exam Vital Signs: Temp Pulse Resp BP Pulse Ox 98.5 F 110 H 20 129/86 H 95 06/05/18 15:34 06/05/18 19:00 06/05/18 15:34 06/05/18 15:34 06/05/18 15:34 Intake & Output 06/04/18 06/05/18 06/06/18 06:59 06:59 06:59 Intake Total 2100 2738 2490 Output Total 1200 450 325 Balance 900 2288 2165 Weight 93.4 kg 90.7 kg General appearance: PRESENT: no acute distress Head exam: PRESENT: atraumatic, normocephalic Eye exam: PRESENT: EOMI. ABSENT: conjunctival injection, scleral icterus Ear exam: PRESENT: normal external ear exam Mouth exam: PRESENT: tongue midline Neck exam: ABSENT: tracheal deviation Respiratory exam: PRESENT: clear to auscultation rodrigue, symmetrical Cardiovascular exam: PRESENT: +S1, +S2 Pulses: PRESENT: +1 pedal pulses bilateral GI/Abdominal exam: PRESENT: normal bowel sounds, soft. ABSENT: tenderness Extremities exam: PRESENT: other - Mild bilateral lower extremity edema Neurological exam: PRESENT: awake, oriented to person, no acute weakness Skin exam: PRESENT: dry, warm Results Laboratory Results: 06/05/18 06:47 06/05/18 06:47 06/05/18 06/05/18 06:47 06:47 WBC 10.5 RBC 3.09 L Hgb 10.2 L Hct 29.7 L MCV 96 MCH 33.1 MCHC 34.4 RDW 18.6 H Plt Count 125 L Seg Neutrophils % Not Reportable Lymphocytes % Not Reportable Monocytes % Not Reportable Eosinophils % Not Reportable Basophils % Not Reportable Absolute Neutrophils Not Reportable Absolute Lymphocytes Not Reportable Absolute Monocytes Not Reportable Absolute Eosinophils Not Reportable Absolute Basophils Not Reportable Sodium 130.3 L Potassium 3.2 L Chloride 95 L Carbon Dioxide 27 Anion Gap 8 BUN 7 Creatinine 0.67 Est GFR ( Amer) > 60 Est GFR (Non-Af Amer) > 60 Glucose 94 Calcium 8.7 Magnesium 1.3 L 06/02/18 23:30 Troponin I < 0.012 Impressions: Chest X-Ray 06/02/18 23:13 IMPRESSION: Spiculated, masslike opacity in the right hilar/suprahilar region. This may in part reflect post surgical/post radiation therapy changes. Underlying neoplastic etiology would be difficult to exclude. Volume loss of the right hemithorax is present. copyright 2010 [employer]- All Rights Reserved Abdomen/Pelvis CT 06/03/18 00:03 IMPRESSION: Little change in the appearance of the chest compared with the most recent CT chest. Stable postsurgical changes and volume loss of the right hemithorax. Stable areas of airspace opacity in the right paramediastinal region and right hilar regions. Areas of fibrosis are also noted. Fatty infiltrative change to the liver. Cholelithiasis. Sigmoid diverticulosis without CT evidence for diverticulitis. TECHNICAL DOCUMENTATION: Quality ID # 436: Final reports with documentation of one or more dose reduction techniques (e.g., Automated exposure control, adjustment of the mA and/or kV according to patient size, use of iterative reconstruction technique) copyright 2010 [employer]- All Rights Reserved Chest/Abdomen CTA 06/03/18 00:03 IMPRESSION: Little change in the appearance of the chest compared with the most recent CT chest. Stable postsurgical changes and volume loss of the right hemithorax. Stable areas of airspace opacity in the right paramediastinal region and right hilar regions. Areas of fibrosis are also noted. Fatty infiltrative change to the liver. Cholelithiasis. Sigmoid diverticulosis without CT evidence for diverticulitis. TECHNICAL DOCUMENTATION: Quality ID # 436: Final reports with documentation of one or more dose reduction techniques (e.g., Automated exposure control, adjustment of the mA and/or kV according to patient size, use of iterative reconstruction technique) copyright 2010 [employer]- All Rights Reserved Venous Doppler Study 06/05/18 00:00 IMPRESSION: NO EVIDENCE DVT OR SVT IN EITHER LEG. Assessment & Plan - Diagnosis (1) Hyponatremia Is this a current diagnosis for this admission?: Yes (2) Acute diarrhea Is this a current diagnosis for this admission?: Yes (3) Chronic alcohol abuse Is this a current diagnosis for this admission?: Yes (4) Dehydration Is this a current diagnosis for this admission?: Yes (5) Hypokalemia Is this a current diagnosis for this admission?: Yes (6) Hypomagnesemia Is this a current diagnosis for this admission?: Yes (7) Squamous cell carcinoma of right lung Is this a current diagnosis for this admission?: Yes - Plan Summary Plan Summary: Hyponatremia has improved. Patient still with electrolyte disturbances. Reple lissette magnesium, potassium. CBC, Chem-7, magnesium level in a.m. Oncologist's follow-up appreciated.
[2018-06-05] MEDS ORDERED: POTASSIUM CHLORIDE 10 MEQ CAPSULE.ER PO ONE (21:30)
[2018-06-06] MEDS: DIAZEPAM 5 MG TABLET PO SCH ×6 (01:37→21:10)
[2018-06-06] MEDS: DIAZEPAM INJ 10 MG/2 ML DISP.SYRIN IV PRN ×3 (02:05→04:42)
[2018-06-06] MEDS: MORPHINE SULFATE 10 MG/ML INJ IV PRN (04:48)
[2018-06-06] MEDS: HEPARIN SOD (PORCINE) 5,000 UNIT/ML 1 ML SYRINGE SUBCUT SCH ×3 (06:15→21:11)
[2018-06-06 07:12] LABS: HEMATOCRIT 28.1 % (37.9-51.0); HEMOGLOBIN 9.6 g/dL (13.5-17.0); MEAN CORPUSCULAR HEMOGLOBIN 32.4 pg (27.0-33.4); MEAN CORPUSCULAR VOLUME 95 fl (80-97); PLATELET COUNT 141 10^3/uL (150-450); RED BLOOD COUNT 2.95 10^6/uL (4.35-5.55); RED CELL DISTRIBUTION WIDTH 19.4 % (11.5-14.0); WHITE BLOOD COUNT 11.7 10^3/uL (4.0-10.5)
[2018-06-06 07:32] LABS: ANION GAP 7 (5-19); BLOOD UREA NITROGEN 8 mg/dL (7-20); CALCIUM 8.5 mg/dL (8.4-10.2); CARBON DIOXIDE 27 mmol/L (22-30); CHLORIDE 96 mmol/L (98-107); GLUCOSE 91 mg/dL (75-110); POTASSIUM 3.2 mmol/L (3.6-5.0); SODIUM 129.8 mmol/L (137-145)
[2018-06-06 08:01] LABS: ABSOLUTE LYMPHOCYTES# (MANUAL) 1.1 10^3/uL (0.5-4.7); ABSOLUTE MONOCYTES # (MANUAL) 0.9 10^3/uL (0.1-1.4); ABSOLUTE NEUTROPHILS# (MANUAL) 9.5 10^3/uL (1.7-8.2); ANISOCYTOSIS 2+; BASOPHILS % (MANUAL) 1 % (0-2); EOSINOPHILS % (MANUAL) 1 % (0-6); LYMPHOCYTES % (MANUAL) 9 % (13-45); MONOCYTES % (MANUAL) 8 % (3-13); OVALOCYTES SLIGHT; POIKILOCYTOSIS SLIGHT; SEGMENTED NEUTROPHILS % (MAN) 81 % (42-78); TOTAL CELLS COUNTED 100
[2018-06-06 08:02] LABS: PLATELET COMMENT DECREASED
[2018-06-06] MEDS: DOCUSATE SODIUM 100 MG CAPSULE PO SCH ×2 (09:48→17:34)
[2018-06-06] MEDS: THIAMINE HCL 100 MG TABLET PO SCH (09:49)
[2018-06-06] MEDS: DILTIAZEM HCL 120 MG CAP.SR.24H PO SCH ×2 (09:49→21:11)
[2018-06-06] MEDS: MAGNESIUM OXIDE 400 MG TABLET PO SCH ×2 (09:49→18:25)
[2018-06-06] MEDS: MAGNESIUM SULFATE/D5W 1 GM/100 ML RTUPB IV SCH ×3 (12:53→16:41)
--- NOTE | 2018-06-06 19:16 | PDOC PROGRESS REPORT ---
Subjective Progress Note for:: 06/06/18 Subjective:: Patient no longer with diarrhea. He has problems with intermittent confusion. Denies chest pain or shortness of breath or palpitations at this time. No fever or chills. Reason For Visit: LUNG CANCER HYPONATREMIA Physical Exam Vital Signs: Temp Pulse Resp BP Pulse Ox 99.4 F 121 H 16 134/75 H 98 06/06/18 07:37 06/06/18 07:37 06/06/18 07:37 06/06/18 07:37 06/06/18 07:37 Intake & Output 06/05/18 06/06/18 06/07/18 06:59 06:59 06:59 Intake Total 2738 2490 200 Output Total 450 728 Balance 2288 1762 200 Weight 90.7 kg 92.1 kg General appearance: PRESENT: no acute distress Head exam: PRESENT: atraumatic, normocephalic Eye exam: PRESENT: EOMI. ABSENT: conjunctival injection, scleral icterus Ear exam: PRESENT: normal external ear exam Mouth exam: PRESENT: tongue midline Neck exam: ABSENT: tracheal deviation Respiratory exam: PRESENT: clear to auscultation rodrigue, symmetrical Cardiovascular exam: PRESENT: +S1, +S2 Pulses: PRESENT: +1 pedal pulses bilateral GI/Abdominal exam: PRESENT: normal bowel sounds, soft. ABSENT: tenderness Extremities exam: PRESENT: other - Mild bilateral lower extremity edema Neurological exam: PRESENT: awake, oriented to person, no acute weakness Skin exam: PRESENT: dry, warm Results Laboratory Results: 06/06/18 06:05 06/06/18 06:05 06/06/18 06/06/18 06:05 06:05 WBC 11.7 H RBC 2.95 L Hgb 9.6 L Hct 28.1 L MCV 95 MCH 32.4 MCHC 34.0 RDW 19.4 H Plt Count 141 L Seg Neutrophils % Not Reportable Lymphocytes % Not Reportable Monocytes % Not Reportable Eosinophils % Not Reportable Basophils % Not Reportable Absolute Neutrophils Not Reportable Absolute Lymphocytes Not Reportable Absolute Monocytes Not Reportable Absolute Eosinophils Not Reportable Absolute Basophils Not Reportable Sodium 129.8 L Potassium 3.2 L Chloride 96 L Carbon Dioxide 27 Anion Gap 7 BUN 8 Creatinine 0.67 Est GFR ( Amer) > 60 Est GFR (Non-Af Amer) > 60 Glucose 91 Calcium 8.5 Magnesium 1.5 L 06/02/18 23:30 Troponin I < 0.012 Impressions: Chest X-Ray 06/02/18 23:13 IMPRESSION: Spiculated, masslike opacity in the right hilar/suprahilar region. This may in part reflect post surgical/post radiation therapy changes. Underlying neoplastic etiology would be difficult to exclude. Volume loss of the right hemithorax is present. copyright 2010 [employer]- All Rights Reserved Abdomen/Pelvis CT 06/03/18 00:03 IMPRESSION: Little change in the appearance of the chest compared with the most recent CT chest. Stable postsurgical changes and volume loss of the right hemithorax. Stable areas of airspace opacity in the right paramediastinal region and right hilar regions. Areas of fibrosis are also noted. Fatty infiltrative change to the liver. Cholelithiasis. Sigmoid diverticulosis without CT evidence for diverticulitis. TECHNICAL DOCUMENTATION: Quality ID # 436: Final reports with documentation of one or more dose reduction techniques (e.g., Automated exposure control, adjustment of the mA and/or kV according to patient size, use of iterative reconstruction technique) copyright 2010 [facility]- All Rights Reserved Chest/Abdomen CTA 06/03/18 00:03 IMPRESSION: Little change in the appearance of the chest compared with the most recent CT chest. Stable postsurgical changes and volume loss of the right hemithorax. Stable areas of airspace opacity in the right paramediastinal region and right hilar regions. Areas of fibrosis are also noted. Fatty infiltrative change to the liver. Cholelithiasis. Sigmoid diverticulosis without CT evidence for diverticulitis. TECHNICAL DOCUMENTATION: Quality ID # 436: Final reports with documentation of one or more dose reduction techniques (e.g., Automated exposure control, adjustment of the mA and/or kV according to patient size, use of iterative reconstruction technique) copyright 2010 [facility]- All Rights Reserved Venous Doppler Study 06/05/18 00:00 IMPRESSION: NO EVIDENCE DVT OR SVT IN EITHER LEG. Assessment & Plan - Diagnosis (1) Hyponatremia Is this a current diagnosis for this admission?: Yes (2) Acute diarrhea Is this a current diagnosis for this admission?: Yes (3) Chronic alcohol abuse Is this a current diagnosis for this admission?: Yes (4) Dehydration Is this a current diagnosis for this admission?: Yes (5) Hypokalemia Is this a current diagnosis for this admission?: Yes (6) Hypomagnesemia Is this a current diagnosis for this admission?: Yes (7) Squamous cell carcinoma of right lung Is this a current diagnosis for this admission?: Yes - Plan Summary Plan Summary: Hyponatremia remains improved, but patient still with electrolyte disturbances including hypomagnesium and hypokalemia. Repleted magnesium weights magnesium sulfate 3 g IV and after was potassium chloride 40 M EQ x2 doses. CBC, Chem-7, magnesium level in a.m. Oncologist's was following patient. Recommend follow- up in office in 3 months after discharge. Patient may be ready for discharge in the next 24-48 hours if continues to stabilize.
[2018-06-06] MEDS: POTASSIUM CHLORIDE 10 MEQ CAPSULE.ER PO SCH (21:07)
[2018-06-06] MEDS ORDERED: NORMAL SALINE 1000 ML 1,000 ML IV ONE (22:45)
[2018-06-07] MEDS ORDERED: POTASSIUM CHLORIDE 10 MEQ CAPSULE.ER PO ONE (00:34)
[2018-06-07] MEDS: POTASSIUM CHLORIDE 10 MEQ CAPSULE.ER PO SCH (00:51)
[2018-06-07] MEDS: ACETAMINOPHEN 325 MG TABLET PO PRN (00:52)
[2018-06-07] MEDS: DIAZEPAM 5 MG TABLET PO SCH ×5 (01:00→17:31)
[2018-06-07] MEDS: IPRATROPIUM/ALBUTEROL 0.5-2.5 MG/3 ML AMPUL NEB PRN (04:23)
[2018-06-07] MEDS: HEPARIN SOD (PORCINE) 5,000 UNIT/ML 1 ML SYRINGE SUBCUT SCH ×3 (05:26→22:14)
[2018-06-07 05:39] LABS: ABSOLUTE BASOPHILS # (AUTO) 0.1 10^3/uL (0.0-0.2); ABSOLUTE LYMPHOCYTES (AUTO) 0.7 10^3/uL (0.5-4.7); ABSOLUTE MONOCYTES (AUTO) 1.4 10^3/uL (0.1-1.4); ABSOLUTE NEUT (AUTO) 8.2 10^3/uL (1.7-8.2); BASOPHILS % (AUTO) 0.6 % (0-2); EOSINOPHILS % (AUTO) 0.4 % (0-6); HEMATOCRIT 27.1 % (37.9-51.0); HEMOGLOBIN 9.3 g/dL (13.5-17.0); MEAN CORPUSCULAR HEMOGLOBIN 32.9 pg (27.0-33.4); MEAN CORPUSCULAR HGB CONC 34.3 g/dL (32.0-36.0); MEAN CORPUSCULAR VOLUME 96 fl (80-97); MONOCYTES % (AUTO) 13.6 % (3-13); PLATELET COUNT 154 10^3/uL (150-450); RED BLOOD COUNT 2.83 10^6/uL (4.35-5.55); RED CELL DISTRIBUTION WIDTH 18.8 % (11.5-14.0); SEGMENTED NEUTROPHILS % (AUTO) 78.4 % (42-78); TOTAL CELLS COUNTED % (AUTO) 100 %; WHITE BLOOD COUNT 10.5 10^3/uL (4.0-10.5)
[2018-06-07 06:03] LABS: ANION GAP 8 (5-19); BLOOD UREA NITROGEN 13 mg/dL (7-20); CALCIUM 8.3 mg/dL (8.4-10.2); CARBON DIOXIDE 26 mmol/L (22-30); CHLORIDE 100 mmol/L (98-107); GLUCOSE 102 mg/dL (75-110); POTASSIUM 3.7 mmol/L (3.6-5.0); SODIUM 134.1 mmol/L (137-145)
[2018-06-07] MEDS: DILTIAZEM HCL 120 MG CAP.SR.24H PO SCH ×2 (09:27→22:14)
[2018-06-07] MEDS: MAGNESIUM OXIDE 400 MG TABLET PO SCH ×2 (09:28→17:31)
[2018-06-07] MEDS: THIAMINE HCL 100 MG TABLET PO SCH (09:28)
[2018-06-07] MEDS: DOCUSATE SODIUM 100 MG CAPSULE PO SCH ×2 (09:28→17:31)
--- NOTE | 2018-06-07 11:41 | PDOC PROGRESS REPORT ---
Subjective Progress Note for:: 06/07/18 Subjective:: Patient is asleep and unresponsive for me today. Nurses report that he has been sleepy due to his RTC meds for DTs. He spiked a fever last night. Cultures and CXR have been ordered. Reason For Visit: LUNG CANCER HYPONATREMIA Physical Exam Vital Signs: Temp Pulse Resp BP Pulse Ox 98.6 F 123 H 39 H 156/91 H 90 L 06/07/18 07:52 06/07/18 07:52 06/07/18 07:52 06/07/18 07:52 06/07/18 07:52 Intake & Output 06/06/18 06/07/18 06/08/18 06:59 06:59 06:59 Intake Total 2490 2505 Output Total 728 Balance 1762 2505 Weight 92.1 kg 94.4 kg General appearance: PRESENT: well-developed, well-nourished Exam: Mild resp. distress, but sleeping. Head exam: PRESENT: normocephalic Respiratory exam: PRESENT: other - Marked decreased breath sound entire right side. This is new. Cardiovascular exam: PRESENT: RRR Neurological exam: ABSENT: alert, awake Psychiatric exam: ABSENT: appropriate affect Skin exam: PRESENT: normal color Results Laboratory Results: 06/07/18 04:15 06/07/18 04:15 06/07/18 06/07/18 04:15 04:15 WBC 10.5 RBC 2.83 L Hgb 9.3 L Hct 27.1 L MCV 96 MCH 32.9 MCHC 34.3 RDW 18.8 H Plt Count 154 Seg Neutrophils % 78.4 H Lymphocytes % 7.0 L Monocytes % 13.6 H Eosinophils % 0.4 Basophils % 0.6 Absolute Neutrophils 8.2 Absolute Lymphocytes 0.7 Absolute Monocytes 1.4 Absolute Eosinophils 0.0 Absolute Basophils 0.1 Sodium 134.1 L Potassium 3.7 Chloride 100 Carbon Dioxide 26 Anion Gap 8 BUN 13 Creatinine 0.80 Est GFR ( Amer) > 60 Est GFR (Non-Af Amer) > 60 Glucose 102 Calcium 8.3 L Magnesium 2.1 06/02/18 23:30 Troponin I < 0.012 Impressions: Chest X-Ray 06/02/18 23:13 IMPRESSION: Spiculated, masslike opacity in the right hilar/suprahilar region. This may in part reflect post surgical/post radiation therapy changes. Underlying neoplastic etiology would be difficult to exclude. Volume loss of the right hemithorax is present. copyright 2010 [employer]- All Rights Reserved Abdomen/Pelvis CT 06/03/18 00:03 IMPRESSION: Little change in the appearance of the chest compared with the most recent CT chest. Stable postsurgical changes and volume loss of the right hemithorax. Stable areas of airspace opacity in the right paramediastinal region and right hilar regions. Areas of fibrosis are also noted. Fatty infiltrative change to the liver. Cholelithiasis. Sigmoid diverticulosis without CT evidence for diverticulitis. TECHNICAL DOCUMENTATION: Quality ID # 436: Final reports with documentation of one or more dose reduction techniques (e.g., Automated exposure control, adjustment of the mA and/or kV according to patient size, use of iterative reconstruction technique) copyright 2010 [employer]- All Rights Reserved Chest/Abdomen CTA 06/03/18 00:03 IMPRESSION: Little change in the appearance of the chest compared with the most recent CT chest. Stable postsurgical changes and volume loss of the right hemithorax. Stable areas of airspace opacity in the right paramediastinal region and right hilar regions. Areas of fibrosis are also noted. Fatty infiltrative change to the liver. Cholelithiasis. Sigmoid diverticulosis without CT evidence for diverticulitis. TECHNICAL DOCUMENTATION: Quality ID # 436: Final reports with documentation of one or more dose reduction techniques (e.g., Automated exposure control, adjustment of the mA and/or kV according to patient size, use of iterative reconstruction technique) copyright 2010 [employer]- All Rights Reserved Venous Doppler Study 06/05/18 00:00 IMPRESSION: NO EVIDENCE DVT OR SVT IN EITHER LEG. Assessment & Plan - Diagnosis (1) Squamous cell carcinoma of right lung Is this a current diagnosis for this admission?: Yes (2) Peripheral neuropathy Is this a current diagnosis for this admission?: Yes (3) Hyponatremia Is this a current diagnosis for this admission?: Yes (4) Hypomagnesemia Is this a current diagnosis for this admission?: Yes (5) Alcohol abuse Is this a current diagnosis for this admission?: Yes (6) Acute diarrhea Is this a current diagnosis for this admission?: Yes - Plan Summary Plan Summary: I discussed his care with Nursing staff as well as Dr. Motta (hospitalist). Await blood and urine culture. Await CXR. Hospitalist will start appropriate antibiotics. I have asked nurses to hold off his benzos this morning.
[2018-06-07] MEDS ORDERED: VANCOMYCIN HCL INJ 1000 MG VIAL IV SCH (12:15)
--- NOTE | 2018-06-07 12:26 | PDOC PROGRESS REPORT ---
Subjective Progress Note for:: 06/07/18 Subjective:: Patient was seen and examined. He is lethargic and obtunded. He had a low- grade fever. His chest x-ray today shows worsening of right upper lobe infiltrates. Reason For Visit: LUNG CANCER HYPONATREMIA Physical Exam Vital Signs: Temp Pulse Resp BP Pulse Ox 98.6 F 123 H 39 H 156/91 H 90 L 06/07/18 07:52 06/07/18 07:52 06/07/18 07:52 06/07/18 07:52 06/07/18 07:52 Intake & Output 06/06/18 06/07/18 06/08/18 06:59 06:59 06:59 Intake Total 2490 2505 Output Total 728 Balance 1762 2505 Weight 203 lb 0.732 oz 208 lb 1.862 oz General appearance: PRESENT: mild distress Head exam: PRESENT: atraumatic, normocephalic Eye exam: ABSENT: conjunctival injection Ear exam: ABSENT: bleeding, drainage Mouth exam: PRESENT: moist, neck supple Neck exam: ABSENT: meningismus, tenderness Respiratory exam: PRESENT: other - Reason breathing sounds right lung.. ABSENT: accessory muscle use Cardiovascular exam: PRESENT: RRR. ABSENT: systolic murmur Pulses: PRESENT: normal radial pulses. ABSENT: +1 pedal pulses bilateral GI/Abdominal exam: PRESENT: normal bowel sounds, soft. ABSENT: tenderness Rectal exam: PRESENT: deferred Extremities exam: ABSENT: pedal edema Musculoskeletal exam: ABSENT: deformity Neurological exam: PRESENT: altered Psychiatric exam: PRESENT: anxious Results Laboratory Results: 06/07/18 04:15 06/07/18 04:15 06/07/18 06/07/18 04:15 04:15 WBC 10.5 RBC 2.83 L Hgb 9.3 L Hct 27.1 L MCV 96 MCH 32.9 MCHC 34.3 RDW 18.8 H Plt Count 154 Seg Neutrophils % 78.4 H Lymphocytes % 7.0 L Monocytes % 13.6 H Eosinophils % 0.4 Basophils % 0.6 Absolute Neutrophils 8.2 Absolute Lymphocytes 0.7 Absolute Monocytes 1.4 Absolute Eosinophils 0.0 Absolute Basophils 0.1 Sodium 134.1 L Potassium 3.7 Chloride 100 Carbon Dioxide 26 Anion Gap 8 BUN 13 Creatinine 0.80 Est GFR ( Amer) > 60 Est GFR (Non-Af Amer) > 60 Glucose 102 Calcium 8.3 L Magnesium 2.1 06/02/18 23:30 Troponin I < 0.012 Impressions: Abdomen/Pelvis CT 06/03/18 00:03 IMPRESSION: Little change in the appearance of the chest compared with the most recent CT chest. Stable postsurgical changes and volume loss of the right hemithorax. Stable areas of airspace opacity in the right paramediastinal region and right hilar regions. Areas of fibrosis are also noted. Fatty infiltrative change to the liver. Cholelithiasis. Sigmoid diverticulosis without CT evidence for diverticulitis. TECHNICAL DOCUMENTATION: Quality ID # 436: Final reports with documentation of one or more dose reduction techniques (e.g., Automated exposure control, adjustment of the mA and/or kV according to patient size, use of iterative reconstruction technique) copyright 2010 [employer]- All Rights Reserved Chest/Abdomen CTA 06/03/18 00:03 IMPRESSION: Little change in the appearance of the chest compared with the most recent CT chest. Stable postsurgical changes and volume loss of the right hemithorax. Stable areas of airspace opacity in the right paramediastinal region and right hilar regions. Areas of fibrosis are also noted. Fatty infiltrative change to the liver. Cholelithiasis. Sigmoid diverticulosis without CT evidence for diverticulitis. TECHNICAL DOCUMENTATION: Quality ID # 436: Final reports with documentation of one or more dose reduction techniques (e.g., Automated exposure control, adjustment of the mA and/or kV according to patient size, use of iterative reconstruction technique) copyright 2010 [employer]- All Rights Reserved Venous Doppler Study 06/05/18 00:00 IMPRESSION: NO EVIDENCE DVT OR SVT IN EITHER LEG. Assessment & Plan - Diagnosis (1) Pneumonia Qualifiers: Pneumonia type: due to unspecified organism Laterality: right Lung location: unspecified part of lung Qualified Code(s): J18.9 - Pneumonia, unspecified organism Is this a current diagnosis for this admission?: Yes Plan: Possibly postobstructive pneumonia. Start broad-spectrum antibiotics. Follow blood cultures. (2) Dehydration Is this a current diagnosis for this admission?: Yes Plan: Start IV fluids (3) Hypokalemia Is this a current diagnosis for this admission?: Yes Plan: Monitor and replace as needed (4) Hypomagnesemia Is this a current diagnosis for this admission?: Yes Plan: Continue replacement. Monitor levels (5) Lung mass Is this a current diagnosis for this admission?: Yes Plan: Enlarging mass. Will check CT scan with IV contrast. Most likely postobstructive pneumonia on top of his chronic lung mass (6) Squamous cell carcinoma of right lung Is this a current diagnosis for this admission?: Yes Plan: Defer to oncology (7) Alcohol abuse Is this a current diagnosis for this admission?: Yes Plan: Continue thiamine and diazepam (8) Hyponatremia Is this a current diagnosis for this admission?: Yes Plan: Improved. Monitor.
[2018-06-07] MEDS ORDERED: LEVOFLOXACIN 750 MG TABLET PO SCH (13:00)
--- NOTE | 2018-06-07 13:13 | RADIOLOGY REPORT (SQ) ---
EXAM DESCRIPTION: CHEST SINGLE VIEW COMPLETED DATE/TIME: 06/07/2018 12:11 pm REASON FOR STUDY: tachypnea, fever COMPARISON: CT chest 01/28/2018, 04/14/2018, 06/03/2018 AP chest 06/02/2018, 07/16/2017 EXAM PARAMETERS: NUMBER OF VIEWS: One view. TECHNIQUE: Single frontal radiographic view of the chest acquired. RADIATION DOSE: NA LIMITATIONS: None. FINDINGS: LUNGS AND PLEURA: On the left side, there is pulmonary vascular congestion and mild alveol ar pulmonary edema. No pleural effusion. Old post therapeutic change in the right hemithorax with volume loss and scarring in the right upper lobe. MEDIASTINUM AND HILAR STRUCTURES: No masses. Contour normal. HEART AND VASCULAR STRUCTURES: No cardiomegaly BONES: No acute findings. HARDWARE: None in the chest. OTHER: No other significant finding. IMPRESSION: Pulmonary vascular prominence with mild pulmonary edema left lung. Stable post therapeutic volume loss and consolidation right lung. TECHNICAL DOCUMENTATION: JOB ID: [id number] [employer]- All Rights Reserved Reading location - IP/workstation name: [email or web address]
[2018-06-07] MEDS: LEVOFLOXACIN 750 MG/D5W RTU 750 MG/150 ML RTUPB IV SCH (13:53)
--- NOTE | 2018-06-07 14:31 | RADIOLOGY REPORT (SQ) ---
EXAM DESCRIPTION: CT CHEST WITH COMPLETED DATE/TIME: 06/07/2018 1:28 pm REASON FOR STUDY: lung mass COMPARISON: CT chest 06/03/2018, 04/14/2018, 03/27/2017 TECHNIQUE: CT scan of the chest performed using helical scanning technique with dynamic intravenous contrast injection. Images reviewed with lung, soft tissue and bone windows. Reconstructed coronal and sagittal MPR and MIP images reviewed. All images stored on PACS. All CT scanners at this facility use dose modulation, iterative reconstruction, and/or weight based d osing when appropriate to reduce radiation dose to as low as reasonably achievable (ALARA). [facility]: Dose Right [facility]: CareDose [facility]: Dose Right [facility]: Teradose 4D [facility]: OuiCar CONTRAST TYPE AND DOSE: contrast/concentration: Isovue 350.00 mg/ml; Total Contrast Delivered: 80.0 ml; Total Saline Delivered: 55.0 ml RENAL FUNCTION: Creatinine 0.8 RADIATION DOSE: CT Rad equipment meets quality standard of care and radiation dose reduction techniq ues were employed. CTDIvol: 14.6 mGy. DLP: 536 mGy-cm. . LIMITATIONS: None. FINDINGS: LUNGS AND PLEURA: Since the prior CT 06/03/2018, the patient has developed complete collaps e of the right upper lobe, with air bubbles in the right upper lobe at the lung apex from small intra pulmonary abscesses. These changes are best shown on coronal images 50-57. Since the prior study 06/03/2018, patient has developed airspace disease in the posterior right lower lobe worrisome for pneumonia. No right pleural effusion. No right pneumothorax. Left lung well inflated and clear. No left pleural effusion. No left pneumothorax. HILAR AND MEDIASTINAL STRUCTURES: No identified masses or abnormal nodes. HEART AND VASCULAR STRUCTURES: No aneurysm or dissection. No central pulmonary emboli. No pericardi al effusion. HARDWARE: None in the chest. UPPER ABDOMEN: Fatty liver THYROID AND OTHER SOFT TISSUES: No masses. No adenopathy. BONES: Old bilateral rib fractures OTHER: No other significant finding. IMPRESSION: Increasing consolidation right lung, now with complete opacification the right upper lob e with right apical lung parenchymal air-fluid levels worrisome for intrapulmonary abscesses. There is now consolidation in the posterior right lung base worrisome for pneumonia. TECHNICAL DOCUMENTATION: JOB ID: [id number] Quality ID # 436: Final reports with documentation of one or more dose reduction techniques (e.g., Au tomated exposure control, adjustment of the mA and/or kV according to patient size, use of iterative reconstruction technique) 2010 [employer]- All Rights Reserved Reading location - IP/workstation name: [email or web address]
[2018-06-07] MEDS: CEFEPIME 2 GM/D5W RTU 2 GM/50 ML RTUPB IV SCH ×2 (16:58→22:40)
[2018-06-07] MEDS: VANCOMYCIN HCL 1,250 MG in DEXTROSE 5%-WATER 250 ML IV SCH (17:24)
[2018-06-07] MEDS: NORMAL SALINE 1000 ML 1,000 ML IV PRN (22:39)
[2018-06-08] MEDS: DIAZEPAM 5 MG TABLET PO SCH ×7 (00:06→22:11)
[2018-06-08] MEDS: VANCOMYCIN HCL 1,250 MG in DEXTROSE 5%-WATER 250 ML IV SCH ×3 (02:43→17:31)
[2018-06-08] MEDS: HEPARIN SOD (PORCINE) 5,000 UNIT/ML 1 ML SYRINGE SUBCUT SCH ×3 (05:44→22:07)
[2018-06-08] MEDS: CEFEPIME 2 GM/D5W RTU 2 GM/50 ML RTUPB IV SCH ×3 (05:45→22:10)
[2018-06-08 06:20] LABS: ABSOLUTE BASOPHILS # (AUTO) 0.1 10^3/uL (0.0-0.2); ABSOLUTE LYMPHOCYTES (AUTO) 0.8 10^3/uL (0.5-4.7); ABSOLUTE MONOCYTES (AUTO) 1.5 10^3/uL (0.1-1.4); ABSOLUTE NEUT (AUTO) 10.1 10^3/uL (1.7-8.2); BASOPHILS % (AUTO) 0.8 % (0-2); EOSINOPHILS % (AUTO) 0.2 % (0-6); HEMOGLOBIN 9.4 g/dL (13.5-17.0); LYMPHOCYTES % (AUTO) 6.7 % (13-45); MEAN CORPUSCULAR HEMOGLOBIN 32.2 pg (27.0-33.4); MEAN CORPUSCULAR HGB CONC 33.6 g/dL (32.0-36.0); MEAN CORPUSCULAR VOLUME 96 fl (80-97); MONOCYTES % (AUTO) 11.7 % (3-13); PLATELET COUNT 187 10^3/uL (150-450); RED BLOOD COUNT 2.92 10^6/uL (4.35-5.55); RED CELL DISTRIBUTION WIDTH 18.8 % (11.5-14.0); SEGMENTED NEUTROPHILS % (AUTO) 80.6 % (42-78); TOTAL CELLS COUNTED % (AUTO) 100 %; WHITE BLOOD COUNT 12.6 10^3/uL (4.0-10.5)
[2018-06-08 07:01] LABS: ALANINE AMINOTRANSFERASE 29 U/L (21-72); ALBUMIN 3.1 g/dL (3.5-5.0); ALKALINE PHOSPHATASE 164 U/L (38-126); ANION GAP 10 (5-19); ASPARTATE AMINO TRANSFERASE 52 U/L (17-59); BILIRUBIN,DIRECT 1.6 mg/dL (0.0-0.4); BILIRUBIN,TOTAL 2.2 mg/dL (0.2-1.3); BLOOD UREA NITROGEN 11 mg/dL (7-20); CALCIUM 8.4 mg/dL (8.4-10.2); CARBON DIOXIDE 23 mmol/L (22-30); CHLORIDE 101 mmol/L (98-107); GLUCOSE 92 mg/dL (75-110); POTASSIUM 3.8 mmol/L (3.6-5.0); SODIUM 134.3 mmol/L (137-145); TOTAL PROTEIN 6.1 g/dL (6.3-8.2)
--- NOTE | 2018-06-08 08:53 | RADIOLOGY REPORT (SQ) ---
EXAM DESCRIPTION: CHEST SINGLE VIEW COMPLETED DATE/TIME: 06/08/2018 8:27 am REASON FOR STUDY: Pneumonia COMPARISON: CT chest 06/07/2018, 06/03/2018 Chest films 06/07/2018, 06/02/2018 EXAM PARAMETERS: NUMBER OF VIEWS: One view. TECHNIQUE: Single frontal radiographic view of the chest acquired. RADIATION DOSE: NA LIMITATIONS: None. FINDINGS: LUNGS AND PLEURA: Left lung well inflated and grossly clear. No left pleural effusion or pneumothorax. On the right side, opacification of the hemithorax is present from large right hilar mass and postobs tructive consolidation in the upper lobe. Persistent small air bubbles in the apex right hemithorax likely small lung abscesses. MEDIASTINUM AND HILAR STRUCTURES: No masses. Contour normal. HEART AND VASCULAR STRUCTURES: Stable mild cardiomegaly BONES: No acute findings. HARDWARE: None in the chest. OTHER: No other significant finding. IMPRESSION: No change in appearance of the chest compared to 06/07/2018 TECHNICAL DOCUMENTATION: JOB ID: [id number] [employer]- All Rights Reserved Reading location - IP/workstation name: [email or web address]
[2018-06-08] MEDS: LEVOFLOXACIN 750 MG/D5W RTU 750 MG/150 ML RTUPB IV SCH (09:01)
[2018-06-08] MEDS: MAGNESIUM OXIDE 400 MG TABLET PO SCH ×2 (10:04→17:33)
[2018-06-08] MEDS: DILTIAZEM HCL 120 MG CAP.SR.24H PO SCH ×2 (10:04→22:08)
[2018-06-08] MEDS: DOCUSATE SODIUM 100 MG CAPSULE PO SCH ×2 (10:05→17:33)
[2018-06-08] MEDS: THIAMINE HCL 100 MG TABLET PO SCH (10:06)
--- NOTE | 2018-06-08 10:44 | PDOC PROGRESS REPORT ---
Subjective Progress Note for:: 06/08/18 Subjective:: Patient was seen and examined. He is more awake and responsive today. His fever is improving. CT scan was positive for right upper lobe consolidation and possible abscess. He was asking me that he is thirsty and wants to drink. Overall he is better. We started him on broad-spectrum antibiotics yesterday. Reason For Visit: LUNG CANCER HYPONATREMIA Physical Exam Vital Signs: Temp Pulse Resp BP Pulse Ox 98.7 F 122 H 22 H 130/78 H 97 06/08/18 08:11 06/08/18 08:11 06/08/18 08:11 06/08/18 08:11 06/08/18 08:11 Intake & Output 06/07/18 06/08/18 06/09/18 06:59 06:59 06:59 Intake Total 2505 1558 150 Output Total 200 Balance 2505 1358 150 Weight 208 lb 1.862 oz 214 lb 15.211 oz General appearance: PRESENT: cooperative, mild distress Head exam: PRESENT: atraumatic, normocephalic Mouth exam: PRESENT: moist, neck supple Neck exam: ABSENT: meningismus, tenderness Respiratory exam: PRESENT: other - Decreased breathing sounds right lung.. ABSENT: accessory muscle use Cardiovascular exam: PRESENT: RRR GI/Abdominal exam: PRESENT: normal bowel sounds, soft. ABSENT: tenderness Neurological exam: PRESENT: alert, awake, oriented to person, oriented to place, oriented to time, oriented to situation Results Laboratory Results: 06/08/18 05:53 06/08/18 05:53 06/08/18 06/08/18 05:53 05:53 WBC 12.6 H RBC 2.92 L Hgb 9.4 L Hct 28.0 L MCV 96 MCH 32.2 MCHC 33.6 RDW 18.8 H Plt Count 187 Seg Neutrophils % 80.6 H Lymphocytes % 6.7 L Monocytes % 11.7 Eosinophils % 0.2 Basophils % 0.8 Absolute Neutrophils 10.1 H Absolute Lymphocytes 0.8 Absolute Monocytes 1.5 H Absolute Eosinophils 0.0 Absolute Basophils 0.1 Sodium 134.3 L Potassium 3.8 Chloride 101 Carbon Dioxide 23 Anion Gap 10 BUN 11 Creatinine 0.72 Est GFR ( Amer) > 60 Est GFR (Non-Af Amer) > 60 Glucose 92 Calcium 8.4 Magnesium 1.5 L Total Bilirubin 2.2 H AST 52 ALT 29 Alkaline Phosphatase 164 H Total Protein 6.1 L Albumin 3.1 L 06/02/18 23:30 Troponin I < 0.012 Impressions: Abdomen/Pelvis CT 06/03/18 00:03 IMPRESSION: Little change in the appearance of the chest compared with the most recent CT chest. Stable postsurgical changes and volume loss of the right hemithorax. Stable areas of airspace opacity in the right paramediastinal region and right hilar regions. Areas of fibrosis are also noted. Fatty infiltrative change to the liver. Cholelithiasis. Sigmoid diverticulosis without CT evidence for diverticulitis. TECHNICAL DOCUMENTATION: Quality ID # 436: Final reports with documentation of one or more dose reduction techniques (e.g., Automated exposure control, adjustment of the mA and/or kV according to patient size, use of iterative reconstruction technique) copyright 2010 [employer]- All Rights Reserved Chest/Abdomen CTA 06/03/18 00:03 IMPRESSION: Little change in the appearance of the chest compared with the most recent CT chest. Stable postsurgical changes and volume loss of the right hemithorax. Stable areas of airspace opacity in the right paramediastinal region and right hilar regions. Areas of fibrosis are also noted. Fatty infiltrative change to the liver. Cholelithiasis. Sigmoid diverticulosis without CT evidence for diverticulitis. TECHNICAL DOCUMENTATION: Quality ID # 436: Final reports with documentation of one or more dose reduction techniques (e.g., Automated exposure control, adjustment of the mA and/or kV according to patient size, use of iterative reconstruction technique) copyright 2010 [employer]- All Rights Reserved Venous Doppler Study 06/05/18 00:00 IMPRESSION: NO EVIDENCE DVT OR SVT IN EITHER LEG. Chest CT 06/07/18 00:00 IMPRESSION: Increasing consolidation right lung, now with complete opaci fication the right upper lobe with right apical lung parenchymal air-fluid levels worrisome for intrapulmonary abscesses. There is now consolidation in the posterior right lung base worrisome for pneumonia. Chest X-Ray 06/08/18 06:00 IMPRESSION: No change in appearance of the chest compared to 06/07/2018 Assessment & Plan - Diagnosis (1) Pneumonia Qualifiers: Pneumonia type: due to unspecified organism Laterality: right Lung location: unspecified part of lung Qualified Code(s): J18.9 - Pneumonia, unspecified organism Is this a current diagnosis for this admission?: Yes Plan: Possibly postobstructive pneumonia. Continue broad-spectrum antibiotics. Follow blood and sputum cultures. (2) Dehydration Is this a current diagnosis for this admission?: Yes Plan: Continue IV fluids (3) Hypokalemia Is this a current diagnosis for this admission?: Yes Plan: Monitor and replace as needed (4) Hypomagnesemia Is this a current diagnosis for this admission?: Yes Plan: Continue replacement. Monitor levels (5) Lung mass Is this a current diagnosis for this admission?: Yes Plan: Enlarging mass. CT scan with IV contrast reviewed. Most likely postobstructive pneumonia with lung abscess on top of his chronic lung mass. Will consult pulmonology. (6) Squamous cell carcinoma of right lung Is this a current diagnosis for this admission?: Yes Plan: Defer to oncology (7) Alcohol abuse Is this a current diagnosis for this admission?: Yes Plan: Continue thiamine and diazepam (8) Hyponatremia Is this a current diagnosis for this admission?: Yes Plan: Improved. Monitor.
[2018-06-08] MEDS: NORMAL SALINE 1000 ML 1,000 ML IV PRN (11:04)
[2018-06-08] MEDS: MAGNESIUM SULFATE/D5W 1 GM/100 ML RTUPB IV SCH ×2 (11:54→12:58)
[2018-06-08] MEDS: IPRATROPIUM/ALBUTEROL 0.5-2.5 MG/3 ML AMPUL NEB PRN (17:45)
[2018-06-09] MEDS: ACETAMINOPHEN 325 MG TABLET PO PRN ×2 (00:50→07:52)
[2018-06-09 01:51] LABS: HEMATOCRIT 27.3 % (37.9-51.0); HEMOGLOBIN 9.3 g/dL (13.5-17.0); MEAN CORPUSCULAR HEMOGLOBIN 32.1 pg (27.0-33.4); MEAN CORPUSCULAR HGB CONC 33.9 g/dL (32.0-36.0); MEAN CORPUSCULAR VOLUME 95 fl (80-97); PLATELET COUNT 181 10^3/uL (150-450); RED BLOOD COUNT 2.89 10^6/uL (4.35-5.55); WHITE BLOOD COUNT 10.9 10^3/uL (4.0-10.5)
[2018-06-09 02:07] LABS: ANION GAP 8 (5-19); BLOOD UREA NITROGEN 13 mg/dL (7-20); CALCIUM 8.6 mg/dL (8.4-10.2); CARBON DIOXIDE 22 mmol/L (22-30); CHLORIDE 101 mmol/L (98-107); GLUCOSE 108 mg/dL (75-110); POTASSIUM 3.4 mmol/L (3.6-5.0); SODIUM 130.9 mmol/L (137-145)
[2018-06-09 02:11] LABS: VANCOMYCIN,TROUGH 19.7 ug/mL (5.0-20.0)
[2018-06-09] MEDS: VANCOMYCIN HCL 1,250 MG in DEXTROSE 5%-WATER 250 ML IV SCH ×2 (02:52→10:52)
[2018-06-09] MEDS: DIAZEPAM 5 MG TABLET PO SCH ×4 (02:52→14:23)
[2018-06-09] MEDS: NORMAL SALINE 1000 ML 1,000 ML IV PRN ×3 (04:41→17:35)
[2018-06-09] MEDS: CEFEPIME 2 GM/D5W RTU 2 GM/50 ML RTUPB IV SCH (05:35)
[2018-06-09] MEDS: HEPARIN SOD (PORCINE) 5,000 UNIT/ML 1 ML SYRINGE SUBCUT SCH ×3 (05:36→22:42)
--- NOTE | 2018-06-09 07:32 | PDOC PROGRESS REPORT ---
Subjective Progress Note for:: 06/09/18 Subjective:: Patient awake, but quite confused. This is much worse than on admission. I do not believe that his confusion is only alcohol related. He is not oriented to person. He is now incontinent. Nurses report that he had fever last night. Reason For Visit: LUNG CANCER HYPONATREMIA Physical Exam Vital Signs: Temp Pulse Resp BP Pulse Ox 97.9 F 133 H 16 100/58 L 94 06/09/18 03:40 06/09/18 07:00 06/09/18 03:40 06/09/18 03:40 06/09/18 03:40 Intake & Output 06/08/18 06/09/18 06/10/18 06:59 06:59 06:59 Intake Total 1558 5470 Output Total 200 400 Balance 1358 5070 Weight 97.5 kg 98.9 kg General appearance: PRESENT: well-developed, well-nourished Respiratory exam: PRESENT: decreased breath sounds - Entire right side. Cardiovascular exam: PRESENT: tachycardia GI/Abdominal exam: PRESENT: soft. ABSENT: tenderness Extremities exam: PRESENT: +1 edema Neurological exam: PRESENT: altered. ABSENT: oriented to person, oriented to place, oriented to time, oriented to situation Results Laboratory Results: 06/09/18 01:40 06/09/18 01:40 06/09/18 06/09/18 01:40 01:40 WBC 10.9 H RBC 2.89 L Hgb 9.3 L Hct 27.3 L MCV 95 MCH 32.1 MCHC 33.9 RDW 19.0 H Plt Count 181 Sodium 130.9 L Potassium 3.4 L Chloride 101 Carbon Dioxide 22 Anion Gap 8 BUN 13 Creatinine 0.71 Est GFR ( Amer) > 60 Est GFR (Non-Af Amer) > 60 Glucose 108 Calcium 8.6 Magnesium 1.7 06/02/18 23:30 Troponin I < 0.012 Impressions: Abdomen/Pelvis CT 06/03/18 00:03 IMPRESSION: Little change in the appearance of the chest compared with the most recent CT chest. Stable postsurgical changes and volume loss of the right hemithorax. Stable areas of airspace opacity in the right paramediastinal region and right hilar regions. Areas of fibrosis are also noted. Fatty infiltrative change to the liver. Cholelithiasis. Sigmoid diverticulosis without CT evidence for diverticulitis. TECHNICAL DOCUMENTATION: Quality ID # 436: Final reports with documentation of one or more dose reduction techniques (e.g., Automated exposure control, adjustment of the mA and/or kV according to patient size, use of iterative reconstruction technique) copyright 2010 [employer]- All Rights Reserved Chest/Abdomen CTA 06/03/18 00:03 IMPRESSION: Little change in the appearance of the chest compared with the most recent CT chest. Stable postsurgical changes and volume loss of the right hemithorax. Stable areas of airspace opacity in the right paramediastinal region and right hilar regions. Areas of fibrosis are also noted. Fatty infiltrative change to the liver. Cholelithiasis. Sigmoid diverticulosis without CT evidence for diverticulitis. TECHNICAL DOCUMENTATION: Quality ID # 436: Final reports with documentation of one or more dose reduction techniques (e.g., Automated exposure control, adjustment of the mA and/or kV according to patient size, use of iterative reconstruction technique) copyright 2010 [employer]- All Rights Reserved Venous Doppler Study 06/05/18 00:00 IMPRESSION: NO EVIDENCE DVT OR SVT IN EITHER LEG. Chest CT 06/07/18 00:00 IMPRESSION: Increasing consolidation right lung, now with complete opacification the right upper lobe with right apical lung parenchymal air-fluid levels worrisome for intrapulmonary abscesses. There is now consolidation in the posterior right lung base worrisome for pneumonia. Chest X-Ray 06/08/18 06:00 IMPRESSION: No change in appearance of the chest compared to 06/07/2018 Assessment & Plan - Diagnosis (1) Hyponatremia Is this a current diagnosis for this admission?: Yes Plan: Electrolyte abnormalities are being treated. Improving. (2) Squamous cell carcinoma of right lung Is this a current diagnosis for this admission?: Yes Plan: Now with possible RUL abscess. I will consult surgery today to evaluation. He has had no active treatment for several months and CT on admission did not show any evidence of disease progression. However, since admission, CT has greatly changed. (3) Peripheral neuropathy Is this a current diagnosis for this admission?: Yes (4) Hypomagnesemia Is this a current diagnosis for this admission?: Yes (5) Alcohol abuse Is this a current diagnosis for this admission?: Yes Plan: Covering for DTs, but I would start to wean these meds so that we can have a clearer picture of his mental status. (6) Acute diarrhea Is this a current diagnosis for this admission?: Yes - Plan Summary Plan Summary: Consider MRI of the brain. Await Surgery's evaluation. Continue antibiotics for the lung infection.
[2018-06-09] MEDS ORDERED: PIPERACILLIN/TAZOBACTAM 3.375 GM VIAL IV SCH (09:00)
[2018-06-09] MEDS: LEVOFLOXACIN 750 MG/D5W RTU 750 MG/150 ML RTUPB IV SCH (09:01)
[2018-06-09] MEDS: MAGNESIUM OXIDE 400 MG TABLET PO SCH ×2 (09:02→17:47)
[2018-06-09] MEDS: DILTIAZEM HCL 120 MG CAP.SR.24H PO SCH ×2 (09:02→22:43)
[2018-06-09] MEDS: THIAMINE HCL 100 MG TABLET PO SCH (09:02)
--- NOTE | 2018-06-09 10:24 | RADIOLOGY REPORT (SQ) ---
EXAM DESCRIPTION: CHEST SINGLE VIEW COMPLETED DATE/TIME: 06/09/2018 10:01 am REASON FOR STUDY: pnuemonia COMPARISON: 06/08/2018 NUMBER OF VIEWS: One view. TECHNIQUE: Single frontal radiographic image of the chest acquired. LIMITATIONS: None. FINDINGS: LUNGS AND PLEURA: Near complete opacification of the right lung with ipsilateral volume lo ss. Left lung is clear. MEDIASTINUM AND HEART: Stable heart size and mediastinal structures. BONY STRUCTURES: No acute findings. HARDWARE: None. OTHER: No other significant finding. IMPRESSION: Rehydration versus progressing pneumonia in the right lung. TECHNICAL DOCUMENTATION: JOB ID: [id number] Reading location - IP/workstation name: [email or web address]
--- NOTE | 2018-06-09 10:43 | RADIOLOGY REPORT (SQ) ---
EXAM DESCRIPTION: CT HEAD WITHOUT COMPLETED DATE/TIME: 06/09/2018 10:34 am REASON FOR STUDY: altered mental status COMPARISON: 01/28/2018 TECHNIQUE: Axial images acquired through the brain without intravenous contrast. Images reviewed wi th bone, brain and subdural windows. Additional sagittal and coronal reconstructions were generated. Images stored on PACS. All CT scanners at this facility use dose modulation, iterative reconstruction, and/or weight based d osing when appropriate to reduce radiation dose to as low as reasonably achievable (ALARA). [facility]: Dose Right [facility]: CareDose [facility]: Dose Right [facility]: Teradose 4D [facility]: Ke[employer]hs RADIATION DOSE: CT Rad equipment meets quality standard of care and radiation dose reduction techniq ues were employed. CTDIvol: 48.6 mGy. DLP: 930 mGy-cm.mGy. LIMITATIONS: None. FINDINGS: VENTRICLES: Prominent. CEREBRUM: No masses. No hemorrhage. No midline shift. Areas of low density in the white matter mos t likely due to chronic micro-vascular ischemic change. No evidence for acute infarction. CEREBELLUM: No masses. No hemorrhage. No alteration of density. No evidence for acute infarction. EXTRAAXIAL SPACES: Age-related involutional change. No fluid collections. No masses. ORBITS AND GLOBE: No intra- or extraconal masses. Normal contour of globe without masses. CALVARIUM: No fracture. PARANASAL SINUSES: Chronic right maxillary sinusitis. SOFT TISSUES: No mass or hematoma. OTHER: No other significant finding. IMPRESSION: CHRONIC CHANGES OF ATROPHY AND MICROVASCULAR ISCHEMIA. NO ACUTE PROCESS. EVIDENCE OF ACUTE STROKE: NO. TECHNICAL DOCUMENTATION: JOB ID: [id number] Quality ID # 436: Final reports with documentation of one or more dose reduction techniques (e.g., Au tomated exposure control, adjustment of the mA and/or kV according to patient size, use of iterative reconstruction technique) 2010 [employer]- All Rights Reserved Reading location - IP/workstation name: [email or web address]
[2018-06-09] MEDS: DOCUSATE SODIUM 100 MG CAPSULE PO SCH ×2 (10:55→17:47)
--- NOTE | 2018-06-09 13:47 | CONSULTATION REPORT E ---
Consultation Report NAME: ERICKA RAZO : 1960 AGE: 58Y DATE: 06/09/2018 ROOM: 408 A TO: GABRIELLA SALINAS M.D. FROM: SIDDHARTH MACKAY M.D. Requesting Physician SUMMARY OF REPORT: The patient is a 58-year-old male with a history of right upper lobe carcinoma, locally advanced, status post chemotherapy and radiation therapy, who was readmitted to [facility] approximately 1 week ago for failure to thrive, shortness of breath, respiratory distress. The patient has been treated for multiple acute and chronic problems, including weakness, electrolyte abnormalities, respiratory dysfunction. This morning Dr. Mackay asked me to review the patient's CT scan and render an opinion regarding management. Past medical and surgical history, review of systems, and history and physical can be found in his documentation. I reviewed the CT scan from the current hospitalization, as well as previous CT scans. Specifically, the patient has a large right upper lobe malignancy, squamous cell carcinoma by biopsy, involving the right upper lobe and right upper lobe bronchus. There has been radiographic demonstration of reduction in size of the tumor; however, x-rays and imaging from the last 3 days show increased atelectasis of the right upper lobe, multiple air pockets, difficult to ascertain whether these represent abscesses or consolidated lung parenchyma. There is no joshua discrete abscess or pleural effusion. There is slight mediastinal shift to the right. IMPRESSION: Progressive right upper quadrant airspace disease at site of previous malignancy, status post chemoradiation therapy with clinical and radiographic picture highly suspicious for superimposed infection, cannot rule out abscess. RECOMMENDATIONS: I spoke with Dr. Mackay this morning. My suggestion is that the patient's acute problem be managed by a comprehensive thoracic team as this problem may require several interventions, including decortication if indicated. She will make arrangements to transfer the patient to higher level of care. DICTATING PHYSICIAN: GABRIELLA SALINAS M.D. [id number] PHY#: [id number] ID: [id number] JOB#: [id number] ACCT: [id number] cc:GABRIELLA SALINAS M.D. >
[2018-06-09] MEDS: PIPERACILLIN SODIUM/TAZOBACTAM 3.375 GM in NORMAL SALINE 100 ML IV SCH ×2 (14:24→22:43)
--- NOTE | 2018-06-09 14:27 | PDOC PROGRESS REPORT ---
Subjective Progress Note for:: 06/09/18 Subjective:: Patient seen and examined today. He developed high fever. He is lethargic and confused. X-ray shows progression of pneumonia. Dr. Bryant from pulmonology switch cefepime to Zosyn. Dr. Mackay consulted Dr. Salcedo for questionable lung abscess. Dr. Salcedo recommended transfer for cardiothoracic surgery consultation. I just spoke with Dr. Mackay got in touch with cardiothoracic surgery and they reviewed the films and recommended continuing IV antibiotic man agement. Reason For Visit: LUNG CANCER HYPONATREMIA Physical Exam Vital Signs: Temp Pulse Resp BP Pulse Ox 98.6 F 90 16 100/57 L 90 L 06/09/18 11:29 06/09/18 12:47 06/09/18 12:47 06/09/18 11:29 06/09/18 12:47 Intake & Output 06/08/18 06/09/18 06/10/18 06:59 06:59 06:59 Intake Total 1558 5470 150 Output Total 200 400 Balance 1358 5070 150 Weight 214 lb 15.211 oz 218 lb 0.595 oz General appearance: PRESENT: mild distress Head exam: PRESENT: atraumatic, normocephalic Mouth exam: PRESENT: moist, neck supple Neck exam: ABSENT: meningismus, tenderness Respiratory exam: PRESENT: accessory muscle use, other - Decreased breathing sounds right lung. Cardiovascular exam: PRESENT: tachycardia Pulses: PRESENT: normal radial pulses GI/Abdominal exam: PRESENT: normal bowel sounds, soft. ABSENT: tenderness Rectal exam: PRESENT: deferred Neurological exam: PRESENT: altered Results Laboratory Results: 06/09/18 01:40 06/09/18 01:40 06/09/18 06/09/18 01:40 01:40 WBC 10.9 H RBC 2.89 L Hgb 9.3 L Hct 27.3 L MCV 95 MCH 32.1 MCHC 33.9 RDW 19.0 H Plt Count 181 Sodium 130.9 L Potassium 3.4 L Chloride 101 Carbon Dioxide 22 Anion Gap 8 BUN 13 Creatinine 0.71 Est GFR ( Amer) > 60 Est GFR (Non-Af Amer) > 60 Glucose 108 Calcium 8.6 Magnesium 1.7 06/07/18 11:25 Catheterized Urine Urine Culture - Final NO GROWTH 2 DAYS 06/02/18 23:30 Troponin I < 0.012 Impressions: Abdomen/Pelvis CT 06/03/18 00:03 IMPRESSION: Little change in the appearance of the chest compared with the most recent CT chest. Stable postsurgical changes and volume loss of the right hemithorax. Stable areas of airspace opacity in the right paramediastinal region and right hilar regions. Areas of fibrosis are also noted. Fatty infiltrative change to the liver. Cholelithiasis. Sigmoid diverticulosis without CT evidence for diverticulitis. TECHNICAL DOCUMENTATION: Quality ID # 436: Final reports with documentation of one or more dose reduction techniques (e.g., Automated exposure control, adjustment of the mA and/or kV according to patient size, use of iterative reconstruction technique) copyright 2010 [employer]- All Rights Reserved Chest/Abdomen CTA 06/03/18 00:03 IMPRESSION: Little change in the appearance of the chest compared with the most recent CT chest. Stable postsurgical changes and volume loss of the right hemithorax. Stable areas of airspace opacity in the right paramediastinal region and right hilar regions. Areas of fibrosis are also noted. Fatty infiltrative change to the liver. Cholelithiasis. Sigmoid diverticulosis without CT evidence for diverticulitis. TECHNICAL DOCUMENTATION: Quality ID # 436: Final reports with documentation of one or more dose reduction techniques (e.g., Automated exposure control, adjustment of the mA and/or kV according to patient size, use of iterative reconstruction technique) copyright 2010 [employer]- All Rights Reserved Venous Doppler Study 06/05/18 00:00 IMPRESSION: NO EVIDENCE DVT OR SVT IN EITHER LEG. Chest CT 06/07/18 00:00 IMPRESSION: Increasing consolidation right lung, now with complete opacification the right upper lobe with right apical lung parenchymal air-fluid levels worrisome for intrapulmonary abscesses. There is now consolidation in the posterior right lung base worrisome for pneumonia. Chest X-Ray 06/09/18 00:00 IMPRESSION: Rehydration versus progressing pneumonia in the right lung. Head CT 06/09/18 00:00 IMPRESSION: CHRONIC CHANGES OF ATROPHY AND MICROVASCULAR ISCHEMIA. NO ACUTE PROCESS. EVIDENCE OF ACUTE STROKE: NO. Assessment & Plan - Diagnosis (1) Pneumonia Qualifiers: Pneumonia type: due to unspecified organism Laterality: right Lung location: unspecified part of lung Qualified Code(s): J18.9 - Pneumonia, unspecified organism Is this a current diagnosis for this admission?: Yes Plan: Possibly postobstructive pneumonia. Continue broad-spectrum antibiotics. Follow blood and sputum cultures. Dr. Bryant from pulmonology switched cefepime to Zosyn. Dr. Mackay consulted Dr. Salcedo for questionable lung abscess. Dr. Salcedo recommended transfer for cardiothoracic surgery consultation. I just spoke with Dr. Mackay got in touch with cardiothoracic surgery and they reviewed the films and recommended continuing IV antibiotic management. (2) Dehydration Is this a current diagnosis for this admission?: Yes Plan: Continue IV fluids (3) Hypokalemia Is this a current diagnosis for this admission?: Yes Plan: Monitor and replace as needed (4) Hypomagnesemia Is this a current diagnosis for this admission?: Yes Plan: Continue replacement. Monitor levels (5) Lung mass Is this a current diagnosis for this admission?: Yes Plan: Enlarging mass. CT scan with IV contrast reviewed. Most likely postobstructive pneumonia with lung abscess on top of his chronic lung mass. We consulted pulmonology. Dr. Bryant from pulmonology switch cefepime to Zosyn. Dr. Mackay consulted Dr. Salcedo for questionable lung abscess. Dr. Salcedo recommended transfer for cardiothoracic surgery consultation. I just spoke with Dr. Mackay got in touch with cardiothoracic surgery and they reviewed the films and recommended continuing IV antibiotic management. (6) Squamous cell carcinoma of right lung Is this a current diagnosis for this admission?: Yes Plan: Defer to oncology (7) Alcohol abuse Is this a current diagnosis for this admission?: Yes Plan: Continue thiamine and as needed only diazepam (8) Hyponatremia Is this a current diagnosis for this admission?: Yes Plan: Improved. Monitor.
[2018-06-09] MEDS ORDERED: POTASSIUM CHLORIDE 20 MEQ/15 ML UDCUP PO ONE (14:30)
[2018-06-09] MEDS: VANCOMYCIN HCL 1,000 MG in DEXTROSE 5%-WATER 250 ML IV SCH (20:45)
[2018-06-10] MEDS: VANCOMYCIN HCL 1,000 MG in DEXTROSE 5%-WATER 250 ML IV SCH ×3 (03:48→23:37)
[2018-06-10] MEDS: PIPERACILLIN SODIUM/TAZOBACTAM 3.375 GM in NORMAL SALINE 100 ML IV SCH ×3 (06:04→23:39)
[2018-06-10] MEDS: HEPARIN SOD (PORCINE) 5,000 UNIT/ML 1 ML SYRINGE SUBCUT SCH ×3 (06:04→23:40)
[2018-06-10 06:44] LABS: HEMATOCRIT 27.2 % (37.9-51.0); HEMOGLOBIN 9.1 g/dL (13.5-17.0); MEAN CORPUSCULAR HEMOGLOBIN 32.1 pg (27.0-33.4); MEAN CORPUSCULAR HGB CONC 33.4 g/dL (32.0-36.0); MEAN CORPUSCULAR VOLUME 96 fl (80-97); PLATELET COUNT 179 10^3/uL (150-450); RED BLOOD COUNT 2.83 10^6/uL (4.35-5.55); RED CELL DISTRIBUTION WIDTH 20.2 % (11.5-14.0); WHITE BLOOD COUNT 11.5 10^3/uL (4.0-10.5)
[2018-06-10 07:06] LABS: ANION GAP 9 (5-19); BLOOD UREA NITROGEN 10 mg/dL (7-20); CALCIUM 8.3 mg/dL (8.4-10.2); CARBON DIOXIDE 24 mmol/L (22-30); CHLORIDE 102 mmol/L (98-107); GLUCOSE 103 mg/dL (75-110); POTASSIUM 3.1 mmol/L (3.6-5.0); SODIUM 134.7 mmol/L (137-145)
--- NOTE | 2018-06-10 07:55 | RADIOLOGY REPORT (SQ) ---
EXAM DESCRIPTION: US CHEST COMPLETED DATE/TME: 06/09/2018 22:52 CLINICAL HISTORY: 58 years, Male, Quantify pleural effusion, bilateral COMPARISON: None. TECHNIQUE: Targeted exam for requested parameters. LIMITATIONS: None. FINDINGS: No significant pleural effusion discerned bilaterally. IMPRESSION: Targeted exam for requested parameters.
[2018-06-10] MEDS: LEVOFLOXACIN 750 MG/D5W RTU 750 MG/150 ML RTUPB IV SCH (10:00)
--- NOTE | 2018-06-10 11:01 | RADIOLOGY REPORT (SQ) ---
EXAM DESCRIPTION: CHEST SINGLE VIEW COMPLETED DATE/TIME: 06/10/2018 10:46 am REASON FOR STUDY: Pneumonia COMPARISON: 06/09/2018 EXAM PARAMETERS: NUMBER OF VIEWS: One view. TECHNIQUE: Single frontal radiographic view of the chest acquired. RADIATION DOSE: NA LIMITATIONS: None. FINDINGS: LUNGS AND PLEURA: Persistent dense opacification of the right hemithorax with small aerate d component. Likely moderate to right-sided pleural effusion. Minimal linear left basilar atelectas is. Otherwise, left hemithorax is unremarkable. MEDIASTINUM AND HILAR STRUCTURES: Known right hilar mass not well delineated. HEART AND VASCULAR STRUCTURES: Stable, largely obscured. BONES: Displaced right-sided rib fractures, stable. HARDWARE: None in the chest. OTHER: No other significant finding. IMPRESSION: Persistent dense opacification of the right hemithorax, not significantly changed from p rior. Findings likely combination of mass, atelectasis and effusion. TECHNICAL DOCUMENTATION: JOB ID: [id number] [employer]- All Rights Reserved Reading location - IP/workstation name: [email or web address]
--- NOTE | 2018-06-10 11:46 | PDOC PROGRESS REPORT ---
Subjective Progress Note for:: 06/10/18 Subjective:: Patient seen and examined today. He developed high fever yesterday. He then became lethargic and confused. X- ray shows progression of pneumonia. Dr. Bryant from pulmonology switched him from cefepime to Zosyn. Dr. Mackay consulted Dr. Salcedo for questionable lung abscess. Dr. Salcedo recommended transfer for cardiothoracic surgery consultation. Dr. Mackay got in touch with cardiothoracic surgery and they reviewed the films and recommended continuing IV antibiotic management. He is afebrile today. His white count is slightly more elevated. He is more awake and oriented today but still lethargic. He is hypotensive and tachycardic. He is stable on nasal cannula oxygen. Reason For Visit: LUNG CANCER HYPONATREMIA Physical Exam Vital Signs: Temp Pulse Resp BP Pulse Ox 98.1 F 112 H 18 96/58 L 96 06/10/18 08:54 06/10/18 08:54 06/10/18 08:54 06/10/18 08:54 06/10/18 08:54 Intake & Output 06/09/18 06/10/18 06/11/18 06:59 06:59 06:59 Intake Total 5470 2876 Output Total 400 600 Balance 5070 2276 Weight 218 lb 0.595 oz 220 lb 3.869 oz General appearance: PRESENT: cooperative, mild distress, other - Lethargic Head exam: PRESENT: atraumatic, normocephalic Eye exam: ABSENT: conjunctival injection Mouth exam: PRESENT: moist, neck supple Neck exam: ABSENT: meningismus, tenderness Respiratory exam: PRESENT: accessory muscle use, other - Decreased breathing so unds on the right lung Cardiovascular exam: PRESENT: systolic murmur GI/Abdominal exam: PRESENT: normal bowel sounds, soft. ABSENT: tenderness Rectal exam: PRESENT: deferred Extremities exam: ABSENT: pedal edema Musculoskeletal exam: ABSENT: deformity Neurological exam: PRESENT: awake, oriented to person, oriented to place, oriented to time Psychiatric exam: PRESENT: anxious, other - Lethargic Results Laboratory Results: 06/10/18 05:40 06/10/18 05:40 06/09/18 06/09/18 06/09/18 16:37 17:27 21:13 WBC RBC Hgb Hct MCV MCH MCHC RDW Plt Count Sodium Potassium Chloride Carbon Dioxide Anion Gap BUN Creatinine Est GFR ( Amer) Est GFR (Non-Af Amer) Glucose Lactic Acid Cancelled 2.1 0.9 Calcium Magnesium 06/10/18 06/10/18 05:40 05:40 WBC 11.5 H RBC 2.83 L Hgb 9.1 L Hct 27.2 L MCV 96 MCH 32.1 MCHC 33.4 RDW 20.2 H Plt Count 179 Sodium 134.7 L Potassium 3.1 L Chloride 102 Carbon Dioxide 24 Anion Gap 9 BUN 10 Creatinine 0.73 Est GFR ( Amer) > 60 Est GFR (Non-Af Amer) > 60 Glucose 103 Lactic Acid Calcium 8.3 L Magnesium 1.4 L 06/07/18 11:25 Catheterized Urine Urine Culture - Final NO GROWTH 2 DAYS 06/02/18 23:30 Troponin I < 0.012 Impressions: Abdomen/Pelvis CT 06/03/18 00:03 IMPRESSION: Little change in the appearance of the chest compared with the most recent CT chest. Stable postsurgical changes and volume loss of the right hemithorax. Stable areas of airspace opacity in the right paramediastinal region and right hilar regions. Areas of fibrosis are also noted. Fatty infiltrative change to the liver. Cholelithiasis. Sigmoid diverticulosis without CT evidence for diverticulitis. TECHNICAL DOCUMENTATION: Quality ID # 436: Final reports with documentation of one or more dose reduction techniques (e.g., Automated exposure control, adjustment of the mA and/or kV according to patient size, use of iterative reconstruction technique) copyright 2010 [employer]- All Rights Reserved Chest/Abdomen CTA 06/03/18 00:03 IMPRESSION: Little change in the appearance of the chest compared with the most recent CT chest. Stable postsurgical changes and volume loss of the right hemithorax. Stable areas of airspace opacity in the right paramediastinal region and right hilar regions. Areas of fibrosis are also noted. Fatty infiltrative change to the liver. Cholelithiasis. Sigmoid diverticulosis without CT evidence for diverticulitis. TECHNICAL DOCUMENTATION: Quality ID # 436: Final reports with documentation of one or more dose reduction techniques (e.g., Automated exposure control, adjustment of the mA and/or kV according to patient size, use of iterative reconstruction technique) copyright 2010 [employer]- All Rights Reserved Venous Doppler Study 06/05/18 00:00 IMPRESSION: NO EVIDENCE DVT OR SVT IN EITHER LEG. Chest CT 06/07/18 00:00 IMPRESSION: Increasing consolidation right lung, now with complete opacification the right upper lobe with right apical lung parenchymal air-fluid levels worrisome for intrapulmonary abscesses. There is now consolidation in the posterior right lung base worrisome for pneumonia. Head CT 06/09/18 00:00 IMPRESSION: CHRONIC CHANGES OF ATROPHY AND MICROVASCULAR ISCHEMIA. NO ACUTE PROCESS. EVIDENCE OF ACUTE STROKE: NO. Chest Ultrasound 06/09/18 22:52 IMPRESSION: Targeted exam for requested parameters. Chest X-Ray 06/10/18 06:00 IMPRESSION: Persistent dense opacification of the right hemithorax, not significantly changed from prior. Findings likely combination of mass, atelectasis and effusion. Assessment & Plan - Diagnosis (1) Pneumonia Qualifiers: Pneumonia type: due to unspecified organism Laterality: right Lung locati on: unspecified part of lung Qualified Code(s): J18.9 - Pneumonia, unspecified organism Is this a current diagnosis for this admission?: Yes Plan: Possible postobstructive pneumonia. Continue broad-spectrum antibiotics. Follow blood and sputum cultures. Dr. Bryant from pulmonology switched cefepime to Zosyn on 06/09/2018. On 06/09/2018: Dr. Mackay consulted Dr. Salcedo for questionable lung abscess. Dr. Salcedo recommended transfer for cardiothoracic surgery consultation. Thompson contacted cardiothoracic surgery and they reviewed the films and recommended continuing IV antibiotic management. (2) Dehydration Is this a current diagnosis for this admission?: Yes Plan: Switch normal saline to lactated Ringer's and increased rate from 100-150 mL/h (3) Hypokalemia Is this a current diagnosis for this admission?: Yes Plan: Monitor and replace as needed (4) Hypomagnesemia Is this a current diagnosis for this admission?: Yes Plan: Continue replacement. Monitor levels (5) Lung mass Is this a current diagnosis for this admission?: Yes Plan: Enlarging mass. CT scan with IV contrast reviewed. Most likely postobstructive pneumonia with lung abscess on top of his chronic lung mass. We consulted pulmonology. Dr. Bryant from pulmonology switch cefepime to Zosyn on 06/09/2018. On 06/09/2018: Dr. Mackay consulted Dr. Salcedo for questionable lung abscess. Dr. Salcedo recommended transfer for cardiothoracic surgery consultation. Dr. Mackay contacted cardiothoracic surgery and they reviewed the films and recommended continuing IV antibiotic management. (6) Squamous cell carcinoma of right lung Is this a current diagnosis for this admission?: Yes Plan: Defer to oncology (7) Alcohol abuse Is this a current diagnosis for this admission?: Yes Plan: Continue thiamine and only as needed diazepam (8) Hyponatremia Is this a current diagnosis for this admission?: Yes Plan: Improved. Monitor.
[2018-06-10] MEDS: DOCUSATE SODIUM 100 MG CAPSULE PO SCH ×2 (11:51→18:05)
[2018-06-10] MEDS: MAGNESIUM OXIDE 400 MG TABLET PO SCH ×2 (11:51→17:56)
[2018-06-10] MEDS: DILTIAZEM HCL 120 MG CAP.SR.24H PO SCH ×2 (11:51→23:38)
[2018-06-10] MEDS: THIAMINE HCL 100 MG TABLET PO SCH (11:51)
[2018-06-10] MEDS ORDERED: POTASSI CL 20 MEQ/50 ML RIDER 20 MEQ/50 ML RTUPB IV SCH (12:00)
[2018-06-10] MEDS ORDERED: MAGNESIUM SULFATE/D5W 1 GM/100 ML RTUPB IV SCH (12:30)
[2018-06-10] MEDS: MAGNESIUM SULFATE 1 GM/D5W 100 ML IV SCH ×2 (15:35→16:43)
[2018-06-10] MEDS: POTASSIUM CHLORIDE 20 MEQ/50 ML RTU IV SCH ×2 (17:57→19:59)
[2018-06-10] MEDS: ACETAMINOPHEN 325 MG TABLET PO PRN (23:41)
[2018-06-10] MEDS ORDERED: DIAZEPAM INJ 10 MG/2 ML DISP.SYRIN IV PRN (23:47)
[2018-06-11 00:19] LABS: ARTERIAL BLOOD BASE EXCESS -4.7 mmol/L; ARTERIAL BLOOD FIO2 3LNC; ARTERIAL BLOOD HCO3 21.3 mmol/L (20-24); ARTERIAL BLOOD PCO2 43.3 mmHg (35-45); ARTERIAL BLOOD PH 7.31 (7.35-7.45); ARTERIAL BLOOD PO2 65.4 mmHg (80-100); ARTERIAL BLOOD TOTAL CO2 22.6 mmol/L (23-27)
[2018-06-11] MEDS: LEVALBUTEROL HCL NEB 1.25 MG/3 ML AMPUL NEB SCH ×3 (00:38→15:37)
[2018-06-11 06:04] LABS: HEMATOCRIT 24.9 % (37.9-51.0); HEMOGLOBIN 8.3 g/dL (13.5-17.0); MEAN CORPUSCULAR HEMOGLOBIN 32.6 pg (27.0-33.4); MEAN CORPUSCULAR HGB CONC 33.4 g/dL (32.0-36.0); MEAN CORPUSCULAR VOLUME 98 fl (80-97); PLATELET COUNT 150 10^3/uL (150-450); RED BLOOD COUNT 2.55 10^6/uL (4.35-5.55); WHITE BLOOD COUNT 10.1 10^3/uL (4.0-10.5)
[2018-06-11] MEDS: PIPERACILLIN SODIUM/TAZOBACTAM 3.375 GM in NORMAL SALINE 100 ML IV SCH ×3 (06:10→22:49)
[2018-06-11] MEDS: VANCOMYCIN HCL 1,000 MG in DEXTROSE 5%-WATER 250 ML IV SCH ×2 (06:11→12:50)
[2018-06-11] MEDS: HEPARIN SOD (PORCINE) 5,000 UNIT/ML 1 ML SYRINGE SUBCUT SCH ×3 (06:14→22:49)
[2018-06-11 06:23] LABS: ALANINE AMINOTRANSFERASE 29 U/L (21-72); ALBUMIN 2.5 g/dL (3.5-5.0); ALKALINE PHOSPHATASE 137 U/L (38-126); ANION GAP 9 (5-19); ASPARTATE AMINO TRANSFERASE 64 U/L (17-59); BILIRUBIN,DIRECT 1.1 mg/dL (0.0-0.4); BILIRUBIN,TOTAL 1.3 mg/dL (0.2-1.3); BLOOD UREA NITROGEN 22 mg/dL (7-20); CALCIUM 8.4 mg/dL (8.4-10.2); CARBON DIOXIDE 21 mmol/L (22-30); CHLORIDE 106 mmol/L (98-107); GLUCOSE 100 mg/dL (75-110); POTASSIUM 3.9 mmol/L (3.6-5.0); SODIUM 135.9 mmol/L (137-145)
[2018-06-11] MEDS: RINGERS SOLUTION 1,000 ML IV PRN (06:29)
--- NOTE | 2018-06-11 08:00 | PDOC PROGRESS REPORT ---
Subjective Progress Note for:: 06/11/18 Subjective:: Patient is on BiPAP but is awake, and talking appropriately. He states that he wants to get up, but nurses fuss at him when he does this. He states that the BiPAP is helping his breathing. He still complains of the neuropathy in his feet. ROS: No constipation. No nausea. +Cough. Reason For Visit: LUNG CANCER HYPONATREMIA Physical Exam Vital Signs: Temp Pulse Resp BP Pulse Ox 98.7 F 87 10 L 86/52 L 95 06/11/18 04:18 06/11/18 04:18 06/11/18 04:30 06/11/18 04:18 06/11/18 04:30 Intake & Output 06/10/18 06/11/18 06/12/18 06:59 06:59 06:59 Intake Total 4226 1740 Output Total 600 50 Balance 3626 1690 Weight 99.9 kg 96.7 kg General appearance: PRESENT: well-developed, well-nourished Head exam: PRESENT: normocephalic Respiratory exam: PRESENT: other - Decreased BS in the right base, but upper airway now with breath sounds. Cardiovascular exam: PRESENT: RRR GI/Abdominal exam: PRESENT: normal bowel sounds, soft, tenderness Extremities exam: ABSENT: pedal edema Neurological exam: PRESENT: alert, awake Psychiatric exam: PRESENT: appropriate affect Skin exam: PRESENT: normal color Results Laboratory Results: 06/11/18 05:25 06/11/18 05:25 06/11/18 06/11/18 06/11/18 00:00 05:25 05:25 WBC 10.1 RBC 2.55 L Hgb 8.3 L Hct 24.9 L MCV 98 H MCH 32.6 MCHC 33.4 RDW 20.0 H Plt Count 150 Carbonic Acid 1.30 HCO3/H2CO3 Ratio 16:1 ABG pH 7.31 L ABG pCO2 43.3 ABG pO2 65.4 L ABG HCO3 21.3 ABG O2 Saturation 91.0 L ABG Base Excess -4.7 FiO2 3LNC Sodium 135.9 L Potassium 3.9 Chloride 106 Carbon Dioxide 21 L Anion Gap 9 BUN 22 H Creatinine 2.15 H Est GFR ( Amer) 39 L Est GFR (Non-Af Amer) 32 L Glucose 100 Calcium 8.4 Magnesium 2.1 Total Bilirubin 1.3 AST 64 H ALT 29 Alkaline Phosphatase 137 H Total Protein 5.0 L Albumin 2.5 L 06/02/18 23:30 Troponin I < 0.012 Impressions: Abdomen/Pelvis CT 06/03/18 00:03 IMPRESSION: Little change in the appearance of the chest compared with the most recent CT chest. Stable postsurgical changes and volume loss of the right hemithorax. Stable areas of airspace opacity in the right paramediastinal region and right hilar regions. Areas of fibrosis are also noted. Fatty infiltrative change to the liver. Cholelithiasis. Sigmoid diverticulosis without CT evidence for diverticulitis. TECHNICAL DOCUMENTATION: Quality ID # 436: Final reports with documentation of one or more dose reduction techniques (e.g., Automated exposure control, adjustment of the mA and/or kV according to patient size, use of iterative reconstruction technique) copyright 2010 [employer]- All Rights Reserved Chest/Abdomen CTA 06/03/18 00:03 IMPRESSION: Little change in the appearance of the chest compared with the most recent CT chest. Stable postsurgical changes and volume loss of the right hemithorax. Stable areas of airspace opacity in the right paramediastinal region and right hilar regions. Areas of fibrosis are also noted. Fatty infiltrative change to the liver. Cholelithiasis. Sigmoid diverticulosis without CT evidence for diverticulitis. TECHNICAL DOCUMENTATION: Quality ID # 436: Final reports with documentation of one or more dose reduction techniques (e.g., Automated exposure control, adjustment of the mA and/or kV according to patient size, use of iterative reconstruction technique) copyright 2010 [employer]- All Rights Reserved Venous Doppler Study 06/05/18 00:00 IMPRESSION: NO EVIDENCE DVT OR SVT IN EITHER LEG. Chest CT 06/07/18 00:00 IMPRESSION: Increasing consolidation right lung, now with complete opacifi cation the right upper lobe with right apical lung parenchymal air-fluid levels worrisome for intrapulmonary abscesses. There is now consolidation in the posterior right lung base worrisome for pneumonia. Head CT 06/09/18 00:00 IMPRESSION: CHRONIC CHANGES OF ATROPHY AND MICROVASCULAR ISCHEMIA. NO ACUTE PROCESS. EVIDENCE OF ACUTE STROKE: NO. Chest Ultrasound 06/09/18 22:52 IMPRESSION: Targeted exam for requested parameters. Chest X-Ray 06/10/18 06:00 IMPRESSION: Persistent dense opacification of the right hemithorax, not significantly changed from prior. Findings likely combination of mass, atelec tasis and effusion. Assessment & Plan - Diagnosis (1) Hyponatremia Is this a current diagnosis for this admission?: Yes Plan: Improving. (2) Squamous cell carcinoma of right lung Is this a current diagnosis for this admission?: Yes Plan: All treatment on hold. Will need to re-evaluate after he recovers from the ac kaw infection. (3) Peripheral neuropathy Is this a current diagnosis for this admission?: Yes Plan: Continue pain meds PRN. I have encouraged him to get up and walk with the nurses assistance, if possible. (4) Hypomagnesemia Is this a current diagnosis for this admission?: Yes Plan: Improved (5) Alcohol abuse Is this a current diagnosis for this admission?: Yes Plan: DTs have improved. Continue protocol. Meds are only PRN now. (6) Acute diarrhea Is this a current diagnosis for this admission?: Yes Plan: Resolved. (7) Pneumonia Qualifiers: Pneumonia type: due to unspecified organism Laterality: right Lung location: unspecified part of lung Qualified Code(s): J18.9 - Pneumonia, unsp ecified organism Is this a current diagnosis for this admission?: Yes Plan: Pulmonary following. ABX were switched and he seems to be responding much better now. - Plan Summary Plan Summary: I will continue to follow. Please call with any concerns.
--- NOTE | 2018-06-11 08:19 | CONSULTATION REPORT E ---
Consultation Report NAME: ERICKA RAZO : 1960 AGE: 58Y DATE: 408 A TO: SYDNIE MALAVE M.D. FROM: MARIANA MCKOY M.D. Requesting Physician HISTORY OF PRESENT ILLNESS: The patient is a 58-year-old male with a history of right upper lobe carcinoma, locally advanced, and status post chemotherapy and radiation therapy admitted at [facility] 1 week ago for failure to thrive, shortness of breath and respiratory distress. Consulted because of whitening/opacification of the right lung suspicious for an abscess. He was started on Rocephin IV and admitted. The patient was started on Levaquin 750 mg IV once daily on admission. Chest x-ray today showed worsening opacification on the lower right. Other chest CT scan 2 days ago showing right upper lobe consolidation, but has good lung aeration involving the right middle lobe and the right lower lobe. The patient's RN claimed the patient is not coughing any yellow phlegm. There was a temperature spike this morning at 7:40 to 102.9 degrees Fahrenheit. The patient has been having fever intermittently over the last 4 days. The patient was admitted on 06/03/2018. PAST MEDICAL HISTORY: 1. Denies any carotid disease or hypertension. 2. Past history of COPD. 3. Denies any migraines history. 4. Denies any diabetes. 5. Diagnosed to have [id number] squamous cell carcinoma on 04/01/2017. He completed chemotherapy or radiation therapy in July 2017. His chemotherapy was discontinued several months ago. SURGICAL HISTORY: Orthopedic surgery left . SOCIAL HISTORY: The patient lives with spouse. He is a former smoker. Used to drink alcohol every night. Denies illicit abuse. 1. FAMILY HISTORY: COPD, CAD, hypertension, malignancy. MEDICATIONS: 1. Lasix 2. Potassium chloride. 3. Lyrica. 4. Prednisone. 5. Milk of Magnesia. REVIEW OF SYSTEMS: CONSTITUTIONAL: Fever for the last few days the patient is spiking to 102 degrees Fahrenheit. EYES: No visual changes. EARS: No hearing changes. CARDIOVASCULAR: No chest pain, dyspnea on exertion, edema. nonproductive cough. GASTROINTESTINAL: Positive history of nausea and vomiting. GENITOURINARY: No dysuria, hematuria. PHYSICAL EXAMINATION: GENERAL: The patient appeared sleepy. Afebrile. Not in apparent respiratory distress. VITAL SIGNS: Temperature is 99.8 with temperature of 102.9, heart rate of 119, blood pressure is 113/60, respiratory is 18, saturation 90% on room air. EYES: No jaundice or pallor. EARS, NOSE, AND THROAT: No ear drainage. CHEST AND LUNGS: No coarse crackles. CARDIOVASCULAR: S1, S2 distinct. Normal rate and regular rhythm. ABDOMEN: Flabby, positive bowel sounds, soft, nondistended, nontender. EXTREMITIES: No joint swelling, no cellulitis. LABORATORY: Today white blood cell count is 10.9, hemoglobin is 9.3, hematocrit is 37.3, platelet count is 181. Chemistries done today show sodium is 130.9, potassium is 3.4, chloride 101, CO2 is 32, BUN is 13, creatinine 0.71, glucose 108, calcium is 8.9. Chest x-ray today showed whitening/opacification of the entire right lung -possible pleural effusion. ASSESSMENT: 1. Opacification right lung. 2. Right upper lobe cancer s/p radiation therapy and s/p chemotherapy 3. History of pneumonia, right upper lobe, and some suspicious abscess formation. PLAN/RECOMMENDATIONS: 1. Will add Zosyn 3.75 mg every 8 hours IV. 2. Levaquin 750 mg daily. 3. Agree with IV vancomycin empiric coverage. 4. Will perform chest ultrasound to quantify if pleural effusion is present and if thoracentesis is possible. 5. I doubt whether flexible bronchoscopy will be helpful, but will consider that in the next 1 to 2 days after doing the chest ultrasound and depending if pleural effusion is present. 6. Patient may require bronchial stent placement as palliative measure at [facility] or [place] or [facility] if family insisted on full code an doing everything. Recommend family discusion about palliative care and hospice care. DICTATING PHYSICIAN: SYDNIE MALAVE MD,SANGITA,MPH [id number] PHY#: [id number] ID: [id number] JOB#: [id number] ACCT: [id number] cc:SYDNIE MALAVE M.D. > [facility]
--- NOTE | 2018-06-11 08:21 | PROGRESS NOTE E ---
Progress Note NAME: ERICKA RAZO : 1960 AGE: 58Y DATE: 06/10/2018 ROOM: 408 SUBJECTIVE: The patient is a 58-year-old male who came in with past medical history of right upper lobe cancer status post chemoradiation completed July 2017 followed by immunotherapy. Chemotherapy discontinued several months ago due to severe toxicity. The patient had a chest ultrasound today showing minimal pleural effusion on the right side where there is whitening of the entire right lung noted to just be more of a right atelectasis, most likely due to carcinoma. Post-obstructive pneumonia cannot be completely excluded. OBJECTIVE: GENERAL: The patient appeared awake, arousable, afebrile, in slight respiratory distress. VITAL SIGNS: Temperature is 99 degrees Fahrenheit with a T-max of 99.8 degrees, heart rate is 116, blood pressure is 113/62, respiratory rate is 21, saturation 92% on nasal cannula 3 L. EYES: No jaundice or pallor. EARS, NOSE, AND THROAT: No ear drainage. No nasal discharge. CHEST AND LUNGS: Decreased breath sounds right lung. No wheezing, no rhonchi, no coarse crackles. CARDIOVASCULAR: S1, S2 distinct ; tachycardic at 108 to 113 to 116 beats per minute. Regular rhythm. ABDOMEN: Flabby. Positive bowel sounds. Soft, nondistended, nontender. EXTREMITIES: No joint swelling. No cellulitis. LABORATORY: CBC done today showed white count of 11.5, hemoglobin is 9.1, hematocrit is 27.2, platelet count is 129. Chemistry done today showed sodium is 134.7, potassium is 3.1, chloride 102, CO2 is 24, BUN 10, creatinine 0.73, glucose 103, calcium is 8.3, and magnesium is 1.4. ASSESSMENT: 1. PNEUMONIA, RIGHT LUNG WITH ALSO COMPLETE ATELECTASIS RIGHT LUNG. 2. HISTORY OF STAGE 3 SQUAMOUS CELL CARCINOMA. PLAN/RECOMMENDATIONS: Optimize therapy for pneumonia. Continue IV Zosyn, IV Levaquin 750, and vancomycin. Continue nebulizer treatment every 12 hours as needed. Start patient on Xopenex 1.25 mg every 6 hours. Discuss hospice care or palliative care with family members. DICTATING PHYSICIAN: SYDNIE MALAVE MD,SANGITA,MPH [id number] PHY#: [id number] ID: [id number] JOB#: [id number] ACCT: [id number] cc: > JUAN
--- NOTE | 2018-06-11 09:54 | RADIOLOGY REPORT (SQ) ---
EXAM DESCRIPTION: CHEST SINGLE VIEW COMPLETED DATE/TIME: 06/11/2018 9:43 am REASON FOR STUDY: pneumonia and right lung atelectasis COMPARISON: CT chest 06/03/2018, 06/07/2018 Chest films 06/02/2018, 06/07/2018, 06/10/2018 EXAM PARAMETERS: NUMBER OF VIEWS: One view. TECHNIQUE: Single frontal radiographic view of the chest acquired. RADIATION DOSE: NA LIMITATIONS: None. FINDINGS: LUNGS AND PLEURA: There is now near complete collapse of the right lung with only minimal aeration at the right lung base. Postobstructive pneumonia is present from large right hilar mass. Left lung hyperinflated and hyperlucent but grossly clear. No left pleural effusion. No left pneumo thorax. MEDIASTINUM AND HILAR STRUCTURES: Right hilar mass obscured by postobstructive pneumonia right lung HEART AND VASCULAR STRUCTURES: Right heart border obscured by right lung collapse BONES: Right lateral lower rib fractures are unchanged HARDWARE: None in the chest. OTHER: No other significant finding. IMPRESSION: Near complete collapse of the right lung with shift of mediastinal structures into the r ight chest TECHNICAL DOCUMENTATION: JOB ID: [id number] [employer]- All Rights Reserved Reading location - IP/workstation name: [email or web address]
[2018-06-11] MEDS: LEVOFLOXACIN 750 MG/D5W RTU 750 MG/150 ML RTUPB IV SCH (11:13)
[2018-06-11] MEDS: DOCUSATE SODIUM 100 MG CAPSULE PO SCH ×2 (11:17→17:39)
[2018-06-11] MEDS: DILTIAZEM HCL 120 MG CAP.SR.24H PO SCH ×2 (11:17→22:50)
[2018-06-11] MEDS: THIAMINE HCL 100 MG TABLET PO SCH (11:18)
[2018-06-11] MEDS: MAGNESIUM OXIDE 400 MG TABLET PO SCH ×2 (11:18→17:41)
[2018-06-11] MEDS: ACETAMINOPHEN 325 MG TABLET PO PRN (11:56)
[2018-06-11 12:45] LABS: VANCOMYCIN,TROUGH 26.4 ug/mL (5.0-20.0)
[2018-06-11 17:03] LABS: ARTERIAL BLOOD BASE EXCESS -5.6 mmol/L; ARTERIAL BLOOD H2CO3 1.14 mmol/L (1.05-1.35); ARTERIAL BLOOD HCO3 19.8 mmol/L (20-24); ARTERIAL BLOOD O2 SATURATION 95.1 % (94-98); ARTERIAL BLOOD PH 7.33 (7.35-7.45); ARTERIAL BLOOD PO2 79.5 mmHg (80-100); ARTERIAL BLOOD TOTAL CO2 20.9 mmol/L (23-27)
[2018-06-11 17:06] LABS: ARTERIAL BLOOD FIO2 2L
--- NOTE | 2018-06-11 17:48 | PDOC PROGRESS REPORT ---
Subjective Progress Note for:: 06/11/18 Subjective:: Patient seen and examined today. Continue to spike intermittent fevers He is currently on BiPAP He is more awake and alert and responsive His creatinine increased most likely due to vancomycin toxicity His white count is normalized Reason For Visit: LUNG CANCER HYPONATREMIA Physical Exam Vital Signs: Temp Pulse Resp BP Pulse Ox 103.1 F H 86 16 115/67 95 06/11/18 11:48 06/11/18 15:37 06/11/18 15:37 06/11/18 11:48 06/11/18 13:02 Intake & Output 06/10/18 06/11/18 06/12/18 06:59 06:59 06:59 Intake Total 4226 1890 1592 Output Total 600 50 Balance 3626 1840 1592 Weight 220 lb 3.869 oz 213 lb 2.992 oz General appearance: PRESENT: cooperative, mild distress, other - On BiPAP Head exam: PRESENT: atraumatic, normocephalic Mouth exam: PRESENT: moist, neck supple Neck exam: ABSENT: meningismus, tenderness Respiratory exam: PRESENT: rhonchi, wheezes Cardiovascular exam: PRESENT: RRR Pulses: PRESENT: normal radial pulses GI/Abdominal exam: PRESENT: normal bowel sounds, soft. ABSENT: tenderness Rectal exam: PRESENT: deferred Neurological exam: PRESENT: alert, awake, oriented to person, oriented to place, oriented to time, oriented to situation Psychiatric exam: PRESENT: anxious Results Laboratory Results: 06/11/18 05:25 06/11/18 05:25 06/11/18 06/11/18 06/11/18 00:00 05:25 05:25 WBC 10.1 RBC 2.55 L Hgb 8.3 L Hct 24.9 L MCV 98 H MCH 32.6 MCHC 33.4 RDW 20.0 H Plt Count 150 Carbonic Acid 1.30 HCO3/H2CO3 Ratio 16:1 ABG pH 7.31 L ABG pCO2 43.3 ABG pO2 65.4 L ABG HCO3 21.3 ABG O2 Saturation 91.0 L ABG Base Excess -4.7 FiO2 3LNC Sodium 135.9 L Potassium 3.9 Chloride 106 Carbon Dioxide 21 L Anion Gap 9 BUN 22 H Creatinine 2.15 H Est GFR ( Amer) 39 L Est GFR (Non-Af Amer) 32 L Glucose 100 Calcium 8.4 Magnesium 2.1 Total Bilirubin 1.3 AST 64 H ALT 29 Alkaline Phosphatase 137 H Total Protein 5.0 L Albumin 2.5 L 06/11/18 16:51 WBC RBC Hgb Hct MCV MCH MCHC RDW Plt Count Carbonic Acid 1.14 HCO3/H2CO3 Ratio 17:1 ABG pH 7.33 L ABG pCO2 38.0 ABG pO2 79.5 L ABG HCO3 19.8 L ABG O2 Saturation 95.1 ABG Base Excess -5.6 FiO2 2L Sodium Potassium Chloride Carbon Dioxide Anion Gap BUN Creatinine Est GFR ( Amer) Est GFR (Non-Af Amer) Glucose Calcium Magnesium Total Bilirubin AST ALT Alkaline Phosphatase Total Protein Albumin 06/02/18 23:30 Troponin I < 0.012 Impressions: Abdomen/Pelvis CT 06/03/18 00:03 IMPRESSION: Little change in the appearance of the chest compared with the most recent CT chest. Stable postsurgical changes and volume loss of the right hemithorax. Stable areas of airspace opacity in the right paramediastinal region and right hilar regions. Areas of fibrosis are also noted. Fatty infiltrative change to the liver. Cholelithiasis. Sigmoid diverticulosis without CT evidence for diverticulitis. TECHNICAL DOCUMENTATION: Quality ID # 436: Final reports with documentation of one or more dose reduction techniques (e.g., Automated exposure control, adjustment of the mA and/or kV according to patient size, use of iterative reconstruction technique) copyright 2010 [employer]- All Rights Reserved Chest/Abdomen CTA 06/03/18 00:03 IMPRESSION: Little change in the appearance of the chest compared with the most recent CT chest. Stable postsurgical changes and volume loss of the right hemithorax. Stable areas of airspace opacity in the right paramediastinal region and right hilar regions. Areas of fibrosis are also noted. Fatty infiltrative change to the liver. Cholelithiasis. Sigmoid diverticulosis without CT evidence for diverticulitis. TECHNICAL DOCUMENTATION: Quality ID # 436: Final reports with documentation of one or more dose reduction techniques (e.g., Automated exposure control, adjustment of the mA and/or kV according to patient size, use of iterative reconstruction technique) copyright 2010 [employer]- All Rights Reserved Venous Doppler Study 06/05/18 00:00 IMPRESSION: NO EVIDENCE DVT OR SVT IN EITHER LEG. Chest CT 06/07/18 00:00 IMPRESSION: Increasing consolidation right lung, now with complete opacification the right upper lobe with right apical lung parenchymal air-fluid levels worrisome for intrapulmonary abscesses. There is now consolidation in the posterior right lung base worrisome for pneumonia. Head CT 06/09/18 00:00 IMPRESSION: CHRONIC CHANGES OF ATROPHY AND MICROVASCULAR ISCHEMIA. NO ACUTE PROCESS. EVIDENCE OF ACUTE STROKE: NO. Chest Ultrasound 06/09/18 22:52 IMPRESSION: Targeted exam for requested parameters. Chest X-Ray 06/11/18 10:00 IMPRESSION: Near complete collapse of the right lung with shift of mediastinal structures into the right chest Assessment & Plan - Diagnosis (1) Pneumonia Qualifiers: Pneumonia type: due to unspecified organism Laterality: right Lung location: unspecified part of lung Qualified Code(s): J18.9 - Pneumonia, unspecified organism Is this a current diagnosis for this admission?: Yes Plan: Possible postobstructive pneumonia. Continue broad-spectrum antibiotics. Follow blood and sputum cultures. Dr. rByant from pulmonology switched cefepime to Zosyn on 06/09/2018. On 06/09/2018: Dr. Mackay consulted Dr. Salcedo for questionable lung abscess. Dr. Salcedo recommended transfer for cardiothoracic surgery consultation. Thompson contacted cardiothoracic surgery and they reviewed the films and recommended continuing IV antibiotic management. (2) Acute renal failure Is this a current diagnosis for this admission?: Yes Plan: Likely vancomycin nephrotoxicity. We will hold vancomycin. Continue IV fluid hydration. Monitor renal function. (3) Dehydration Is this a current diagnosis for this admission?: Yes Plan: 06/10/2018: Switched normal saline to lactated Ringer's and increased rate from 100-150 mL/h (4) Hypokalemia Is this a current diagnosis for this admission?: Yes Plan: Monitor and replace as needed (5) Hypomagnesemia Is this a current diagnosis for this admission?: Yes Plan: Continue replacement. Monitor levels (6) Lung mass Is this a current diagnosis for this admission?: Yes Plan: Enlarging mass. CT scan with IV contrast reviewed. Most likely postobstructive pneumonia with lung abscess on top of his chronic lung mass. We consulted pulmonology. Dr. Bryant from pulmonology switch cefepime to Zosyn on 06/09/2018. On 06/09/2018: Dr. Mackay consulted Dr. Salcedo for questionable lung abscess. Dr. Salcedo recommended transfer for cardiothoracic surgery consultation. Dr. Mackay contacted cardiothoracic surgery and they reviewed the films and recommended continuing IV antibiotic management. (7) Squamous cell carcinoma of right lung Is this a current diagnosis for this admission?: Yes Plan: Defer to oncology (8) Alcohol abuse Is this a current diagnosis for this admission?: Yes Plan: Continue thiamine and only as needed diazepam (9) Hyponatremia Is this a current diagnosis for this admission?: Yes Plan: Improved. Monitor.
[2018-06-12] MEDS: LEVALBUTEROL HCL NEB 1.25 MG/3 ML AMPUL NEB SCH ×4 (00:03→20:18)
[2018-06-12] MEDS: HEPARIN SOD (PORCINE) 5,000 UNIT/ML 1 ML SYRINGE SUBCUT SCH ×3 (05:56→21:44)
[2018-06-12] MEDS: PIPERACILLIN SODIUM/TAZOBACTAM 3.375 GM in NORMAL SALINE 100 ML IV SCH ×3 (05:58→21:40)
[2018-06-12 06:45] LABS: HEMATOCRIT 24.6 % (37.9-51.0); HEMOGLOBIN 8.2 g/dL (13.5-17.0); MEAN CORPUSCULAR HEMOGLOBIN 31.9 pg (27.0-33.4); MEAN CORPUSCULAR HGB CONC 33.3 g/dL (32.0-36.0); MEAN CORPUSCULAR VOLUME 96 fl (80-97); PLATELET COUNT 137 10^3/uL (150-450); RED BLOOD COUNT 2.58 10^6/uL (4.35-5.55); RED CELL DISTRIBUTION WIDTH 19.7 % (11.5-14.0); WHITE BLOOD COUNT 8.5 10^3/uL (4.0-10.5)
[2018-06-12 07:03] LABS: ANION GAP 11 (5-19); BLOOD UREA NITROGEN 32 mg/dL (7-20); CALCIUM 8.4 mg/dL (8.4-10.2); CARBON DIOXIDE 19 mmol/L (22-30); CHLORIDE 106 mmol/L (98-107); GLUCOSE 92 mg/dL (75-110); POTASSIUM 3.5 mmol/L (3.6-5.0)
[2018-06-12 07:12] LABS: VANCOMYCIN,TROUGH 31.5 ug/mL (5.0-20.0)
--- NOTE | 2018-06-12 08:48 | PDOC PROGRESS REPORT ---
Subjective Progress Note for:: 06/12/18 Subjective:: Patient is awake, but still very confused. Hallucinating. Appears hypoxic. Nurses report no significant change. He has CPAP at bedside, but is not wearing this currently. ROS not possible due to mental status. Reason For Visit: LUNG CANCER HYPONATREMIA Physical Exam Vital Signs: Temp Pulse Resp BP Pulse Ox 101.2 F H 80 30 H 118/54 L 91 L 06/12/18 07:56 06/12/18 07:56 06/12/18 07:56 06/12/18 07:56 06/12/18 07:56 Intake & Output 06/11/18 06/12/18 06/13/18 06:59 06:59 06:59 Intake Total 1890 1991 Output Total 50 180 Balance 1840 1812 Weight 96.7 kg 85.2 kg General appearance: PRESENT: mild distress Head exam: PRESENT: normocephalic Respiratory exam: PRESENT: prolonged expiratory phas, other - Decreased breaths ound R base. Cardiovascular exam: PRESENT: RRR GI/Abdominal exam: PRESENT: soft. ABSENT: tenderness Extremities exam: ABSENT: pedal edema Neurological exam: PRESENT: awake. ABSENT: oriented to person, oriented to place, oriented to time Psychiatric exam: PRESENT: appropriate affect Skin exam: PRESENT: normal color Results Laboratory Results: 06/12/18 06:07 06/12/18 06:07 06/11/18 06/12/18 06/12/18 16:51 06:07 06:07 WBC 8.5 RBC 2.58 L Hgb 8.2 L Hct 24.6 L MCV 96 MCH 31.9 MCHC 33.3 RDW 19.7 H Plt Count 137 L Carbonic Acid 1.14 HCO3/H2CO3 Ratio 17:1 ABG pH 7.33 L ABG pCO2 38.0 ABG pO2 79.5 L ABG HCO3 19.8 L ABG O2 Saturation 95.1 ABG Base Excess -5.6 FiO2 2L Sodium 136.0 L Potassium 3.5 L Chloride 106 Carbon Dioxide 19 L Anion Gap 11 BUN 32 H Creatinine 2.85 H Est GFR ( Amer) 28 L Est GFR (Non-Af Amer) 23 L Glucose 92 Calcium 8.4 Magnesium 1.9 06/02/18 23:30 Troponin I < 0.012 Impressions: Abdomen/Pelvis CT 06/03/18 00:03 IMPRESSION: Little change in the appearance of the chest compared with the most recent CT chest. Stable postsurgical changes and volume loss of the right hemithorax. Stable areas of airspace opacity in the right paramediastinal region and right hilar regions. Areas of fibrosis are also noted. Fatty infiltrative change to the liver. Cholelithiasis. Sigmoid diverticulosis without CT evidence for diverticulitis. TECHNICAL DOCUMENTATION: Quality ID # 436: Final reports with documentation of one or more dose reduction techniques (e.g., Automated exposure control, adjustment of the mA and/or kV according to patient size, use of iterative reconstruction technique) copyright 2010 [employer]- All Rights Reserved Chest/Abdomen CTA 06/03/18 00:03 IMPRESSION: Little change in the appearance of the chest compared with the most recent CT chest. Stable postsurgical changes and volume loss of the right hemithorax. Stable areas of airspace opacity in the right paramediastinal region and right hilar regions. Areas of fibrosis are also noted. Fatty infiltrative change to the liver. Cholelithiasis. Sigmoid diverticulosis without CT evidence for diverticulitis. TECHNICAL DOCUMENTATION: Quality ID # 436: Final reports with documentation of one or more dose reduction techniques (e.g., Automated exposure control, adjustment of the mA and/or kV according to patient size, use of iterative reconstruction technique) copyright 2010 [employer]- All Rights Reserved Venous Doppler Study 06/05/18 00:00 IMPRESSION: NO EVIDENCE DVT OR SVT IN EITHER LEG. Chest CT 06/07/18 00:00 IMPRESSION: Increasing consolidation right lung, now with complete opacification the right upper lobe with right apical lung parenchymal air-fluid levels worrisome for intrapulmonary abscesses. There is now consolidation in the posterior right lung base worrisome for pneumonia. Head CT 06/09/18 00:00 IMPRESSION: CHRONIC CHANGES OF ATROPHY AND MICROVASCULAR ISCHEMIA. NO ACUTE PROCESS. EVIDENCE OF ACUTE STROKE: NO. Chest Ultrasound 06/09/18 22:52 IMPRESSION: Targeted exam for requested parameters. Chest X-Ray 06/11/18 10:00 IMPRESSION: Near complete collapse of the right lung with shift of mediastinal structures into the right chest Assessment & Plan - Diagnosis (1) Hyponatremia Is this a current diagnosis for this admission?: Yes Plan: Improving (2) Squamous cell carcinoma of right lung Is this a current diagnosis for this admission?: Yes (3) Peripheral neuropathy Is this a current diagnosis for this admission?: Yes (4) Hypomagnesemia Is this a current diagnosis for this admission?: Yes (5) Alcohol abuse Is this a current diagnosis for this admission?: Yes Plan: Difficult to say how much of a role this is playing currently. He is only on PRN neds for DTs, which may be contributing to the mental status. He is getting weaker in bed. (6) Acute diarrhea Is this a current diagnosis for this admission?: Yes (7) Pneumonia Qualifiers: Pneumonia type: due to unspecified organism Laterality: right Lung loc ation: unspecified part of lung Qualified Code(s): J18.9 - Pneumonia, unspecified organism Is this a current diagnosis for this admission?: Yes Plan: Antibiotics continue, but he continues to look worse to me each day. His confusion has not improved. His ABGs looked better tomorrow. (8) Acute renal failure Is this a current diagnosis for this admission?: Yes Plan: This is new. Will need to re-dose all antibiotics, etc.
[2018-06-12] MEDS: LEVOFLOXACIN 750 MG/D5W RTU 750 MG/150 ML RTUPB IV SCH (09:25)
[2018-06-12] MEDS: DILTIAZEM HCL 120 MG CAP.SR.24H PO SCH ×2 (09:26→21:42)
[2018-06-12] MEDS: ACETAMINOPHEN 325 MG TABLET PO PRN (09:26)
[2018-06-12] MEDS: MAGNESIUM OXIDE 400 MG TABLET PO SCH ×2 (09:26→17:02)
[2018-06-12] MEDS: DOCUSATE SODIUM 100 MG CAPSULE PO SCH ×2 (09:27→17:01)
[2018-06-12] MEDS: THIAMINE HCL 100 MG TABLET PO SCH (09:27)
[2018-06-12] MEDS ORDERED: VANCOMYCIN HCL 1,250 MG in DEXTROSE 5%-WATER 250 ML IV SCH (10:00)
--- NOTE | 2018-06-12 14:13 | PDOC PROGRESS REPORT ---
Subjective Progress Note for:: 06/12/18 Subjective:: Patient seen and examined today. Currently afebrile He is off BiPAP and on nasal cannula He is awake but lethargic His creatinine increased most likely due to vancomycin toxicity His white count is normalized Reason For Visit: LUNG CANCER HYPONATREMIA Physical Exam Vital Signs: Temp Pulse Resp BP Pulse Ox 98.7 F 93 30 H 84/46 L 99 06/12/18 12:00 06/12/18 12:00 06/12/18 12:29 06/12/18 12:00 06/12/18 12:29 Intake & Output 06/11/18 06/12/18 06/13/18 06:59 06:59 06:59 Intake Total 1890 1992 Output Total 50 180 Balance 1840 1812 Weight 213 lb 2.992 oz 187 lb 13.341 oz General appearance: PRESENT: cooperative, mild distress Head exam: PRESENT: atraumatic, normocephalic Mouth exam: PRESENT: moist, neck supple Neck exam: ABSENT: meningismus, tenderness Respiratory exam: PRESENT: accessory muscle use, decreased breath sounds - Right lung, tachypnea Cardiovascular exam: PRESENT: tachycardia Pulses: PRESENT: normal radial pulses GI/Abdominal exam: PRESENT: normal bowel sounds, soft. ABSENT: tenderness Rectal exam: PRESENT: deferred Neurological exam: PRESENT: alert, awake Results Laboratory Results: 06/12/18 06:07 06/12/18 06:07 06/11/18 06/12/18 06/12/18 16:51 06:07 06:07 WBC 8.5 RBC 2.58 L Hgb 8.2 L Hct 24.6 L MCV 96 MCH 31.9 MCHC 33.3 RDW 19.7 H Plt Count 137 L Carbonic Acid 1.14 HCO3/H2CO3 Ratio 17:1 ABG pH 7.33 L ABG pCO2 38.0 ABG pO2 79.5 L ABG HCO3 19.8 L ABG O2 Saturation 95.1 ABG Base Excess -5.6 FiO2 2L Sodium 136.0 L Potassium 3.5 L Chloride 106 Carbon Dioxide 19 L Anion Gap 11 BUN 32 H Creatinine 2.85 H Est GFR ( Amer) 28 L Est GFR (Non-Af Amer) 23 L Glucose 92 Calcium 8.4 Magnesium 1.9 06/07/18 10:06 Blood Blood Culture - Final NO GROWTH IN 5 DAYS 06/07/18 09:45 Blood Blood Culture - Final NO GROWTH IN 5 DAYS 06/02/18 23:30 Troponin I < 0.012 Impressions: Abdomen/Pelvis CT 06/03/18 00:03 IMPRESSION: Little change in the appearance of the chest compared with the most recent CT chest. Stable postsurgical changes and volume loss of the right hemithorax. Stable areas of airspace opacity in the right paramediastinal region and right hilar regions. Areas of fibrosis are also noted. Fatty infiltrative change to the liver. Cholelithiasis. Sigmoid diverticulosis without CT evidence for diverticulitis. TECHNICAL DOCUMENTATION: Quality ID # 436: Final reports with documentation of one or more dose reduction techniques (e.g., Automated exposure control, adjustment of the mA and/or kV according to patient size, use of iterative reconstruction technique) copyright 2010 [employer]- All Rights Reserved Chest/Abdomen CTA 06/03/18 00:03 IMPRESSION: Little change in the appearance of the chest compared with the most recent CT chest. Stable postsurgical changes and volume loss of the right hemithorax. Stable areas of airspace opacity in the right paramediastinal region and right hilar regions. Areas of fibrosis are also noted. Fatty infiltrative change to the liver. Cholelithiasis. Sigmoid diverticulosis without CT evidence for diverticulitis. TECHNICAL DOCUMENTATION: Quality ID # 436: Final reports with documentation of one or more dose reduction techniques (e.g., Automated exposure control, adjustment of the mA and/or kV according to patient size, use of iterative reconstruction technique) copyright 2010 [employer]- All Rights Reserved Venous Doppler Study 06/05/18 00:00 IMPRESSION: NO EVIDENCE DVT OR SVT IN EITHER LEG. Chest CT 06/07/18 00:00 IMPRESSION: Increasing consolidation right lung, now with complete opacification the right upper lobe with right apical lung parenchymal air-fluid levels worrisome for intrapulmonary abscesses. There is now consolidation in the posterior right lung base worrisome for pneumonia. Head CT 06/09/18 00:00 IMPRESSION: CHRONIC CHANGES OF ATROPHY AND MICROVASCULAR ISCHEMIA. NO ACUTE PROCESS. EVIDENCE OF ACUTE STROKE: NO. Chest Ultrasound 06/09/18 22:52 IMPRESSION: Targeted exam for requested parameters. Chest X-Ray 06/11/18 10:00 IMPRESSION: Near complete collapse of the right lung with shift of mediastinal structures into the right chest Assessment & Plan - Diagnosis (1) Pneumonia Qualifiers: Pneumonia type: due to unspecified organism Laterality: right Lung locat ion: unspecified part of lung Qualified Code(s): J18.9 - Pneumonia, unspecified organism Is this a current diagnosis for this admission?: Yes Plan: Possible postobstructive pneumonia. Continue broad-spectrum antibiotics (stop vancomycin due to nephrotoxicity). Follow blood and sputum cultures. Dr. Bryant from pulmonology switched cefepime to Zosyn on 06/09/2018. On 06/09/2018: Dr. Mackay consulted Dr. Salcedo for questionable lung abscess. Dr. Salcedo recommended transfer for cardiothoracic surgery consultation. Thompson contacted cardiothoracic surgery and they reviewed the films and recomme nded continuing IV antibiotic management. His white blood count is normal now but he still spikes fevers intermittently. (2) Acute renal failure Is this a current diagnosis for this admission?: Yes Plan: Likely vancomycin nephrotoxicity. Continue to hold vancomycin. Continue IV fluid hydration. Monitor renal function. (3) Dehydration Is this a current diagnosis for this admission?: Yes Plan: 06/10/2018: Switched normal saline to lactated Ringer's and increased rate from 100-150 mL/h (4) Hypokalemia Is this a current diagnosis for this admission?: Yes Plan: Monitor and replace as needed (5) Hypomagnesemia Is this a current diagnosis for this admission?: Yes Plan: Continue replacement. Monitor levels (6) Lung mass Is this a current diagnosis for this admission?: Yes Plan: Enlarging mass. CT scan with IV contrast reviewed. Most likely postobstructive pneumonia with lung abscess on top of his chronic lung mass. We consulted pulmonology. Dr. Bryant from pulmonology switch cefepime to Zosyn on 06/09/2018. On 06/09/2018: Dr. Mackay consulted Dr. Salcedo for questionable lung abscess. Dr. Salcedo recommended transfer for cardiothoracic surgery consultation. Dr. Mackay contacted cardiothoracic surgery and they reviewed the films and recommended continuing IV antibiotic management. (7) Squamous cell carcinoma of right lung Is this a current diagnosis for this admission?: Yes Plan: Defer to oncology (8) Alcohol abuse Is this a current diagnosis for this admission?: Yes Plan: Continue thiamine and only as needed Ativan (9) Hyponatremia Is this a current diagnosis for this admission?: Yes Plan: Improved. Monitor.
[2018-06-12] MEDS: ACETYLCYSTEINE 20% SOLN 800 MG/4 ML VIAL.NEB IH SCH ×2 (14:46→20:18)
[2018-06-12] MEDS: RINGERS SOLUTION 1,000 ML IV PRN (21:42)
[2018-06-13] MEDS: ACETYLCYSTEINE 20% SOLN 800 MG/4 ML VIAL.NEB IH SCH ×4 (01:45→20:19)
[2018-06-13] MEDS: LEVALBUTEROL HCL NEB 1.25 MG/3 ML AMPUL NEB SCH ×4 (01:46→20:19)
[2018-06-13] MEDS: PIPERACILLIN SODIUM/TAZOBACTAM 3.375 GM in NORMAL SALINE 100 ML IV SCH ×2 (05:48→15:08)
[2018-06-13 06:23] LABS: ARTERIAL BLOOD BASE EXCESS -4.5 mmol/L; ARTERIAL BLOOD H2CO3 1.26 mmol/L (1.05-1.35); ARTERIAL BLOOD HCO3 21.2 mmol/L (20-24); ARTERIAL BLOOD O2 SATURATION 91.4 % (94-98); ARTERIAL BLOOD PCO2 41.8 mmHg (35-45); ARTERIAL BLOOD PH 7.32 (7.35-7.45); ARTERIAL BLOOD PO2 65.4 mmHg (80-100); ARTERIAL BLOOD TOTAL CO2 22.5 mmol/L (23-27)
[2018-06-13 06:24] LABS: ARTERIAL BLOOD FIO2 36%
[2018-06-13] MEDS: RINGERS SOLUTION 1,000 ML IV PRN (06:28)
[2018-06-13] MEDS: HEPARIN SOD (PORCINE) 5,000 UNIT/ML 1 ML SYRINGE SUBCUT SCH ×3 (07:30→21:26)
[2018-06-13 08:14] LABS: HEMATOCRIT 24.1 % (37.9-51.0); HEMOGLOBIN 8.1 g/dL (13.5-17.0); MEAN CORPUSCULAR HEMOGLOBIN 32.3 pg (27.0-33.4); MEAN CORPUSCULAR HGB CONC 33.4 g/dL (32.0-36.0); MEAN CORPUSCULAR VOLUME 97 fl (80-97); PLATELET COUNT 154 10^3/uL (150-450); RED BLOOD COUNT 2.49 10^6/uL (4.35-5.55); RED CELL DISTRIBUTION WIDTH 20.3 % (11.5-14.0); WHITE BLOOD COUNT 8.4 10^3/uL (4.0-10.5)
[2018-06-13 08:32] LABS: ANION GAP 11 (5-19); BLOOD UREA NITROGEN 39 mg/dL (7-20); CALCIUM 8.3 mg/dL (8.4-10.2); CARBON DIOXIDE 21 mmol/L (22-30); CHLORIDE 108 mmol/L (98-107); GLUCOSE 90 mg/dL (75-110); POTASSIUM 3.7 mmol/L (3.6-5.0); SODIUM 139.8 mmol/L (137-145)
--- NOTE | 2018-06-13 08:37 | PDOC PROGRESS REPORT ---
Subjective Progress Note for:: 06/13/18 Subjective:: Patient remains awake and talkative, but still quite confused, mumbling, not making much sense. States he feels very dry, but drinking water does not help. Denies being up out of bed. Otherwise, ROS unable to obtain. Reason For Visit: LUNG CANCER HYPONATREMIA Physical Exam Vital Signs: Temp Pulse Resp BP Pulse Ox 98.3 F 104 H 20 111/65 97 06/13/18 07:59 06/13/18 07:59 06/13/18 07:59 06/13/18 07:59 06/13/18 07:59 Intake & Output 06/12/18 06/13/18 06/14/18 06:59 06:59 06:59 Intake Total 1991 1395 Output Total 180 80 Balance 1812 1315 Weight 85.2 kg 89.7 kg General appearance: PRESENT: well-developed, well-nourished Head exam: PRESENT: normocephalic Respiratory exam: PRESENT: other - Unchanged from previous. Decreased BS right side. GI/Abdominal exam: PRESENT: soft. ABSENT: tenderness Extremities exam: ABSENT: pedal edema Neurological exam: PRESENT: altered, awake Psychiatric exam: PRESENT: other - Some tremors remain. Hallucinations /delerium. Skin exam: PRESENT: normal color Results Laboratory Results: 06/13/18 07:10 06/13/18 06/13/18 06:10 07:10 WBC 8.4 RBC 2.49 L Hgb 8.1 L Hct 24.1 L MCV 97 MCH 32.3 MCHC 33.4 RDW 20.3 H Plt Count 154 Carbonic Acid 1.26 HCO3/H2CO3 Ratio 16:1 ABG pH 7.32 L ABG pCO2 41.8 ABG pO2 65.4 L ABG HCO3 21.2 ABG O2 Saturation 91.4 L ABG Base Excess -4.5 FiO2 36% 06/07/18 10:06 Blood Blood Culture - Final NO GROWTH IN 5 DAYS 06/07/18 09:45 Blood Blood Culture - Final NO GROWTH IN 5 DAYS 06/02/18 23:30 Troponin I < 0.012 Impressions: Abdomen/Pelvis CT 06/03/18 00:03 IMPRESSION: Little change in the appearance of the chest compared with the most recent CT chest. Stable postsurgical changes and volume loss of the right hemithorax. Stable areas of airspace opacity in the right paramediastinal region and right hilar regions. Areas of fibrosis are also noted. Fatty infiltrative change to the liver. Cholelithiasis. Sigmoid diverticulosis without CT evidence for diverticulitis. TECHNICAL DOCUMENTATION: Quality ID # 436: Final reports with documentation of one or more dose reduction techniques (e.g., Automated exposure control, adjustment of the mA and/or kV according to patient size, use of iterative reconstruction technique) copyright 2010 [employer]- All Rights Reserved Chest/Abdomen CTA 06/03/18 00:03 IMPRESSION: Little change in the appearance of the chest compared with the most recent CT chest. Stable postsurgical changes and volume loss of the right hemithorax. Stable areas of airspace opacity in the right paramediastinal region and right hilar regions. Areas of fibrosis are also noted. Fatty infiltrative change to the liver. Cholelithiasis. Sigmoid diverticulosis without CT evidence for diverticulitis. TECHNICAL DOCUMENTATION: Quality ID # 436: Final reports with documentation of one or more dose reduction techniques (e.g., Automated exposure control, adjustment of the mA and/or kV according to patient size, use of iterative reconstruction technique) copyright 2010 [employer]- All Rights Reserved Venous Doppler Study 06/05/18 00:00 IMPRESSION: NO EVIDENCE DVT OR SVT IN EITHER LEG. Chest CT 06/07/18 00:00 IMPRESSION: Increasing consolidation right lung, now with complete opacification the right upper lobe with right apical lung parenchymal air-fluid levels worrisome for intrapulmonary abscesses. There is now consolidation in the posterior right lung base worrisome for pneumonia. Head CT 06/09/18 00:00 IMPRESSION: CHRONIC CHANGES OF ATROPHY AND MICROVASCULAR ISCHEMIA. NO ACUTE PROCESS. EVIDENCE OF ACUTE STROKE: NO. Chest Ultrasound 06/09/18 22:52 IMPRESSION: Targeted exam for requested parameters. Chest X-Ray 06/11/18 10:00 IMPRESSION: Near complete collapse of the right lung with shift of mediastinal structures into the right chest Assessment & Plan - Diagnosis (1) Hyponatremia Is this a current diagnosis for this admission?: Yes Plan: Slowly improving. (2) Squamous cell carcinoma of right lung Is this a current diagnosis for this admission?: Yes Plan: Stable. No treatment planned at present. Continue to monitor. (3) Peripheral neuropathy Is this a current diagnosis for this admission?: Yes (4) Hypomagnesemia Is this a current diagnosis for this admission?: Yes Plan: Improved. Continue oral Magnesium supplements. (5) Alcohol abuse Is this a current diagnosis for this admission?: Yes Plan: No further evidence of DTs, but confusion remains. He remains on appropriate vitamins (6) Acute diarrhea Is this a current diagnosis for this admission?: Yes Plan: Nurses still reporting at least 1 BM daily. (7) Pneumonia Qualifiers: Pneumonia type: due to unspecified organism Laterality: right Lung location: unspecified part of lung Qualified Code(s): J18.9 - Pneumonia, unspecified organism Is this a current diagnosis for this admission?: Yes Plan: Pulmonary following. Remains on antibiotics. No change in lung sounds or X- rays recently. (8) Acute renal failure Is this a current diagnosis for this admission?: Yes Plan: Believed to be vancomycin. This was stopped. Continue to follow. - Plan Summary Plan Summary: I am concerned that he is no longer eating anything and has dropped 10 LBS in the past 4 days, according to the chart. I do not believe he has been out of the bed for several days. He is declining very quickly. His Cr continues to rise, but his LFTs are much improved.
[2018-06-13 08:40] LABS: VANCOMYCIN,TROUGH 23.8 ug/mL (5.0-20.0)
[2018-06-13] MEDS: THIAMINE HCL 100 MG TABLET PO SCH (09:55)
[2018-06-13] MEDS: MAGNESIUM OXIDE 400 MG TABLET PO SCH ×2 (09:55→19:08)
[2018-06-13] MEDS: DOCUSATE SODIUM 100 MG CAPSULE PO SCH ×2 (09:55→19:06)
[2018-06-13] MEDS: DILTIAZEM HCL 120 MG CAP.SR.24H PO SCH ×2 (09:55→21:26)
--- NOTE | 2018-06-13 16:32 | PDOC TRANSFER SUMMARY ---
General Admission Date/PCP: 06/03/18 01:56 SIDDHARTH VOGT MD Admission Date: 06/03/18 Transfer Date: 06/13/18 Accepting Facility: [facility] Resuscitation Status: Full Code - Transfer Diagnosis (1) Pneumonia Is this a current diagnosis for this admission?: Yes (2) Acute renal failure Is this a current diagnosis for this admission?: Yes (3) Dehydration Is this a current diagnosis for this admission?: Yes (4) Hypokalemia Is this a current diagnosis for this admission?: Yes (5) Hypomagnesemia Is this a current diagnosis for this admission?: Yes (6) Lung mass Is this a current diagnosis for this admission?: Yes (7) Squamous cell carcinoma of right lung Is this a current diagnosis for this admission?: Yes (8) Alcohol abuse Is this a current diagnosis for this admission?: Yes (9) Hyponatremia Is this a current diagnosis for this admission?: Yes - Transfer Medications Home Medications: Albuterol Sulfate [Proventil Hfa] 2 puff IH Q4HP PRN 06/03/18 Benzonatate [Tessalon Perles 100 mg Capsule] 100 mg PO Q8HP PRN 06/03/18 Transfer Medications: Current Medications Acetaminophen (Tylenol 325 Mg Tablet) 650 mg PO Q4HP PRN PRN Reason: FEVER Stop: 07/07/18 00:46 Last Admin: 06/12/18 09:26 Dose: 650 mg Documented by: Acetylcysteine (Mucomist 20% Soln 800 Mg/4 Ml) 600 mg IH RTQ6 [facility] Stop: 07/12/18 13:59 Last Admin: 06/13/18 13:51 Dose: Not Given Documented by: Al Hydrox/Mg Hydrox/Simethicone (Maalox Plus Susp 30 Udcup) 30 ml PO Q6HP PRN PRN Reason: HEARTBURN Stop: 07/03/18 01:39 Last Admin: 06/03/18 09:31 Dose: 30 ml Documented by: Albuterol/Ipratropium (Duoneb 3 Ml Ampul) 3 ml NEB [id number] PRN PRN Reason: SHORTNESS OF BREATH Stop: 07/03/18 01:39 Last Admin: 06/08/18 17:45 Dose: 3 ml Documented by: Diltiazem HCl (Cardizem Cd 120 Mg Capsule) 120 mg PO Q12 [place] Stop: 07/03/18 09:59 Last Admin: 06/13/18 09:55 Dose: 120 mg Documented by: Docusate Sodium (Colace 100 Mg Capsule) 100 mg PO BID [facility] Stop: 07/03/18 09:59 Last Admin: 06/13/18 09:55 Dose: 100 mg Documented by: Heparin Sodium (Porcine) (Heparin Inj 5,000 Units/Ml 1 Ml Syringe) 5,000 unit SUBCUT Q8 [place] Stop: 07/03/18 05:59 Last Admin: 06/13/18 15:08 Dose: 5,000 unit Documented by: Ringer's Solution (Ringers 1000 Ml Iv Soln) 1,000 mls @ 150 mls/hr IV CONTINUOUS PRN PRN Reason: THIS MED IS NOT "PRN" Stop: 07/10/18 11:30 Last Admin: 06/13/18 06:28 Dose: 100 mls/hr Documented by: Levofloxacin/Dextrose (Levaquin Rtu 750 Mg/D5w 150 Ml Premix) 750 mg in 150 mls @ 100 mls/hr IV Q2DAYS [facility] Stop: 06/21/18 09:59 Cefepime HCl (Maxipime Rtu 2 Gm-D5w 50 Ml Premix Bag) 2 gm in 50 mls @ 100 mls/hr IV QHS [facility] Stop: 06/20/18 21:59 Levalbuterol HCl (Xopenex Neb 1.25 Mg/3 Ml Ampul) 1.25 mg NEB RTQ6 [place] Stop: 07/12/18 13:59 Last Admin: 06/13/18 13:52 Dose: 1.25 mg Documented by: Lorazepam (Ativan Inj 2 Mg/1 Ml Vial) 1 mg IV Q4HP PRN PRN Reason: AGITATION Stop: 06/19/18 12:00 Magnesium Hydroxide (Milk Of Magnesia 30 Ml Udcup) 30 ml PO HSP PRN PRN Reason: FOR CONSTIPATION Stop: 07/03/18 01:39 Magnesium Oxide (Mag-Ox 400 Mg Tablet) 800 mg PO BID [facility] Stop: 07/03/18 09:59 Last Admin: 06/13/18 09:55 Dose: 800 mg Documented by: Thiamine HCl (Thiamine 100 Mg Tablet) 100 mg PO DAILY [facility] Stop: 07/03/18 09:59 Last Admin: 06/13/18 09:55 Dose: 100 mg Documented by: - Allergies Allergies/Adverse Reactions: No Known Allergies Allergy (Verified 01/28/18 10:25) - Diet/Activity Discharge Diet: As Tolerated Hospital Course Hospital Course: Patient was admitted due to hyponatremia and generalized weakness and fatigue. He developed right upper lobe postobstructive pneumonia. Patient was started on IV vancomycin, cefepime and Levaquin. Cefepime was switched to Zosyn by pulmonsamy chau. Patient's kidney function deteriorated and vancomycin was stopped and then we switch Zosyn later to cefepime again. Patient continued on IV fluids. He continued to have intermittent fevers. His white count currently improved. When discussed with Dr. Bryant, he recommended transfer for interventional pulmonology for possible bronchial stent. I discussed the case with Dr. Krishna from [facility] who graciously accepted the patient. Once bed available the patient will be transferred to a tertiary care center for higher level of care. Discussed with the patient and he agrees to transfer. Physical Exam Vital Signs: Temp Pulse Resp BP Pulse Ox 97.8 F 97 18 93/57 L 96 06/13/18 15:46 06/13/18 15:46 06/13/18 15:46 06/13/18 15:46 06/13/18 15:46 Intake & Output 06/12/18 06/13/18 06/14/18 06:59 06:59 06:59 Intake Total 1991 1395 100 Output Total 180 80 Balance 1812 1315 100 Weight 187 lb 13.341 oz 197 lb 12.074 oz General appearance: PRESENT: mild distress Head exam: PRESENT: atraumatic Eye exam: ABSENT: conjunctival injection Mouth exam: PRESENT: moist, neck supple Neck exam: ABSENT: meningismus, tenderness Respiratory exam: PRESENT: decreased breath sounds, rhonchi Cardiovascular exam: PRESENT: tachycardia Pulses: PRESENT: normal radial pulses GI/Abdominal exam: PRESENT: normal bowel sounds, soft Rectal exam: PRESENT: deferred Neurological exam: PRESENT: alert, awake Psychiatric exam: PRESENT: anxious Results Laboratory Results: 06/13/18 07:10 06/13/18 07:10 06/13/18 06/13/18 06/13/18 06:10 07:10 07:10 WBC 8.4 RBC 2.49 L Hgb 8.1 L Hct 24.1 L MCV 97 MCH 32.3 MCHC 33.4 RDW 20.3 H Plt Count 154 Carbonic Acid 1.26 HCO3/H2CO3 Ratio 16:1 ABG pH 7.32 L ABG pCO2 41.8 ABG pO2 65.4 L ABG HCO3 21.2 ABG O2 Saturation 91.4 L ABG Base Excess -4.5 FiO2 36% Sodium 139.8 Potassium 3.7 Chloride 108 H Carbon Dioxide 21 L Anion Gap 11 BUN 39 H Creatinine 3.40 H Est GFR ( Amer) 23 L Est GFR (Non-Af Amer) 19 L Glucose 90 Calcium 8.3 L Magnesium 2.0 06/02/18 23:30 Troponin I < 0.012 Impressions: Abdomen/Pelvis CT 06/03/18 00:03 IMPRESSION: Little change in the appearance of the chest compared with the most recent CT chest. Stable postsurgical changes and volume loss of the right hemithorax. Stable areas of airspace opacity in the right paramediastinal region and right hilar regions. Areas of fibrosis are also noted. Fatty infiltrative change to the liver. Cholelithiasis. Sigmoid diverticulosis without CT evidence for diverticulitis. TECHNICAL DOCUMENTATION: Quality ID # 436: Final reports with documentation of one or more dose reduction techniques (e.g., Automated exposure control, adjustment of the mA and/or kV according to patient size, use of iterative reconstruction technique) copyright 2010 [employer]- All Rights Reserved Chest/Abdomen CTA 06/03/18 00:03 IMPRESSION: Little change in the appearance of the chest compared with the most recent CT chest. Stable postsurgical changes and volume loss of the right hemithorax. Stable areas of airspace opacity in the right paramediastinal region and right hilar regions. Areas of fibrosis are also noted. Fatty infiltrative change to the liver. Cholelithiasis. Sigmoid diverticulosis without CT evidence for diverticulitis. TECHNICAL DOCUMENTATION: Quality ID # 436: Final reports with documentation of one or more dose reduction techniques (e.g., Automated exposure control, adjustment of the mA and/or kV according to patient size, use of iterative reconstruction technique) copyright 2011 [employer]- All Rights Reserved Venous Doppler Study 06/05/18 00:00 IMPRESSION: NO EVIDENCE DVT OR SVT IN EITHER LEG. Chest CT 06/07/18 00:00 IMPRESSION: Increasing consolidation right lung, now with complete opacification the right upper lobe with right apical lung parenchymal air-fluid levels worrisome for intrapulmonary abscesses. There is now consolidation in the posterior right lung base worrisome for pneumonia. Head CT 06/09/18 00:00 IMPRESSION: CHRONIC CHANGES OF ATROPHY AND MICROVASCULAR ISCHEMIA. NO ACUTE PROCESS. EVIDENCE OF ACUTE STROKE: NO. Chest Ultrasound 06/09/18 22:52 IMPRESSION: Targeted exam for requested parameters. Chest X-Ray 06/11/18 10:00 IMPRESSION: Near complete collapse of the right lung with shift of mediastinal structures into the right chest
[2018-06-13] MEDS: CEFEPIME 2 GM/D5W RTU 2 GM/50 ML RTUPB IV SCH (21:25)
[2018-06-13] MEDS: LORAZEPAM INJ 2 MG/1 ML VIAL IV PRN (21:25)
[2018-06-14] MEDS: LEVALBUTEROL HCL NEB 1.25 MG/3 ML AMPUL NEB SCH ×4 (02:01→19:49)
[2018-06-14] MEDS: ACETYLCYSTEINE 20% SOLN 800 MG/4 ML VIAL.NEB IH SCH ×4 (02:01→19:49)
[2018-06-14] MEDS: HEPARIN SOD (PORCINE) 5,000 UNIT/ML 1 ML SYRINGE SUBCUT SCH ×3 (06:19→22:07)
--- NOTE | 2018-06-14 09:38 | RADIOLOGY REPORT (SQ) ---
EXAM DESCRIPTION: CHEST SINGLE VIEW COMPLETED DATE/TIME: 06/14/2018 9:17 am REASON FOR STUDY: pneumonia COMPARISON: 06/02/2018, 06/11/2018 EXAM PARAMETERS: NUMBER OF VIEWS: One view. TECHNIQUE: Single frontal radiographic view of the chest acquired. RADIATION DOSE: NA LIMITATIONS: None. FINDINGS: LUNGS AND PLEURA: Persistent complete opacification of the right chest. Left lung remains clear. MEDIASTINUM AND HILAR STRUCTURES: No masses. Contour normal. HEART AND VASCULAR STRUCTURES: Heart normal in size. Normal vasculature. BONES: Multiple displaced right rib fractures. HARDWARE: None in the chest. OTHER: No other significant finding. IMPRESSION: Complete dense opacification of the right chest. Likely a combination of atelectasis an d large effusion, possibly hemothorax. Multiple displaced right rib fractures. TECHNICAL DOCUMENTATION: JOB ID: [id number] [facility]- All Rights Reserved Reading location - IP/workstation name: [email or web address]
[2018-06-14] MEDS: DOCUSATE SODIUM 100 MG CAPSULE PO SCH ×2 (10:28→18:42)
[2018-06-14] MEDS: DILTIAZEM HCL 120 MG CAP.SR.24H PO SCH ×2 (10:49→22:11)
[2018-06-14] MEDS: MAGNESIUM OXIDE 400 MG TABLET PO SCH ×2 (10:50→18:43)
[2018-06-14] MEDS: LEVOFLOXACIN 750 MG/D5W RTU 750 MG/150 ML RTUPB IV SCH (10:50)
[2018-06-14] MEDS: THIAMINE HCL 100 MG TABLET PO SCH (10:50)
[2018-06-14 10:51] LABS: ABSOLUTE BASOPHILS # (AUTO) 0.1 10^3/uL (0.0-0.2); ABSOLUTE LYMPHOCYTES (AUTO) 0.7 10^3/uL (0.5-4.7); ABSOLUTE MONOCYTES (AUTO) 0.5 10^3/uL (0.1-1.4); ABSOLUTE NEUT (AUTO) 6.7 10^3/uL (1.7-8.2); BASOPHILS % (AUTO) 0.9 % (0-2); EOSINOPHILS % (AUTO) 0.4 % (0-6); HEMATOCRIT 26.6 % (37.9-51.0); HEMOGLOBIN 8.8 g/dL (13.5-17.0); LYMPHOCYTES % (AUTO) 8.2 % (13-45); MEAN CORPUSCULAR HGB CONC 33.1 g/dL (32.0-36.0); MEAN CORPUSCULAR VOLUME 97 fl (80-97); MONOCYTES % (AUTO) 6.2 % (3-13); PLATELET COUNT 159 10^3/uL (150-450); RED BLOOD COUNT 2.75 10^6/uL (4.35-5.55); RED CELL DISTRIBUTION WIDTH 20.3 % (11.5-14.0); SEGMENTED NEUTROPHILS % (AUTO) 84.3 % (42-78); TOTAL CELLS COUNTED % (AUTO) 100 %
--- NOTE | 2018-06-14 10:58 | PDOC PROGRESS REPORT ---
Subjective Progress Note for:: 06/14/18 Subjective:: Patient stable with overall status, has been accepted for transfer to [facility] but there is no bed yet. Today had a long discussion with the patient about why his lung status is what it is. Spent greater than 40 minutes in discussion today. Reason For Visit: LUNG CANCER HYPONATREMIA Physical Exam Vital Signs: Temp Pulse Resp BP Pulse Ox 98.4 F 98 18 114/65 92 06/14/18 08:00 06/14/18 08:04 06/14/18 08:04 06/14/18 08:00 06/14/18 08:04 Intake & Output 06/13/18 06/14/18 06/15/18 06:59 06:59 06:59 Intake Total 1395 2140 Output Total 80 Balance 1315 2140 Weight 89.7 kg 91 kg General appearance: PRESENT: no acute distress, well-developed, well-nourished Head exam: PRESENT: atraumatic, normocephalic Eye exam: PRESENT: conjunctiva pink, EOMI, PERRLA. ABSENT: scleral icterus Ear exam: PRESENT: normal external ear exam Mouth exam: PRESENT: moist, tongue midline Neck exam: ABSENT: carotid bruit, JVD, lymphadenopathy, thyromegaly Respiratory exam: PRESENT: clear to auscultation rodrigue. ABSENT: rales, rhonchi, wheezes Cardiovascular exam: PRESENT: RRR. ABSENT: diastolic murmur, rubs, systolic murmur Pulses: PRESENT: normal dorsalis pedis pul Vascular exam: PRESENT: normal capillary refill GI/Abdominal exam: PRESENT: normal bowel sounds, soft. ABSENT: distended, guarding, mass, organolmegaly, rebound, tenderness Rectal exam: PRESENT: deferred Extremities exam: PRESENT: full ROM. ABSENT: calf tenderness, clubbing, pedal edema Neurological exam: PRESENT: alert, awake, oriented to person, oriented to place, oriented to time, oriented to situation, CN II-XII grossly intact. ABSENT: motor sensory deficit Psychiatric exam: PRESENT: appropriate affect, normal mood. ABSENT: homicidal ideation, suicidal ideation Skin exam: PRESENT: dry, intact, warm. ABSENT: cyanosis, rash Results Laboratory Results: 06/14/18 10:05 06/14/18 10:05 WBC 8.0 RBC 2.75 L Hgb 8.8 L Hct 26.6 L MCV 97 MCH 32.0 MCHC 33.1 RDW 20.3 H Plt Count 159 Seg Neutrophils % 84.3 H Lymphocytes % 8.2 L Monocytes % 6.2 Eosinophils % 0.4 Basophils % 0.9 Absolute Neutrophils 6.7 Absolute Lymphocytes 0.7 Absolute Monocytes 0.5 Absolute Eosinophils 0.0 Absolute Basophils 0.1 06/09/18 09:24 Blood Blood Culture - Final NO GROWTH IN 5 DAYS 06/09/18 09:18 Blood Blood Culture - Final NO GROWTH IN 5 DAYS 06/02/18 23:30 Troponin I < 0.012 Impressions: Abdomen/Pelvis CT 06/03/18 00:03 IMPRESSION: Little change in the appearance of the chest compared with the most recent CT chest. Stable postsurgical changes and volume loss of the right hemithorax. Stable areas of airspace opacity in the right paramediastinal region and right hilar regions. Areas of fibrosis are also noted. Fatty infiltrative change to the liver. Cholelithiasis. Sigmoid diverticulosis without CT evidence for diverticulitis. TECHNICAL DOCUMENTATION: Quality ID # 436: Final reports with documentation of one or more dose reduction techniques (e.g., Automated exposure control, adjustment of the mA and/or kV according to patient size, use of iterative reconstruction technique) copyright 2010 [employer]- All Rights Reserved Chest/Abdomen CTA 06/03/18 00:03 IMPRESSION: Little change in the appearance of the chest compared with the most recent CT chest. Stable postsurgical changes and volume loss of the right hemithorax. Stable areas of airspace opacity in the right paramediastinal region and right hilar regions. Areas of fibrosis are also noted. Fatty infiltrative change to the liver. Cholelithiasis. Sigmoid diverticulosis without CT evidence for diverticulitis. TECHNICAL DOCUMENTATION: Quality ID # 436: Final reports with documentation of one or more dose reduction techniques (e.g., Automated exposure control, adjustment of the mA and/or kV according to patient size, use of iterative reconstruction technique) copyright 2010 [employer]- All Rights Reserved Venous Doppler Study 06/05/18 00:00 IMPRESSION: NO EVIDENCE DVT OR SVT IN EITHER LEG. Chest CT 06/07/18 00:00 IMPRESSION: Increasing consolidation right lung, now with complete opacification the right upper lobe with right apical lung parenchymal air-fluid levels worrisome for intrapulmonary abscesses. There is now consolidation in the posterior right lung base worrisome for pneumonia. Head CT 06/09/18 00:00 IMPRESSION: CHRONIC CHANGES OF ATROPHY AND MICROVASCULAR ISCHEMIA. NO ACUTE PROCESS. EVIDENCE OF ACUTE STROKE: NO. Chest Ultrasound 06/09/18 22:52 IMPRESSION: Targeted exam for requested parameters. Chest X-Ray 06/14/18 00:00 IMPRESSION: Complete dense opacification of the right chest. Likely a combination of atelectasis and large effusion, possibly hemothorax. Multiple displaced right rib fractures. Assessment & Plan - Diagnosis (1) Squamous cell carcinoma of right lung Is this a current diagnosis for this admission?: Yes Plan: Plan for transfer when ready, hopefully they would be able to do some sort of bronchial stenting that may improve his status.
[2018-06-14 11:21] LABS: ALANINE AMINOTRANSFERASE 22 U/L (21-72); ALBUMIN 2.7 g/dL (3.5-5.0); ALKALINE PHOSPHATASE 198 U/L (38-126); ANION GAP 9 (5-19); ASPARTATE AMINO TRANSFERASE 62 U/L (17-59); BILIRUBIN,DIRECT 1.2 mg/dL (0.0-0.4); BILIRUBIN,TOTAL 1.3 mg/dL (0.2-1.3); BLOOD UREA NITROGEN 49 mg/dL (7-20); CALCIUM 8.7 mg/dL (8.4-10.2); CARBON DIOXIDE 23 mmol/L (22-30); CHLORIDE 109 mmol/L (98-107); GLUCOSE 103 mg/dL (75-110); POTASSIUM 3.5 mmol/L (3.6-5.0); TOTAL PROTEIN 5.4 g/dL (6.3-8.2)
[2018-06-14 11:48] LABS: ARTERIAL BLOOD BASE EXCESS -3.2 mmol/L; ARTERIAL BLOOD FIO2 3L; ARTERIAL BLOOD H2CO3 1.38 mmol/L (1.05-1.35); ARTERIAL BLOOD HCO3 23.1 mmol/L (20-24); ARTERIAL BLOOD O2 SATURATION 94.4 % (94-98); ARTERIAL BLOOD PCO2 45.8 mmHg (35-45); ARTERIAL BLOOD PH 7.32 (7.35-7.45); ARTERIAL BLOOD PO2 77.4 mmHg (80-100); ARTERIAL BLOOD TOTAL CO2 24.5 mmol/L (23-27)
--- NOTE | 2018-06-14 18:53 | PDOC PROGRESS REPORT ---
Subjective Progress Note for:: 06/14/18 Subjective:: Patient seen and examined today. Currently afebrile He is off BiPAP and on nasal cannula He is awake but lethargic Waiting to be transferred to [facility] Reason For Visit: LUNG CANCER HYPONATREMIA Physical Exam Vital Signs: Temp Pulse Resp BP Pulse Ox 98.4 F 108 H 20 106/80 97 06/14/18 16:00 06/14/18 16:00 06/14/18 16:00 06/14/18 16:00 06/14/18 16:00 Intake & Output 06/13/18 06/14/18 06/15/18 06:59 06:59 06:59 Intake Total 1395 2140 776 Output Total 80 Balance 1315 2140 776 Weight 197 lb 12.074 oz 200 lb 9.93 oz General appearance: PRESENT: mild distress Head exam: PRESENT: atraumatic Eye exam: PRESENT: EOMI Mouth exam: PRESENT: moist, neck supple Neck exam: ABSENT: meningismus, tenderness Respiratory exam: PRESENT: decreased breath sounds, rhonchi Pulses: PRESENT: normal radial pulses GI/Abdominal exam: PRESENT: normal bowel sounds, soft Rectal exam: PRESENT: deferred Musculoskeletal exam: ABSENT: deformity Neurological exam: PRESENT: altered Results Laboratory Results: 06/14/18 10:05 06/14/18 10:05 06/14/18 06/14/18 06/14/18 10:05 10:05 10:30 WBC 8.0 RBC 2.75 L Hgb 8.8 L Hct 26.6 L MCV 97 MCH 32.0 MCHC 33.1 RDW 20.3 H Plt Count 159 Seg Neutrophils % 84.3 H Lymphocytes % 8.2 L Monocytes % 6.2 Eosinophils % 0.4 Basophils % 0.9 Absolute Neutrophils 6.7 Absolute Lymphocytes 0.7 Absolute Monocytes 0.5 Absolute Eosinophils 0.0 Absolute Basophils 0.1 Carbonic Acid 1.38 H HCO3/H2CO3 Ratio 16:1 ABG pH 7.32 L ABG pCO2 45.8 H ABG pO2 77.4 L ABG HCO3 23.1 ABG O2 Saturation 94.4 ABG Base Excess -3.2 FiO2 3L Sodium 141.0 Potassium 3.5 L Chloride 109 H Carbon Dioxide 23 Anion Gap 9 BUN 49 H Creatinine 3.71 H Est GFR ( Amer) 21 L Est GFR (Non-Af Amer) 17 L Glucose 103 Calcium 8.7 Total Bilirubin 1.3 AST 62 H ALT 22 Alkaline Phosphatase 198 H Total Protein 5.4 L Albumin 2.7 L 06/09/18 09:24 Blood Blood Culture - Final NO GROWTH IN 5 DAYS 06/09/18 09:18 Blood Blood Culture - Final NO GROWTH IN 5 DAYS 06/02/18 23:30 Troponin I < 0.012 Impressions: Abdomen/Pelvis CT 06/03/18 00:03 IMPRESSION: Little change in the appearance of the chest compared with the most recent CT chest. Stable postsurgical changes and volume loss of the right hemithorax. Stable areas of airspace opacity in the right paramediastinal region and right hilar regions. Areas of fibrosis are also noted. Fatty infiltrative change to the liver. Cholelithiasis. Sigmoid diverticulosis without CT evidence for diverticulitis. TECHNICAL DOCUMENTATION: Quality ID # 436: Final reports with documentation of one or more dose reduction techniques (e.g., Automated exposure control, adjustment of the mA and/or kV according to patient size, use of iterative reconstruction technique) copyright 2010 [employer]- All Rights Reserved Chest/Abdomen CTA 06/03/18 00:03 IMPRESSION: Little change in the appearance of the chest compared with the most recent CT chest. Stable postsurgical changes and volume loss of the right hemithorax. Stable areas of airspace opacity in the right paramediastinal region and right hilar regions. Areas of fibrosis are also noted. Fatty infiltrative change to the liver. Cholelithiasis. Sigmoid diverticulosis without CT evidence for diverticulitis. TECHNICAL DOCUMENTATION: Quality ID # 436: Final reports with documentation of one or more dose reduction techniques (e.g., Automated exposure control, adjustment of the mA and/or kV according to patient size, use of iterative reconstruction technique) copyright 2010 [employer]- All Rights Reserved Venous Doppler Study 06/05/18 00:00 IMPRESSION: NO EVIDENCE DVT OR SVT IN EITHER LEG. Chest CT 06/07/18 00:00 IMPRESSION: Increasing consolidation right lung, now with complete opacification the right upper lobe with right apical lung parenchymal air-fluid levels worrisome for intrapulmonary abscesses. There is now consolidation in the posterior right lung base worrisome for pneumonia. Head CT 06/09/18 00:00 IMPRESSION: CHRONIC CHANGES OF ATROPHY AND MICROVASCULAR ISCHEMIA. NO ACUTE PROCESS. EVIDENCE OF ACUTE STROKE: NO. Chest Ultrasound 06/09/18 22:52 IMPRESSION: Targeted exam for requested parameters. Chest X-Ray 06/14/18 00:00 IMPRESSION: Complete dense opacification of the right chest. Likely a combination of atelectasis and large effusion, possibly hemothorax. Multiple displaced right rib fractures. Assessment & Plan - Diagnosis (1) Pneumonia Qualifiers: Pneumonia type: due to unspecified organism Laterality: right Lung location: unspecified part of lung Qualified Code(s): J18.9 - Pneumonia, unspecified organism Is this a current diagnosis for this admission?: Yes Plan: Possible postobstructive pneumonia. Continue broad-spectrum antibiotics (stop vancomycin due to nephrotoxicity). Follow blood and sputum cultures. Dr. Bryant from pulmonology switched cefepime to Zosyn on 06/09/2018. On 06/09/2018: Dr. Mackay consulted Dr. Salcedo for questionable lung abscess. Dr. Salcedo recommended transfer for cardiothoracic surgery consultation. Thompson contacted cardiothoracic surgery and they reviewed the films and recommended continuing IV antibiotic management. His white blood count is normal now and he is afebrile. Patient is waiting to be transferred to [facility] for possible bronchial stent. (2) Acute renal failure Is this a current diagnosis for this admission?: Yes Plan: Likely vancomycin nephrotoxicity. We stopped vancomycin and change Zosyn back to cefepime. Continue IV fluid hydration. Monitor renal function. (3) Dehydration Is this a current diagnosis for this admission?: Yes Plan: 06/10/2018: Switched normal saline to lactated Ringer's and increased rate from 100-150 mL/h (4) Hypokalemia Is this a current diagnosis for this admission?: Yes Plan: Monitor and replace as needed (5) Hypomagnesemia Is this a current diagnosis for this admission?: Yes Plan: Continue replacement. Monitor levels (6) Lung mass Is this a current diagnosis for this admission?: Yes Plan: Enlarging mass. CT scan with IV contrast reviewed. Most likely postobstructive pneumonia with lung abscess on top of his chronic lung mass. We consulted pulmonology. Dr. Bryant from pulmonology switch cefepime to Zosyn on 06/09/2018. On 06/09/2018: Dr. Mackay consulted Dr. Salcedo for questionable lung abscess. Dr. Salcedo recommended transfer for cardiothoracic surgery consultation. Dr. Mackay contacted cardiothoracic surgery and they reviewed the films and recommended continuing IV antibiotic management. (7) Squamous cell carcinoma of right lung Is this a current diagnosis for this admission?: Yes Plan: Defer to oncology (8) Alcohol abuse Is this a current diagnosis for this admission?: Yes Plan: Continue thiamine and only as needed Ativan (9) Hyponatremia Is this a current diagnosis for this admission?: Yes Plan: Resolved. Monitor.
[2018-06-14] MEDS: CEFEPIME 2 GM/D5W RTU 2 GM/50 ML RTUPB IV SCH (22:12)
[2018-06-15] MEDS: LEVALBUTEROL HCL NEB 1.25 MG/3 ML AMPUL NEB SCH ×4 (01:35→19:41)
[2018-06-15] MEDS: ACETYLCYSTEINE 20% SOLN 800 MG/4 ML VIAL.NEB IH SCH ×4 (01:35→19:41)
--- NOTE | 2018-06-15 04:08 | PROGRESS NOTE E ---
Progress Note NAME: ERICKA RAZO : 1960 AGE: 58Y DATE: 06/14/2018 ROOM: 408 SUBJECTIVE: The patient is a 58-year-old male who came in with right lung malignancy, was status post chemotherapy and radiation therapy. Came in with pneumonia, right lung, with massive atelectasis right lung. Currently feeling well. Denies any increasing cough or purulent sputum production. No chest pain. Complained about increased shortness of breath, a little bit more confused. OBJECTIVE: GENERAL: The patient is awake, incoherent. VITAL SIGNS: Afebrile, and with temperature of 98.4, with a T-max of 98.9. Heart rate is 108. Blood pressure is 106/80, respiratory rate is 20, saturation 97% on nasal cannula at 2 L. EYES: No jaundice or pallor. EARS, NOSE, AND THROAT: No ear drainage. No nasal discharge. CHEST AND LUNGS: Decreased breath sounds right lung. No coarse crackles, wheezing, or rhonchi noted. CARDIOVASCULAR: S1, S2 distinct. Normal rate, regular rhythm. ABDOMEN: Flabby. Positive bowel sounds. Soft, nondistended, nontender. EXTREMITIES: No joint swelling. No cellulitis. LABORATORY: CBC done today showed white count of 8, hemoglobin is 8.8, hematocrit 36.6, platelet count is 159. ABG done today showed pH of 7.32, PCO2 of 45.8, PO2 of 74.4, bicarb 33.1. ABG oxygen saturation 94.4. Chemistry done today showed sodium is 141, potassium is 3.5, chloride is 109, CO2 is 23, BUN is 49, creatinine is 3.71, glucose 103, and calcium is 8.7. Total bilirubin is 1.3 and direct bilirubin is 1.2. SGOT is 62, SGPT 22, alkaline phosphatase 198. Chest x-ray done today showed persistent opacifications involving the right upper right lung. ASSESSMENT: 1. LUNG CANCER, RIGHT LUNG, STATUS POST CHEMOTHERAPY AND RADIATION THERAPY. 2. MASSIVE ATELECTASIS RIGHT LUNG, PROBABLY BRONCHIAL INVASION BY LUNG CANCER. 3. PNEUMONIA, POST-OBSTRUCTIVE- CONCOMITANT. 4. ELEVATED LIVER ENZYMES, PROBABLY RELATED TO LIVER METASTASIS. PLAN/RECOMMENDATIONS: 1. Continue IV antibiotics; IV cefepime and IV Levaquin. 2. Recommend tertiary care transfer for possible bronchial stent placement. 3. Recommend family discussion about palliative care and hospice care. Will sign off tonight. DICTATING PHYSICIAN: SYDNIE MALAVE MD,SANGITA,MPH [id number] PHY#: [id number] ID: [id number] JOB#: [id number] ACCT: [id number] cc: > MTDD
[2018-06-15] MEDS: HEPARIN SOD (PORCINE) 5,000 UNIT/ML 1 ML SYRINGE SUBCUT SCH ×3 (05:18→22:32)
[2018-06-15 06:26] LABS: ARTERIAL BLOOD BASE EXCESS -2.1 mmol/L; ARTERIAL BLOOD FIO2 4LNC; ARTERIAL BLOOD H2CO3 1.38 mmol/L (1.05-1.35); ARTERIAL BLOOD HCO3 23.7 mmol/L (20-24); ARTERIAL BLOOD O2 SATURATION 91.5 % (94-98); ARTERIAL BLOOD PCO2 45.7 mmHg (35-45); ARTERIAL BLOOD PH 7.33 (7.35-7.45); ARTERIAL BLOOD PO2 65.4 mmHg (80-100); ARTERIAL BLOOD TOTAL CO2 25.1 mmol/L (23-27)
[2018-06-15 06:50] LABS: HEMATOCRIT 24.1 % (37.9-51.0); HEMOGLOBIN 8.1 g/dL (13.5-17.0); MEAN CORPUSCULAR HEMOGLOBIN 31.9 pg (27.0-33.4); MEAN CORPUSCULAR HGB CONC 33.6 g/dL (32.0-36.0); MEAN CORPUSCULAR VOLUME 95 fl (80-97); PLATELET COUNT 136 10^3/uL (150-450); RED BLOOD COUNT 2.54 10^6/uL (4.35-5.55); RED CELL DISTRIBUTION WIDTH 20.3 % (11.5-14.0); WHITE BLOOD COUNT 7.7 10^3/uL (4.0-10.5)
[2018-06-15 07:17] LABS: ANION GAP 9 (5-19); BLOOD UREA NITROGEN 51 mg/dL (7-20); CALCIUM 8.6 mg/dL (8.4-10.2); CARBON DIOXIDE 23 mmol/L (22-30); CHLORIDE 109 mmol/L (98-107); GLUCOSE 98 mg/dL (75-110); PHOSPHORUS 4.4 mg/dL (2.5-4.5); POTASSIUM 3.6 mmol/L (3.6-5.0); SODIUM 140.9 mmol/L (137-145)
--- NOTE | 2018-06-15 10:57 | PDOC PROGRESS REPORT ---
Subjective Progress Note for:: 06/15/18 Subjective:: Patient seen and examined today. Has been afebrile and his white count is normal He is stable on nasal cannula He is awake but lethargic Waiting to be transferred to [facility] Reason For Visit: LUNG CANCER HYPONATREMIA Physical Exam Vital Signs: Temp Pulse Resp BP Pulse Ox 98.6 F 74 16 130/71 H 91 L 06/15/18 07:42 06/15/18 08:19 06/15/18 08:19 06/15/18 07:42 06/15/18 08:19 Intake & Output 06/14/18 06/15/18 06/16/18 06:59 06:59 06:59 Intake Total 2140 1166 Balance 2140 1166 Weight 200 lb 9.93 oz 204 lb 9.423 oz General appearance: PRESENT: disheveled, mild distress Head exam: PRESENT: atraumatic, normocephalic Eye exam: PRESENT: PERRLA. ABSENT: conjunctival injection Ear exam: ABSENT: bleeding, drainage Mouth exam: PRESENT: moist, neck supple Neck exam: ABSENT: meningismus, tenderness Respiratory exam: PRESENT: accessory muscle use, decreased breath sounds, rhonchi Cardiovascular exam: PRESENT: RRR Pulses: PRESENT: normal radial pulses GI/Abdominal exam: PRESENT: normal bowel sounds, soft Rectal exam: PRESENT: deferred Extremities exam: ABSENT: pedal edema Musculoskeletal exam: ABSENT: deformity Neurological exam: PRESENT: altered Results Laboratory Results: 06/15/18 06:12 06/15/18 06:12 06/14/18 06/14/18 06/14/18 10:05 10:05 10:30 WBC 8.0 RBC 2.75 L Hgb 8.8 L Hct 26.6 L MCV 97 MCH 32.0 MCHC 33.1 RDW 20.3 H Plt Count 159 Seg Neutrophils % 84.3 H Lymphocytes % 8.2 L Monocytes % 6.2 Eosinophils % 0.4 Basophils % 0.9 Absolute Neutrophils 6.7 Absolute Lymphocytes 0.7 Absolute Monocytes 0.5 Absolute Eosinophils 0.0 Absolute Basophils 0.1 Carbonic Acid 1.38 H HCO3/H2CO3 Ratio 16:1 ABG pH 7.32 L ABG pCO2 45.8 H ABG pO2 77.4 L ABG HCO3 23.1 ABG O2 Saturation 94.4 ABG Base Excess -3.2 FiO2 3L Sodium 141.0 Potassium 3.5 L Chloride 109 H Carbon Dioxide 23 Anion Gap 9 BUN 49 H Creatinine 3.71 H Est GFR ( Amer) 21 L Est GFR (Non-Af Amer) 17 L Glucose 103 Calcium 8.7 Phosphorus Magnesium Total Bilirubin 1.3 AST 62 H ALT 22 Alkaline Phosphatase 198 H Total Protein 5.4 L Albumin 2.7 L 06/15/18 06/15/18 06/15/18 06:12 06:12 06:15 WBC 7.7 RBC 2.54 L Hgb 8.1 L Hct 24.1 L MCV 95 MCH 31.9 MCHC 33.6 RDW 20.3 H Plt Count 136 L Seg Neutrophils % Lymphocytes % Monocytes % Eosinophils % Basophils % Absolute Neutrophils Absolute Lymphocytes Absolute Monocytes Absolute Eosinophils Absolute Basophils Carbonic Acid 1.38 H HCO3/H2CO3 Ratio 17:1 ABG pH 7.33 L ABG pCO2 45.7 H ABG pO2 65.4 L ABG HCO3 23.7 ABG O2 Saturation 91.5 L ABG Base Excess -2.1 FiO2 4LNC Sodium 140.9 Potassium 3.6 Chloride 109 H Carbon Dioxide 23 Anion Gap 9 BUN 51 H Creatinine 3.84 H Est GFR ( Amer) 20 L Est GFR (Non-Af Amer) 16 L Glucose 98 Calcium 8.6 Phosphorus 4.4 Magnesium 2.1 Total Bilirubin AST ALT Alkaline Phosphatase Total Protein Albumin 06/09/18 09:24 Blood Blood Culture - Final NO GROWTH IN 5 DAYS 06/09/18 09:18 Blood Blood Culture - Final NO GROWTH IN 5 DAYS 06/02/18 23:30 Troponin I < 0.012 Impressions: Abdomen/Pelvis CT 06/03/18 00:03 IMPRESSION: Little change in the appearance of the chest compared with the most recent CT chest. Stable postsurgical changes and volume loss of the right hemithorax. Stable areas of airspace opacity in the right paramediastinal region and right hilar regions. Areas of fibrosis are also noted. Fatty infiltrative change to the liver. Cholelithiasis. Sigmoid diverticulosis without CT evidence for diverticulitis. TECHNICAL DOCUMENTATION: Quality ID # 436: Final reports with documentation of one or more dose reduction techniques (e.g., Automated exposure control, adjustment of the mA and/or kV according to patient size, use of iterative reconstruction technique) copyright 2011 [employer]- All Rights Reserved Chest/Abdomen CTA 06/03/18 00:03 IMPRESSION: Little change in the appearance of the chest compared with the most recent CT chest. Stable postsurgical changes and volume loss of the right hemithorax. Stable areas of airspace opacity in the right paramediastinal region and right hilar regions. Areas of fibrosis are also noted. Fatty infiltrative change to the liver. Cholelithiasis. Sigmoid diverticulosis without CT evidence for diverticulitis. TECHNICAL DOCUMENTATION: Quality ID # 436: Final reports with documentation of one or more dose reduction techniques (e.g., Automated exposure control, adjustment of the mA and/or kV according to patient size, use of iterative reconstruction technique) copyright 2010 [employer]- All Rights Reserved Venous Doppler Study 06/05/18 00:00 IMPRESSION: NO EVIDENCE DVT OR SVT IN EITHER LEG. Chest CT 06/07/18 00:00 IMPRESSION: Increasing consolidation right lung, now with complete opacification the right upper lobe with right apical lung parenchymal air-fluid levels worrisome for intrapulmonary abscesses. There is now consolidation in the posterior right lung base worrisome for pneumonia. Head CT 06/09/18 00:00 IMPRESSION: CHRONIC CHANGES OF ATROPHY AND MICROVASCULAR ISCHEMIA. NO ACUTE PROCESS. EVIDENCE OF ACUTE STROKE: NO. Chest Ultrasound 06/09/18 22:52 IMPRESSION: Targeted exam for requested parameters. Chest X-Ray 06/14/18 00:00 IMPRESSION: Complete dense opacification of the right chest. Likely a combination of atelectasis and large effusion, possibly hemothorax. Multiple displaced right rib fractures. Assessment & Plan - Diagnosis (1) Pneumonia Qualifiers: Pneumonia type: due to unspecified organism Laterality: right Lung location: unspecified part of lung Qualified Code(s): J18.9 - Pneumonia, unspecified organism Is this a current diagnosis for this admission?: Yes Plan: Possible postobstructive pneumonia. Continue broad-spectrum antibiotics (stop vancomycin due to nephrotoxicity). Follow blood and sputum cultures. Dr. Bryant from pulmonology switched cefepime to Zosyn on 06/09/2018. On 06/09/2018: Dr. Mackay consulted Dr. Salcedo for questionable lung abscess. Dr. Salcedo recommended transfer for cardiothoracic surgery consultation. Thompson contacted cardiothoracic surgery and they reviewed the films and recommended continuing IV antibiotic management. His white blood count is normal now and he is afebrile. Patient is waiting to be transferred to [facility] for possible bronchial stent. (2) Acute renal failure Is this a current diagnosis for this admission?: Yes Plan: Likely vancomycin nephrotoxicity. We stopped vancomycin and changed Zosyn back to cefepime. Continue IV fluid hydration. Monitor renal function. (3) Dehydration Is this a current diagnosis for this admission?: Yes Plan: 06/10/2018: Switched normal saline to lactated Ringer's and increased rate from 100-150 mL/h (4) Hypokalemia Is this a current diagnosis for this admission?: Yes Plan: Monitor and replace as needed (5) Hypomagnesemia Is this a current diagnosis for this admission?: Yes Plan: Continue replacement. Monitor levels (6) Lung mass Is this a current diagnosis for this admission?: Yes Plan: Enlarging mass. CT scan with IV contrast reviewed. Most likely postobstructive pneumonia with lung abscess on top of his chronic lung mass. We consulted pulmonology. Dr. Bryant from pulmonology switch cefepime to Zosyn on 06/09/2018. On 06/09/2018: Dr. Mackay consulted Dr. Salcedo for questionable lung abscess. Dr. Salcedo recommended transfer for cardiothoracic surgery consultation. Dr. Mackay contacted cardiothoracic surgery and they reviewed the films and recommended continuing IV antibiotic management. Dr. Bryant recommended transfer for possible bronchial stent. I contacted [facility] and they accepted the patient and we are waiting for a bed. (7) Squamous cell carcinoma of right lung Is this a current diagnosis for this admission?: Yes Plan: Defer to oncology (8) Alcohol abuse Is this a current diagnosis for this admission?: Yes Plan: Continue thiamine and only as needed Ativan (9) Hyponatremia Is this a current diagnosis for this admission?: Yes Plan: Resolved. Monitor.
--- NOTE | 2018-06-15 11:04 | PDOC PROGRESS REPORT ---
Subjective Progress Note for:: 06/15/18 Subjective:: No acute events overnight but still stable level of confusion ongoing, Dr. Mackay has ordered MRI of the brain which is pending now. Reason For Visit: LUNG CANCER HYPONATREMIA Physical Exam Vital Signs: Temp Pulse Resp BP Pulse Ox 98.6 F 74 16 130/71 H 91 L 06/15/18 07:42 06/15/18 08:19 06/15/18 08:19 06/15/18 07:42 06/15/18 08:19 Intake & Output 06/14/18 06/15/18 06/16/18 06:59 06:59 06:59 Intake Total 2140 1166 Balance 2140 1166 Weight 91 kg 92.8 kg General appearance: PRESENT: no acute distress, well-developed, well-nourished Head exam: PRESENT: atraumatic, normocephalic Eye exam: PRESENT: conjunctiva pink, EOMI, PERRLA. ABSENT: scleral icterus Ear exam: PRESENT: normal external ear exam Mouth exam: PRESENT: moist, tongue midline Neck exam: ABSENT: carotid bruit, JVD, lymphadenopathy, thyromegaly Respiratory exam: PRESENT: clear to auscultation rodrigue. ABSENT: rales, rhonchi, wheezes Cardiovascular exam: PRESENT: RRR. ABSENT: diastolic murmur, rubs, systolic murmur Pulses: PRESENT: normal dorsalis pedis pul Vascular exam: PRESENT: normal capillary refill GI/Abdominal exam: PRESENT: normal bowel sounds, soft. ABSENT: distended, guarding, mass, organolmegaly, rebound, tenderness Rectal exam: PRESENT: deferred Extremities exam: PRESENT: full ROM. ABSENT: calf tenderness, clubbing, pedal edema Neurological exam: PRESENT: alert, awake, oriented to person, oriented to place, oriented to time, oriented to situation, CN II-XII grossly intact. ABSENT: motor sensory deficit Psychiatric exam: PRESENT: appropriate affect, normal mood. ABSENT: homicidal ideation, suicidal ideation Skin exam: PRESENT: dry, intact, warm. ABSENT: cyanosis, rash Results Laboratory Results: 06/15/18 06:12 06/15/18 06:12 06/14/18 06/14/18 06/15/18 10:05 10:30 06:12 WBC 7.7 RBC 2.54 L Hgb 8.1 L Hct 24.1 L MCV 95 MCH 31.9 MCHC 33.6 RDW 20.3 H Plt Count 136 L Carbonic Acid 1.38 H HCO3/H2CO3 Ratio 16:1 ABG pH 7.32 L ABG pCO2 45.8 H ABG pO2 77.4 L ABG HCO3 23.1 ABG O2 Saturation 94.4 ABG Base Excess -3.2 FiO2 3L Sodium 141.0 Potassium 3.5 L Chloride 109 H Carbon Dioxide 23 Anion Gap 9 BUN 49 H Creatinine 3.71 H Est GFR ( Amer) 21 L Est GFR (Non-Af Amer) 17 L Glucose 103 Calcium 8.7 Phosphorus Magnesium Total Bilirubin 1.3 AST 62 H ALT 22 Alkaline Phosphatase 198 H Total Protein 5.4 L Albumin 2.7 L 06/15/18 06/15/18 06:12 06:15 WBC RBC Hgb Hct MCV MCH MCHC RDW Plt Count Carbonic Acid 1.38 H HCO3/H2CO3 Ratio 17:1 ABG pH 7.33 L ABG pCO2 45.7 H ABG pO2 65.4 L ABG HCO3 23.7 ABG O2 Saturation 91.5 L ABG Base Excess -2.1 FiO2 4LNC Sodium 140.9 Potassium 3.6 Chloride 109 H Carbon Dioxide 23 Anion Gap 9 BUN 51 H Creatinine 3.84 H Est GFR ( Amer) 20 L Est GFR (Non-Af Amer) 16 L Glucose 98 Calcium 8.6 Phosphorus 4.4 Magnesium 2.1 Total Bilirubin AST ALT Alkaline Phosphatase Total Protein Albumin 06/09/18 09:24 Blood Blood Culture - Final NO GROWTH IN 5 DAYS 06/09/18 09:18 Blood Blood Culture - Final NO GROWTH IN 5 DAYS 06/02/18 23:30 Troponin I < 0.012 Impressions: Abdomen/Pelvis CT 06/03/18 00:03 IMPRESSION: Little change in the appearance of the chest compared with the most recent CT chest. Stable postsurgical changes and volume loss of the right hemithorax. Stable areas of airspace opacity in the right paramediastinal region and right hilar regions. Areas of fibrosis are also noted. Fatty infiltrative change to the liver. Cholelithiasis. Sigmoid diverticulosis without CT evidence for diverticulitis. TECHNICAL DOCUMENTATION: Quality ID # 436: Final reports with documentation of one or more dose reduction techniques (e.g., Automated exposure control, adjustment of the mA and/or kV according to patient size, use of iterative reconstruction technique) copyright 2010 [employer]- All Rights Reserved Chest/Abdomen CTA 06/03/18 00:03 IMPRESSION: Little change in the appearance of the chest compared with the most recent CT chest. Stable postsurgical changes and volume loss of the right hemithorax. Stable areas of airspace opacity in the right paramediastinal region and right hilar regions. Areas of fibrosis are also noted. Fatty infiltrative change to the liver. Cholelithiasis. Sigmoid diverticulosis without CT evidence for diverticulitis. TECHNICAL DOCUMENTATION: Quality ID # [id number]: Final reports with documentation of one or more dose reduction techniques (e.g., Automated exposure control, adjustment of the mA and/or kV according to patient size, use of iterative reconstruction technique) copyright 2010 [employer]- All Rights Reserved Venous Doppler Study 06/05/18 00:00 IMPRESSION: NO EVIDENCE DVT OR SVT IN EITHER LEG. Chest CT 06/07/18 00:00 IMPRESSION: Increasing consolidation right lung, now with complete opacification the right upper lobe with right apical lung parenchymal air-fluid levels worrisome for intrapulmonary abscesses. There is now consolidation in the posterior right lung base worrisome for pneumonia. Head CT 06/09/18 00:00 IMPRESSION: CHRONIC CHANGES OF ATROPHY AND MICROVASCULAR ISCHEMIA. NO ACUTE PROCESS. EVIDENCE OF ACUTE STROKE: NO. Chest Ultrasound 06/09/18 22:52 IMPRESSION: Targeted exam for requested parameters. Chest X-Ray 06/14/18 00:00 IMPRESSION: Complete dense opacification of the right chest. Likely a combination of atelectasis and large effusion, possibly hemothorax. Multiple displaced right rib fractures. Assessment & Plan - Diagnosis (1) Squamous cell carcinoma of right lung Is this a current diagnosis for this admission?: Yes Plan: MRI of the brain done, awaiting results, patient is planned for transfer to [facility] when bed is available for consideration of bronchial stent.
--- NOTE | 2018-06-15 11:22 | RADIOLOGY REPORT (SQ) ---
EXAM DESCRIPTION: MRI HEAD WITHOUT COMPLETED DATE/TIME: 06/15/2018 11:08 am REASON FOR STUDY: Delerium in patient with lung cancer. r/o mets COMPARISON: None. TECHNIQUE: Multiplanar imaging includes non-contrasted T1, T2, FLAIR, and diffusion with ADC map seq uences. Images stored on PACS. LIMITATIONS: Limited by lack of IV contrast. Patient could not have IV contrast because of very hig h creatinine. FINDINGS: ANATOMY: No anomalies. Normal vascular flow voids. Pituitary fossa normal. CSF SPACES: Atrophy induced prominence of ventricles and CSF spaces. CEREBRUM: High signal intensity lesions scattered throughout the white matter on FLAIR imaging with d istribution suggesting micro-vascular ischemic changes. 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 No evidence of hemorrhage, mass, or extraaxial fluid collection. POSTERIOR FOSSA: No signal alteration. No hemorrhage. No edema, masses or mass effect. Internal lorena tory canals, cerebello-pontine angles, mastoids normal. DIFFUSION IMAGING: Negative for acute or sub-acute infarction. ORBITS: No masses. Globes normal. PARANASAL SINUSES: No fluid levels. Mucosa normal. OTHER: No other significant finding. IMPRESSION: Limited for assessment of metastases by lack of IV contrast, however there is no mass ef fect or vasogenic edema. Microvascular ischemia including changes in the garza matter in the left temporal lobe. No hemorrhage. EVIDENCE OF ACUTE STROKE: NO. TECHNICAL DOCUMENTATION: JOB ID: [id number] [employer]- All Rights Reserved Reading location - IP/workstation name: [email or web address]
[2018-06-15] MEDS: DOCUSATE SODIUM 100 MG CAPSULE PO SCH ×2 (12:08→17:20)
[2018-06-15] MEDS: MAGNESIUM OXIDE 400 MG TABLET PO SCH ×2 (12:10→17:20)
[2018-06-15] MEDS: DILTIAZEM HCL 120 MG CAP.SR.24H PO SCH ×2 (12:10→22:32)
[2018-06-15] MEDS: THIAMINE HCL 100 MG TABLET PO SCH (12:11)
[2018-06-15] MEDS: CEFEPIME 2 GM/D5W RTU 2 GM/50 ML RTUPB IV SCH (22:32)
[2018-06-16] MEDS: RINGERS SOLUTION 1,000 ML IV PRN ×3 (00:58→15:46)
[2018-06-16] MEDS: LEVALBUTEROL HCL NEB 1.25 MG/3 ML AMPUL NEB SCH ×4 (02:26→19:40)
[2018-06-16] MEDS: ACETYLCYSTEINE 20% SOLN 800 MG/4 ML VIAL.NEB IH SCH ×4 (02:26→19:40)
[2018-06-16 05:05] LABS: ANION GAP 7 (5-19); BLOOD UREA NITROGEN 54 mg/dL (7-20); CALCIUM 8.6 mg/dL (8.4-10.2); CARBON DIOXIDE 22 mmol/L (22-30); CHLORIDE 113 mmol/L (98-107); GLUCOSE 101 mg/dL (75-110); POTASSIUM 3.6 mmol/L (3.6-5.0); SODIUM 141.9 mmol/L (137-145)
[2018-06-16] MEDS: HEPARIN SOD (PORCINE) 5,000 UNIT/ML 1 ML SYRINGE SUBCUT SCH ×3 (05:25→22:39)
--- NOTE | 2018-06-16 08:20 | PDOC PROGRESS REPORT ---
Subjective Progress Note for:: 06/16/18 Subjective:: No acute events overnight, reviewed MRI, no brain lesions but microvasc changes and evidence of old infarct Reason For Visit: LUNG CANCER HYPONATREMIA Physical Exam Vital Signs: Temp Pulse Resp BP Pulse Ox 97.7 F 88 31 H 115/65 97 06/16/18 03:36 06/16/18 07:59 06/16/18 07:59 06/16/18 03:36 06/16/18 07:59 Intake & Output 06/15/18 06/16/18 06/17/18 06:59 06:59 06:59 Intake Total 1166 1165 Balance 1166 1165 Weight 92.8 kg 95.3 kg General appearance: PRESENT: no acute distress, well-developed, well-nourished Head exam: PRESENT: atraumatic, normocephalic Eye exam: PRESENT: conjunctiva pink, EOMI, PERRLA. ABSENT: scleral icterus Ear exam: PRESENT: normal external ear exam Mouth exam: PRESENT: moist, tongue midline Neck exam: ABSENT: carotid bruit, JVD, lymphadenopathy, thyromegaly Respiratory exam: PRESENT: clear to auscultation rdorigue. ABSENT: rales, rhonchi, wheezes Cardiovascular exam: PRESENT: RRR. ABSENT: diastolic murmur, rubs, systolic murmur Pulses: PRESENT: normal dorsalis pedis pul Vascular exam: PRESENT: normal capillary refill GI/Abdominal exam: PRESENT: normal bowel sounds, soft. ABSENT: distended, guarding, mass, organolmegaly, rebound, tenderness Rectal exam: PRESENT: deferred Extremities exam: PRESENT: full ROM. ABSENT: calf tenderness, clubbing, pedal edema Neurological exam: PRESENT: alert, awake, oriented to person, oriented to place, oriented to time, oriented to situation, CN II-XII grossly intact. ABSENT: motor sensory deficit Psychiatric exam: PRESENT: appropriate affect, normal mood. ABSENT: homicidal ideation, suicidal ideation Skin exam: PRESENT: dry, intact, warm. ABSENT: cyanosis, rash Results Laboratory Results: 06/15/18 06:12 06/16/18 03:57 06/16/18 03:57 Sodium 141.9 Potassium 3.6 Chloride 113 H Carbon Dioxide 22 Anion Gap 7 BUN 54 H Creatinine 3.83 H Est GFR ( Amer) 20 L Est GFR (Non-Af Amer) 16 L Glucose 101 Calcium 8.6 06/02/18 23:30 Troponin I < 0.012 Impressions: Abdomen/Pelvis CT 06/03/18 00:03 IMPRESSION: Little change in the appearance of the chest compared with the most recent CT chest. Stable postsurgical changes and volume loss of the right hemithorax. Stable areas of airspace opacity in the right paramediastinal region and right hilar regions. Areas of fibrosis are also noted. Fatty infiltrative change to the liver. Cholelithiasis. Sigmoid diverticulosis without CT evidence for diverticulitis. TECHNICAL DOCUMENTATION: Quality ID # 436: Final reports with documentation of one or more dose reduction techniques (e.g., Automated exposure control, adjustment of the mA and/or kV according to patient size, use of iterative reconstruction technique) copyright 2010 [employer]- All Rights Reserved Chest/Abdomen CTA 06/03/18 00:03 IMPRESSION: Little change in the appearance of the chest compared with the most recent CT chest. Stable postsurgical changes and volume loss of the right hemithorax. Stable areas of airspace opacity in the right paramediastinal region and right hilar regions. Areas of fibrosis are also noted. Fatty infiltrative change to the liver. Cholelithiasis. Sigmoid diverticulosis without CT evidence for diverticulitis. TECHNICAL DOCUMENTATION: Quality ID # 436: Final reports with documentation of one or more dose reduction techniques (e.g., Automated exposure control, adjustment of the mA and/or kV according to patient size, use of iterative reconstruction technique) copyright 2010 [employer]- All Rights Reserved Venous Doppler Study 06/05/18 00:00 IMPRESSION: NO EVIDENCE DVT OR SVT IN EITHER LEG. Chest CT 06/07/18 00:00 IMPRESSION: Increasing consolidation right lung, now with complete opacification the right upper lobe with right apical lung parenchymal air-fluid levels worrisome for intrapulmonary abscesses. There is now consolidation in the posterior right lung base worrisome for pneumonia. Head CT 06/09/18 00:00 IMPRESSION: CHRONIC CHANGES OF ATROPHY AND MICROVASCULAR ISCHEMIA. NO ACUTE PROCESS. EVIDENCE OF ACUTE STROKE: NO. Chest Ultrasound 06/09/18 22:52 IMPRESSION: Targeted exam for requested parameters. Chest X-Ray 06/14/18 00:00 IMPRESSION: Complete dense opacification of the right chest. Likely a combination of atelectasis and large effusion, possibly hemothorax. Multiple displaced right rib fractures. Head MRI 06/15/18 00:00 IMPRESSION: Limited for assessment of metastases by lack of IV contrast, however there is no mass effect or vasogenic edema. Microvascular ischemia including changes in the garza matter in the left temporal lobe. No hemorrhage. EVIDENCE OF ACUTE STROKE: NO. Assessment & Plan - Diagnosis (1) Squamous cell carcinoma of right lung Is this a current diagnosis for this admission?: Yes Plan: Hopeful transfer soon to [facility] for consideration of bronchial stent
[2018-06-16] MEDS: THIAMINE HCL 100 MG TABLET PO SCH (10:01)
[2018-06-16] MEDS: LEVOFLOXACIN 750 MG/D5W RTU 750 MG/150 ML RTUPB IV SCH (10:02)
[2018-06-16] MEDS: DILTIAZEM HCL 120 MG CAP.SR.24H PO SCH (10:02)
[2018-06-16] MEDS: MAGNESIUM OXIDE 400 MG TABLET PO SCH ×2 (10:02→17:39)
[2018-06-16] MEDS: DOCUSATE SODIUM 100 MG CAPSULE PO SCH ×2 (10:11→17:39)
--- NOTE | 2018-06-16 15:16 | PDOC CONSULTATION ---
Consultation Consult Date: 06/16/18 Consult reason:: DEV. History of Present Illness Admission Date/PCP: 06/03/18 01:56 SIDDHARTH VOGT MD History of Present Illness: ERICKA RAZO is a 58 year old male with a history of treated Cancer of the lungs in 2018 with chemo and radiation but not amenable to surgery is apparently too close to the pulmonary artery was admitted due to generalized weakness and fatigue. Evaluations done so far in the hospital do revealed that he has right upper lobe obstructive pneumonia. Patient was started on IV vancomycin, cefepime and Levaquin. Cefepime was switched to Zosyn by pulmonology. Patient's kidney function deteriorated and vancomycin was stopped and then restarted back on Zosyn and later to cefepime. Patient continued on IV fluids. He seems to have intermittent confusional status. He is currently on BiPAP. He does not seem to answer questions correctly all the time. Therefore discussions were done with this treating nurse.He is awaiting transfer to [facility] for placement of a stent to get through his obstruction of the endobronchial lesion. Labs and medications were reviewed. He does not have a Abreu catheter but according to the nurse he is still able to make urine. 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, 2017 Denies: Bone Cancer, Brain Cancer, Breast Cancer, Cervical Cancer, Colorectal Cancer, Leukemia, Liver Cancer, Lymphoma, Ovarian Cancer, Pancreatic Cancer, Renal (Kidney) Cancer, Skin Cancer GI Medical History: Denies: Cirrhosis, Crohn's Disease, Diverticulitis, Gastroesophageal Reflux Disease, Hepatitis, Hiatal Hernia, Ulcerative Colitis Musculoskeltal Medical History: Reports: Arthritis - "everywhere" Psychiatric Medical History: Denies: Bipolar Disorder, Dementia, Depression, Post Traumatic Stress Disorder, Schizoaffective Disorder Traumatic Medical History: Reports: Traumatic Brain Injury - Depressed skull fracture requiring surgical intervention at 19 yo Denies: Gunshot Wound, Pneumothorax Past Surgical History Past Surgical History: Reports: Orthopedic Surgery - L wrist and skull., Other - Inguinal hernia Social History Lives with: Spouse/Significant other Smoking Status: Former Smoker Frequency of Alcohol Use: Heavy Hx Recreational Drug Use: No Drugs: None Hx Prescription Drug Abuse: No - Advance Directive Resuscitation Status: Full Code Family History Parental Family History Reviewed: No Children Family History Reviewed: No Sibling(s) Family History Reviewed.: No Medication/Allergy Home Medications: Albuterol Sulfate [Proventil Hfa] 2 puff IH Q4HP PRN 06/03/18 Benzonatate [Tessalon Perles 100 mg Capsule] 100 mg PO Q8HP PRN 06/03/18 Acetaminophen [Tylenol 325 mg Tablet] 650 mg PO Q4HP PRN tablet 06/13/18 Acetylcysteine [Mucomist 20% Soln 800 mg/4 mL] 600 mg IH RTQ6 vial 06/13/18 Diltiazem HCl [Cardizem Cd 120 mg Capsule] 120 mg PO Q12 cap.sr.24h 06/13/18 Docusate Sodium [Colace 100 mg Capsule] 100 mg PO BID capsule 06/13/18 Heparin Sodium,Porcine [Heparin Inj 5,000 Units/ml 1 ml Syringe] 5,000 unit SUBCUT Q8 syringe 06/13/18 Ipratropium/Albuterol Sulfate [Duoneb 3 ml Ampul] 3 ml NEB [id number] PRN vial.neb 06/13/18 Levalbuterol HCl [Xopenex Neb 1.25 mg/3 ml Ampul] 1.25 mg NEB RTQ6 vial.neb 06/13/18 Lorazepam [Ativan Inj 2 mg/1 ml Vial] 1 mg IV Q4HP PRN vial 06/13/18 Mag Hydrox/Al Hydrox/Simeth [Maalox Plus Susp 30 Udcup] 30 ml PO Q6HP PRN udc 06/13/18 Magnesium Hydroxide [Milk of Magnesia 30 ml Udcup] 30 ml PO HSP PRN udc 06/13/18 Magnesium Oxide [Mag-Ox 400 mg Tablet] 800 mg PO BID tablet 06/13/18 Piperacillin Sodium/Tazobactam [Zosyn Inj 3.375 gm Vial] 3.375 gm IV Q8 vial 06/13/18 Ringers Solution [Ringers 1000 ml IV Soln] 150 ml IV CONTINUOUS PRN iv.soln 06/13/18 Thiamine HCl [Thiamine 100 mg Tablet] 100 mg PO DAILY tablet 06/13/18 Allergies/Adverse Reactions: No Known Allergies Allergy (Verified 01/28/18 10:25) Review of Systems ROS unobtainable: Due to mental status Constitutional: PRESENT: weakness. ABSENT: headache(s), night sweats Nose, Mouth, and Throat: ABSENT: mouth pain, sore throat Cardiovascular: PRESENT: dyspnea on exertion. ABSENT: chest pain, edema, orthropnea, palpitations Respiratory: PRESENT: dyspnea. ABSENT: hemoptysis Gastrointestinal: ABSENT: abdominal pain, constipation, diarrhea, dysphagia, heartburn Genitourinary: ABSENT: dysuria, hematuria Integumentary: ABSENT: lesions, pruritus Neurological: PRESENT: confusion. ABSENT: abnormal speech, focal weakness Hematologic/Lymphatic: ABSENT: easy bruising, lymphadenopathy Physical Exam Vital Signs: Temp Pulse Resp BP Pulse Ox 97.6 F 102 H 23 H 116/68 99 06/16/18 11:20 06/16/18 14:00 06/16/18 13:18 06/16/18 11:20 06/16/18 13:18 Intake & Output 06/15/18 06/16/18 06/17/18 06:59 06:59 06:59 Intake Total 1166 1165 472 Output Total 150 Balance 1166 1165 322 Weight 92.8 kg 95.3 kg General appearance: PRESENT: no acute distress Eye exam: PRESENT: EOMI, PERRLA. ABSENT: nystagmus Ear exam: PRESENT: normal external ear exam Mouth exam: PRESENT: neck supple. ABSENT: moist Neck exam: ABSENT: lymphadenopathy, meningismus, tenderness, thyromegaly, tracheal deviation Respiratory exam: PRESENT: clear to auscultation rodrigue, crackles, decreased breath sounds, rhonchi Cardiovascular exam: PRESENT: +S1, +S2, systolic murmur GI/Abdominal exam: PRESENT: normal bowel sounds, soft. ABSENT: organomegaly, tenderness Extremities exam: ABSENT: pedal edema Neurological exam: PRESENT: altered, awake, oriented to person. ABSENT: oriented to place Psychiatric exam: PRESENT: anxious. ABSENT: appropriate affect Skin exam: PRESENT: normal color. ABSENT: cyanosis, erythema, mottled, rash Results Laboratory Results: 06/15/18 06:12 06/16/18 03:57 06/16/18 03:57 Sodium 141.9 Potassium 3.6 Chloride 113 H Carbon Dioxide 22 Anion Gap 7 BUN 54 H Creatinine 3.83 H Est GFR ( Amer) 20 L Est GFR (Non-Af Amer) 16 L Glucose 101 Calcium 8.6 06/02/18 23:30 Troponin I < 0.012 Impressions: Abdomen/Pelvis CT 06/03/18 00:03 IMPRESSION: Little change in the appearance of the chest compared with the most recent CT chest. Stable postsurgical changes and volume loss of the right hemithorax. Stable areas of airspace opacity in the right paramediastinal region and right hilar regions. Areas of fibrosis are also noted. Fatty infiltrative change to the liver. Cholelithiasis. Sigmoid diverticulosis without CT evidence for diverticulitis. TECHNICAL DOCUMENTATION: Quality ID # 436: Final reports with documentation of one or more dose reduction techniques (e.g., Automated exposure control, adjustment of the mA and/or kV according to patient size, use of iterative reconstruction technique) copyright 2010 [employer] All Rights Reserved Chest/Abdomen CTA 06/03/18 00:03 IMPRESSION: Little change in the appearance of the chest compared with the most recent CT chest. Stable postsurgical changes and volume loss of the right hemithorax. Stable areas of airspace opacity in the right paramediastinal region and right hilar regions. Areas of fibrosis are also noted. Fatty infiltrative change to the liver. Cholelithiasis. Sigmoid diverticulosis without CT evidence for diverticulitis. TECHNICAL DOCUMENTATION: Quality ID # 436: Final reports with documentation of one or more dose reduction techniques (e.g., Automated exposure control, adjustment of the mA and/or kV according to patient size, use of iterative reconstruction technique) copyright 2010 [employer] All Rights Reserved Venous Doppler Study 06/05/18 00:00 IMPRESSION: NO EVIDENCE DVT OR SVT IN EITHER LEG. Chest CT 06/07/18 00:00 IMPRESSION: Increasing consolidation right lung, now with complete op acification the right upper lobe with right apical lung parenchymal air-fluid levels worrisome for intrapulmonary abscesses. There is now consolidation in the posterior right lung base worrisome for pneumonia. Head CT 06/09/18 00:00 IMPRESSION: CHRONIC CHANGES OF ATROPHY AND MICROVASCULAR ISCHEMIA. NO ACUTE PROCESS. EVIDENCE OF ACUTE STROKE: NO. Chest Ultrasound 06/09/18 22:52 IMPRESSION: Targeted exam for requested parameters. Chest X-Ray 06/14/18 00:00 IMPRESSION: Complete dense opacification of the right chest. Likely a combination of atelectasis and large effusion, possibly hemothorax. Multiple displaced right rib fractures. Head MRI 06/15/18 00:00 IMPRESSION: Limited for assessment of metastases by lack of IV contrast, however there is no mass effect or vasogenic edema. Microvascular ischemia including changes in the garza matter in the left temporal lobe. No hemorrhage. EVIDENCE OF ACUTE STROKE: NO. Assessment & Plan - Diagnosis (1) Acute renal failure Is this a current diagnosis for this admission?: Yes Plan: Nonoliguric. Reviewed CT scan done of the abdomen which was showed an unremarkable kidneys. His AK I is most likely secondary to his malnutrition along with ATN from his pneumonia and acute vanc toxicity. His Vanco levels on the was 31. Continue on present lines of management including hydration. No acute indications [place] for renal replacement therapy. Elecrolytes otherwise stable. Please dose medications to a GFR of approximately 25 cc/min. I have gone on to adjust his cefepime for now.Will continue to monitor. (2) Pneumonia Qualifiers: Pneumonia type: due to unspecified organism Laterality: right Lung location: unspecified part of lung Qualified Code(s): J18.9 - Pneumonia, unspecified organism Is this a current diagnosis for this admission?: Yes Plan: Obstructive pneumonia due to endobronchial lesion from CT of the lungs. Awaiting transfer to [facility] for stent placement. (3) Squamous cell carcinoma of right lung Is this a current diagnosis for this admission?: Yes Plan: Right side. As per heme oncologist. (4) Anemia Qualifiers: Anemia type: unspecified type Qualified Code(s): D64.9 - Anemia, unspecified Plan: Multifactorial. Being managed by hem onc. (5) Hyponatremia Is this a current diagnosis for this admission?: Yes Plan: Currently stable. Monitor.
--- NOTE | 2018-06-16 20:09 | PDOC PROGRESS REPORT ---
Subjective Progress Note for:: 06/16/18 Subjective:: No acute events overnight. Intermittently confused. No apparent distress. Alert and oriented x2. Patient has been accepted at [facility] for possible tracheal stent however transfer still pending. . Denies any fever, chills, nausea, vomiting, diarrhea, chest pain, or urinary symptoms or any constipation. Reason For Visit: LUNG CANCER HYPONATREMIA Physical Exam Vital Signs: Temp Pulse Resp BP Pulse Ox 97.8 F 97 26 H 127/74 H 93 06/16/18 15:16 06/16/18 15:16 06/16/18 15:16 06/16/18 15:16 06/16/18 15:16 Intake & Output 06/15/18 06/16/18 06/17/18 06:59 06:59 06:59 Intake Total 1166 1165 1472 Output Total 350 Balance 1166 1165 1122 Weight 92.8 kg 95.3 kg General appearance: PRESENT: no acute distress, well-developed, well-nourished Head exam: PRESENT: atraumatic, normocephalic Respiratory exam: PRESENT: clear to auscultation rodrigue. ABSENT: rales, rhonchi, wheezes GI/Abdominal exam: PRESENT: normal bowel sounds, soft. ABSENT: distended, guarding, mass, organolmegaly, rebound, tenderness Neurological exam: PRESENT: alert, altered, awake, oriented to person, CN II-XII grossly intact Results Laboratory Results: 06/15/18 06:12 06/16/18 03:57 06/16/18 03:57 Sodium 141.9 Potassium 3.6 Chloride 113 H Carbon Dioxide 22 Anion Gap 7 BUN 54 H Creatinine 3.83 H Est GFR ( Amer) 20 L Est GFR (Non-Af Amer) 16 L Glucose 101 Calcium 8.6 06/02/18 23:30 Troponin I < 0.012 Impressions: Abdomen/Pelvis CT 06/03/18 00:03 IMPRESSION: Little change in the appearance of the chest compared with the most recent CT chest. Stable postsurgical changes and volume loss of the right hemithorax. Stable areas of airspace opacity in the right paramediastinal region and right hilar regions. Areas of fibrosis are also noted. Fatty infiltrative change to the liver. Cholelithiasis. Sigmoid diverticulosis without CT evidence for diverticulitis. TECHNICAL DOCUMENTATION: Quality ID # 436: Final reports with documentation of one or more dose reduction techniques (e.g., Automated exposure control, adjustment of the mA and/or kV according to patient size, use of iterative reconstruction technique) copyright 2010 [employer]- All Rights Reserved Chest/Abdomen CTA 06/03/18 00:03 IMPRESSION: Little change in the appearance of the chest compared with the most recent CT chest. Stable postsurgical changes and volume loss of the right hemithorax. Stable areas of airspace opacity in the right paramediastinal region and right hilar regions. Areas of fibrosis are also noted. Fatty infiltrative change to the liver. Cholelithiasis. Sigmoid diverticulosis without CT evidence for diverticulitis. TECHNICAL DOCUMENTATION: Quality ID # 436: Final reports with documentation of one or more dose reduction techniques (e.g., Automated exposure control, adjustment of the mA and/or kV according to patient size, use of iterative reconstruction technique) copyright 2010 [employer]- All Rights Reserved Venous Doppler Study 06/05/18 00:00 IMPRESSION: NO EVIDENCE DVT OR SVT IN EITHER LEG. Chest CT 06/07/18 00:00 IMPRESSION: Increasing consolidation right lung, now with complete opacification the right upper lobe with right apical lung parenchymal air-fluid levels worrisome for intrapulmonary abscesses. There is now consolidation in the posterior right lung base worrisome for pneumonia. Head CT 06/09/18 00:00 IMPRESSION: CHRONIC CHANGES OF ATROPHY AND MICROVASCULAR ISCHEMIA. NO ACUTE PROCESS. EVIDENCE OF ACUTE STROKE: NO. Chest Ultrasound 06/09/18 22:52 IMPRESSION: Targeted exam for requested parameters. Chest X-Ray 06/14/18 00:00 IMPRESSION: Complete dense opacification of the right chest. Likely a combination of atelectasis and large effusion, possibly hemothorax. Multiple displaced right rib fractures. Head MRI 06/15/18 00:00 IMPRESSION: Limited for assessment of metastases by lack of IV contrast, however there is no mass effect or vasogenic edema. Microvascular ischemia including changes in the garza matter in the left temporal lobe. No hemorrhage. EVIDENCE OF ACUTE STROKE: NO. Assessment & Plan - Diagnosis (1) Pneumonia Qualifiers: Pneumonia type: due to unspecified organism Laterality: right Lung location: unspecified part of lung Qualified Code(s): J18.9 - Pneumonia, unspecified organism Is this a current diagnosis for this admission?: Yes Plan: Continue broad-spectrum antibiotics. Vancomycin was stopped due to nephrotoxicity. Pending transfer to [facility] for possible bronchial stent. (2) Acute renal failure Is this a current diagnosis for this admission?: Yes Plan: Nonoliguric. Nephrology on board. Monitor vital status. Monitor electrolytes. Avoid nephrotoxic agents. (3) Dehydration Is this a current diagnosis for this admission?: Yes Plan: Continue lactated Ringer's. Monitor volume status. (4) Hypokalemia Is this a current diagnosis for this admission?: Yes Plan: Daily BMP. Place as needed. (5) Lung mass Is this a current diagnosis for this admission?: Yes Plan: Oncology on board. Please refer to note. (6) Squamous cell carcinoma of right lung Is this a current diagnosis for this admission?: Yes
[2018-06-16] MEDS ORDERED: CEFEPIME HCL 1 GM in DEXTROSE 5%-WATER 50 ML IV SCH (22:00)
[2018-06-16] MEDS: CEFEPIME 1 GM/D5W RTU 1 GM/50 ML RTUPB IV SCH (22:46)
[2018-06-17] MEDS: LEVALBUTEROL HCL NEB 1.25 MG/3 ML AMPUL NEB SCH ×4 (02:26→20:07)
[2018-06-17] MEDS: ACETYLCYSTEINE 20% SOLN 800 MG/4 ML VIAL.NEB IH SCH ×3 (02:26→13:36)
[2018-06-17] MEDS: RINGERS SOLUTION 1,000 ML IV PRN ×2 (04:22→11:58)
[2018-06-17] MEDS: LORAZEPAM INJ 2 MG/1 ML VIAL IV PRN (04:22)
[2018-06-17] MEDS: HEPARIN SOD (PORCINE) 5,000 UNIT/ML 1 ML SYRINGE SUBCUT SCH ×3 (05:13→22:06)
[2018-06-17 05:40] LABS: ABSOLUTE LYMPHOCYTES (AUTO) 0.4 10^3/uL (0.5-4.7); ABSOLUTE MONOCYTES (AUTO) 0.5 10^3/uL (0.1-1.4); ABSOLUTE NEUT (AUTO) 4.8 10^3/uL (1.7-8.2); EOSINOPHILS % (AUTO) 0.7 % (0-6); HEMATOCRIT 24.3 % (37.9-51.0); LYMPHOCYTES % (AUTO) 7.4 % (13-45); MEAN CORPUSCULAR HEMOGLOBIN 31.1 pg (27.0-33.4); MEAN CORPUSCULAR HGB CONC 32.6 g/dL (32.0-36.0); MEAN CORPUSCULAR VOLUME 95 fl (80-97); MONOCYTES % (AUTO) 8.4 % (3-13); PLATELET COUNT 130 10^3/uL (150-450); RED BLOOD COUNT 2.55 10^6/uL (4.35-5.55); RED CELL DISTRIBUTION WIDTH 20.1 % (11.5-14.0); SEGMENTED NEUTROPHILS % (AUTO) 83.5 % (42-78); TOTAL CELLS COUNTED % (AUTO) 100 %; WHITE BLOOD COUNT 5.7 10^3/uL (4.0-10.5)
[2018-06-17 05:48] LABS: HEMOGLOBIN 7.9 g/dL (13.5-17.0)
[2018-06-17 05:57] LABS: ALANINE AMINOTRANSFERASE 17 U/L (21-72); ALBUMIN 2.4 g/dL (3.5-5.0); ALKALINE PHOSPHATASE 159 U/L (38-126); ANION GAP 9 (5-19); ASPARTATE AMINO TRANSFERASE 27 U/L (17-59); BILIRUBIN,DIRECT 0.8 mg/dL (0.0-0.4); BILIRUBIN,TOTAL 0.8 mg/dL (0.2-1.3); BLOOD UREA NITROGEN 51 mg/dL (7-20); CALCIUM 8.5 mg/dL (8.4-10.2); CARBON DIOXIDE 22 mmol/L (22-30); CHLORIDE 111 mmol/L (98-107); GLUCOSE 94 mg/dL (75-110); POTASSIUM 3.4 mmol/L (3.6-5.0); SODIUM 141.9 mmol/L (137-145); TOTAL PROTEIN 4.9 g/dL (6.3-8.2)
[2018-06-17] MEDS ORDERED: NORMAL SALINE 250 ML IV PRN (08:51)
--- NOTE | 2018-06-17 08:51 | PDOC PROGRESS REPORT ---
Subjective Progress Note for:: 06/17/18 Subjective:: Patient remains confused. He is talkative, but is not oriented to person, place, or time. He tells me that he has been eating but is having diarrhea. He denies pain, but complains of weakness. Nurses report that he is not eating much and is asking for rum and cokes. Reason For Visit: LUNG CANCER HYPONATREMIA Physical Exam Vital Signs: Temp Pulse Resp BP Pulse Ox 97.3 F 89 20 136/78 H 96 06/17/18 07:31 06/17/18 07:50 06/17/18 07:50 06/17/18 07:31 06/17/18 07:50 Intake & Output 06/16/18 06/17/18 06/18/18 06:59 06:59 06:59 Intake Total 1165 2744 Output Total 350 Balance 1165 2394 Weight 95.3 kg 94.2 kg General appearance: PRESENT: well-developed, well-nourished Head exam: PRESENT: normocephalic Respiratory exam: PRESENT: unlabored, other - No breath sound right lung - no change. Cardiovascular exam: PRESENT: RRR GI/Abdominal exam: PRESENT: soft. ABSENT: tenderness Extremities exam: ABSENT: pedal edema Neurological exam: PRESENT: awake. ABSENT: oriented to person, oriented to place, oriented to time, oriented to situation Psychiatric exam: PRESENT: appropriate affect Focused psych exam: PRESENT: delusional Skin exam: PRESENT: normal color Results Laboratory Results: 06/17/18 05:23 06/17/18 05:23 06/17/18 06/17/18 05:23 05:23 WBC 5.7 RBC 2.55 L Hgb 7.9 L Hct 24.3 L MCV 95 MCH 31.1 MCHC 32.6 RDW 20.1 H Plt Count 130 L Seg Neutrophils % 83.5 H Lymphocytes % 7.4 L Monocytes % 8.4 Eosinophils % 0.7 Basophils % 0.0 Absolute Neutrophils 4.8 Absolute Lymphocytes 0.4 L Absolute Monocytes 0.5 Absolute Eosinophils 0.0 Absolute Basophils 0.0 Sodium 141.9 Potassium 3.4 L Chloride 111 H Carbon Dioxide 22 Anion Gap 9 BUN 51 H Creatinine 3.62 H Est GFR ( Amer) 21 L Est GFR (Non-Af Amer) 17 L Glucose 94 Calcium 8.5 Magnesium 2.0 Total Bilirubin 0.8 AST 27 ALT 17 L Alkaline Phosphatase 159 H Total Protein 4.9 L Albumin 2.4 L 06/02/18 23:30 Troponin I < 0.012 Impressions: Abdomen/Pelvis CT 06/03/18 00:03 IMPRESSION: Little change in the appearance of the chest compared with the most recent CT chest. Stable postsurgical changes and volume loss of the right hemithorax. Stable areas of airspace opacity in the right paramediastinal region and right hilar regions. Areas of fibrosis are also noted. Fatty infiltrative change to the liver. Cholelithiasis. Sigmoid diverticulosis without CT evidence for diverticulitis. TECHNICAL DOCUMENTATION: Quality ID # 436: Final reports with documentation of one or more dose reduction techniques (e.g., Automated exposure control, adjustment of the mA and/or kV according to patient size, use of iterative reconstruction technique) copyright 2010 [employer]- All Rights Reserved Chest/Abdomen CTA 06/03/18 00:03 IMPRESSION: Little change in the appearance of the chest compared with the most recent CT chest. Stable postsurgical changes and volume loss of the right hemithorax. Stable areas of airspace opacity in the right paramediastinal region and right hilar regions. Areas of fibrosis are also noted. Fatty infiltrative change to the liver. Cholelithiasis. Sigmoid diverticulosis without CT evidence for diverticulitis. TECHNICAL DOCUMENTATION: Quality ID # 436: Final reports with documentation of one or more dose reduction techniques (e.g., Automated exposure control, adjustment of the mA and/or kV according to patient size, use of iterative reconstruction technique) copyright 2010 [employer]- All Rights Reserved Venous Doppler Study 06/05/18 00:00 IMPRESSION: NO EVIDENCE DVT OR SVT IN EITHER LEG. Chest CT 06/07/18 00:00 IMPRESSION: Increasing consolidation right lung, now with complete opacification the right upper lobe with right apical lung parenchymal air-fluid levels worrisome for intrapulmonary abscesses. There is now consolidation in the posterior right lung base worrisome for pneumonia. Head CT 06/09/18 00:00 IMPRESSION: CHRONIC CHANGES OF ATROPHY AND MICROVASCULAR ISCHEMIA. NO ACUTE PROCESS. EVIDENCE OF ACUTE STROKE: NO. Chest Ultrasound 06/09/18 22:52 IMPRESSION: Targeted exam for requested parameters. Chest X-Ray 06/14/18 00:00 IMPRESSION: Complete dense opacification of the right chest. Likely a combination of atelectasis and large effusion, possibly hemothorax. Multiple displaced right rib fractures. Head MRI 06/15/18 00:00 IMPRESSION: Limited for assessment of metastases by lack of IV contrast, however there is no mass effect or vasogenic edema. Microvascular ischemia including changes in the garza matter in the left temporal lobe. No hemorrhage. EVIDENCE OF ACUTE STROKE: NO. Assessment & Plan - Diagnosis (1) Hyponatremia Is this a current diagnosis for this admission?: Yes Plan: Now resolved. (2) Squamous cell carcinoma of right lung Is this a current diagnosis for this admission?: Yes Plan: No further treatment planned at present. He has no evidence of metastatic disease. Initial CT scans indicated no progression of his lung mass over the past 6 months, but Right lung collapse may be due to consolidation, or tumor. Unclear at this point. (3) Peripheral neuropathy Is this a current diagnosis for this admission?: Yes Plan: No change. (4) Hypomagnesemia Is this a current diagnosis for this admission?: Yes Plan: Now resolved. I will stop the oral magnesium supplements and continue to monitor Mag. (5) Alcohol abuse Is this a current diagnosis for this admission?: Yes Plan: Longstanding. No further evidence of DTs. But confabulation and confusion continue. (6) Acute diarrhea Is this a current diagnosis for this admission?: Yes Plan: Improved. I will hold colace. (7) Pneumonia Qualifiers: Pneumonia type: due to unspecified organism Laterality: right Lung location: unspecified part of lung Qualified Code(s): J18.9 - Pneumonia, unspecified organism Is this a current diagnosis for this admission?: Yes Plan: Discussed IV antibiotics with Dr. Monroe. I would simplify his regimen if possible. Still awaiting transfer to [facility] for possible bronch with stenting. (8) Acute renal failure Is this a current diagnosis for this admission?: Yes Plan: Continues. IV fluids added. Thought to be due to Vanc. This has now been stopped. (9) Anemia Qualifiers: Anemia type: unspecified type Qualified Code(s): D64.9 - Anemia, unspecified Is this a current diagnosis for this admission?: Yes Plan: Will transfuse 2 units pRBCs (10) Hypoxia Is this a current diagnosis for this admission?: Yes Plan: ABGs still look bad. He has BiPAP/CPAP at night. Unclear how much his mental status is due to hypoxia/hypercapnea and how much is other causes.
[2018-06-17] MEDS: DOCUSATE SODIUM 100 MG CAPSULE PO SCH ×2 (09:49→17:03)
[2018-06-17] MEDS: CEFEPIME 1 GM/D5W RTU 1 GM/50 ML RTUPB IV SCH ×2 (09:52→23:44)
[2018-06-17] MEDS: DILTIAZEM HCL 120 MG CAP.SR.24H PO SCH (09:53)
[2018-06-17] MEDS: THIAMINE HCL 100 MG TABLET PO SCH (09:54)
--- NOTE | 2018-06-17 15:25 | PDOC PROGRESS REPORT ---
Subjective Progress Note for:: 06/17/18 Reason For Visit: Patient seen today. He is laying in bed without any acute distress. Discussions were done with the nurse as well. He is unable to answer all questions appropriately as he seems confused. He is incontinent of urine. Labs and medications were reviewed with the patient and the nurse. Still awaiting bed for transfer. Physical Exam Vital Signs: Temp Pulse Resp BP Pulse Ox 97.7 F 108 H 20 146/81 H 89 L 06/17/18 11:27 06/17/18 14:00 06/17/18 13:42 06/17/18 11:27 06/17/18 13:42 Intake & Output 06/16/18 06/17/18 06/18/18 06:59 06:59 06:59 Intake Total 1165 2744 1050 Output Total 350 Balance 1165 2394 1050 Weight 95.3 kg 94.2 kg General appearance: PRESENT: no acute distress Respiratory exam: PRESENT: clear to auscultation rodrigue, crackles, decreased breath sounds Cardiovascular exam: PRESENT: +S1, +S2, systolic murmur GI/Abdominal exam: PRESENT: normal bowel sounds, soft. ABSENT: organomegaly, tenderness Extremities exam: PRESENT: pedal edema Neurological exam: PRESENT: altered, awake Results Laboratory Results: 06/17/18 05:23 06/17/18 05:23 06/17/18 06/17/18 06/17/18 05:23 05:23 10:42 WBC 5.7 RBC 2.55 L Hgb 7.9 L Hct 24.3 L MCV 95 MCH 31.1 MCHC 32.6 RDW 20.1 H Plt Count 130 L Seg Neutrophils % 83.5 H Lymphocytes % 7.4 L Monocytes % 8.4 Eosinophils % 0.7 Basophils % 0.0 Absolute Neutrophils 4.8 Absolute Lymphocytes 0.4 L Absolute Monocytes 0.5 Absolute Eosinophils 0.0 Absolute Basophils 0.0 Sodium 141.9 Potassium 3.4 L Chloride 111 H Carbon Dioxide 22 Anion Gap 9 BUN 51 H Creatinine 3.62 H Est GFR ( Amer) 21 L Est GFR (Non-Af Amer) 17 L Glucose 94 Calcium 8.5 Magnesium 2.0 Total Bilirubin 0.8 AST 27 ALT 17 L Alkaline Phosphatase 159 H Total Protein 4.9 L Albumin 2.4 L Blood Type O POSITIVE Antibody Screen POSITIVE 06/02/18 23:30 Troponin I < 0.012 Impressions: Abdomen/Pelvis CT 06/03/18 00:03 IMPRESSION: Little change in the appearance of the chest compared with the most recent CT chest. Stable postsurgical changes and volume loss of the right hemithorax. Stable areas of airspace opacity in the right paramediastinal region and right hilar regions. Areas of fibrosis are also noted. Fatty infiltrative change to the liver. Cholelithiasis. Sigmoid diverticulosis without CT evidence for diverticulitis. TECHNICAL DOCUMENTATION: Quality ID # 436: Final reports with documentation of one or more dose reduction techniques (e.g., Automated exposure control, adjustment of the mA and/or kV according to patient size, use of iterative reconstruction technique) copyright 2010 [employer]- All Rights Reserved Chest/Abdomen CTA 06/03/18 00:03 IMPRESSION: Little change in the appearance of the chest compared with the most recent CT chest. Stable postsurgical changes and volume loss of the right hemithorax. Stable areas of airspace opacity in the right paramediastinal region and right hilar regions. Areas of fibrosis are also noted. Fatty infiltrative change to the liver. Cholelithiasis. Sigmoid diverticulosis without CT evidence for diverticulitis. TECHNICAL DOCUMENTATION: Quality ID # [id number]: Final reports with documentation of one or more dose reduction techniques (e.g., Automated exposure control, adjustment of the mA and/or kV according to patient size, use of iterative reconstruction technique) copyright 2010 [employer]- All Rights Reserved Venous Doppler Study 06/05/18 00:00 IMPRESSION: NO EVIDENCE DVT OR SVT IN EITHER LEG. Chest CT 06/07/18 00:00 IMPRESSION: Increasing consolidation right lung, now with complete opacification the right upper lobe with right apical lung parenchymal air-fluid levels worrisome for intrapulmonary abscesses. There is now consolidation in the posterior right lung base worrisome for pneumonia. Head CT 06/09/18 00:00 IMPRESSION: CHRONIC CHANGES OF ATROPHY AND MICROVASCULAR ISCHEMIA. NO ACUTE PROCESS. EVIDENCE OF ACUTE STROKE: NO. Chest Ultrasound 06/09/18 22:52 IMPRESSION: Targeted exam for requested parameters. Chest X-Ray 06/14/18 00:00 IMPRESSION: Complete dense opacification of the right chest. Likely a combination of atelectasis and large effusion, possibly hemothorax. Multiple displaced right rib fractures. Head MRI 06/15/18 00:00 IMPRESSION: Limited for assessment of metastases by lack of IV contrast, however there is no mass effect or vasogenic edema. Microvascular ischemia including changes in the garza matter in the left temporal lobe. No hemorrhage. EVIDENCE OF ACUTE STROKE: NO. Assessment & Plan - Diagnosis (1) Acute renal failure Is this a current diagnosis for this admission?: Yes Plan: Multifactorial which includes dehydration/ATN/vanc toxicity. Unable to quantify as he is incontinent and I would not want to put a catheter in this patient who is confused. Labs reviewed show stable creatinine. Continue IV fluids. (2) Pneumonia Qualifiers: Pneumonia type: due to unspecified organism Laterality: right Lung location: unspecified part of lung Qualified Code(s): J18.9 - Pneumonia, unspecified organism Is this a current diagnosis for this admission?: Yes Plan: Secondary to obstructive CA of the lungs. (3) Squamous cell carcinoma of right lung Is this a current diagnosis for this admission?: Yes Plan: Awaiting transfer for stent placement in the bronchus.Managed by heme onc. (4) Anemia Qualifiers: Anemia type: unspecified type Qualified Code(s): D64.9 - Anemia, unspecified Is this a current diagnosis for this admission?: Yes Plan: As per heme onc. (5) Hyponatremia Is this a current diagnosis for this admission?: Yes Plan: stable. Monitor. (6) Confusion Plan: Possibly combination of hypoxia/metabolic encephalopathy. Also check his ammonia levels and will place an order for that
--- NOTE | 2018-06-17 17:24 | PDOC PROGRESS REPORT ---
Subjective Progress Note for:: 06/17/18 Subjective:: Patient still remains confused but mild improvement compared to yesterday he is oriented to person place but not time. Denies any pain complaining of generalized weakness. No acute distress. Has been refusing his meals and finished with about 25% of his only finishes 25% of his meal and sometimes refuses them altogether. Weight is 94.2 kg on admission 92.8 kg. Patient is still pending transfer to [facility]. Was made to [facility] to inquire about room availability. No rooms available as yet. Reason For Visit: LUNG CANCER HYPONATREMIA Physical Exam Vital Signs: Temp Pulse Resp BP Pulse Ox 97.8 F 104 H 20 129/89 H 93 06/17/18 16:45 06/17/18 16:45 06/17/18 16:45 06/17/18 16:45 06/17/18 16:45 Intake & Output 06/16/18 06/17/18 06/18/18 06:59 06:59 06:59 Intake Total 1165 2744 1348 Output Total 350 Balance 1165 2394 1348 Weight 95.3 kg 94.2 kg General appearance: PRESENT: no acute distress, well-developed, well-nourished Head exam: PRESENT: atraumatic, normocephalic Respiratory exam: PRESENT: crackles - Right chest., decreased breath sounds - Right lungs.. ABSENT: rales, rhonchi, wheezes Cardiovascular exam: PRESENT: RRR. ABSENT: diastolic murmur, rubs, systolic murmur GI/Abdominal exam: PRESENT: normal bowel sounds, soft. ABSENT: distended, guarding, mass, organolmegaly, rebound, tenderness Neurological exam: PRESENT: alert, awake, oriented to person, oriented to place, CN II-XII grossly intact Results Laboratory Results: 06/17/18 05:23 06/17/18 05:23 06/17/18 06/17/18 06/17/18 05:23 05:23 10:42 WBC 5.7 RBC 2.55 L Hgb 7.9 L Hct 24.3 L MCV 95 MCH 31.1 MCHC 32.6 RDW 20.1 H Plt Count 130 L Seg Neutrophils % 83.5 H Lymphocytes % 7.4 L Monocytes % 8.4 Eosinophils % 0.7 Basophils % 0.0 Absolute Neutrophils 4.8 Absolute Lymphocytes 0.4 L Absolute Monocytes 0.5 Absolute Eosinophils 0.0 Absolute Basophils 0.0 Sodium 141.9 Potassium 3.4 L Chloride 111 H Carbon Dioxide 22 Anion Gap 9 BUN 51 H Creatinine 3.62 H Est GFR ( Amer) 21 L Est GFR (Non-Af Amer) 17 L Glucose 94 Calcium 8.5 Magnesium 2.0 Total Bilirubin 0.8 AST 27 ALT 17 L Alkaline Phosphatase 159 H Ammonia Total Protein 4.9 L Albumin 2.4 L Blood Type O POSITIVE Antibody Screen POSITIVE 06/17/18 16:15 WBC RBC Hgb Hct MCV MCH MCHC RDW Plt Count Seg Neutrophils % Lymphocytes % Monocytes % Eosinophils % Basophils % Absolute Neutrophils Absolute Lymphocytes Absolute Monocytes Absolute Eosinophils Absolute Basophils Sodium Potassium Chloride Carbon Dioxide Anion Gap BUN Creatinine Est GFR ( Amer) Est GFR (Non-Af Amer) Glucose Calcium Magnesium Total Bilirubin AST ALT Alkaline Phosphatase Ammonia < 8.7 L Total Protein Albumin Blood Type Antibody Screen 06/02/18 23:30 Troponin I < 0.012 Impressions: Abdomen/Pelvis CT 06/03/18 00:03 IMPRESSION: Little change in the appearance of the chest compared with the most recent CT chest. Stable postsurgical changes and volume loss of the right hemithorax. Stable areas of airspace opacity in the right paramediastinal region and right hilar regions. Areas of fibrosis are also noted. Fatty infiltrative change to the liver. Cholelithiasis. Sigmoid diverticulosis without CT evidence for diverticulitis. TECHNICAL DOCUMENTATION: Quality ID # 436: Final reports with documentation of one or more dose reduction techniques (e.g., Automated exposure control, adjustment of the mA and/or kV according to patient size, use of iterative reconstruction technique) copyright 2011 [employer]- All Rights Reserved Chest/Abdomen CTA 06/03/18 00:03 IMPRESSION: Little change in the appearance of the chest compared with the most recent CT chest. Stable postsurgical changes and volume loss of the right hemithorax. Stable areas of airspace opacity in the right paramediastinal region and right hilar regions. Areas of fibrosis are also noted. Fatty infiltrative change to the liver. Cholelithiasis. Sigmoid diverticulosis without CT evidence for diverticulitis. TECHNICAL DOCUMENTATION: Quality ID # [id number]: Final reports with documentation of one or more dose reduction techniques (e.g., Automated exposure control, adjustment of the mA and/or kV according to patient size, use of iterative reconstruction technique) copyright 2010 [employer]- All Rights Reserved Venous Doppler Study 06/05/18 00:00 IMPRESSION: NO EVIDENCE DVT OR SVT IN EITHER LEG. Chest CT 06/07/18 00:00 IMPRESSION: Increasing consolidation right lung, now with complete opacification the right upper lobe with right apical lung parenchymal air-fluid levels worrisome for intrapulmonary abscesses. There is now consolidation in the posterior right lung base worrisome for pneumonia. Head CT 06/09/18 00:00 IMPRESSION: CHRONIC CHANGES OF ATROPHY AND MICROVASCULAR ISCHEMIA. NO ACUTE PROCESS. EVIDENCE OF ACUTE STROKE: NO. Chest Ultrasound 06/09/18 22:52 IMPRESSION: Targeted exam for requested parameters. Chest X-Ray 06/14/18 00:00 IMPRESSION: Complete dense opacification of the right chest. Likely a combination of atelectasis and large effusion, possibly hemothorax. Multiple displaced right rib fractures. Head MRI 06/15/18 00:00 IMPRESSION: Limited for assessment of metastases by lack of IV contrast, however there is no mass effect or vasogenic edema. Microvascular ischemia including changes in the garza matter in the left temporal lobe. No hemorrhage. EVIDENCE OF ACUTE STROKE: NO. Assessment & Plan - Diagnosis (1) Squamous cell carcinoma of right lung Is this a current diagnosis for this admission?: Yes Plan: Oncology on board. As per notes no further treatments planned at present. No progression of metastatic disease. Right lung collapse may be due to consolidation or tumor. (2) Lung mass Is this a current diagnosis for this admission?: Yes Plan: Oncology on board. Please refer to note. (3) Pneumonia Qualifiers: Pneumonia type: due to unspecified organism Laterality: right Lung location: unspecified part of lung Qualified Code(s): J18.9 - Pneumonia, unspecified organism Is this a current diagnosis for this admission?: Yes Plan: Cultures negative. No leukocytosis. Afebrile. Saturating 93% on 3 L nasal cannula FiO2 40%. DC Maxipime. Continue levofloxacin for now. Possible postobstructive pneumonia. Vancomycin was stopped due to nephrotoxicity. Cultures have been negative. Dr. Bryant from pulmonology switched cefepime to Zosyn on 06/09/2018. On 06/09/2018: Dr. Mackay consulted Dr. Patselas for questionable lung abscess. Dr. Salcedo recommended transfer for cardiothoracic surgery consultation. Asaad contacted cardiothoracic surgery and they reviewed the films and recommended continuing IV antibiotic management. Patient is waiting to be transferred to [facility] for possible bronchial stent. (4) Acute renal failure Is this a current diagnosis for this admission?: Yes Plan: Nonoliguric. Nephrology on board. Thought to be due to vancomycin which has been stopped. Continue IV fluids guided by volume status. Monitor electrolytes. Avoid nephrotoxic agents. (5) Dehydration Is this a current diagnosis for this admission?: Yes Plan: Continue D5 NS. Monitor volume status. (6) Hypokalemia Is this a current diagnosis for this admission?: Yes Plan: Replace as needed. Daily BMP. (7) Diarrhea Is this a current diagnosis for this admission?: Yes Plan: Laxatives. Improved. (8) Anemia Qualifiers: Anemia type: unspecified type Qualified Code(s): D64.9 - Anemia, unspecified Is this a current diagnosis for this admission?: Yes Plan: Transfuse 1 PRBC. H&H tomorrow. Monitor for signs of bleeding. Supportive transfusions. (9) Alcohol abuse Is this a current diagnosis for this admission?: Yes Plan: History of alcohol abuse. Does not seem to be withdrawing. Continue thiamine and folic acid.
[2018-06-17] MEDS: MEGESTROL ACETATE SUSP 400 MG/10 ML UDCUP PO SCH (17:59)
[2018-06-17] MEDS ORDERED: CEFEPIME 1 GM/D5W RTU 1 GM/50 ML RTUPB IV SCH (22:00)
[2018-06-18] MEDS: LORAZEPAM INJ 2 MG/1 ML VIAL IV PRN (02:03)
[2018-06-18] MEDS: LEVALBUTEROL HCL NEB 1.25 MG/3 ML AMPUL NEB SCH ×4 (02:24→19:54)
[2018-06-18] MEDS: DEXTROSE 5%-NORMAL SALINE 1,000 ML IV PRN ×3 (02:39→23:32)
[2018-06-18] MEDS: HEPARIN SOD (PORCINE) 5,000 UNIT/ML 1 ML SYRINGE SUBCUT SCH ×3 (05:42→22:17)
[2018-06-18 06:27] LABS: ABSOLUTE BASOPHILS # (AUTO) 0.1 10^3/uL (0.0-0.2); ABSOLUTE LYMPHOCYTES (AUTO) 0.6 10^3/uL (0.5-4.7); ABSOLUTE MONOCYTES (AUTO) 0.6 10^3/uL (0.1-1.4); ABSOLUTE NEUT (AUTO) 4.6 10^3/uL (1.7-8.2); BASOPHILS % (AUTO) 0.9 % (0-2); EOSINOPHILS % (AUTO) 0.6 % (0-6); HEMATOCRIT 32.2 % (37.9-51.0); LYMPHOCYTES % (AUTO) 9.7 % (13-45); MEAN CORPUSCULAR HEMOGLOBIN 31.1 pg (27.0-33.4); MEAN CORPUSCULAR HGB CONC 33.7 g/dL (32.0-36.0); MEAN CORPUSCULAR VOLUME 92 fl (80-97); MONOCYTES % (AUTO) 10.4 % (3-13); PLATELET COUNT 109 10^3/uL (150-450); RED BLOOD COUNT 3.49 10^6/uL (4.35-5.55); RED CELL DISTRIBUTION WIDTH 20.1 % (11.5-14.0); SEGMENTED NEUTROPHILS % (AUTO) 78.4 % (42-78); TOTAL CELLS COUNTED % (AUTO) 100 %; WHITE BLOOD COUNT 5.9 10^3/uL (4.0-10.5)
[2018-06-18 06:28] LABS: HEMOGLOBIN 10.8 g/dL (13.5-17.0)
[2018-06-18 06:49] LABS: ALANINE AMINOTRANSFERASE 19 U/L (21-72); ALBUMIN 2.7 g/dL (3.5-5.0); ALKALINE PHOSPHATASE 178 U/L (38-126); ANION GAP 9 (5-19); ASPARTATE AMINO TRANSFERASE 27 U/L (17-59); BILIRUBIN,DIRECT 0.6 mg/dL (0.0-0.4); BILIRUBIN,TOTAL 0.8 mg/dL (0.2-1.3); BLOOD UREA NITROGEN 49 mg/dL (7-20); CALCIUM 8.9 mg/dL (8.4-10.2); CARBON DIOXIDE 24 mmol/L (22-30); CHLORIDE 111 mmol/L (98-107); GLUCOSE 112 mg/dL (75-110); POTASSIUM 3.3 mmol/L (3.6-5.0); SODIUM 143.5 mmol/L (137-145); TOTAL PROTEIN 5.7 g/dL (6.3-8.2)
--- NOTE | 2018-06-18 09:02 | PDOC PROGRESS REPORT ---
Subjective Progress Note for:: 06/18/18 Subjective:: NO acute changes Reason For Visit: LUNG CANCER HYPONATREMIA Physical Exam Vital Signs: Temp Pulse Resp BP Pulse Ox 97.3 F 100 20 135/80 H 93 06/18/18 07:54 06/18/18 08:23 06/18/18 08:23 06/18/18 07:54 06/18/18 08:23 Intake & Output 06/17/18 06/18/18 06/19/18 06:59 06:59 06:59 Intake Total 2744 3485 Output Total 350 Balance 2394 3485 Weight 94.2 kg 94.2 kg General appearance: PRESENT: no acute distress, well-developed, well-nourished Head exam: PRESENT: atraumatic, normocephalic Eye exam: PRESENT: conjunctiva pink, EOMI, PERRLA. ABSENT: scleral icterus Ear exam: PRESENT: normal external ear exam Mouth exam: PRESENT: moist, tongue midline Neck exam: ABSENT: carotid bruit, JVD, lymphadenopathy, thyromegaly Respiratory exam: PRESENT: clear to auscultation rodrigue. ABSENT: rales, rhonchi, wheezes Cardiovascular exam: PRESENT: RRR. ABSENT: diastolic murmur, rubs, systolic murmur Pulses: PRESENT: normal dorsalis pedis pul Vascular exam: PRESENT: normal capillary refill GI/Abdominal exam: PRESENT: normal bowel sounds, soft. ABSENT: distended, guarding, mass, organolmegaly, rebound, tenderness Rectal exam: PRESENT: deferred Extremities exam: PRESENT: full ROM. ABSENT: calf tenderness, clubbing, pedal edema Neurological exam: PRESENT: alert, awake, oriented to person, oriented to place, oriented to time, oriented to situation, CN II-XII grossly intact. ABSENT: m otor sensory deficit Psychiatric exam: PRESENT: appropriate affect, normal mood. ABSENT: homicidal ideation, suicidal ideation Skin exam: PRESENT: dry, intact, warm. ABSENT: cyanosis, rash Results Laboratory Results: 06/18/18 05:34 06/18/18 05:34 06/17/18 06/17/18 06/18/18 10:42 16:15 05:34 WBC 5.9 RBC 3.49 L Hgb 10.8 L D Hct 32.2 L MCV 92 MCH 31.1 MCHC 33.7 RDW 20.1 H Plt Count 109 L Seg Neutrophils % 78.4 H Lymphocytes % 9.7 L Monocytes % 10.4 Eosinophils % 0.6 Basophils % 0.9 Absolute Neutrophils 4.6 Absolute Lymphocytes 0.6 Absolute Monocytes 0.6 Absolute Eosinophils 0.0 Absolute Basophils 0.1 Sodium Potassium Chloride Carbon Dioxide Anion Gap BUN Creatinine Est GFR ( Amer) Est GFR (Non-Af Amer) Glucose Calcium Magnesium Total Bilirubin AST ALT Alkaline Phosphatase Ammonia < 8.7 L Total Protein Albumin Blood Type O POSITIVE Antibody Screen POSITIVE 06/18/18 05:34 WBC RBC Hgb Hct MCV MCH MCHC RDW Plt Count Seg Neutrophils % Lymphocytes % Monocytes % Eosinophils % Basophils % Absolute Neutrophils Absolute Lymphocytes Absolute Monocytes Absolute Eosinophils Absolute Basophils Sodium 143.5 Potassium 3.3 L Chloride 111 H Carbon Dioxide 24 Anion Gap 9 BUN 49 H Creatinine 3.64 H Est GFR ( Amer) 21 L Est GFR (Non-Af Amer) 17 L Glucose 112 H Calcium 8.9 Magnesium 2.0 Total Bilirubin 0.8 AST 27 ALT 19 L Alkaline Phosphatase 178 H Ammonia Total Protein 5.7 L Albumin 2.7 L Blood Type Antibody Screen 06/02/18 23:30 Troponin I < 0.012 Impressions: Abdomen/Pelvis CT 06/03/18 00:03 IMPRESSION: Little change in the appearance of the chest compared with the most recent CT chest. Stable postsurgical changes and volume loss of the right hemithorax. Stable areas of airspace opacity in the right paramediastinal region and right hilar regions. Areas of fibrosis are also noted. Fatty infiltrative change to the liver. Cholelithiasis. Sigmoid diverticulosis without CT evidence for diverticulitis. TECHNICAL DOCUMENTATION: Quality ID # 436: Final reports with documentation of one or more dose reduction techniques (e.g., Automated exposure control, adjustment of the mA and/or kV according to patient size, use of iterative reconstruction technique) copyright 2011 [employer]- All Rights Reserved Chest/Abdomen CTA 06/03/18 00:03 IMPRESSION: Little change in the appearance of the chest compared with the most recent CT chest. Stable postsurgical changes and volume loss of the right hemithorax. Stable areas of airspace opacity in the right paramediastinal region and right hilar regions. Areas of fibrosis are also noted. Fatty infiltrative change to the liver. Cholelithiasis. Sigmoid diverticulosis without CT evidence for diverticulitis. TECHNICAL DOCUMENTATION: Quality ID # [id number]: Final reports with documentation of one or more dose reduction techniques (e.g., Automated exposure control, adjustment of the mA and/or kV according to patient size, use of iterative reconstruction technique) copyright 2011 [employer]- All Rights Reserved Venous Doppler Study 06/05/18 00:00 IMPRESSION: NO EVIDENCE DVT OR SVT IN EITHER LEG. Chest CT 06/07/18 00:00 IMPRESSION: Increasing consolidation right lung, now with complete opacific ation the right upper lobe with right apical lung parenchymal air-fluid levels worrisome for intrapulmonary abscesses. There is now consolidation in the posterior right lung base worrisome for pneumonia. Head CT 06/09/18 00:00 IMPRESSION: CHRONIC CHANGES OF ATROPHY AND MICROVASCULAR ISCHEMIA. NO ACUTE PROCESS. EVIDENCE OF ACUTE STROKE: NO. Chest Ultrasound 06/09/18 22:52 IMPRESSION: Targeted exam for requested parameters. Chest X-Ray 06/14/18 00:00 IMPRESSION: Complete dense opacification of the right chest. Likely a combination of atelectasis and large effusion, possibly hemothorax. Multiple displaced right rib fractures. Head MRI 06/15/18 00:00 IMPRESSION: Limited for assessment of metastases by lack of IV contrast, however there is no mass effect or vasogenic edema. Microvascular ischemia including changes in the garza matter in the left temporal lobe. No hemorrhage. EVIDENCE OF ACUTE STROKE: NO. Assessment & Plan - Diagnosis (1) Squamous cell carcinoma of right lung Is this a current diagnosis for this admission?: Yes Plan: Not much change, still awaiting transfer
[2018-06-18] MEDS: DILTIAZEM HCL 120 MG CAP.SR.24H PO SCH (09:53)
[2018-06-18] MEDS: ACETAMINOPHEN 325 MG TABLET PO PRN (09:53)
--- NOTE | 2018-06-18 14:02 | PDOC PROGRESS REPORT ---
Subjective Progress Note for:: 06/18/18 Subjective:: Patient was seen today sitting in his bed. At the time he was A&Ox3 but still would have some moments of being altered. Currently still waiting on a bed at [facility]. Patient denied at the time of examination chest pain, SOB, N/V/D/C. He continue to have urine output, but can not be measured due wearing a dipper. Reason For Visit: LUNG CANCER HYPONATREMIA Physical Exam Vital Signs: Temp Pulse Resp BP Pulse Ox 97.3 F 100 20 135/80 H 93 06/18/18 07:54 06/18/18 08:23 06/18/18 08:23 06/18/18 07:54 06/18/18 08:23 Intake & Output 06/17/18 06/18/18 06/19/18 06:59 06:59 06:59 Intake Total 2744 3485 1000 Output Total 350 Balance 2394 3485 1000 Weight 94.2 kg 94.2 kg General appearance: PRESENT: no acute distress, obese, well-developed, well- nourished Mouth exam: PRESENT: moist, neck supple Respiratory exam: PRESENT: clear to auscultation rodrigue. ABSENT: crackles, rales, rhonchi, wheezes Cardiovascular exam: PRESENT: +S1, +S2, systolic murmur GI/Abdominal exam: PRESENT: normal bowel sounds, soft. ABSENT: organomegaly, tenderness Extremities exam: ABSENT: tenderness, +1 edema, +2 edema Musculoskeletal exam: PRESENT: normal inspection. ABSENT: tenderness Neurological exam: PRESENT: alert, altered, awake, oriented to person, oriented to place, oriented to time Skin exam: PRESENT: dry, intact, warm Results Laboratory Results: 06/18/18 05:34 06/18/18 05:34 06/17/18 06/17/18 06/18/18 10:42 16:15 05:34 WBC 5.9 RBC 3.49 L Hgb 10.8 L D Hct 32.2 L MCV 92 MCH 31.1 MCHC 33.7 RDW 20.1 H Plt Count 109 L Seg Neutrophils % 78.4 H Lymphocytes % 9.7 L Monocytes % 10.4 Eosinophils % 0.6 Basophils % 0.9 Absolute Neutrophils 4.6 Absolute Lymphocytes 0.6 Absolute Monocytes 0.6 Absolute Eosinophils 0.0 Absolute Basophils 0.1 Sodium Potassium Chloride Carbon Dioxide Anion Gap BUN Creatinine Est GFR ( Amer) Est GFR (Non-Af Amer) Glucose Calcium Magnesium Total Bilirubin AST ALT Alkaline Phosphatase Ammonia < 8.7 L Total Protein Albumin Blood Type O POSITIVE Antibody Screen POSITIVE 06/18/18 05:34 WBC RBC Hgb Hct MCV MCH MCHC RDW Plt Count Seg Neutrophils % Lymphocytes % Monocytes % Eosinophils % Basophils % Absolute Neutrophils Absolute Lymphocytes Absolute Monocytes Absolute Eosinophils Absolute Basophils Sodium 143.5 Potassium 3.3 L Chloride 111 H Carbon Dioxide 24 Anion Gap 9 BUN 49 H Creatinine 3.64 H Est GFR ( Amer) 21 L Est GFR (Non-Af Amer) 17 L Glucose 112 H Calcium 8.9 Magnesium 2.0 Total Bilirubin 0.8 AST 27 ALT 19 L Alkaline Phosphatase 178 H Ammonia Total Protein 5.7 L Albumin 2.7 L Blood Type Antibody Screen 06/02/18 23:30 Troponin I < 0.012 Impressions: Abdomen/Pelvis CT 06/03/18 00:03 IMPRESSION: Little change in the appearance of the chest compared with the most recent CT chest. Stable postsurgical changes and volume loss of the right hemithorax. Stable areas of airspace opacity in the right paramediastinal region and right hilar regions. Areas of fibrosis are also noted. Fatty infiltrative change to the liver. Cholelithiasis. Sigmoid diverticulosis without CT evidence for diverticulitis. TECHNICAL DOCUMENTATION: Quality ID # 436: Final reports with documentation of one or more dose reduction techniques (e.g., Automated exposure control, adjustment of the mA and/or kV according to patient size, use of iterative reconstruction technique) copyright 2010 [employer]- All Rights Reserved Chest/Abdomen CTA 06/03/18 00:03 IMPRESSION: Little change in the appearance of the chest compared with the most recent CT chest. Stable postsurgical changes and volume loss of the right hemithorax. Stable areas of airspace opacity in the right paramediastinal region and right hilar regions. Areas of fibrosis are also noted. Fatty infiltrative change to the liver. Cholelithiasis. Sigmoid diverticulosis without CT evidence for diverticulitis. TECHNICAL DOCUMENTATION: Quality ID # 436: Final reports with documentation of one or more dose reduction techniques (e.g., Automated exposure control, adjustment of the mA and/or kV according to patient size, use of iterative reconstruction technique) copyright 2011 [employer]- All Rights Reserved Venous Doppler Study 06/05/18 00:00 IMPRESSION: NO EVIDENCE DVT OR SVT IN EITHER LEG. Chest CT 06/07/18 00:00 IMPRESSION: Increasing consolidation right lung, now with complete opacification the right upper lobe with right apical lung parenchymal air-fluid levels worrisome for intrapulmonary abscesses. There is now consolidation in the posterior right lung base worrisome for pneumonia. Head CT 06/09/18 00:00 IMPRESSION: CHRONIC CHANGES OF ATROPHY AND MICROVASCULAR ISCHEMIA. NO ACUTE P ROCESS. EVIDENCE OF ACUTE STROKE: NO. Chest Ultrasound 06/09/18 22:52 IMPRESSION: Targeted exam for requested parameters. Chest X-Ray 06/14/18 00:00 IMPRESSION: Complete dense opacification of the right chest. Likely a combination of atelectasis and large effusion, possibly hemothorax. Multiple displaced right rib fractures. Head MRI 06/15/18 00:00 IMPRESSION: Limited for assessment of metastases by lack of IV contrast, however there is no mass effect or vasogenic edema. Microvascular ischemia including changes in the garza matter in the left temporal lobe. No hemorrhage. EVIDENCE OF ACUTE STROKE: NO. Assessment & Plan - Diagnosis (1) Acute renal failure Is this a current diagnosis for this admission?: Yes Plan: multifactorial due to ATN/Vanc toxicity and dehydration. If patient's mentation continue to improve than at some point a catheter may be able to be placed. As of right now creatinine and BUN are stable and there are no signs of fluid building up. No indication for [employer]. (2) Confusion Plan: ammonia level was less that 8, which is normal. AMS looks to be slightly improved since yesterday. According to the nurse in charge of his care he is actually able to answer orientation questions correct. He does however, still show moments of being altered. (3) Anemia Qualifiers: Anemia type: unspecified type Qualified Code(s): D64.9 - Anemia, unspecified Is this a current diagnosis for this admission?: Yes Plan: per heme-onc (4) Hypokalemia Is this a current diagnosis for this admission?: Yes Plan: Will look to give him a 20mEQ potassium supplement (5) Squamous cell carcinoma of right lung Is this a current diagnosis for this admission?: Yes Plan: per heme-onc
[2018-06-18] MEDS ORDERED: POTASSIUM CHLORIDE 10 MEQ CAPSULE.ER PO ONE (14:15)
--- NOTE | 2018-06-18 16:34 | PDOC PROGRESS REPORT ---
Subjective Progress Note for:: 06/18/18 Subjective:: No significant changes. Patient still confused alert, awake, cooperative with physical examination. Only oriented to person. Denies any fever, chills, nausea, vomiting, diarrhea, constipation or any urinary symptoms. Has been refusing his meals and finished with about 25% of his only finishes 25% of his meal and sometimes refuses them altogether. Weight is 94.2 kg on admission 92.8 kg. Nguyen may possibly be transferred to inpatient hospice as oncology has disc ussed CODE STATUS with the family and they have agreed for inpatient hospice. Reason For Visit: LUNG CANCER HYPONATREMIA Physical Exam Vital Signs: Temp Pulse Resp BP Pulse Ox 97.3 F 101 H 29 H 135/80 H 86 L 06/18/18 07:54 06/18/18 14:00 06/18/18 13:39 06/18/18 07:54 06/18/18 13:39 Intake & Output 06/17/18 06/18/18 06/19/18 06:59 06:59 06:59 Intake Total 2744 3485 1240 Output Total 350 Balance 2394 3485 1240 Weight 94.2 kg 94.2 kg General appearance: PRESENT: no acute distress, well-developed, well-nourished Head exam: PRESENT: atraumatic, normocephalic Respiratory exam: PRESENT: clear to auscultation rodrigue, decreased breath sounds - No air entry on the right lung. ABSENT: rales, rhonchi, wheezes Cardiovascular exam: PRESENT: RRR. ABSENT: diastolic murmur, rubs, systolic murmur GI/Abdominal exam: PRESENT: normal bowel sounds, soft. ABSENT: distended, guarding, mass, organolmegaly, rebound, tenderness Extremities exam: PRESENT: full ROM. ABSENT: calf tenderness, clubbing, pedal edema Neurological exam: PRESENT: alert, awake, oriented to person, CN II-XII grossly intact Results Laboratory Results: 06/18/18 05:34 06/18/18 05:34 06/17/18 06/17/18 06/18/18 10:42 16:15 05:34 WBC 5.9 RBC 3.49 L Hgb 10.8 L D Hct 32.2 L MCV 92 MCH 31.1 MCHC 33.7 RDW 20.1 H Plt Count 109 L Seg Neutrophils % 78.4 H Lymphocytes % 9.7 L Monocytes % 10.4 Eosinophils % 0.6 Basophils % 0.9 Absolute Neutrophils 4.6 Absolute Lymphocytes 0.6 Absolute Monocytes 0.6 Absolute Eosinophils 0.0 Absolute Basophils 0.1 Sodium Potassium Chloride Carbon Dioxide Anion Gap BUN Creatinine Est GFR ( Amer) Est GFR (Non-Af Amer) Glucose Calcium Magnesium Total Bilirubin AST ALT Alkaline Phosphatase Ammonia < 8.7 L Total Protein Albumin Blood Type O POSITIVE Antibody Screen POSITIVE 06/18/18 05:34 WBC RBC Hgb Hct MCV MCH MCHC RDW Plt Count Seg Neutrophils % Lymphocytes % Monocytes % Eosinophils % Basophils % Absolute Neutrophils Absolute Lymphocytes Absolute Monocytes Absolute Eosinophils Absolute Basophils Sodium 143.5 Potassium 3.3 L Chloride 111 H Carbon Dioxide 24 Anion Gap 9 BUN 49 H Creatinine 3.64 H Est GFR ( Amer) 21 L Est GFR (Non-Af Amer) 17 L Glucose 112 H Calcium 8.9 Magnesium 2.0 Total Bilirubin 0.8 AST 27 ALT 19 L Alkaline Phosphatase 178 H Ammonia Total Protein 5.7 L Albumin 2.7 L Blood Type Antibody Screen 06/02/18 23:30 Troponin I < 0.012 Impressions: Abdomen/Pelvis CT 06/03/18 00:03 IMPRESSION: Little change in the appearance of the chest compared with the most recent CT chest. Stable postsurgical changes and volume loss of the right hemithorax. Stable areas of airspace opacity in the right paramediastinal region and right hilar regions. Areas of fibrosis are also noted. Fatty infiltrative change to the liver. Cholelithiasis. Sigmoid diverticulosis without CT evidence for diverticulitis. TECHNICAL DOCUMENTATION: Quality ID # 436: Final reports with documentation of one or more dose reduction techniques (e.g., Automated exposure control, adjustment of the mA and/or kV according to patient size, use of iterative reconstruction technique) copyright 2011 [employer]- All Rights Reserved Chest/Abdomen CTA 06/03/18 00:03 IMPRESSION: Little change in the appearance of the chest compared with the most recent CT chest. Stable postsurgical changes and volume loss of the right hemithorax. Stable areas of airspace opacity in the right paramediastinal region and right hilar regions. Areas of fibrosis are also noted. Fatty infiltrative change to the liver. Cholelithiasis. Sigmoid diverticulosis without CT evidence for diverticulitis. TECHNICAL DOCUMENTATION: Quality ID # [id number]: Final reports with documentation of one or more dose reduction techniques (e.g., Automated exposure control, adjustment of the mA and/or kV according to patient size, use of iterative reconstruction technique) copyright 2011 [employer]- All Rights Reserved Venous Doppler Study 06/05/18 00:00 IMPRESSION: NO EVIDENCE DVT OR SVT IN EITHER LEG. Chest CT 06/07/18 00:00 IMPRESSION: Increasing consolidation right lung, now with complete opacification the right upper lobe with right apical lung parenchymal air-fluid levels worrisome for intrapulmonary abscesses. There is now consolidation in the posterior right lung base worrisome for pneumonia. Head CT 06/09/18 00:00 IMPRESSION: CHRONIC CHANGES OF ATROPHY AND MICROVASCULAR ISCHEMIA. NO ACUTE PROCESS. EVIDENCE OF ACUTE STROKE: NO. Chest Ultrasound 06/09/18 22:52 IMPRESSION: Targeted exam for requested parameters. Chest X-Ray 06/14/18 00:00 IMPRESSION: Complete dense opacification of the right chest. Likely a combination of atelectasis and large effusion, possibly hemothorax. Multiple displaced right rib fractures. Head MRI 06/15/18 00:00 IMPRESSION: Limited for assessment of metastases by lack of IV contrast, however there is no mass effect or vasogenic edema. Microvascular ischemia including changes in the garza matter in the left temporal lobe. No hemorrhage. EVIDENCE OF ACUTE STROKE: NO. Assessment & Plan - Diagnosis (1) Squamous cell carcinoma of right lung Is this a current diagnosis for this admission?: Yes Plan: Oncology on board. As per notes no further treatments planned at present. No progression of metastatic disease. Right lung collapse may be due to consolidat ion or tumor. (2) Lung mass Is this a current diagnosis for this admission?: Yes Plan: Oncology on board. Please refer to note. (3) Pneumonia Qualifiers: Pneumonia type: due to unspecified organism Laterality: right Lung location: unspecified part of lung Qualified Code(s): J18.9 - Pneumonia, unspecified organism Is this a current diagnosis for this admission?: Yes Plan: Cultures negative. No leukocytosis. Afebrile. Saturating 93% on 3 L nasal cannula FiO2 40%. Levofloxacin DC'd tomorrow. Continue Maxipime for now. Possible postobstructive pneumonia. Vancomycin was stopped due to nephrotoxicity. Cultures have been negative. Dr. Bryant from pulmonology switched cefepime to Zosyn on 06/09/2018. On 06/09/2018: Dr. Mackay consulted Dr. Salcedo for questionable lung abscess. Dr. Salcedo recommended transfer for cardiothoracic surgery consultation. [facility] contacted cardiothoracic surgery and they reviewed the films and r ecommended continuing IV antibiotic management. Patient is waiting to be transferred to [facility] for possible bronchial stent. (4) Acute renal failure Is this a current diagnosis for this admission?: Yes Plan: Nonoliguric. Stable. Nephrology on board. Thought to be due to vancomycin which has been stopped. Continue IV fluids guided by volume status. Monitor electrolytes. Avoid nephrotoxic agents. (5) Dehydration Is this a current diagnosis for this admission?: Yes Plan: Continue D5 NS. Monitor volume status. (6) Hypokalemia Is this a current diagnosis for this admission?: Yes Plan: Replace as needed. Daily BMP. (7) Diarrhea Is this a current diagnosis for this admission?: Yes Plan: Pending C. difficile. Monitor vital status and electrolytes and replace as needed. Hold laxatives. (8) Anemia Qualifiers: Anemia type: unspecified type Qualified Code(s): D64.9 - Anemia, unspecified Is this a current diagnosis for this admission?: Yes Plan: Status post 1 PRBC transfusion on 06/17/2018. Hemoglobin 8.2 today. H&H tomorrow. Monitor for signs of bleeding. Supportive transfusions. (9) Alcohol abuse Is this a current diagnosis for this admission?: Yes Plan: History of alcohol abuse. Does not seem to be withdrawing. Continue thiamine and folic acid.
[2018-06-18] MEDS: MEGESTROL ACETATE SUSP 400 MG/10 ML UDCUP PO SCH (18:12)
[2018-06-18] MEDS: CEFEPIME 1 GM/D5W RTU 1 GM/50 ML RTUPB IV SCH (22:21)
[2018-06-19] MEDS: LEVALBUTEROL HCL NEB 1.25 MG/3 ML AMPUL NEB SCH ×3 (01:41→13:58)
[2018-06-19] MEDS: HEPARIN SOD (PORCINE) 5,000 UNIT/ML 1 ML SYRINGE SUBCUT SCH ×2 (05:26→14:34)
[2018-06-19 06:41] LABS: ABSOLUTE LYMPHOCYTES (AUTO) 0.7 10^3/uL (0.5-4.7); ABSOLUTE MONOCYTES (AUTO) 0.7 10^3/uL (0.1-1.4); ABSOLUTE NEUT (AUTO) 5.6 10^3/uL (1.7-8.2); EOSINOPHILS % (AUTO) 0.5 % (0-6); HEMATOCRIT 33.8 % (37.9-51.0); HEMOGLOBIN 11.3 g/dL (13.5-17.0); LYMPHOCYTES % (AUTO) 9.8 % (13-45); MEAN CORPUSCULAR HEMOGLOBIN 30.9 pg (27.0-33.4); MEAN CORPUSCULAR HGB CONC 33.5 g/dL (32.0-36.0); MEAN CORPUSCULAR VOLUME 92 fl (80-97); MONOCYTES % (AUTO) 9.5 % (3-13); PLATELET COUNT 112 10^3/uL (150-450); RED BLOOD COUNT 3.66 10^6/uL (4.35-5.55); RED CELL DISTRIBUTION WIDTH 19.8 % (11.5-14.0); SEGMENTED NEUTROPHILS % (AUTO) 80.2 % (42-78); TOTAL CELLS COUNTED % (AUTO) 100 %; WHITE BLOOD COUNT 6.9 10^3/uL (4.0-10.5)
[2018-06-19 07:22] LABS: ALANINE AMINOTRANSFERASE 13 U/L (21-72); ALBUMIN 2.7 g/dL (3.5-5.0); ALKALINE PHOSPHATASE 191 U/L (38-126); ANION GAP 12 (5-19); ASPARTATE AMINO TRANSFERASE 23 U/L (17-59); BILIRUBIN,DIRECT 0.8 mg/dL (0.0-0.4); BILIRUBIN,TOTAL 0.9 mg/dL (0.2-1.3); BLOOD UREA NITROGEN 44 mg/dL (7-20); CALCIUM 8.8 mg/dL (8.4-10.2); CARBON DIOXIDE 23 mmol/L (22-30); CHLORIDE 111 mmol/L (98-107); GLUCOSE 95 mg/dL (75-110); POTASSIUM 3.1 mmol/L (3.6-5.0); SODIUM 146.1 mmol/L (137-145); TOTAL PROTEIN 5.4 g/dL (6.3-8.2)
[2018-06-19 09:30] VITALS: BP 151/84
[2018-06-19] MEDS: DEXTROSE 5%-NORMAL SALINE 1,000 ML IV PRN (09:35)
[2018-06-19] MEDS: DILTIAZEM HCL 120 MG CAP.SR.24H PO SCH (09:43)
--- NOTE | 2018-06-19 12:31 | PDOC TRANSFER SUMMARY ---
General Admission Date/PCP: 06/03/18 01:56 SIDDHARTH MACKAY MD Admission Date: 06/03/18 Transfer Date: 06/13/18 Accepting Facility: [facility] Resuscitation Status: Full Code - Transfer Diagnosis (1) Squamous cell carcinoma of right lung Is this a current diagnosis for this admission?: Yes (2) Lung mass Is this a current diagnosis for this admission?: Yes (3) Pneumonia Is this a current diagnosis for this admission?: Yes (4) Acute renal failure Is this a current diagnosis for this admission?: Yes (5) Dehydration Is this a current diagnosis for this admission?: Yes (6) Hypokalemia Is this a current diagnosis for this admission?: Yes (7) Diarrhea Is this a current diagnosis for this admission?: Yes (8) Anemia Is this a current diagnosis for this admission?: Yes (9) Alcohol abuse Is this a current diagnosis for this admission?: Yes (10) Lisa infection of flexural skin Is this a current diagnosis for this admission?: Yes - Transfer Medications Home Medications: Albuterol Sulfate [Proventil Hfa] 2 puff IH Q4HP PRN 06/03/18 Transfer Medications: Current Medications Acetaminophen (Tylenol 325 Mg Tablet) 650 mg PO Q4HP PRN PRN Reason: FEVER Stop: 07/07/18 00:46 Last Admin: 06/18/18 09:53 Dose: 650 mg Documented by: Al Hydrox/Mg Hydrox/Simethicone (Maalox Plus Susp 30 Udcup) 30 ml PO Q6HP PRN PRN Reason: HEARTBURN Stop: 07/03/18 01:39 Last Admin: 06/03/18 09:31 Dose: 30 ml Documented by: Albuterol/Ipratropium (Duoneb 3 Ml Ampul) 3 ml NEB [id number] PRN PRN Reason: SHORTNESS OF BREATH Stop: 07/03/18 01:39 Last Admin: 06/08/18 17:45 Dose: 3 ml Documented by: Diltiazem HCl (Cardizem Cd 120 Mg Capsule) 120 mg PO DAILY [facility] Stop: 07/17/18 09:59 Last Admin: 06/19/18 09:43 Dose: 120 mg Documented by: Heparin Sodium (Porcine) (Heparin Inj 5,000 Units/Ml 1 Ml Syringe) 5,000 unit SUBCUT Q8 [facility] Stop: 07/03/18 05:59 Last Admin: 06/19/18 05:26 Dose: Not Given Documented by: Dextrose/Sodium Chloride (D5ns 1000 Ml Iv Soln) 1,000 mls @ 100 mls/hr IV CONTINUOUS PRN PRN Reason: THIS MED IS NOT "PRN" Stop: 07/17/18 17:26 Last Admin: 06/19/18 09:35 Dose: 100 mls/hr Documented by: Cefepime HCl (Maxipime Rtu 1 Gm/D5w 50 Ml Premix Bag) 1 gm in 50 mls @ 100 mls/hr IV QHS [place] Stop: 06/24/18 21:59 Last Infusion: 06/18/18 23:32 Dose: Infused Documented by: Levalbuterol HCl (Xopenex Neb 1.25 Mg/3 Ml Ampul) 1.25 mg NEB RTQ6 [place] Stop: 07/12/18 13:59 Last Admin: 06/19/18 07:53 Dose: 1.25 mg Documented by: Megestrol Acetate (Megace Deedee 400 Mg/10 Ml Udcup) 400 mg PO QPM [place] Stop: 07/17/18 17:59 Last Admin: 06/18/18 18:12 Dose: 400 mg Documented by: - Allergies Allergies/Adverse Reactions: No Known Allergies Allergy (Verified 01/28/18 10:25) - Diet/Activity Discharge Diet: As Tolerated Hospital Course Hospital Course: ERICKA RAZO is a 58 year old male with a past medical history of stage III squamous cell lung cancer status post chemoradiation completed July 2017 followed by immunotherapy for 5 cycles. His chemotherapy was discontinued several months ago secondary to toxicity according to the patient. He presents with global weakness, acute on chronic peripheral neuropathy of the legs and nonproductive cough. Patient denies current medications with exception to magnesium. In the emergency room a CT reveals unchanged right sided lung mass, extensive emphysema and bronchiectasis and a sodium of 126. (1) Squamous cell carcinoma of right lung Stage III squamous cell lung cancer status post chemoradiation completed July 2017 followed by immunotherapy for 5 cycles. (2) Lung mass Causing right upper lobe postobstructive pneumonia. Patient was started on IV vancomycin, cefepime and Levaquin. Cefepime was switched to Zosyn by bing godwin. Patient's kidney function deteriorated and vancomycin was stopped and then we switch Zosyn later to cefepime again. When discussed with Dr. Bryant, he recommended transfer for interventional pulmonology for possible bronchial stent. Pt was going to go and Dr. Krishna from [facility] for bronchial and has been waiting on the transfer list for several days, however family was updated by our H/O team and given the prognosis family decided for DNR and inpatient hospice placement. (3) Pneumonia Cultures negative. No leukocytosis. Afebrile. Saturating 93% on 3 L nasal cannula FiO2 40%. Levofloxacin DC'd 08/15/2018. Continued on Maxipime. Possible postobstructive pneumonia. Vancomycin was stopped due to nephrotoxicity. Cultures have been negative. Dr. Bryant from pulmonology switched cefepime to Zosyn on 06/09/2018. On 06/09/2018: Dr. Mackay consulted Dr. Salcedo for questionable lung abscess. Dr. Salcedo recommended transfer for cardiothoracic surgery consultation. Thompson contacted cardiothoracic surgery and they reviewed the films and recommended continuing IV antibiotic management. Patient is [facility] be [facility]. (4) Acute renal failure Nonoliguric. Stable. Nephrology on board. Thought to be due to vancomycin which has been stopped. Continue IV fluids guided by volume status. Monitor electrolytes. Avoid nephrotoxic agents. (5) Dehydration Continue D5 NS. Monitor volume status. (6) Hypokalemia Daily replaced as needed. Daily BMP. (7) Diarrhea C. difficile negative. Monitor vital status and electrolytes and replace as needed. Hold laxatives. (8) Anemia Stable. Status post 1 PRBC transfusion on 06/17/2018. Hemoglobin 11.3 today. H&H tomorrow. Monitor for signs of bleeding. Supportive transfusions. (9) Alcohol abuse History of alcohol abuse. Does not seem to be withdrawing. Continue thiamine and folic acid. (10) Rash (Lisa) Groin area. Continue Nystatin Cream. Given on dose of fluconazole 150 PO. Physical Exam Vital Signs: Temp Pulse Resp BP Pulse Ox 97.8 F 118 H 19 151/84 H 95 06/19/18 08:00 06/19/18 08:00 06/19/18 08:00 06/19/18 08:00 06/19/18 08:00 Intake & Output 06/18/18 06/19/1806/20/19 06:59 06:59 06:59 Intake Total 3485 2590 1000 Balance 3485 2590 1000 Weight 94.2 kg 96.5 kg General appearance: PRESENT: no acute distress, well-developed, well-nourished Head exam: PRESENT: atraumatic, normocephalic Respiratory exam: PRESENT: clear to auscultation rodrigue, decreased breath sounds - No air entry Rt Lung. ABSENT: rales, rhonchi, wheezes GI/Abdominal exam: PRESENT: normal bowel sounds, soft. ABSENT: distended, guarding, mass, organolmegaly, rebound, tenderness Neurological exam: PRESENT: alert, awake, oriented to person, oriented to situation, CN II-XII grossly intact. ABSENT: motor sensory deficit Results Laboratory Results: 06/19/18 05:33 06/19/18 05:33 06/19/18 06/19/18 05:33 05:33 WBC 6.9 RBC 3.66 L Hgb 11.3 L Hct 33.8 L MCV 92 MCH 30.9 MCHC 33.5 RDW 19.8 H Plt Count 112 L Seg Neutrophils % 80.2 H Lymphocytes % 9.8 L Monocytes % 9.5 Eosinophils % 0.5 Basophils % 0.0 Absolute Neutrophils 5.6 Absolute Lymphocytes 0.7 Absolute Monocytes 0.7 Absolute Eosinophils 0.0 Absolute Basophils 0.0 Sodium 146.1 H Potassium 3.1 L Chloride 111 H Carbon Dioxide 23 Anion Gap 12 BUN 44 H Creatinine 3.54 H Est GFR ( Amer) 22 L Est GFR (Non-Af Amer) 18 L Glucose 95 Calcium 8.8 Magnesium 1.9 Total Bilirubin 0.9 AST 23 ALT 13 L Alkaline Phosphatase 191 H Total Protein 5.4 L Albumin 2.7 L 06/02/18 23:30 Troponin I < 0.012 Impressions: Abdomen/Pelvis CT 06/03/18 00:03 IMPRESSION: Little change in the appearance of the chest compared with the most recent CT chest. Stable postsurgical changes and volume loss of the right hemithorax. Stable areas of airspace opacity in the right paramediastinal region and right hilar regions. Areas of fibrosis are also noted. Fatty infiltrative change to the liver. Cholelithiasis. Sigmoid diverticulosis without CT evidence for diverticulitis. TECHNICAL DOCUMENTATION: Quality ID # 436: Final reports with documentation of one or more dose reduction techniques (e.g., Automated exposure control, adjustment of the mA and/or kV according to patient size, use of iterative reconstruction technique) copyright 2010 [employer]- All Rights Reserved Chest/Abdomen CTA 06/03/18 00:03 IMPRESSION: Little change in the appearance of the chest compared with the most recent CT chest. Stable postsurgical changes and volume loss of the right hemithorax. Stable areas of airspace opacity in the right paramediastinal region and right hilar regions. Areas of fibrosis are also noted. Fatty infiltrative change to the liver. Cholelithiasis. Sigmoid diverticulosis without CT evidence for diverticulitis. TECHNICAL DOCUMENTATION: Quality ID # 436: Final reports with documentation of one or more dose reduction techniques (e.g., Automated exposure control, adjustment of the mA and/or kV according to patient size, use of iterative reconstruction technique) copyright 2010 [employer]- All Rights Reserved Venous Doppler Study 06/05/18 00:00 IMPRESSION: NO EVIDENCE DVT OR SVT IN EITHER LEG. Chest CT 06/07/18 00:00 IMPRESSION: Increasing consolidation right lung, now with complete opacification the right upper lobe with right apical lung parenchymal air-fluid levels worrisome for intrapulmonary abscesses. There is now consolidation in the posterior right lung base worrisome for pneumonia. Head CT 06/09/18 00:00 IMPRESSION: CHRONIC CHANGES OF ATROPHY AND MICROVASCULAR ISCHEMIA. NO ACUTE PROCESS. EVIDENCE OF ACUTE STROKE: NO. Chest Ultrasound 06/09/18 22:52 IMPRESSION: Targeted exam for requested parameters. Chest X-Ray 06/14/18 00:00 IMPRESSION: Complete dense opacification of the right chest. Likely a combination of atelectasis and large effusion, possibly hemothorax. Multiple displaced right rib fractures. Head MRI 06/15/18 00:00 IMPRESSION: Limited for assessment of metastases by lack of IV contrast, however there is no mass effect or vasogenic edema. Microvascular ischemia including changes in the garza matter in the left temporal lobe. No hemorrhage. EVIDENCE OF ACUTE STROKE: NO.
[2018-06-19] MEDS ORDERED: NYSTATIN OINTMENT 15 GM TUBE TP ONE ×2 (12:54→15:00)
--- NOTE | 2018-06-19 14:17 | PDOC PROGRESS REPORT ---
Subjective Progress Note for:: 06/19/18 Subjective:: Patient continues to speak, but does not make any sense. His metal status has continued to deteriorate. Nurses report that he is still not eating. I spoke with his father yesterday. All questions were answered. Reason For Visit: LUNG CANCER HYPONATREMIA Physical Exam Vital Signs: Temp Pulse Resp BP Pulse Ox 97.8 F 118 H 19 151/84 H 95 06/19/18 08:00 06/19/18 08:00 06/19/18 08:00 06/19/18 08:00 06/19/18 08:00 Intake & Output 06/18/18 06/19/18 06/20/18 06:59 06:59 06:59 Intake Total 3485 2590 1000 Balance 3485 2590 1000 Weight 94.2 kg 96.5 kg General appearance: PRESENT: well-developed, well-nourished Head exam: PRESENT: normocephalic Respiratory exam: PRESENT: other - No breath sound right side, unchanged. Cardiovascular exam: PRESENT: RRR GI/Abdominal exam: PRESENT: soft. ABSENT: tenderness Rectal exam: PRESENT: other - fecal incontinence. Extremities exam: ABSENT: pedal edema Neurological exam: PRESENT: altered. ABSENT: oriented to person, oriented to place, oriented to time, oriented to situation Focused psych exam: PRESENT: delusional Skin exam: PRESENT: normal color Results Laboratory Results: 06/19/18 05:33 06/19/18 05:33 06/19/18 06/19/18 05:33 05:33 WBC 6.9 RBC 3.66 L Hgb 11.3 L Hct 33.8 L MCV 92 MCH 30.9 MCHC 33.5 RDW 19.8 H Plt Count 112 L Seg Neutrophils % 80.2 H Lymphocytes % 9.8 L Monocytes % 9.5 Eosinophils % 0.5 Basophils % 0.0 Absolute Neutrophils 5.6 Absolute Lymphocytes 0.7 Absolute Monocytes 0.7 Absolute Eosinophils 0.0 Absolute Basophils 0.0 Sodium 146.1 H Potassium 3.1 L Chloride 111 H Carbon Dioxide 23 Anion Gap 12 BUN 44 H Creatinine 3.54 H Est GFR ( Amer) 22 L Est GFR (Non-Af Amer) 18 L Glucose 95 Calcium 8.8 Magnesium 1.9 Total Bilirubin 0.9 AST 23 ALT 13 L Alkaline Phosphatase 191 H Total Protein 5.4 L Albumin 2.7 L 01/21/19 23:30 Troponin I < 0.012 Impressions: Abdomen/Pelvis CT 06/03/18 00:03 IMPRESSION: Little change in the appearance of the chest compared with the most recent CT chest. Stable postsurgical changes and volume loss of the right hemithorax. Stable areas of airspace opacity in the right paramediastinal region and right hilar regions. Areas of fibrosis are also noted. Fatty infiltrative change to the liver. Cholelithiasis. Sigmoid diverticulosis without CT evidence for diverticulitis. TECHNICAL DOCUMENTATION: Quality ID # 436: Final reports with documentation of one or more dose reduction techniques (e.g., Automated exposure control, adjustment of the mA and/or kV according to patient size, use of iterative reconstruction technique) copyright 2010 [employer]- All Rights Reserved Chest/Abdomen CTA 06/03/18 00:03 IMPRESSION: Little change in the appearance of the chest compared with the most recent CT chest. Stable postsurgical changes and volume loss of the right hemithorax. Stable areas of airspace opacity in the right paramediastinal region and right hilar regions. Areas of fibrosis are also noted. Fatty infiltrative change to the liver. Cholelithiasis. Sigmoid diverticulosis without CT evidence for diverticulitis. TECHNICAL DOCUMENTATION: Quality ID # 436: Final reports with documentation of one or more dose reduction techniques (e.g., Automated exposure control, adjustment of the mA and/or kV according to patient size, use of iterative reconstruction technique) copyright 2010 [employer]- All Rights Reserved Venous Doppler Study 06/05/18 00:00 IMPRESSION: NO EVIDENCE DVT OR SVT IN EITHER LEG. Chest CT 06/07/18 00:00 IMPRESSION: Increasing consolidation right lung, now with complete opacification the right upper lobe with right apical lung parenchymal air-fluid levels worrisome for intrapulmonary abscesses. There is now consolidation in the posterior right lung base worrisome for pneumonia. Head CT 06/09/18 00:00 IMPRESSION: CHRONIC CHANGES OF ATROPHY AND MICROVASCULAR ISCHEMIA. NO ACUTE PROCESS. EVIDENCE OF ACUTE STROKE: NO. Chest Ultrasound 06/09/18 22:52 IMPRESSION: Targeted exam for requested parameters. Chest X-Ray 06/14/18 00:00 IMPRESSION: Complete dense opacification of the right chest. Likely a combination of atelectasis and large effusion, possibly hemothorax. Multiple displaced right rib fractures. Head MRI 06/15/18 00:00 IMPRESSION: Limited for assessment of metastases by lack of IV contrast, ho wever there is no mass effect or vasogenic edema. Microvascular ischemia including changes in the garza matter in the left temporal lobe. No hemorrhage. EVIDENCE OF ACUTE STROKE: NO. Assessment & Plan - Diagnosis (1) Hyponatremia Is this a current diagnosis for this admission?: Yes (2) Squamous cell carcinoma of right lung Is this a current diagnosis for this admission?: Yes (3) Peripheral neuropathy Is this a current diagnosis for this admission?: Yes (4) Hypomagnesemia Is this a current diagnosis for this admission?: Yes (5) Alcohol abuse Is this a current diagnosis for this admission?: Yes (6) Acute diarrhea Is this a current diagnosis for this admission?: Yes (7) Pneumonia Qualifiers: Pneumonia type: due to unspecified organism Laterality: right Lung location: unspecified part of lung Qualified Code(s): J18.9 - Pneumonia, unspecified organism Is this a current diagnosis for this admission?: Yes (8) Acute renal failure Is this a current diagnosis for this admission?: Yes (9) Anemia Qualifiers: Anemia type: unspecified type Qualified Code(s): D64.9 - Anemia, unspecified Is this a current diagnosis for this admission?: Yes (10) Hypoxia Is this a current diagnosis for this admission?: Yes - Plan Summary Plan Summary: After long discussion with patient's father, decision for Hospice was made. Father requests DNR status so that this may take place. I will arrange. I have left a message for his Sig. Other, Yisel to discuss as well.
[2018-06-19] MEDS ORDERED: FLUCONAZOLE 100 MG TABLET PO ONE (14:30)
[2018-06-19] MEDS: ACETAMINOPHEN 325 MG TABLET PO PRN (16:31)
[2018-06-20] MEDS ORDERED: NYSTATIN OINTMENT 15 GM TUBE TP SCH (10:00)
== END 2018-06-19 16:45 | disposition hospice, inpatient (51) | DRG 640 ==
LOC: ER 23:06 → EH 06-03 01:56 → 4N 06-03 14:38
PROVIDERS: ADMIT Internal Medicine; ATTEND Internal Medicine
PROC: 3E0F3GC Introduction of Other Therapeutic Substance into Respiratory Tract, Percutaneous Approach (ICD-10-PCS; 2018-06-03)
PROC: 5A09357 Assistance with Respiratory Ventilation, Less than 24 Consecutive Hours, Continuous Positive Airway Pressure (ICD-10-PCS; principal; 2018-06-10)
PROC: 30233N1 Transfusion of Nonautologous Red Blood Cells into Peripheral Vein, Percutaneous Approach (ICD-10-PCS; 2018-06-17)
DX: E87.1 Hypo-osmolality and hyponatremia (principal); J18.9 Pneumonia, unspecified organism; N17.0 Acute kidney failure with tubular necrosis; F10.231 Alcohol dependence with withdrawal delirium; C34.91 Malignant neoplasm of unspecified part of right bronchus or lung; J98.11 Atelectasis; R44.3 Hallucinations, unspecified; Z99.81 Dependence on supplemental oxygen; G62.9 Polyneuropathy, unspecified; E83.42 Hypomagnesemia; D64.9 Anemia, unspecified; F17.200 Nicotine dependence, unspecified, uncomplicated; E86.0 Dehydration; R19.7 Diarrhea, unspecified; R94.5 Abnormal results of liver function studies; E87.6 Hypokalemia; R32 Unspecified urinary incontinence; N14.1 Nephropathy induced by other drugs, medicaments and biological substances; T36.8X5A Adverse effect of other systemic antibiotics, initial encounter; Y92.239 Unspecified place in hospital as the place of occurrence of the external cause; R09.02 Hypoxemia; R00.0 Tachycardia, unspecified; R53.1 Weakness; R06.89 Other abnormalities of breathing; R41.0 Disorientation, unspecified; Z66 Do not resuscitate; J44.9 Chronic obstructive pulmonary disease, unspecified; M19.90 Unspecified osteoarthritis, unspecified site; Z92.21 Personal history of antineoplastic chemotherapy; Z92.3 Personal history of irradiation; Z87.820 Personal history of traumatic brain injury; Z80.9 Family history of malignant neoplasm, unspecified
CPT/HCPCS: 36415; 36430; 36600; 70450; 70551; 71045; 71260; 71275; 74177; 76604; 80048; 80053; 80076; 80202; 80307; 81001; 82140; 82533; 82803; 83605; 83735; 83930; 83935; 84100; 84133; 84300; 84439; 84443; 84484; 85025; 85027; 86850; 86870; 86900; 86901; 86902; 86920; 86922; 87040; 87045; 87086; 87205; 87493; 87804; 93005; 93010; 93970; 94660; 96360; 99285; J0692; J1644; J1956; J2060; J2270; J2543; J3360; J3370; J3475; J3480; J3490; J7030; J7050; J7060; J7620; P9016